=== PATIENT | female | born 1935 | race Caucasian/White ===

== ENCOUNTER 2016-08-24 16:34 | Emergency (ER) | payer OTHER, MEDICARE ==
[~2016-08-24] VITALS: Ht 162.6 cm; Wt 74.0 kg
[~2016-08-24 16:34] MED LIST: ARC10 PO; LOSA1TAB38 PO; NTRARSCL; OMEP40CA PO; TYL325X PO
[2016-08-24 16:53] VITALS: TEMP 36.6; Ht 162.6 cm; Wt 74.0 kg
[2016-08-24] MEDS ORDERED: SODIUM CHLORIDE 0.9% 1000ML 1,000 ML IV STA (16:58)
[2016-08-24] MEDS ORDERED: ONDANSETRON INJ 2 MG/ML 2 ML VIAL IV STA (16:58)
--- NOTE | 2016-08-24 17:18 | EMERGENCY ROOM VISIT NOTE ---
History Report prepared by Inocencio: Inna Mueller Under the Supervision of: Dr. Guy Meza D.O. First contact with patient: 16:50 Chief Complaint: SYNCOPE (NEAR SYNCOPE) Stated Complaint: SYNCOPE Nursing Triage Summary: Pt brougth in via ambulance ALS. Pt was eating dinner. After dinner she looked upward and almost passed out. Family states that the pt became very pale, was unable to speak and had a blank stare. After about a minute the pt then vomited and started to speak. Pt stated that she felt very weak and disoriented after this episode. Pt does have a cardiac history. Pt stable en route. History of Present Illness The patient is a 81 year old female who presents to the Emergency Room with complaints of a resolved near syncope episodes occurring [employer]. The patient's family states that they were out to eat at a restaurant and after eating more than she usually does he noticed that she was pale with a blank stare and was not able to speak . He states that after about a minute the patient vomited and then she appeared to started to appear to return to her normal state and after about 5 minutes she was back to complete normal, and that she never appeared confused. The patient states that she is feeling nauseous but denies any chest pain, abdominal pain, headache, SOB, or leg pain and swelling. Her family states that the patient had a similar episode of near syncope in February and she was treated for dehydration. The patient states she was prescribed levofloxacin for cold symptoms that started 3 weeks ago. Source of History: patient, family Onset: [employer] Position: other (global) Timing: resolved Associated Symptoms: + nausea, + vomiting, No SOB, No abdominal pain, No chest pain, No headache Note: Patient denies leg pain or swelling. Review of Systems See HPI for pertinent positives & negatives. A total of 10 systems reviewed and were otherwise negative. 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, primary osteoarthritis of the pelvic region and thigh (14) New onset a-fib Surgical Problems: (1) S/P hip replacement (2) S/P lumbar spinal fusion Family History Bleeding disorder Cancer Depression Diabetes mellitus Hypertension Seizures Stroke Social History Smoking Status: Never Smoker Alcohol Use: none Drug Use: none Marital Status: Housing Status: lives with family Occupation Status: retired Current/Historical Medications Scheduled Atorvastatin (Lipitor), 40 MG PO HS Bumetanide (Bumex), 2 MG PO DAILY Donepezil HCl (Donepezil HCl), 10 MG PO HS Hydralazine Hcl (Apresoline), 50 MG PO TID Isosorbide Mononitrate Ext Rel (Imdur Ext Rel), 60 MG PO QAM Levofloxacin (Levaquin), 500 MG PO DAILY Losartan Potassium (Cozaar), 100 MG PO DAILY Memantine (Namenda), 5 MG PO BID Mirabegron (Myrbetriq), 25 MG PO QAM Omeprazole (Prilosec), 40 MG PO BID Ranolazine (Ranexa), 1,000 TAB PO BID Scheduled PRN Acetaminophen (Tylenol), 650 MG PO Q4H PRN for Pain or Fever Polyethylene Glycol 3350 (Miralax), 17 GM PO DAILY PRN for Constipation Miscellaneous Medications Nitroglycerin (Nitrolingual Pumpspray), 1 SPRAY NA Allergies Coded Allergies: Ampicillin (Verified Allergy, Intermediate, RASH, HIVES, 06/10/16) Furosemide (Verified Allergy, Intermediate, SHORTNESS OF BREATH,throat itching, 06/14/16) Apixaban (Unverified Allergy, Unknown, UNKNOWN, 06/10/16) Cyclobenzaprine (Verified Allergy, Unknown, Unknown rxn, 06/10/16) Ibuprofen (Verified Allergy, Unknown, UNKNOWN, 06/10/16) Lisinopril (Verified Allergy, Unknown, UNKNOWN, 06/10/16) Methylprednisolone (Verified Allergy, Unknown, UNKNOWN, 06/10/16) Propoxyphene (Verified Allergy, Unknown, UNKNOWN, 06/10/16) Tramadol (Verified Allergy, Unknown, UNKNOWN, 06/10/16) SOAPCLEAN (Verified Adverse Reaction, Mild, Changing wipe - itchy rash, ) Uncoded Allergies: EPIDURAL STEROID INJECTIONS (Allergy, Unknown, ., 05/23/16) Physical Exam Vital Signs Date Time Temp Pulse Resp B/P Pulse Ox O2 Delivery O2 Flow Rate FiO2 1/8/17 19:34 72 20 130/64 99 Room Air 08/24/16 18:29 96 Room Air 08/24/16 17:37 80 08/24/16 17:33 69 18 144/54 96 Room Air 67 140/59 80 132/74 08/24/16 17:33 80 18 132/74 96 Room Air 08/24/16 16:53 36.6 71 20 120/49 95 Room Air Physical Exam GENERAL: Patient is awake, alert, and in no acute distress. Patient is resting comfortably and showing no signs of anxiety EYES: The conjunctivae are clear. The pupils were constricted but reactive to light bilaterally. EARS, NOSE, MOUTH AND THROAT: The nose is without any evidence of any deformity. Mucous membranes are dry tongue is midline NECK: The neck is nontender and supple. RESPIRATORY: Normal respiratory effort is noted there is no evidence of wheezing rhonchi or rales CARDIOVASCULAR: Bradycardia rate and regular rhythm noted there a systolic murmur suggested to auscultation. GASTROINTESTINAL: The abdomen is mildly distended but soft, mild epigastric tenderness to palpations with no guarding or rigidity. Bowel sounds are present in all quadrants. Abdomen is nontender MUSCULOSKELETAL/EXTREMITIES: There is no evidence of gross deformity full range of motion is noted in the hips and shoulders SKIN: There is no obvious evidence of any rash. There are no petechiae, pallor or cyanosis noted. Trace pedal edema bilaterally. NEUROLOGIC: Patient is awake alert and oriented x3 strength is symmetric. Medical Decision & Procedures ER Provider Diagnostic Interpretation: X-ray results as stated below per interpretation by me and the radiologist. CHEST ONE VIEW PORTABLE CLINICAL HISTORY: Altered mental status. Shortness of breath. COMPARISON STUDY: Chest radiograph June 13, 2016. FINDINGS: There are median sternotomy wires and clips from bypass grafting. No pneumothorax or pleural effusion is present. Cardiomegaly is unchanged. There is no evidence of pulmonary edema. The appearance of the chest is unchanged. IMPRESSION: No acute cardiopulmonary findings. No change in appearance of the chest. Electronically signed by: Terell Burk M.D. 08/24/2016 5:41 PM Dictated Date/Time: 08/24/2016 5:[address] results as stated below per my review and radiologist interpretation. CT OF THE ABDOMEN AND PELVIS WITHOUT CONTRAST CLINICAL HISTORY: Epigastric pain and syncope. COMPARISON STUDY: CT of the abdomen and pelvis June 30, 2016. TECHNIQUE: Axial images of the abdomen and pelvis were obtained without IV contrast. Images were reviewed in the axial, sagittal, and coronal planes. FINDINGS: The heart is moderately enlarged. Evaluation of the abdomen and pelvis is suboptimal on this unenhanced exam. There is a small hiatal hernia. There are multiple gallstones within the gallbladder. Unenhanced images of liver, spleen, adrenal glands, kidneys and pancreas are normal. There is no biliary or pancreatic ductal dilatation. There is no pericholecystic or peripancreatic infiltration. No hydronephrosis is present. There is colonic diverticulosis without evidence for acute diverticulitis. A moderate to large amount of stool is noted within the rectum. Postsurgical findings within the spine are noted. There is a left hip arthroplasty. No ascites is present. There is no lymphadenopathy. Extensive vascular calcification is present. IMPRESSION: 1. No acute process within the abdomen or pelvis on unenhanced exam. 2. Cholelithiasis. 3. No urinary calculi or hydronephrosis. 4. Colonic diverticulosis without evidence of acute diverticulitis. 5. Moderate to large amount stool within the rectum. Electronically signed by: Terell Burk M.D. 08/24/2016 6:19 PM Dictated Date/Time: 08/24/2016 6:11 PM Laboratory Results 08/24/16 17:33 Red Blood Count 3.12, Mean Corpuscular Volume 94.9, Mean Corpuscular Hemoglobin 34.0, Mean Corpuscular Hemoglobin Concent 35.8, Mean Platelet Volume 8.9, Neutrophils (%) (Auto) 74.7, Lymphocytes (%) (Auto) 13.9, Monocytes (%) (Auto) 9.9, Eosinophils (%) (Auto) 0.6, Basophils (%) (Auto) 0.3, Neutrophils # (Auto) 5.88, Lymphocytes # (Auto) 1.09, Monocytes # (Auto) 0.78, Eosinophils # (Auto) 0.05, Basophils # (Auto) 0.02 08/24/16 17:33 Test 08/24/16 17:33 08/24/16 18:40 White Blood Count 7.87 K/uL (4.8-10.8) Red Blood Count 3.12 M/uL (4.2-5.4) Hemoglobin 10.6 g/dL (12.0-16.0) Hematocrit 29.6 % (37-47) Mean Corpuscular Volume 94.9 fL (80-100) Mean Corpuscular Hemoglobin 34.0 pg (25-34) Mean Corpuscular Hemoglobin Concent 35.8 g/dl (32-36) Platelet Count 257 K/uL (130-400) Mean Platelet Volume 8.9 fL (7.4-10.4) Neutrophils (%) (Auto) 74.7 % Lymphocytes (%) (Auto) 13.9 % Monocytes (%) (Auto) 9.9 % Eosinophils (%) (Auto) 0.6 % Basophils (%) (Auto) 0.3 % Neutrophils # (Auto) 5.88 K/uL (1.4-6.5) Lymphocytes # (Auto) 1.09 K/uL (1.2-3.4) Monocytes # (Auto) 0.78 K/uL (0.11-0.59) Eosinophils # (Auto) 0.05 K/uL (0-0.5) Basophils # (Auto) 0.02 K/uL (0-0.2) RDW Standard Deviation 44.1 fL (36.4-46.3) RDW Coefficient of Variation 13.0 % (11.5-14.5) Immature Granulocyte % (Auto) 0.6 % Immature Granulocyte # (Auto) 0.05 K/uL (0.00-0.02) Prothrombin Time 11.1 SECONDS (9.0-12.0) Prothromb Time International Ratio 1.0 (0.9-1.1) Activated Partial Thromboplast Time 24.9 SECONDS (21.0-31.0) Partial Thromboplastin Ratio 1.0 Anion Gap 12.0 mmol/L (3-11) Est Creatinine Clear Calc Drug Dose 26.3 ml/min Estimated GFR () 34.2 Estimated GFR (Non- 29.5 BUN/Creatinine Ratio 17.6 (10-20) Calcium Level 8.7 mg/dl (8.5-10.1) Phosphorus Level 2.0 mg/dl (2.5-4.9) Magnesium Level 2.6 mg/dl (1.8-2.4) Total Bilirubin 0.5 mg/dl (0.2-1) Direct Bilirubin < 0.1 mg/dl (0-0.2) Aspartate Amino Transf (AST/SGOT) 29 U/L (15-37) Alanine Aminotransferase (ALT/SGPT) 24 U/L (12-78) Alkaline Phosphatase 80 U/L (45-117) Total Creatine Kinase 176 U/L (26-192) Creatine Kinase MB 1.5 ng/ml (0.5-3.6) Creatine Kinase MB Ratio 0.9 (0-3.0) Troponin I 0.021 ng/ml (0-0.045) Total Protein 6.7 gm/dl (6.4-8.2) Albumin 2.7 gm/dl (3.4-5.0) Thyroid Stimulating Hormone (TSH) 2.000 uIu/ml (0.300-4.500) Free Thyroxine 1.07 ng/dl (0.80-1.60) Urine Color YELLOW Urine Appearance CLEAR (CLEAR) Urine pH 7.5 (4.5-7.5) Urine Specific [place] 1.016 (1.000-1.030) Urine Protein 1+ (NEG) Urine Glucose (UA) NEG (NEG) Urine Ketones NEG (NEG) Urine Occult Blood NEG (NEG) Urine Nitrite NEG (NEG) Urine Bilirubin NEG (NEG) Urine Urobilinogen NEG (NEG) Urine Leukocyte Esterase TRACE (NEG) Urine WBC (Auto) 1-5 /hpf (0-5) Urine RBC (Auto) 0-4 /hpf (0-4) Urine Hyaline Casts (Auto) 1-5 /lpf (0-5) Urine Epithelial Cells (Auto) >30 /lpf (0-5) Urine Bacteria (Auto) NEG (NEG) Laboratory results per my review. Medications Administered Medications (Trade) Dose Ordered Sig/Meenakshi Route Start Time Stop Time Status Last Admin Dose Admin Sodium Chloride (Nss 1000ml) 1,000 ml @ 999 mls/hr Q1H1M STAT IV 08/24/16 16:58 08/24/16 17:58 DC 08/24/16 17:25 999 MLS/HR Ondansetron HCl (Zofran Inj) 4 mg NOW STAT IV 08/24/16 16:58 08/24/16 17:01 DC 08/24/16 17:25 4 MG ECG Indication: syncope Rate (beats per minute): 63 Rhythm: atrial fibrillation Findings: T-wave inversion (Anterior), no ectopy Comparison ECG Date: June 11, 2016 Change: Changes are new compared to previous. ED Course 1650: The patient was evaluated in room C4. A complete history and physical examination were performed. 165: Ordered Ondansetron HCl 4 mg IV, NSS 1,000 ml @ 999 mls/hr IV 1840: Upon reevaluation, the patient is feeling much better. I discussed the results and treatment plan with her. She verbalized agreement of the treatment plan. The patient was discharged home. Medical Decision Differential diagnosis: Etiologies such as vasovagal event, infection, hypoglycemia, electrolyte abnormalities, cardiac sources, intracerebral event, toxicologic, neurologic, as well as others were entertained. Nursing notes reviewed. Additional history is obtained from the patient's family members. The patient is an 81-year-old female who had a episode of syncope. The patient had some vague nausea and abdominal pain. She had epigastric tenderness on physical exam did not have an acute surgical abdomen. CAT scan the abdomen did not reveal any signs of AAA. The patient appeared to be dehydrated by laboratory studies. Her initial EKG showed a bradycardic rhythm which was somewhat similar to earlier EKGs but there was difficulty in identifying a P- wave. The patient was treated with IV fluids and IV antiemetics. On subsequent reevaluation she was feeling much better. Her blood pressure was improved. Her heart rate improved as well. I discussed the patient's laboratory and radiographic studies with her and her family members. She has a follow-up when is scheduled with her primary care physician and is already scheduled to have repeat laboratory studies. She was encouraged to drink plenty clear liquids and continue all medications as prescribed. She was also encouraged to follow-up with her primary care physician as scheduled. She was also encouraged return to the emergency department immediately if symptoms change worsen or the need arises. The patient was feeling much better on final reevaluation was comfortable going home. Impression Primary Impression: Syncope Additional Impressions: Bradycardia, Dehydration Scribe Attestation The scribe's documentation has been prepared under my direction and personally reviewed by me in its entirety. I confirm that the note above accurately reflects all work, treatment, procedures, and medical decision making performed by me. Departure Information Dispostion Home / Self-Care Referrals Shameka Myers (PCP) Forms HOME CARE DOCUMENTATION FORM, IMPORTANT VISIT INFORMATION Patient Instructions A Signature Page, My [facility] Additional Instructions Call your family in the morning to schedule a follow-up appointment. Follow- up for your laboratory studies this week as scheduled. Continue drinking plenty clear liquids. Rest and avoid any strenuous activity. Return to the emergency department immediately if symptoms change worsen or the need arises.
[2016-08-24] MEDS ORDERED: LEVO1TAB33 PO (17:32)
--- NOTE | 2016-08-24 17:43 | DIAGNOSTIC IMAGING REPORT ---
CHEST ONE VIEW PORTABLE CLINICAL HISTORY: Altered mental status. Shortness of breath. COMPARISON STUDY: Chest radiograph June 13, 2016. FINDINGS: There are median sternotomy wires and clips from bypass grafting. No pneumothorax or pleural effusion is present. Cardiomegaly is unchanged. There is no evidence of pulmonary edema. The appearance of the chest is unchanged. IMPRESSION: No acute cardiopulmonary findings. No change in appearance of the chest. Electronically signed by: Terell Burk M.D. 08/24/2016 5:41 PM Dictated Date/Time: 08/24/2016 5:41 PM
[2016-08-24 17:48] LABS: BASO % 0.3 %; BASO ABS # 0.02 K/uL (0-0.2); COMPLETE YES; EOS % 0.6 %; HEMATOCRIT 29.6 % (37-47); IG% 0.6 %; LYMPH % 13.9 %; LYMPH ABS # 1.09 K/uL (1.2-3.4); MEAN CELL VOLUME 94.9 fL (80-100); MEAN CORPUSCULAR HGB CONC 35.8 g/dl (32-36); MEAN PLATELET VOLUME 8.9 fL (7.4-10.4); MONO % 9.9 %; NEUT % 74.7 %; PLATELET COUNT 257 K/uL (130-400); RED BLOOD COUNT 3.12 M/uL (4.2-5.4); WHITE BLOOD COUNT 7.87 K/uL (4.8-10.8)
[2016-08-24 17:59] LABS: PROTHROMBIN TIME (PATIENT) 11.1 SECONDS (9.0-12.0)
[2016-08-24 18:05] LABS: ALT/SGPT 24 U/L (12-78); BLOOD UREA NITROGEN 28 mg/dl (7-18); BUN/CREATININE RATIO 17.6 (10-20); CALCIUM 8.7 mg/dl (8.5-10.1); CARBON DIOXIDE 26 mmol/L (21-32); CHLORIDE 106 mmol/L (98-107); GLUCOSE 116 mg/dl (70-99); MAGNESIUM 2.6 mg/dl (1.8-2.4); SODIUM 144 mmol/L (136-145)
[2016-08-24 18:15] LABS: ALKALINE PHOSPHATASE 80 U/L (45-117); AST/SGOT 29 U/L (15-37); CKMB/CK RATIO 0.9 (0-3.0)
--- NOTE | 2016-08-24 18:21 | DIAGNOSTIC IMAGING REPORT ---
CT OF THE ABDOMEN AND PELVIS WITHOUT CONTRAST CLINICAL HISTORY: Epigastric pain and syncope. COMPARISON STUDY: CT of the abdomen and pelvis June 30, 2016. TECHNIQUE: Axial images of the abdomen and pelvis were obtained without IV contrast. Images were reviewed in the axial, sagittal, and coronal planes. FINDINGS: The heart is moderately enlarged. Evaluation of the abdomen and pelvis is suboptimal on this unenhanced exam. There is a small hiatal hernia. There are multiple gallstones within the gallbladder. Unenhanced images of liver, spleen, adrenal glands, kidneys and pancreas are normal. There is no biliary or pancreatic ductal dilatation. There is no pericholecystic or peripancreatic infiltration. No hydronephrosis is present. There is colonic diverticulosis without evidence for acute diverticulitis. A moderate to large amount of stool is noted within the rectum. Postsurgical findings within the spine are noted. There is a left hip arthroplasty. No ascites is present. There is no lymphadenopathy. Extensive vascular calcification is present. IMPRESSION: 1. No acute process within the abdomen or pelvis on unenhanced exam. 2. Cholelithiasis. 3. No urinary calculi or hydronephrosis. 4. Colonic diverticulosis without evidence of acute diverticulitis. 5. Moderate to large amount stool within the rectum. Electronically signed by: Terell Burk M.D. 08/24/2016 6:19 PM Dictated Date/Time: 08/24/2016 6:11 PM
[2016-08-24 18:29] VITALS: O2SAT 96
[2016-08-24 19:01] LABS: URINE APPEARANCE CLEAR (CLEAR); URINE BILIRUBIN NEG (NEG); URINE COLOR YELLOW; URINE EPITHELIAL CELL AUTO >30 /lpf (0-5); URINE NITRITE NEG (NEG); URINE PH 7.5 (4.5-7.5); URINE SPECIFIC GRAVITY 1.016 (1.000-1.030); UROBILINOGEN NEG (NEG)
[2016-08-24 19:02] LABS: MANUAL MICROSCOPIC REQUIRED? NO; REVIEW REQ? NO
[2016-08-24 19:03] LABS: SULFASALICYLIC ACID POS (NEG)
[2016-08-24 19:34] VITALS: BP 130/64; PULSE 72; O2SAT 99
[2016-11-17] MEDS ORDERED: ISOS60TA25 PO (11:30)
[2016-11-17] MEDS ORDERED: NMN5 PO (13:23)
[2016-11-17] MEDS ORDERED: DONE10TA12 PO (13:30)
[2016-11-17] MEDS ORDERED: LOSA50TA6 PO (13:30)
[2016-11-17] MEDS ORDERED: MULT-506 PO (13:30)
[2016-11-17] MEDS ORDERED: OMEG10007 PO (13:30)
[2016-11-17] MEDS ORDERED: NITR0.4S74 (13:34)
[2016-11-17] MEDS ORDERED: MONT1TAB3 PO (13:38)
[2016-11-17] MEDS ORDERED: ESOM20CA PO (13:39)
[2016-11-17] MEDS ORDERED: ATOR-24 PO (13:55)
[2016-11-17] MEDS ORDERED: HYDR-4717 PO (14:55)
[2016-11-17] MEDS ORDERED: MIRA100T PO (16:44)
[2016-11-17] MEDS ORDERED: POLY335019 PO (16:44)
[2016-11-17] MEDS ORDERED: RANO1000 PO (21:41)
== END 2016-08-24 19:49 | disposition home or self-care (01) ==
LOC: EDBD 16:34 → C.EDC 16:37
DX: R55 Syncope and collapse (principal); R00.1 Bradycardia, unspecified; E86.0 Dehydration; N17.9 Acute kidney failure, unspecified; D64.9 Anemia, unspecified; I25.10 Atherosclerotic heart disease of native coronary artery without angina pectoris; I48.91 Unspecified atrial fibrillation; E78.00 Pure hypercholesterolemia, unspecified; I10 Essential (primary) hypertension; Z86.718 Personal history of other venous thrombosis and embolism; M19.90 Unspecified osteoarthritis, unspecified site; Z80.9 Family history of malignant neoplasm, unspecified; Z83.3 Family history of diabetes mellitus; Z82.49 Family history of ischemic heart disease and other diseases of the circulatory system; Z88.0 Allergy status to penicillin; Z79.899 Other long term (current) drug therapy; Z79.2 Long term (current) use of antibiotics

== ENCOUNTER → 2016-10-14 | Outpatient (CLI) | payer OTHER, MEDICARE ==
[~2016-10-14] MED LIST changes: +ATOR-24 PO; +BUME2TAB3 PO; +DONE10TA12 PO; +ESOM20CA PO; +HYDR-4717 PO; +ISOS60TA25 PO; +LEVO1TAB33 PO; +LOSA50TA6 PO; +MIRA100T PO; +MONT1TAB3 PO; +MULT-506 PO; +NITR0.4S74; +NMN5 PO; +OMEG10007 PO; +POLY335019 PO; +RANO1000 PO
[2016-10-14 13:27] LABS: BASO % 0.4 %; BASO ABS # 0.02 K/uL (0-0.2); COMPLETE YES; EOS % 1.5 %; HEMATOCRIT 31.6 % (37-47); IG% 0.4 %; LYMPH % 29.4 %; LYMPH ABS # 1.39 K/uL (1.2-3.4); MEAN CELL VOLUME 99.7 fL (80-100); MEAN CORPUSCULAR HEMOGLOBIN 33.8 pg (25-34); MEAN CORPUSCULAR HGB CONC 33.9 g/dl (32-36); MEAN PLATELET VOLUME 9.9 fL (7.4-10.4); MONO % 11.4 %; NEUT % 56.9 %; PLATELET COUNT 272 K/uL (130-400); RED BLOOD COUNT 3.17 M/uL (4.2-5.4); WHITE BLOOD COUNT 4.73 K/uL (4.8-10.8)
[2016-10-14 13:39] LABS: ALT/SGPT 24 U/L (12-78); BLOOD UREA NITROGEN 24 mg/dl (7-18); BUN/CREATININE RATIO 19.8 (10-20); CALCIUM 9.3 mg/dl (8.5-10.1); CARBON DIOXIDE 21 mmol/L (21-32); CHLORIDE 106 mmol/L (98-107); GLUCOSE 94 mg/dl (70-99); POTASSIUM 4.1 mmol/L (3.5-5.1); SODIUM 138 mmol/L (136-145)
[2016-10-14 13:41] LABS: ALB/GLOB RATIO 0.9 (0.9-2); ALKALINE PHOSPHATASE 67 U/L (45-117); AST/SGOT 23 U/L (15-37)
[2016-10-14 13:53] LABS: CHOLESTEROL/HDL RATIO 2.4; FERRITIN 346.9 ng/ml (8.0-388.0); MAGNESIUM 2.3 mg/dl (1.8-2.4); THYROID STIMULATING HORMONE 1.98 uIu/ml (0.300-4.500)
[2016-10-16 01:52] LABS: EAG mmol/L 5.4 CALC
[2016-10-17 10:56] LABS: ALTERNARIA CLASS 0; ALTERNARIA IGE <0.10 KU/L; ASH (WHITE) CLASS 0; ASH (WHITE) IGE <0.10 KU/L; ASPERG FUMIG CLASS 0; ASPERG FUMIG IGE <0.10 KU/L; BIRCH CLASS 0; CASHEW CLASS 0; CASHEW IGE <0.10 KU/L; CAT DANDER CLASS 0; CLADOSPORIUM HER CLASS 0; CLADOSPORIUM HER IGE <0.10 KU/L; CODFISH CLASS 0; D. FARINAE CLASS 0; D. FARINAE IGE <0.10 KU/L; D. PTERONYSSINUS CLASS 0; D. PTERONYSSINUS IGE <0.10 KU/L; DOG DANDER CLASS 0; EGG WHITE CLASS 0; EGG WHITE IGE <0.10 KU/L; ELM CLASS 0; ENGLISH PLAN CLASS 0; ENGLISH PLAN IGE <0.10 KU/L; GIANT RAGWEED CLASS 0; GIANT RAGWEED IGE <0.10 KU/L; HAZELNUT CLASS 0; HOUSE DUST HOLLISTER-STIER C 0; HOUSEDUST HOLLIST-STIER IGE <0.10 KU/L; JUNE (KENTUCKY BLUE) CLASS 0; JUNE IGE <0.10 KU/L; LAMB'S QUARTER CLASS 0; LAMB'S QUARTER IGE <0.10 KU/L; MAPLE (BOX ELDER) IGE <0.10 KU/L; MAPLE CLASS 0; OAK- WHITE CLASS 0; OAK- WHITE IGE <0.10 KU/L; ORCHARD GRASS CLASS 0; ORCHARD GRASS IGE <0.10 KU/L; PEANUT IGE <0.10 KU/L; PENIC NOTATUM CLASS 0; PENIC NOTATUM IGE <0.10 KU/L; RAST ALMOND CLASS 0; RAST ALMOND IGE <0.10 KU/L; RAST HAZELNUT IGE <0.10 KU/L; RUSSIAN THISTLE CLASS 0; RUSSIAN THISTLE IGE <0.10 KU/L; SALMON CLASS 0; SALMON IGE <0.10 KU/L; SCALLOP CLASS 0; SCALLOP IGE <0.10 KU/L; SESAME CLASS 0; SESAME IGE <0.10 KU/L; SHORT RAGWEED CLASS 0; SHORT RAGWEED IGE <0.10 KU/L; SHRIMP CLASS 0; SOY CLASS 0; SOY IGE <0.10 KU/L; TIMOTHY CLASS 0; TIMOTHY IGE <0.10 KU/L; TUNA CLASS 0; TUNA IGE <0.10 KU/L; WALNUT CLASS 0; WHEAT CLASS 0; WHEAT IGE <0.10 KU/L
== END | disposition home or self-care (01) ==
LOC: C.LABPBG 09:11
PROVIDERS: ATTEND Internal Medicine Nephrology
DX: E11.21 Type 2 diabetes mellitus with diabetic nephropathy (principal); D51.1 Vitamin B12 deficiency anemia due to selective vitamin B12 malabsorption with proteinuria; E55.9 Vitamin D deficiency, unspecified; E03.9 Hypothyroidism, unspecified; I10 Essential (primary) hypertension; E78.5 Hyperlipidemia, unspecified; M48.06 Spinal stenosis, lumbar region; G31.84 Mild cognitive impairment of uncertain or unknown etiology; K21.0 Gastro-esophageal reflux disease with esophagitis

== ENCOUNTER 2016-11-17 12:50 | Emergency (ER) | payer OTHER, MEDICARE ==
[~2016-11-17] VITALS: Ht 162.6 cm; Wt 73.0 kg
[2016-11-17 12:50] VITALS: TEMP 36.6; Ht 162.6 cm; Wt 73.0 kg
[~2016-11-17 12:50] MED LIST changes: -ATOR-24 PO; -BUME2TAB3 PO; -DONE10TA12 PO; -ESOM20CA PO; -HYDR-4717 PO; -ISOS60TA25 PO; -LOSA50TA6 PO; -MIRA100T PO; -MONT1TAB3 PO; -MULT-506 PO; -NITR0.4S74; -NMN5 PO; -OMEG10007 PO; -POLY335019 PO; -RANO1000 PO
[2016-11-17 12:55] VITALS: O2SAT 95
[2016-11-17] MEDS ORDERED: MECLIZINE HCL 25 MG TAB PO STA (13:12)
[2016-11-17] MEDS ORDERED: SODIUM CHLORIDE 0.9% 1000ML 1,000 ML IV STA (13:12)
[2016-11-17 13:21] LABS: BASO % 0.3 %; BASO ABS # 0.02 K/uL (0-0.2); COMPLETE YES; EOS % 1.5 %; HEMATOCRIT 30.8 % (37-47); IG% 0.3 %; LYMPH % 28.1 %; MEAN CELL VOLUME 96.3 fL (80-100); MEAN CORPUSCULAR HEMOGLOBIN 33.8 pg (25-34); MEAN CORPUSCULAR HGB CONC 35.1 g/dl (32-36); MEAN PLATELET VOLUME 9.7 fL (7.4-10.4); NEUT % 57.8 %; PLATELET COUNT 225 K/uL (130-400); WHITE BLOOD COUNT 6.06 K/uL (4.8-10.8)
[2016-11-17 13:33] LABS: PROTHROMBIN TIME (PATIENT) 10.4 SECONDS (9.0-12.0)
--- NOTE | 2016-11-17 13:33 | DIAGNOSTIC IMAGING REPORT ---
CHEST ONE VIEW PORTABLE CLINICAL HISTORY: near syncope mental status change COMPARISON STUDY: 08/24/2016 FINDINGS: Prior median sternotomy. Mild primary megaly. Lungs are clear. Diaphragms are smooth. IMPRESSION: Mild cardiomegaly. Otherwise negative study Electronically signed by: Cristobal Montano M.D. 11/17/2016 1:31 PM Dictated Date/Time: 11/17/2016 1:31 PM
[2016-11-17 13:39] LABS: CALCIUM 9.1 mg/dl (8.5-10.1); CREATININE 1.4 mg/dl (0.60-1.20); MAGNESIUM 2.3 mg/dl (1.8-2.4); POTASSIUM 4.3 mmol/L (3.5-5.1)
[2016-11-17 13:44] LABS: BUN/CREATININE RATIO 20.5 (10-20)
[2016-11-17] MEDS ORDERED: BUME2TAB3 PO (14:55)
[2016-11-17] MEDS ORDERED: ONDANSETRON INJ 2 MG/ML 2 ML VIAL IV STA (14:56)
--- NOTE | 2016-11-17 15:05 | EMERGENCY ROOM VISIT NOTE ---
ED Visit Note First contact with patient: 12:59 I have seen and examined this patient with Gala Montano and generally agree with the treatment plan as discussed. Problem List Medical Problems: (1) Acute kidney injury Status: Resolved (2) Coronary artery disease Status: Chronic (3) Diabetes Status: Chronic (4) DVT (deep venous thrombosis) Status: Resolved (5) Gastrointestinal hemorrhage Status: Resolved (6) Hypercholesteremia Status: Chronic (7) Hypertension Status: Chronic (8) Localized, primary osteoarthritis of the pelvic region and thigh Status: Chronic Surgical Problems: (1) S/P hip replacement Status: Resolved (2) S/P lumbar spinal fusion Status: Resolved Current/Historical Medications Scheduled Atorvastatin (Lipitor), 40 MG PO HS Bumetanide (Bumex), 2 MG PO DAILY Donepezil Hydrochloride (Aricept), 10 MG PO HS Esomeprazole Magnesium (Nexium), 20 MG PO DAILY Fish Oil (Taberg-3), 1 CAP PO DAILY Hydralazine Hcl (Apresoline), 50 MG PO TID Isosorbide Mononitrate Ext Rel (Imdur Ext Rel), 60 MG PO QAM Losartan Potassium (Cozaar), 50 MG PO DAILY Memantine (Namenda), 5 MG PO BID Mirabegron (Myrbetriq Er), 25 MG PO QAM Montelukast Sodium (Singulair), 10 MG PO DAILY Multivitamin (Multivitamin), 1 TAB PO DAILY Nitroglycerin (Nitrolingual Pumpspray), 1 SPRAY NA UD Ranolazine (Ranexa), 1,000 TAB PO BID Scheduled PRN Polyethylene Glycol 3350 (Miralax), 17 GM PO DAILY PRN for Constipation Allergies Coded Allergies: Ampicillin (Verified Allergy, Intermediate, RASH, HIVES, 11/17/16) Furosemide (Verified Allergy, Intermediate, SHORTNESS OF BREATH,throat itching, 11/17/16) Apixaban (Unverified Allergy, Unknown, UNKNOWN, 11/17/16) Cyclobenzaprine (Verified Allergy, Unknown, Unknown rxn, 11/17/16) Ibuprofen (Verified Allergy, Unknown, UNKNOWN, 11/17/16) Lisinopril (Verified Allergy, Unknown, UNKNOWN, 11/17/16) Methylprednisolone (Verified Allergy, Unknown, UNKNOWN, 11/17/16) Propoxyphene (Verified Allergy, Unknown, UNKNOWN, 11/17/16) Tramadol (Verified Allergy, Unknown, UNKNOWN, 11/17/16) SOAPCLEAN (Verified Adverse Reaction, Mild, Changing wipe - itchy rash, 11/17/16) Uncoded Allergies: EPIDURAL STEROID INJECTIONS (Allergy, Unknown, ., 05/23/16) Vital Signs Date Time Temp Pulse Resp B/P Pulse Ox O2 Delivery O2 Flow Rate FiO2 11/17/16 14:42 57 15 135/68 98 Room Air 11/17/16 12:55 63 11/17/16 12:55 95 Room Air 11/17/16 12:50 36.6 66 18 149/61 98 Room Air Laboratory Results 11/17/16 12:07 Red Blood Count 3.20, Mean Corpuscular Volume 96.3, Mean Corpuscular Hemoglobin 33.8, Mean Corpuscular Hemoglobin Concent 35.1, Mean Platelet Volume 9.7, Neutrophils (%) (Auto) 57.8, Lymphocytes (%) (Auto) 28.1, Monocytes (%) (Auto) 12.0, Eosinophils (%) (Auto) 1.5, Basophils (%) (Auto) 0.3, Neutrophils # (Auto ) 3.50, Lymphocytes # (Auto) 1.70, Monocytes # (Auto) 0.73, Eosinophils # (Auto ) 0.09, Basophils # (Auto) 0.02 11/17/16 12:07 Test 11/17/16 12:07 11/17/16 14:30 White Blood Count 6.06 K/uL (4.8-10.8) Red Blood Count 3.20 M/uL (4.2-5.4) Hemoglobin 10.8 g/dL (12.0-16.0) Hematocrit 30.8 % (37-47) Mean Corpuscular Volume 96.3 fL (80-100) Mean Corpuscular Hemoglobin 33.8 pg (25-34) Mean Corpuscular Hemoglobin Concent 35.1 g/dl (32-36) Platelet Count 225 K/uL (130-400) Mean Platelet Volume 9.7 fL (7.4-10.4) Neutrophils (%) (Auto) 57.8 % Lymphocytes (%) (Auto) 28.1 % Monocytes (%) (Auto) 12.0 % Eosinophils (%) (Auto) 1.5 % Basophils (%) (Auto) 0.3 % Neutrophils # (Auto) 3.50 K/uL (1.4-6.5) Lymphocytes # (Auto) 1.70 K/uL (1.2-3.4) Monocytes # (Auto) 0.73 K/uL (0.11-0.59) Eosinophils # (Auto) 0.09 K/uL (0-0.5) Basophils # (Auto) 0.02 K/uL (0-0.2) RDW Standard Deviation 45.2 fL (36.4-46.3) RDW Coefficient of Variation 12.9 % (11.5-14.5) Immature Granulocyte % (Auto) 0.3 % Immature Granulocyte # (Auto) 0.02 K/uL (0.00-0.02) Prothrombin Time 10.4 SECONDS (9.0-12.0) Prothromb Time International Ratio 1.0 (0.9-1.1) Activated Partial Thromboplast Time 25.8 SECONDS (21.0-31.0) Partial Thromboplastin Ratio 1.0 Anion Gap 10.0 mmol/L (3-11) Est Creatinine Clear Calc Drug Dose 29.8 ml/min Estimated GFR () 40.2 Estimated GFR (Non- 34.7 BUN/Creatinine Ratio 20.5 (10-20) Calcium Level 9.1 mg/dl (8.5-10.1) Magnesium Level 2.3 mg/dl (1.8-2.4) Total Bilirubin 0.6 mg/dl (0.2-1) Direct Bilirubin 0.1 mg/dl (0-0.2) Aspartate Amino Transf (AST/SGOT) 19 U/L (15-37) Alanine Aminotransferase (ALT/SGPT) 23 U/L (12-78) Alkaline Phosphatase 73 U/L (45-117) Total Creatine Kinase 54 U/L (26-192) Creatine Kinase MB 1.1 ng/ml (0.5-3.6) Creatine Kinase MB Ratio 2.0 (0-3.0) Total Protein 7.1 gm/dl (6.4-8.2) Albumin 3.3 gm/dl (3.4-5.0) Lipase 412 U/L (73-393) Bedside Troponin I 0.000 ng/ml (0-0.045) NO-Mvg-M-Type Natriuretic Peptide 695 pg/ml (0-1800) Medications Administered Medications (Trade) Dose Ordered Sig/Meenakshi Route Start Time Stop Time Status Last Admin Dose Admin Sodium Chloride (Nss 1000ml) 1,000 ml @ 999 mls/hr Q1H1M STAT IV 11/17/16 13:12 11/17/16 14:12 DC 11/17/16 14:17 999 MLS/HR Meclizine HCl (Antivert Tab) 25 mg NOW STAT PO 11/17/16 13:12 11/17/16 13:15 DC 11/17/16 14:16 25 MG Ondansetron HCl (Zofran Inj) 4 mg NOW STAT IV 11/17/16 14:56 11/17/16 14:59 DC 11/17/16 15:02 4 MG Departure Information Referrals Shameka Myers (PCP) Patient Instructions [facility]
[2016-11-17 17:00] VITALS: BP 139/69; PULSE 54; O2SAT 97
--- NOTE | 2016-11-17 17:07 | EMERGENCY ROOM VISIT NOTE ---
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 Denies any pain. Reports nausea and dizziness. History of Present Illness The patient is a 81 year old female who presents to the Emergency Room via ambulance with complaints of near syncopal episode. The patient states that she was at the [employer] and was just sitting when she started feeling dizzy and very weak. The patient states she felt slightly nauseated but no vomiting. The patient denies any associated headache, visual changes, loss of consciousness, chest pain or shortness of breath. The patient denies any change in bowel habits. The patient denies any recent cold symptoms or URI symptoms of frequency, urgency dysuria or hematuria. The patient does admit that she has had similar symptoms in the past. She thinks one time she might of been dehydrated. The last episode she remembers was in August. The patient has a diagnosis of diabetes but she states she is currently not on any medications. Her blood sugar in the ambulance was 166 in route to the hospital. She states today she had an apple and 2 pieces of fudge. She does admit that currently she feels "shaky". The patient denies any heart palpitations. She has a history of CAD with coronary bypass. She is currently followed by Dr. Novoa with [facility] cardiology. Review of Systems 10 system review was performed and was negative unless stated otherwise history of present illness. 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, primary osteoarthritis of the pelvic region and thigh (14) New onset a-fib Surgical Problems: (1) S/P hip replacement (2) S/P lumbar spinal fusion Family History Bleeding disorder Cancer Depression Diabetes mellitus Hypertension Seizures Stroke Social History Smoking Status: Never Smoker Alcohol Use: none Drug Use: none Marital Status: Housing Status: lives with family Occupation Status: retired Current/Historical Medications Scheduled Atorvastatin (Lipitor), 40 MG PO HS Bumetanide (Bumex), 2 MG PO DAILY Donepezil Hydrochloride (Aricept), 10 MG PO HS Esomeprazole Magnesium (Nexium), 20 MG PO DAILY Fish Oil ([place]-3), 1 CAP PO DAILY Hydralazine Hcl (Apresoline), 50 MG PO TID Isosorbide Mononitrate Ext Rel (Imdur Ext Rel), 60 MG PO QAM Losartan Potassium (Cozaar), 50 MG PO DAILY Memantine (Namenda), 5 MG PO BID Mirabegron (Myrbetriq Er), 25 MG PO QAM Montelukast Sodium (Singulair), 10 MG PO DAILY Multivitamin (Multivitamin), 1 TAB PO DAILY Nitroglycerin (Nitrolingual Pumpspray), 1 SPRAY NA UD Ranolazine (Ranexa), 1,000 TAB PO BID Scheduled PRN Polyethylene Glycol 3350 (Miralax), 17 GM PO DAILY PRN for Constipation Allergies Coded Allergies: Ampicillin (Verified Allergy, Intermediate, RASH, HIVES, 11/17/16) Furosemide (Verified Allergy, Intermediate, SHORTNESS OF BREATH,throat itching, 11/17/16) Apixaban (Unverified Allergy, Unknown, UNKNOWN, 11/17/16) Cyclobenzaprine (Verified Allergy, Unknown, Unknown rxn, 11/17/16) Ibuprofen (Verified Allergy, Unknown, UNKNOWN, 11/17/16) Lisinopril (Verified Allergy, Unknown, UNKNOWN, 11/17/16) Methylprednisolone (Verified Allergy, Unknown, UNKNOWN, 11/17/16) Propoxyphene (Verified Allergy, Unknown, UNKNOWN, 11/17/16) Tramadol (Verified Allergy, Unknown, UNKNOWN, 11/17/16) SOAPCLEAN (Verified Adverse Reaction, Mild, Changing wipe - itchy rash, 11/17/16) Uncoded Allergies: EPIDURAL STEROID INJECTIONS (Allergy, Unknown, ., 05/23/16) Physical Exam Vital Signs Date Time Temp Pulse Resp B/P Pulse Ox O2 Delivery O2 Flow Rate FiO2 11/17/16 14:42 57 15 135/68 98 Room Air 11/17/16 14:30 61 17 147/93 98 Room Air 11/17/16 12:55 63 11/17/16 12:55 95 Room Air 11/17/16 12:50 36.6 66 18 149/61 98 Room Air Physical Exam GENERAL: 81-year-old white female appears in no acute distress. MENTAL Status: Alert and oriented 3. EYES: PERRLA. EOMs intact. EARS: Canals clear. TMs without fluid level noted. NOSE: Nasal mucosa without erythema or engorgement. PHARYNX: No erythema or edema noted. Upper dentures in place. NECK: Supple, no lymphadenopathy noted. No carotid bruits noted. LUNGS: Clear auscultation without wheezes rales or rhonchi. CARDIAC: Bradycardia, regular rhythm with a 2/6 murmur noted. Pulses is full and equal throughout. ABDOMEN: Positive bowel sounds all 4 quadrants. Soft, nontender to palpation without organomegaly or masses. NEURO:Cranial nerves two through 12 intact. Cerebellar function intact with [id number]. Fine motor intact with alternating finger motions. LOWER EXTREMITIES: No cyanosis or edema noted. Calves are nontender. Medical Decision & Procedures ER Provider Diagnostic Interpretation: CHEST ONE VIEW PORTABLE CLINICAL HISTORY: near syncope mental status change COMPARISON STUDY: 08/24/2016 FINDINGS: Prior median sternotomy. Mild primary megaly. Lungs are clear. Diaphragms are smooth. IMPRESSION: Mild cardiomegaly. Otherwise negative study Electronically signed by: Cristobal Monatno M.D. 11/17/2016 1:31 PM Dictated Date/Time: 11/17/2016 1:31 PM Laboratory Results 11/17/16 12:07 Red Blood Count 3.20, Mean Corpuscular Volume 96.3, Mean Corpuscular Hemoglobin 33.8, Mean Corpuscular Hemoglobin Concent 35.1, Mean Platelet Volume 9.7, Neutrophils (%) (Auto) 57.8, Lymphocytes (%) (Auto) 28.1, Monocytes (%) (Auto) 12.0, Eosinophils (%) (Auto) 1.5, Basophils (%) (Auto) 0.3, Neutrophils # (Auto ) 3.50, Lymphocytes # (Auto) 1.70, Monocytes # (Auto) 0.73, Eosinophils # (Auto ) 0.09, Basophils # (Auto) 0.02 11/17/16 12:07 Test 11/17/16 12:07 11/17/16 14:30 White Blood Count 6.06 K/uL (4.8-10.8) Red Blood Count 3.20 M/uL (4.2-5.4) Hemoglobin 10.8 g/dL (12.0-16.0) Hematocrit 30.8 % (37-47) Mean Corpuscular Volume 96.3 fL (80-100) Mean Corpuscular Hemoglobin 33.8 pg (25-34) Mean Corpuscular Hemoglobin Concent 35.1 g/dl (32-36) Platelet Count 225 K/uL (130-400) Mean Platelet Volume 9.7 fL (7.4-10.4) Neutrophils (%) (Auto) 57.8 % Lymphocytes (%) (Auto) 28.1 % Monocytes (%) (Auto) 12.0 % Eosinophils (%) (Auto) 1.5 % Basophils (%) (Auto) 0.3 % Neutrophils # (Auto) 3.50 K/uL (1.4-6.5) Lymphocytes # (Auto) 1.70 K/uL (1.2-3.4) Monocytes # (Auto) 0.73 K/uL (0.11-0.59) Eosinophils # (Auto) 0.09 K/uL (0-0.5) Basophils # (Auto) 0.02 K/uL (0-0.2) RDW Standard Deviation 45.2 fL (36.4-46.3) RDW Coefficient of Variation 12.9 % (11.5-14.5) Immature Granulocyte % (Auto) 0.3 % Immature Granulocyte # (Auto) 0.02 K/uL (0.00-0.02) Prothrombin Time 10.4 SECONDS (9.0-12.0) Prothromb Time International Ratio 1.0 (0.9-1.1) Activated Partial Thromboplast Time 25.8 SECONDS (21.0-31.0) Partial Thromboplastin Ratio 1.0 Anion Gap 10.0 mmol/L (3-11) Est Creatinine Clear Calc Drug Dose 29.8 ml/min Estimated GFR () 40.2 Estimated GFR (Non- 34.7 BUN/Creatinine Ratio 20.5 (10-20) Calcium Level 9.1 mg/dl (8.5-10.1) Magnesium Level 2.3 mg/dl (1.8-2.4) Total Bilirubin 0.6 mg/dl (0.2-1) Direct Bilirubin 0.1 mg/dl (0-0.2) Aspartate Amino Transf (AST/SGOT) 19 U/L (15-37) Alanine Aminotransferase (ALT/SGPT) 23 U/L (12-78) Alkaline Phosphatase 73 U/L (45-117) Total Creatine Kinase 54 U/L (26-192) Creatine Kinase MB 1.1 ng/ml (0.5-3.6) Creatine Kinase MB Ratio 2.0 (0-3.0) Total Protein 7.1 gm/dl (6.4-8.2) Albumin 3.3 gm/dl (3.4-5.0) Lipase 412 U/L (73-393) Bedside Troponin I 0.000 ng/ml (0-0.045) RH-Wgh-[id number]-Type Natriuretic Peptide 695 pg/ml (0-1800) Medications Administered Medications (Trade) Dose Ordered Sig/Meenakshi Route Start Time Stop Time Status Last Admin Dose Admin Sodium Chloride (Nss 1000ml) 1,000 ml @ 999 mls/hr Q1H1M STAT IV 11/17/16 13:12 11/17/16 14:12 DC 11/17/16 14:17 999 MLS/HR Meclizine HCl (Antivert Tab) 25 mg NOW STAT PO 11/17/16 13:12 11/17/16 13:15 DC 11/17/16 14:16 25 MG Ondansetron HCl (Zofran Inj) 4 mg NOW STAT IV 11/17/16 14:56 11/17/16 14:59 DC 11/17/16 15:02 4 MG ECG Indication: weakness Rhythm: sinus bradycardia Findings: 1st degree AV block, no acute ischemic change, prolonged QT Change: no significant change (as compared to) ED Course The patient was evaluated. IV access had already been obtained in the ambulance. EKG was ordered and interpreted as above with no significant change from prior EKG of August 2016. The patient was placed on a monitor and continuous pulse ox. CBC and differential, renal profile, LFTs and lipase levels were ordered. Coags, CK-MB, [id number]-[id number] troponin and BNP was ordered. Urinalysis was ordered. Portable chest x-ray was ordered and interpreted by the radiologist and myself as above without any acute findings. The patient was given Antivert 25 mg by mouth. The patient's case was discussed with Dr. Hurley who independently evaluated the patient. The patient's labs are reviewed . The patient is anemic but are within her range of hemoglobin and hematocrit over the past 6 months. The patient's BUN and creatinine are elevated again these are similar to the her past. The patient was reevaluated. The patient states that her dizziness was better but she still felt nauseated. The patient was therefore given Zofran 4 mg IV push for nausea. The patient was reevaluated and stated she was feeling better except for she still felt a little shaky. The patient was given a sandwich, crackers and diet martin carlos. On reevaluation she states she felt much better. She was able to get up and ambulate with minimal assistance. The patient states she has a walker at home to aid in ambulation. She also has a family member who lives with her. The patient was discharged home in stable condition. Medical Decision Differential diagnosis Etiologies such as vasovagal event, infection, hypoglycemia, electrolyte abnormalities, cardiac sources, intracerebral event, toxicologic, neurologic, as well as others were entertained. Impression Primary Impression: Near syncope Departure Information Dispostion Home / Self-Care Condition GOOD Referrals Shameka Myers (PCP) Forms HOME CARE DOCUMENTATION FORM, IMPORTANT VISIT INFORMATION Patient Instructions My [facility] Additional Instructions Keep well-hydrated. Make sure you are eating at all meals. Use your walker to aid in ambulation. Follow-up with your family doctor in 2 days for recheck. If symptoms should worsen in the interim, return to ER.
[2016-11-17 17:37] LABS: URINE APPEARANCE CLEAR (CLEAR); URINE BILIRUBIN NEG (NEG); URINE COLOR YELLOW; URINE EPITHELIAL CELL AUTO >30 /lpf (0-5); URINE NITRITE NEG (NEG); URINE PH 6.5 (4.5-7.5); URINE SPECIFIC GRAVITY 1.015 (1.000-1.030); UROBILINOGEN NEG (NEG); ZZUR CULT IF INDIC CLEAN CATCH YES
[2016-11-17 17:44] LABS: MANUAL MICROSCOPIC REQUIRED? NO; REVIEW REQ? NO
[2017-05-26] MEDS ORDERED: ISOS60TA25 PO (11:30)
[2017-05-26] MEDS ORDERED: NMN5 PO (13:23)
[2017-05-26] MEDS ORDERED: MULT-506 PO (13:30)
[2017-05-26] MEDS ORDERED: OMEG10007 PO (13:30)
[2017-05-26] MEDS ORDERED: DONE10TA12 PO (13:30)
[2017-05-26] MEDS ORDERED: LOSA50TA6 PO (13:30)
[2017-05-26] MEDS ORDERED: NITR0.4S74 (13:34)
[2017-05-26] MEDS ORDERED: MONT1TAB3 PO (13:38)
[2017-05-26] MEDS ORDERED: ESOM20CA PO (13:39)
[2017-05-26] MEDS ORDERED: ATOR-24 PO (13:55)
[2017-06-05] MEDS ORDERED: DONE5TAB9 PO (08:07)
[2017-06-05] MEDS ORDERED: NXM/40 PO (08:08)
[2017-06-05] MEDS ORDERED: IMDSR/30 PO (08:12)
[2017-06-05] MEDS ORDERED: SULF800T23 PO (08:17)
[2017-06-05] MEDS ORDERED: DONE1TAB11 PO (08:17)
[2017-06-05] MEDS ORDERED: RIVA1TAB4 PO (08:17)
[2017-06-05] MEDS ORDERED: CEFD1CAP14 PO (08:18)
[2017-06-05] MEDS ORDERED: METO25TA3 PO (08:19)
[2017-06-05] MEDS ORDERED: CLOP1TAB15 PO (08:19)
[2017-06-05] MEDS ORDERED: GLC/500 PO (08:20)
[2017-06-05] MEDS ORDERED: RANI150T2 PO (08:21)
[2017-06-05] MEDS ORDERED: ERGO50002 PO (08:24)
[2017-06-05] MEDS ORDERED: MAGN400C3 PO (08:26)
[2017-06-05] MEDS ORDERED: POTA1CAP2 PO (08:27)
[2017-06-09] MEDS ORDERED: SULF800T23 PO (09:18)
[2017-06-10] MEDS ORDERED: DOXY100C76 PO (11:18)
[2017-06-12] MEDS ORDERED: ASPI81TA28 PO (11:26)
== END 2016-11-17 17:20 | disposition home or self-care (01) ==
LOC: EDBD 12:50 → C.EDB 12:51
DX: R55 Syncope and collapse (principal); R42 Dizziness and giddiness; R53.83 Other fatigue; R11.0 Nausea; I25.10 Atherosclerotic heart disease of native coronary artery without angina pectoris; I44.0 Atrioventricular block, first degree; E11.9 Type 2 diabetes mellitus without complications; E78.5 Hyperlipidemia, unspecified; I10 Essential (primary) hypertension; I48.91 Unspecified atrial fibrillation; D64.9 Anemia, unspecified; Z95.1 Presence of aortocoronary bypass graft; Z86.718 Personal history of other venous thrombosis and embolism; Z96.649 Presence of unspecified artificial hip joint; Z81.8 Family history of other mental and behavioral disorders; Z83.3 Family history of diabetes mellitus; Z82.49 Family history of ischemic heart disease and other diseases of the circulatory system; Z82.0 Family history of epilepsy and other diseases of the nervous system; Z82.3 Family history of stroke

== ENCOUNTER → 2016-12-24 | Outpatient (CLI) | payer OTHER, MEDICARE ==
[~2016-12-24] MED LIST changes: -ARC10 PO; +ASPI81TA28 PO; +ATOR-24 PO; +BUME1TAB PO; +BUME2TAB3 PO; +CEFD1CAP14 PO; +CLOP1TAB15 PO; +DONE10TA12 PO; +DONE1TAB11 PO; +DONE5TAB9 PO; +DOXY100C76 PO; +ERGO50002 PO; +ESOM20CA PO; +GLC/500 PO; +HYDR-4717 PO; +IMDSR/30 PO; +ISOS60TA25 PO; -LEVO1TAB33 PO; -LOSA1TAB38 PO; +LOSA50TA6 PO; +MAGN400C3 PO; +METO25TA3 PO; +MIRA100T PO; +MONT1TAB3 PO; +MULT-506 PO; +NITR0.4S74; +NMN5 PO; -NTRARSCL; +NXM/40 PO; +OMEG10007 PO; -OMEP40CA PO; +POLY335019 PO; +POTA1CAP2 PO; +RANI150T2 PO; +RANO1000 PO; +RIVA1.5T PO; +RIVA1TAB4 PO; +SULF800T23 PO; -TYL325X PO
[2016-12-24 17:46] LABS: BASO % 0.3 %; BASO ABS # 0.02 K/uL (0-0.2); COMPLETE YES; EOS % 1.1 %; IG% 0.2 %; LYMPH % 24.4 %; LYMPH ABS # 1.53 K/uL (1.2-3.4); MEAN CELL VOLUME 97.9 fL (80-100); MEAN CORPUSCULAR HEMOGLOBIN 33.3 pg (25-34); MEAN CORPUSCULAR HGB CONC 34.1 g/dl (32-36); MEAN PLATELET VOLUME 10.1 fL (7.4-10.4); MONO % 12.7 %; NEUT % 61.3 %; PLATELET COUNT 218 K/uL (130-400); RED BLOOD COUNT 3.27 M/uL (4.2-5.4); WHITE BLOOD COUNT 6.28 K/uL (4.8-10.8)
[2016-12-24 18:02] LABS: URINE APPEARANCE CLEAR (CLEAR); URINE BILIRUBIN NEG (NEG); URINE COLOR YELLOW; URINE EPITHELIAL CELL AUTO >30 /lpf (0-5); URINE NITRITE NEG (NEG); URINE SPECIFIC GRAVITY 1.011 (1.000-1.030); UROBILINOGEN NEG (NEG)
[2016-12-24 18:05] LABS: URINE PROTIEN/CREAT RATIO 0.8 (0-0.2); URINE TOTAL PROTEIN 22.5 mg/dl (0-11.9)
[2016-12-24 18:07] LABS: MANUAL MICROSCOPIC REQUIRED? NO; REVIEW REQ? NO
[2016-12-24 18:13] LABS: BLOOD UREA NITROGEN 30 mg/dl (7-18); BUN/CREATININE RATIO 21.6 (10-20); CALCIUM 9.4 mg/dl (8.5-10.1); CARBON DIOXIDE 24 mmol/L (21-32); CHLORIDE 109 mmol/L (98-107); GLUCOSE 93 mg/dl (70-99); PHOSPHORUS 3.8 mg/dl (2.5-4.9); POTASSIUM 3.9 mmol/L (3.5-5.1); SODIUM 142 mmol/L (136-145)
== END | disposition home or self-care (01) ==
LOC: C.LABPBG 12:26
PROVIDERS: ATTEND Nurse Practitioner
DX: E11.29 Type 2 diabetes mellitus with other diabetic kidney complication (principal); K21.0 Gastro-esophageal reflux disease with esophagitis; M48.06 Spinal stenosis, lumbar region; E78.5 Hyperlipidemia, unspecified; N18.3 Chronic kidney disease, stage 3 (moderate); D64.9 Anemia, unspecified; R80.9 Proteinuria, unspecified

== ENCOUNTER → 2017-02-10 | Outpatient (CLI) | payer OTHER, MEDICARE ==
[~2017-02-10] MED LIST changes: -ASPI81TA28 PO; -BUME1TAB PO; -CEFD1CAP14 PO; -CLOP1TAB15 PO; -DONE1TAB11 PO; -DONE5TAB9 PO; -DOXY100C76 PO; -ERGO50002 PO; -GLC/500 PO; -IMDSR/30 PO; -MAGN400C3 PO; -METO25TA3 PO; -NXM/40 PO; -POTA1CAP2 PO; -RANI150T2 PO; -RIVA1.5T PO; -RIVA1TAB4 PO; -SULF800T23 PO
[2017-02-10 12:32] LABS: BASO % 0.8 %; BASO ABS # 0.04 K/uL (0-0.2); COMPLETE YES; EOS % 1.5 %; HEMATOCRIT 32.2 % (37-47); IG% 0.4 %; LYMPH % 27.6 %; LYMPH ABS # 1.32 K/uL (1.2-3.4); MEAN CELL VOLUME 99.1 fL (80-100); MEAN CORPUSCULAR HEMOGLOBIN 33.5 pg (25-34); MEAN CORPUSCULAR HGB CONC 33.9 g/dl (32-36); MEAN PLATELET VOLUME 9.9 fL (7.4-10.4); MONO % 12.9 %; NEUT % 56.8 %; PLATELET COUNT 259 K/uL (130-400); RED BLOOD COUNT 3.25 M/uL (4.2-5.4); WHITE BLOOD COUNT 4.79 K/uL (4.8-10.8)
[2017-02-10 13:22] LABS: ESTIMATED AVERAGE GLUCOSE 103 mg/dl; HA1C FLAG Normal (Normal)
[2017-02-10 14:21] LABS: CALCIUM 9.4 mg/dl (8.5-10.1)
[2017-02-10 14:25] LABS: ALB/GLOB RATIO 0.9 (0.9-2); ALKALINE PHOSPHATASE 68 U/L (45-117); ALT/SGPT 26 U/L (12-78); AST/SGOT 22 U/L (15-37); BLOOD UREA NITROGEN 27 mg/dl (7-18); BUN/CREATININE RATIO 22.2 (10-20); CARBON DIOXIDE 26 mmol/L (21-32); CHLORIDE 109 mmol/L (98-107); CHOLESTEROL 185 mg/dl (0-200); CHOLESTEROL/HDL RATIO 2.5; GLUCOSE 100 mg/dl (70-99); HDL CHOLESTEROL 73 mg/dl; LDL CHOLESTEROL CALCULATED 73 mg/dl; MAGNESIUM 2.3 mg/dl (1.8-2.4); POTASSIUM 3.9 mmol/L (3.5-5.1); SODIUM 141 mmol/L (136-145); TRIGLYCERIDES 194 mg/dl (0-150); VERY LOW DENSITY LIPOPROT CALC 39 mg/dl
[2017-02-10 14:34] LABS: FERRITIN 252.3 ng/ml (8.0-388.0); TOTAL IRON BINDING CAPACITY 255 mcg/dl (250-450)
== END | disposition home or self-care (01) ==
LOC: C.LABPBG 10:22
PROVIDERS: ATTEND Nurse Practitioner
DX: E03.9 Hypothyroidism, unspecified (principal); E78.5 Hyperlipidemia, unspecified; I10 Essential (primary) hypertension

== ENCOUNTER → 2017-05-13 | Outpatient (CLI) | payer OTHER, MEDICARE ==
[~2017-05-13] MED LIST changes: +ASPI81TA28 PO; +BUME1TAB PO; +RIVA1.5T PO
[2017-05-13 13:06] LABS: MEAN CELL VOLUME 97.9 fL (80-100); MEAN CORPUSCULAR HEMOGLOBIN 33.3 pg (25-34); MEAN CORPUSCULAR HGB CONC 34.1 g/dl (32-36); PLATELET COUNT 212 K/uL (130-400); RED BLOOD COUNT 3.27 M/uL (4.2-5.4); WHITE BLOOD COUNT 6.72 K/uL (4.8-10.8)
[2017-05-13 13:33] LABS: BLOOD UREA NITROGEN 23 mg/dl (7-18); BUN/CREATININE RATIO 19.3 (10-20); CALCIUM 9.1 mg/dl (8.5-10.1); CARBON DIOXIDE 23 mmol/L (21-32); CHLORIDE 111 mmol/L (98-107); GLUCOSE 101 mg/dl (70-99); MAGNESIUM 2.1 mg/dl (1.8-2.4); POTASSIUM 4.1 mmol/L (3.5-5.1); SODIUM 142 mmol/L (136-145)
== END | disposition home or self-care (01) ==
LOC: C.LABPBG 09:57
PROVIDERS: ATTEND Nurse Practitioner
DX: H91.93 Unspecified hearing loss, bilateral (principal); I10 Essential (primary) hypertension; E03.9 Hypothyroidism, unspecified; E78.5 Hyperlipidemia, unspecified; Z95.5 Presence of coronary angioplasty implant and graft

== ENCOUNTER 2017-05-26 14:31 | Inpatient (IN) | payer OTHER, MEDICARE ==
[~2017-05-26] VITALS: Ht 160 cm; Wt 73.0 kg
[~2017-05-26 14:31] MED LIST changes: -ASPI81TA28 PO; -BUME1TAB PO; -HYDR-4717 PO; -MIRA100T PO; -POLY335019 PO; -RANO1000 PO; -RIVA1.5T PO
[2017-05-26] MEDS ORDERED: HYDR-4717 PO (14:55)
[2017-05-26] MEDS ORDERED: SODIUM CHLORIDE 0.9% 1000ML 1,000 ML IV STA (15:57)
--- NOTE | 2017-05-26 16:02 | EMERGENCY ROOM VISIT NOTE ---
History Report prepared by Inocencio: Devonte Edwards Under the Supervision of: Dr. Trudi Matta M.D. First contact with patient: 15:50 Chief Complaint: WEAKNESS Stated Complaint: WEAKNESS, SOB, DIZZY Nursing Triage Summary: triage note: Pt reports generalized weakness and difficulty ambulating. pt report nausea. pt denies pain. son report that pt has open skin on left hip. History of Present Illness The patient is a 82 year old female who presents to the Emergency Room with complaints of weakness that began three days ago. Her symptoms began suddenly at this time. She is also experiencing shortness of breath, shaking, nausea, and dizziness. She has a history of atrial fibrillation and started a blood thinner last week. She notes that she may have an upper GI bleed but has been actively checking her stool and urine for blood. She denies any headache, melena , or hematochezia. She has been eating foods, but has not been keeping up with her fluids. She has had a UTI in the past. She is on Bumex and notes frequent urination. She did mention that she experienced a fall two weeks ago before she was on her blood thinner. She tripped over a rug and hit her right shoulder and head. Source of History: patient Onset: this morning Position: other Symptom Intensity: moderate Quality: other (Weakness) Timing: worsening Associated Symptoms: + SOB, + nausea, No headache, No melena, No hematochezia Note: She is experiencing dizziness and shakiness as well. Review of Systems See HPI for pertinent positives & negatives. A total of 10 systems reviewed and were otherwise negative. Past Medical & Surgical Medical Problems: (1) Acute kidney injury (2) Acute renal failure (3) Anemia (4) ARF (acute renal failure) (5) Chest pain (6) Confusion and disorientation (7) Coronary artery disease (8) Diabetes (9) DVT (deep venous thrombosis) (10) Gastrointestinal hemorrhage (11) Hypercholesteremia (12) Hypertension (13) Leg edema (14) Localized, primary osteoarthritis of the pelvic region and thigh (15) New onset a-fib Surgical Problems: (1) S/P hip replacement (2) S/P lumbar spinal fusion Family History Bleeding disorder Cancer Depression Diabetes mellitus Hypertension Seizures Stroke Social History Smoking Status: Never Smoker Alcohol Use: none Drug Use: none Marital Status: Housing Status: lives with family Occupation Status: retired Current/Historical Medications Scheduled Aspirin (Aspirin Ec), 81 MG PO DAILY Atorvastatin (Lipitor), 40 MG PO HS Bumetanide (Bumex), 2 MG PO DAILY Donepezil Hydrochloride (Aricept), 10 MG PO HS Esomeprazole Magnesium (Nexium), 20 MG PO DAILY Fish Oil ([place]-3), 1 CAP PO BID Hydralazine Hcl (Apresoline), 50 MG PO BID Isosorbide Mononitrate Ext Rel (Imdur Ext Rel), 60 MG PO QAM Losartan Potassium (Cozaar), 50 MG PO DAILY Memantine (Namenda), 5 MG PO BID Mirabegron (Myrbetriq Er), 25 MG PO QAM Montelukast Sodium (Singulair), 10 MG PO DAILY Multivitamin (Multivitamin), 1 TAB PO DAILY Nitroglycerin (Nitrolingual Pumpspray), 1 SPRAY NA UD Ranolazine (Ranexa), 1,000 TAB PO BID Rivaroxaban (Xarelto), 15 MG PO DAILY Scheduled PRN Polyethylene Glycol 3350 (Miralax), 17 GM PO DAILY PRN for Constipation Allergies Coded Allergies: Ampicillin (Verified Allergy, Intermediate, RASH, HIVES, 11/17/16) Furosemide (Verified Allergy, Intermediate, SHORTNESS OF BREATH,throat itching, 11/17/16) Apixaban (Unverified Allergy, Unknown, UNKNOWN, 11/17/16) Cyclobenzaprine (Verified Allergy, Unknown, Unknown rxn, 11/17/16) Ibuprofen (Verified Allergy, Unknown, UNKNOWN, 11/17/16) Lisinopril (Verified Allergy, Unknown, UNKNOWN, 11/17/16) Methylprednisolone (Verified Allergy, Unknown, UNKNOWN, 11/17/16) Propoxyphene (Verified Allergy, Unknown, UNKNOWN, 11/17/16) Tramadol (Verified Allergy, Unknown, UNKNOWN, 11/17/16) SOAPCLEAN (Verified Adverse Reaction, Mild, Changing wipe - itchy rash, 11/17/16) Uncoded Allergies: EPIDURAL STEROID INJECTIONS (Allergy, Unknown, ., 05/23/16) Physical Exam Vital Signs Date Time Temp Pulse Resp B/P (MAP) Pulse Ox O2 Delivery O2 Flow Rate FiO2 05/26/17 17:53 63 134/60 85 119/80 72 120/82 05/26/17 16:52 60 05/26/17 16:44 59 18 113/71 99 Room Air 05/26/17 14:36 36.6 61 20 102/63 97 Room Air Physical Exam Vital signs reviewed. General: Chronically ill appearing female, in no significant distress. Generalized shaking noted. HEENT: [place] conjunctiva, PERRLA, neck supple. Dry mucous membranes. Atraumatic. Cardiovascular: Regular rate and rhythm, no extra sounds. Pulmonary: Clear to auscultation bilaterally, normal work of breathing. Abdomen: Soft, nontender, nondistended, positive bowel sounds. Rectal: Guaiac negative. Brown stool. Musculoskeletal: Healing bruise to the right hip, no peripheral edema. Neurologic: Patient awake alert and oriented x 3, full strength in all 4 extremities. Cranial nerves 2 through 12 grossly intact. Skin: Warm, dry, no rash Medical Decision & Procedures ER Provider Diagnostic Interpretation: Radiology results as stated below per my review and radiologist interpretation: CHEST ONE VIEW PORTABLE CLINICAL HISTORY: weakness, dizzy COMPARISON STUDY: 11/17/2016 FINDINGS: The heart is enlarged. There are postsurgical changes of a midline sternotomy. There is no failure. There is no focal pulmonary consolidation.[ IMPRESSION: Stable mild cardiomegaly. No acute findings. Electronically signed by: Rachid Dow M.D. 05/26/2017 4:21 PM Dictated Date/Time: 05/26/2017 4:[address] HEAD WITHOUT CONTRAST (CT) CLINICAL HISTORY: Head trauma. Head pain. Patient on anticoagulants. COMPARISON STUDY: 05/03/2016 TECHNIQUE: Axial CT of the brain is performed from the vertex to the skull base. IV contrast was not administered for this examination. A dose lowering technique was utilized adhering to the principles of ALARA. CT DOSE: 537.48 mGy.cm FINDINGS: No intra or extra-axial mass lesions are visualized. There is no CT evidence of acute cortical infarction. There is no evidence of midline shift. There is no acute hemorrhage. No calvarial fractures are visualized. There are patchy white matter hypodensities likely on a small vessel basis. There is no evidence of pathologic ventricular dilatation. There is a left maxillary sinus retention cyst. IMPRESSION: No acute intracranial findings Electronically signed by: Rachid Dow M.D. 05/26/2017 5:30 PM Dictated Date/Time: 05/26/2017 5:29 PM Laboratory Results Test 05/26/17 16:24 05/26/17 16:31 Immature Granulocyte % (Auto) 0.1 % White Blood Count 7.39 K/uL (4.8-10.8) Red Blood Count 2.97 M/uL (4.2-5.4) Hemoglobin 9.8 g/dL (12.0-16.0) Hematocrit 28.7 % (37-47) Mean Corpuscular Volume 96.6 fL (80-100) Mean Corpuscular Hemoglobin 33.0 pg (25-34) Mean Corpuscular Hemoglobin Concent 34.1 g/dl (32-36) Platelet Count 271 K/uL (130-400) Mean Platelet Volume 8.9 fL (7.4-10.4) Neutrophils (%) (Auto) 67.1 % Lymphocytes (%) (Auto) 19.1 % Monocytes (%) (Auto) 12.7 % Eosinophils (%) (Auto) 0.7 % Basophils (%) (Auto) 0.3 % Neutrophils # (Auto) 4.96 K/uL (1.4-6.5) Lymphocytes # (Auto) 1.41 K/uL (1.2-3.4) Monocytes # (Auto) 0.94 K/uL (0.11-0.59) Eosinophils # (Auto) 0.05 K/uL (0-0.5) Basophils # (Auto) 0.02 K/uL (0-0.2) Immature Granulocyte # (Auto) 0.01 K/uL (0.00-0.02) Prothrombin Time 14.0 SECONDS (9.0-12.0) Prothromb Time International Ratio 1.3 (0.9-1.1) Activated Partial Thromboplast Time 35.8 SECONDS (21.0-31.0) Partial Thromboplastin Ratio 1.4 Total Bilirubin 0.5 mg/dl (0.2-1) Direct Bilirubin 0.2 mg/dl (0-0.2) Aspartate Amino Transf (AST/SGOT) 24 U/L (15-37) Alanine Aminotransferase (ALT/SGPT) 32 U/L (12-78) Alkaline Phosphatase 79 U/L (45-117) Total Creatine Kinase 75 U/L (26-192) Creatine Kinase MB 1.6 ng/ml (0.5-3.6) Creatine Kinase MB Ratio 2.1 (0-3.0) Total Protein 8.1 gm/dl (6.4-8.2) Albumin 3.7 gm/dl (3.4-5.0) Thyroid Stimulating Hormone (TSH) 1.870 uIu/ml (0.300-4.500) Bedside Troponin I < 0.030 ng/ml (0-0.045) Laboratory results per my review. Medications Administered Medications (Trade) Dose Ordered Sig/Meenakshi Route Start Time Stop Time Status Last Admin Dose Admin Sodium Chloride 1,000 ml @ 125 mls/hr Q8H STAT IV 05/26/17 15:57 05/26/17 21:13 DC 05/26/17 18:10 125 MLS/HR ECG Indication: weakness Rate (beats per minute): 61 Rhythm: atrial fibrillation Findings: T-wave inversion (Anterior), other (T-wave flattening inferiorly) Comparison ECG Date: 17 November 2016 Change: Atrial fibrillation is new, t-wave abnormalities persist. ED Course 155: Past medical records reviewed. The patient was evaluated in room B5. A complete history and physical examination was performed. 155: Ordered Sodium Chloride 1000 ml @ 125 mls/hr IV 1915: Upon reevaluation, the patient is resting comfortably. I discussed laboratory and radiographic results with her. She verbalized agreement of the treatment plan. I spoke with Dr. Talbert of the [facility] Hospitalist Service. The patient will be evaluated for further management and care. Medical Decision Differential diagnosis: Etiologies such as metabolic, infection, hypo/hyperglycemia, electrolyte abnormalities, cardiac sources, intracerebral event, toxicologic, neurologic, as well as others were entertained. This pt was evaluated and appeared to be in no distress. IV access was obtained and lab work was drawn. Pt was placed on the monitor car operator. IVF were initiated gently. Lab work is significant for MITA with dehydration. UA is pending. CXR and head CT are negative. Pt was advised of the findings. She will return to the ED for worsening of symptoms or any medical concerns. Medication Reconcilliation Current Medication List: was personally reviewed by me Blood Pressure Screening Patient's blood pressure: Normal blood pressure Blood pressure disposition: Did not require urgent referral Consults Time Called: 1909 Consulting Physician: Dr. Talbert - [facility] Returned Call: 1915 I reviewed the patient's case with her. She will evaluate the patient for further management. Impression Primary Impression: Generalized weakness Additional Impressions: Dehydration MITA (acute kidney injury) Anemia Scribe Attestation The scribe's documentation has been prepared under my direction and personally reviewed by me in its entirety. I confirm that the note above accurately reflects all work, treatment, procedures, and medical decision making performed by me. Departure Information Dispostion Being Evaluated By Hospitalist Referrals Shameka Myers (PCP) Patient Instructions My [facility] Problem Qualifiers
--- NOTE | 2017-05-26 16:22 | DIAGNOSTIC IMAGING REPORT ---
CHEST ONE VIEW PORTABLE CLINICAL HISTORY: weakness, dizzy COMPARISON STUDY: 11/17/2016 FINDINGS: The heart is enlarged. There are postsurgical changes of a midline sternotomy. There is no failure. There is no focal pulmonary consolidation.[ IMPRESSION: Stable mild cardiomegaly. No acute findings. Electronically signed by: Rachid Dow M.D. 05/26/2017 4:21 PM Dictated Date/Time: 05/26/2017 4:20 PM
[2017-05-26 16:36] LABS: BASO % 0.3 %; BASO ABS # 0.02 K/uL (0-0.2); COMPLETE YES; EOS % 0.7 %; HEMATOCRIT 28.7 % (37-47); IG% 0.1 %; LYMPH % 19.1 %; LYMPH ABS # 1.41 K/uL (1.2-3.4); MEAN CELL VOLUME 96.6 fL (80-100); MEAN CORPUSCULAR HGB CONC 34.1 g/dl (32-36); MEAN PLATELET VOLUME 8.9 fL (7.4-10.4); MONO % 12.7 %; NEUT % 67.1 %; PLATELET COUNT 271 K/uL (130-400); RED BLOOD COUNT 2.97 M/uL (4.2-5.4); WHITE BLOOD COUNT 7.39 K/uL (4.8-10.8)
[2017-05-26] MEDS ORDERED: ASPI81TA28 PO (16:40)
[2017-05-26] MEDS ORDERED: RIVA1.5T PO (16:40)
[2017-05-26] MEDS ORDERED: POLY335019 PO (16:44)
[2017-05-26] MEDS ORDERED: MIRA100T PO (16:44)
[2017-05-26 16:52] LABS: INR 1.3 (0.9-1.1); PARTIAL THROMBOPLASTIN RATIO 1.4
[2017-05-26 17:01] LABS: BUN/CREATININE RATIO 21.3 (10-20); CREATININE 1.8 mg/dl (0.60-1.20); MAGNESIUM 2.6 mg/dl (1.8-2.4); POTASSIUM 4.1 mmol/L (3.5-5.1)
[2017-05-26 17:19] LABS: CKMB/CK RATIO 2.1 (0-3.0); THYROID STIMULATING HORMONE 1.87 uIu/ml (0.300-4.500)
--- NOTE | 2017-05-26 17:32 | DIAGNOSTIC IMAGING REPORT ---
CT HEAD WITHOUT CONTRAST (CT) CLINICAL HISTORY: Head trauma. Head pain. Patient on anticoagulants. COMPARISON STUDY: 05/03/2016 TECHNIQUE: Axial CT of the brain is performed from the vertex to the skull base. IV contrast was not administered for this examination. A dose lowering technique was utilized adhering to the principles of ALARA. CT DOSE: 537.48 mGy.cm FINDINGS: No intra or extra-axial mass lesions are visualized. There is no CT evidence of acute cortical infarction. There is no evidence of midline shift. There is no acute hemorrhage. No calvarial fractures are visualized. There are patchy white matter hypodensities likely on a small vessel basis. There is no evidence of pathologic ventricular dilatation. There is a left maxillary sinus retention cyst. IMPRESSION: No acute intracranial findings Electronically signed by: Rachid Dow M.D. 05/26/2017 5:30 PM Dictated Date/Time: 05/26/2017 5:29 PM
[2017-05-26] MEDS ORDERED: POLYETHYLENE (MIRALAX) 17 GM PACK PO PRN (19:45)
[2017-05-26] MEDS ORDERED: ONDANSETRON INJ 2 MG/ML 2 ML VIAL IV PRN (19:45)
[2017-05-26] MEDS ORDERED: MAGNESIUM HYDROXIDE SUSP 30 ML UDC PO PRN (19:45)
[2017-05-26] MEDS ORDERED: ALUMINUM/MAGNESIUM/SIMETH (MAALOX MAX) 30 ML UDC PO PRN (19:45)
[2017-05-26] MEDS ORDERED: ACETAMINOPHEN 325 MG TAB PO PRN (19:45)
--- NOTE | 2017-05-26 20:18 | History and Physical ---
History & Physical Date & Time of Service: May 26, 2017 at 20:07 Chief Complaint: Weakness, Sob, Dizzy Primary Care Physician: Shameka Myers History of Present Illness Source: patient 82 y/o F Hx diastolic CHF, HTN, CAD with chronic CP, AF, HPL, mild dementia. Presents wth progressive weakness and dizziness when standing over the past 2 days. She states she has been urinating frequently and has not maintained her fluid intake despite complying with Bumex. Initial labs and clinical evaluation are consistent with dehydration and MITA. She denies fvers/rigors, CP, SOB, N/V, diarrhea, dysuria. Past Medical/Surgical History 1) CAD - chronic CP - last had a cath with stenting in 200 at [place] 2) Paroxysmal AF - may now be persistent 3) Mild dementia 4) HTN 5) HPL 6) Chronic diastolic CHF Surgical Problems: (1) S/P hip replacement Status: Resolved (2) S/P lumbar spinal fusion Status: Resolved Family History Bleeding disorder Cancer Depression Diabetes mellitus Hypertension Seizures Stroke Social History Smoking Status: Never Smoker Drug Use: none Marital Status: Housing status: lives with family Occupational Status: retired Immunizations History of Influenza Vaccine: N/A History of Tetanus Vaccine?: No History of Pneumococcal: Yes Pneumococcal Date: Feb 10, 2009 History of Hepatitis B Vaccine: No Allergies Coded Allergies: Ampicillin (Verified Allergy, Intermediate, RASH, HIVES, 11/17/16) Furosemide (Verified Allergy, Intermediate, SHORTNESS OF BREATH,throat itching, 11/17/16) Apixaban (Unverified Allergy, Unknown, UNKNOWN, 11/17/16) Cyclobenzaprine (Verified Allergy, Unknown, Unknown rxn, 11/17/16) Ibuprofen (Verified Allergy, Unknown, UNKNOWN, 11/17/16) Lisinopril (Verified Allergy, Unknown, UNKNOWN, 11/17/16) Methylprednisolone (Verified Allergy, Unknown, UNKNOWN, 11/17/16) Propoxyphene (Verified Allergy, Unknown, UNKNOWN, 11/17/16) Tramadol (Verified Allergy, Unknown, UNKNOWN, 11/17/16) SOAPCLEAN (Verified Adverse Reaction, Mild, Changing wipe - itchy rash, 11/17/16) Uncoded Allergies: EPIDURAL STEROID INJECTIONS (Allergy, Unknown, ., 05/23/16) Home Medications Scheduled Aspirin (Aspirin Ec), 81 MG PO DAILY Atorvastatin (Lipitor), 40 MG PO HS Bumetanide (Bumex), 2 MG PO DAILY Donepezil Hydrochloride (Aricept), 10 MG PO HS Esomeprazole Magnesium (Nexium), 20 MG PO DAILY Fish Oil ([place]-3), 1 CAP PO BID Hydralazine Hcl (Apresoline), 50 MG PO BID Isosorbide Mononitrate Ext Rel (Imdur Ext Rel), 60 MG PO QAM Losartan Potassium (Cozaar), 50 MG PO DAILY Memantine (Namenda), 5 MG PO BID Mirabegron (Myrbetriq Er), 25 MG PO QAM Montelukast Sodium (Singulair), 10 MG PO DAILY Multivitamin (Multivitamin), 1 TAB PO DAILY Nitroglycerin (Nitrolingual Pumpspray), 1 SPRAY NA UD Ranolazine (Ranexa), 1,000 TAB PO BID Rivaroxaban (Xarelto), 15 MG PO DAILY Scheduled PRN Polyethylene Glycol 3350 (Miralax), 17 GM PO DAILY PRN for Constipation Review of Systems Constitutional: + weakness, + fatigue, No fever, No chills, No sweats Eyes: No worsening of vision, No eye pain ENT: No hearing loss, No unusual epistaxis, No nasal symptoms Respiratory: No cough, No sputum, No wheezing, No shortness of breath Cardiovascular: No chest pain, No orthopnea, No PND, No edema Abdomen: No pain, No nausea, No vomiting, No diarrhea, No constipation Musculoskeletal: No joint pain, No muscle pain Genitourinary - Female: + urinary frequency, No dysuria, No urinary urgency Neurologic: + memory loss (chronic), + weakness, + balance problems Psychiatric: No depression symptoms Endocrine: + fatigue Hematologic / Lymphatic: No abnormal bleeding/bruising Integumentary: No rash Allergic / Immunologic: No environmental allergies Physical Exam Vital Signs Date Time Temp Pulse Resp B/P (MAP) Pulse Ox O2 Delivery O2 Flow Rate FiO2 05/26/17 17:53 63 134/60 85 119/80 72 120/82 05/26/17 16:52 60 05/26/17 16:44 59 18 113/71 99 Room Air 05/26/17 14:36 36.6 61 20 102/63 97 Room Air General Appearance: WD/WN, no apparent distress Head: normocephalic Eyes: normal inspection ENT: normal ENT inspection, pharynx normal Neck: supple, no JVD Respiratory/Chest: chest non-tender, lungs clear, normal breath sounds, no accessory muscle use Cardiovascular: no edema, no gallop, + pertinent finding (irregular bradycardic rhythm) Abdomen/GI: normal bowel sounds, non tender, soft Back: normal inspection, no CVA tenderness Extremities/Musculoskelatal: normal inspection, no calf tenderness, normal capillary refill, no pedal edema, normal range of motion Neurologic/Psych: 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 II-XII nml as tested, no motor/sensory deficits, alert, oriented x 3 Skin: normal color, warm/dry, no rash Diagnostics Laboratory Results Results Past 24 Hours Test 05/26/17 16:24 05/26/17 16:31 Range/Units White Blood Count 7.39 4.8-10.8 K/uL Red Blood Count 2.97 4.2-5.4 M/uL Hemoglobin 9.8 12.0-16.0 g/dL Hematocrit 28.7 37-47 % Mean Corpuscular Volume 96.6 80-100 fL Mean Corpuscular Hemoglobin 33.0 25-34 pg Mean Corpuscular Hemoglobin Concent 34.1 32-36 g/dl Platelet Count 271 130-400 K/uL Mean Platelet Volume 8.9 7.4-10.4 fL Neutrophils (%) (Auto) 67.1 % Lymphocytes (%) (Auto) 19.1 % Monocytes (%) (Auto) 12.7 % Eosinophils (%) (Auto) 0.7 % Basophils (%) (Auto) 0.3 % Neutrophils # (Auto) 4.96 1.4-6.5 K/uL Lymphocytes # (Auto) 1.41 1.2-3.4 K/uL Monocytes # (Auto) 0.94 0.11-0.59 K/uL Eosinophils # (Auto) 0.05 0-0.5 K/uL Basophils # (Auto) 0.02 0-0.2 K/uL RDW Standard Deviation 45.2 36.4-46.3 fL RDW Coefficient of Variation 13.0 11.5-14.5 % Immature Granulocyte % (Auto) 0.1 % Immature Granulocyte # (Auto) 0.01 0.00-0.02 K/uL Prothrombin Time 14.0 9.0-12.0 SECONDS Prothromb Time International Ratio 1.3 0.9-1.1 Activated Partial Thromboplast Time 35.8 21.0-31.0 SECONDS Partial Thromboplastin Ratio 1.4 Sodium Level 135 136-145 mmol/L Potassium Level 4.1 3.5-5.1 mmol/L Chloride Level 104 98-107 mmol/L Carbon Dioxide Level 22 21-32 mmol/L Anion Gap 9.0 3-11 mmol/L Blood Urea Nitrogen 38 7-18 mg/dl Creatinine 1.80 0.60-1.20 mg/dl Est Creatinine Clear Calc Drug Dose 22.3 ml/min Estimated GFR () 29.4 Estimated GFR (Non- 25.4 BUN/Creatinine Ratio 21.3 10-20 Random Glucose 125 70-99 mg/dl Calcium Level 9.0 8.5-10.1 mg/dl Magnesium Level 2.6 1.8-2.4 mg/dl Total Bilirubin 0.5 0.2-1 mg/dl Direct Bilirubin 0.2 0-0.2 mg/dl Aspartate Amino Transf (AST/SGOT) 24 15-37 U/L Alanine Aminotransferase (ALT/SGPT) 32 12-78 U/L Alkaline Phosphatase 79 45-117 U/L Total Creatine Kinase 75 26-192 U/L Creatine Kinase MB 1.6 0.5-3.6 ng/ml Creatine Kinase MB Ratio 2.1 0-3.0 Total Protein 8.1 6.4-8.2 gm/dl Albumin 3.7 3.4-5.0 gm/dl Thyroid Stimulating Hormone (TSH) 1.870 0.300-4.500 uIu/ml Bedside Troponin I < 0.030 0-0.045 ng/ml EKG AF - 60BPM - no evidence of acute ischemia Impression Assessment and Plan 82 y/o F Hx diastolic CHF, HTN, CAD with chronic CP, AF, HPL, mild dementia. Presents wth progressive weakness and dizziness when standing over the past 2 days. She states she has been urinating frequently and has not maintained her fluid intake despite complying with Bumex. Initial labs and clinical evaluation are consistent with dehydration and MITA. She denies fvers/rigors, CP, SOB, N/V, diarrhea, dysuria. 1) Dehydration, MITA - IVF provided overnight, trend BMP - hold Bumex - per son this is the 4th time she has become dehydrated - she may need an adjustment in her Bumex dose upon DC 2) HTN - ARB, Bumex held - cont Hydralazine, Imdur 3) Chronic diastolic CHF - reassess volume status AM as diuretics held 4) CAD - Cont ASA, Statin, Ranexa, NTG PRN 5) AF - rate is controlled - cont Xarelto Full code - Xarelto prophylaxis Total time for this admit including review of labs, meds, EKG, records - discussion with pt and ER attending - 35 min Level of Care Med/Surg Resuscitation Status FULL RESUSCITATION VTE Prophylaxis VTE Risk Assessment Done? Y/N: Yes Risk Level: Moderate Given or contraindicated: Other Anticoagulation
[2017-05-26 20:23] LABS: URINE APPEARANCE CLOUDY (CLEAR); URINE BILIRUBIN NEG (NEG); URINE COLOR DK YELLOW; URINE EPITHELIAL CELL AUTO >30 /lpf (0-5); URINE NITRITE NEG (NEG); URINE PH 5.5 (4.5-7.5); UROBILINOGEN NEG (NEG); ZZUR CULT IF INDIC CLEAN CATCH YES
[2017-05-26 20:38] LABS: MANUAL MICROSCOPIC REQUIRED? NO; REVIEW REQ? YES
[2017-05-26] MEDS: SODIUM CHLORIDE 0.9% 1000ML 1,000 ML IV SCH (21:38)
[2017-05-26] MEDS ORDERED: RANO1000 PO (21:41)
[2017-05-26] MEDS: MEMANTINE 5 MG TAB PO SCH (22:12)
[2017-05-26] MEDS: OMEGA-3 (PURIFIED FISH OIL) 1 GM CAP PO SCH (22:13)
[2017-05-26] MEDS: DONEPEZIL HCL 10 MG TAB PO SCH (22:13)
[2017-05-26] MEDS: ATORVASTATIN 40 MG TAB PO SCH (22:14)
[2017-05-26] MEDS: RANOLAZINE 500 MG ER TAB PO SCH (22:14)
[2017-05-26 23:14] VITALS: BP 114/64; PULSE 70; TEMP 36.8; O2SAT 98; Ht 160 cm; Wt 73.0 kg
[2017-05-26 23:59] VITALS: O2SAT 98
[2017-05-27 00:07] VITALS: BP 123/56; PULSE 62; TEMP 36.8; O2SAT 98
[2017-05-27] MEDS: CEFTRIAXONE SOD INJ 1 GM in DEXTROSE 5% ADD-VANTAGE 50ML 50 ML IV SCH (02:14)
[2017-05-27] MEDS ORDERED: IV FLUIDS COMPLETED PRN ×2 (02:30→16:30)
[2017-05-27 07:00] LABS: HEMATOCRIT 24.5 % (37-47); MEAN CELL VOLUME 96.5 fL (80-100); MEAN CORPUSCULAR HEMOGLOBIN 33.5 pg (25-34); MEAN CORPUSCULAR HGB CONC 34.7 g/dl (32-36); PLATELET COUNT 223 K/uL (130-400); RED BLOOD COUNT 2.54 M/uL (4.2-5.4); WHITE BLOOD COUNT 5.87 K/uL (4.8-10.8)
[2017-05-27 07:31] LABS: BUN/CREATININE RATIO 21.9 (10-20); CALCIUM 8.4 mg/dl (8.5-10.1); CREATININE 1.5 mg/dl (0.60-1.20); MAGNESIUM 2.3 mg/dl (1.8-2.4); POTASSIUM 4.3 mmol/L (3.5-5.1)
[2017-05-27 07:49] VITALS: BP 116/71; PULSE 65; TEMP 37; O2SAT 98
[2017-05-27] MEDS: SODIUM CHLORIDE 0.9% 1000ML 1,000 ML IV SCH (08:09)
[2017-05-27] MEDS: MEMANTINE 5 MG TAB PO SCH ×2 (08:10→21:13)
[2017-05-27] MEDS: OMEGA-3 (PURIFIED FISH OIL) 1 GM CAP PO SCH ×2 (08:10→21:13)
[2017-05-27] MEDS: MONTELUKAST SOD 10 MG TAB PO SCH (08:11)
[2017-05-27] MEDS: ASPIRIN 81 MG ECTAB PO SCH (08:11)
[2017-05-27] MEDS: MIRABEGRON ER 25 MG TAB PO SCH (08:11)
[2017-05-27] MEDS: RANOLAZINE 500 MG ER TAB PO SCH ×2 (08:11→21:13)
[2017-05-27] MEDS: RIVAROXABAN TAB 15 MG TAB PO SCH (08:11)
[2017-05-27] MEDS: PANTOprazole SOD 40 MG TAB PO SCH ×2 (08:13→21:13)
[2017-05-27] MEDS: ISOSORBIDE MONONITRATE 60 MG TABCR PO SCH (08:14)
[2017-05-27 08:30] VITALS: O2SAT 98
--- NOTE | 2017-05-27 13:57 | Hospitalist Progress Note ---
Hospitalist Progress Note Date of Service May 27, 2017. (Eva Martinez ., ALAN) Subjective Pt evaluation today including: conversation w/ patient, conversation w/ family , physical exam, chart review, lab review, review of inpatient medication list Voiding: no voiding problems Ms. Potter continues to feel weak though she was able to participate in physical therapy. She also complains of pins and needles in her feet especially when walking around. Respiratory: No cough, No shortness of breath Cardiovascular: No chest pain Abdomen: + constipation, No nausea, No vomiting, No diarrhea Female : No dysuria Neurologic: + problem reported (more forgetful than usual per son) All Other Systems: Reviewed and Negative (Eva Martinez CRNP) Medications Medications (Trade) Dose Ordered Sig/Meenakshi Route Start Time Stop Time Status Last Admin Dose Admin Sodium Chloride 1,000 ml @ 125 mls/hr Q8H STAT IV 05/26/17 15:57 05/26/17 21:13 DC 05/26/17 18:10 125 MLS/HR Sodium Chloride 1,000 ml @ 100 mls/hr Q10H IV 05/26/17 21:30 05/27/17 17:29 05/27/17 08:09 100 MLS/HR Aspirin (Ecotrin Tab) 81 mg DAILY PO 05/27/17 08:00 06/26/17 08:59 05/27/17 08:11 81 MG Atorvastatin Calcium (Lipitor Tab) 40 mg HS PO 05/26/17 21:00 06/25/17 20:59 05/26/17 22:14 40 MG Donepezil HCl (Aricept Tab) 10 mg HS PO 05/26/17 21:00 06/25/17 20:59 05/26/17 22:13 10 MG Fish Oil ([place]-3 (Purified Fish Oil) Cap) 1 gm BID PO 05/26/17 20:38 06/25/17 20:59 05/27/17 08:10 1 GM Hydralazine HCl (Apresoline Tab) 50 mg BID PO 05/26/17 20:38 06/25/17 20:59 05/27/17 08:10 50 MG Isosorbide Mononitrate (Imdur Ext Rel Tab) 60 mg QAM PO 05/27/17 08:00 06/26/17 08:59 05/27/17 08:14 60 MG Memantine (Namenda Tab) 5 mg BID PO 05/26/17 20:38 06/25/17 20:59 05/27/17 08:10 5 MG Mirabegron (Myrbetriq Er) 25 mg QAM PO 05/27/17 08:00 06/26/17 08:59 05/27/17 08:11 25 MG Montelukast Sodium (Singulair Tab) 10 mg DAILY PO 05/27/17 08:00 06/26/17 08:59 05/27/17 08:11 10 MG Rivaroxaban (Xarelto Tab) 15 mg DAILY PO 05/27/17 08:00 06/26/17 08:59 05/27/17 08:11 15 MG Pantoprazole Sodium (Protonix Tab) 40 mg DAILY PO 05/27/17 08:00 06/26/17 08:59 05/27/17 08:13 40 MG Ranolazine (Ranexa ER Tab) 1,000 mg BID PO 05/26/17 22:00 06/25/17 21:59 05/27/17 08:11 1,000 MG Ceftriaxone Sodium 1 gm/ Dextrose 50 ml @ 100 mls/hr Q24H IV 05/27/17 02:00 06/06/17 01:59 05/27/17 02:14 100 MLS/HR (Eva Martinez, ALAN) Objective Vital Signs Date Time Temp Pulse Resp B/P (MAP) Pulse Ox O2 Delivery O2 Flow Rate FiO2 05/27/17 08:30 98 Room Air 05/27/17 07:49 37.0 65 20 116/71 (86) 98 Room Air 05/27/17 00:07 36.8 62 16 123/56 (78) 98 Room Air 05/26/17 23:59 98 Room Air 05/26/17 23:14 36.8 70 20 114/64 98 Room Air 05/26/17 20:09 64 18 139/74 94 Room Air 05/26/17 17:53 63 134/60 85 119/80 72 120/82 05/26/17 16:52 60 05/26/17 16:44 59 18 113/71 99 Room Air 05/26/17 14:36 36.6 61 20 102/63 97 Room Air (Eva Martinez CRNP) Physical Exam Notes: General: no distress Eyes: normal inspection, PERLL Respiratory: chest non tender, clear to auscultation, normal breath sounds, no respiratory distress, no accessory muscle use Cardiac: irregular rhythm, no rub or gallop, no murmur, no edema, no jvd GI/: active bowel sounds, no abd pain or tenderness, soft, non distended Extremities: normal range of motion, normal strength, non tender Neuro/Psych: alert and oriented x 3, normal mood and affect Skin: normal color, dry (Eva Martinez CRNP) Laboratory Results Last 24 Hours Test 05/26/17 16:24 05/26/17 16:31 05/26/17 20:04 05/27/17 06:28 White Blood Count 7.39 K/uL 5.87 K/uL Red Blood Count 2.97 M/uL 2.54 M/uL Hemoglobin 9.8 g/dL 8.5 g/dL Hematocrit 28.7 % 24.5 % Mean Corpuscular Volume 96.6 fL 96.5 fL Mean Corpuscular Hemoglobin 33.0 pg 33.5 pg Mean Corpuscular Hemoglobin Concent 34.1 g/dl 34.7 g/dl Platelet Count 271 K/uL 223 K/uL Mean Platelet Volume 8.9 fL 9.0 fL Neutrophils (%) (Auto) 67.1 % Lymphocytes (%) (Auto) 19.1 % Monocytes (%) (Auto) 12.7 % Eosinophils (%) (Auto) 0.7 % Basophils (%) (Auto) 0.3 % Neutrophils # (Auto) 4.96 K/uL Lymphocytes # (Auto) 1.41 K/uL Monocytes # (Auto) 0.94 K/uL Eosinophils # (Auto) 0.05 K/uL Basophils # (Auto) 0.02 K/uL RDW Standard Deviation 45.2 fL 44.7 fL RDW Coefficient of Variation 13.0 % 12.8 % Immature Granulocyte % (Auto) 0.1 % Immature Granulocyte # (Auto) 0.01 K/uL Prothrombin Time 14.0 SECONDS Prothromb Time International Ratio 1.3 Activated Partial Thromboplast Time 35.8 SECONDS Partial Thromboplastin Ratio 1.4 Sodium Level 135 mmol/L 137 mmol/L Potassium Level 4.1 mmol/L 4.3 mmol/L Chloride Level 104 mmol/L 108 mmol/L Carbon Dioxide Level 22 mmol/L 22 mmol/L Anion Gap 9.0 mmol/L 7.0 mmol/L Blood Urea Nitrogen 38 mg/dl 33 mg/dl Creatinine 1.80 mg/dl 1.50 mg/dl Est Creatinine Clear Calc Drug Dose 22.3 ml/min 26.7 ml/min Estimated GFR () 29.4 36.7 Estimated GFR (Non- 25.4 31.7 BUN/Creatinine Ratio 21.3 21.9 Random Glucose 125 mg/dl 99 mg/dl Calcium Level 9.0 mg/dl 8.4 mg/dl Magnesium Level 2.6 mg/dl 2.3 mg/dl Total Bilirubin 0.5 mg/dl Direct Bilirubin 0.2 mg/dl Aspartate Amino Transf (AST/SGOT) 24 U/L Alanine Aminotransferase (ALT/SGPT) 32 U/L Alkaline Phosphatase 79 U/L Total Creatine Kinase 75 U/L Creatine Kinase MB 1.6 ng/ml Creatine Kinase MB Ratio 2.1 Total Protein 8.1 gm/dl Albumin 3.7 gm/dl Thyroid Stimulating Hormone (TSH) 1.870 uIu/ml Bedside Troponin I < 0.030 ng/ml Urine Color DK YELLOW Urine Appearance CLOUDY Urine pH 5.5 Urine Specific [place] 1.020 Urine Protein 1+ Urine Glucose (UA) NEG Urine Ketones NEG Urine Occult Blood NEG Urine Nitrite NEG Urine Bilirubin NEG Urine Urobilinogen NEG Urine Leukocyte Esterase MODERATE Urine WBC (Auto) 10-30 /hpf Urine RBC (Auto) 0-4 /hpf Urine Hyaline Casts (Auto) 5-10 /lpf Urine Epithelial Cells (Auto) >30 /lpf Urine Bacteria (Auto) 3+ Urine Pathogenic Casts /lpf (Eva Martinez, ALAN) Assessment and Plan Ms. Potter is an 82 y/o female with Hx diastolic CHF, HTN, CAD with chronic CP , AF, HPL, mild dementia. Presents with progressive weakness and dizziness when standing over the past 2 days. She states she has been urinating frequently and has not maintained her fluid intake despite complying with Bumex. Initial labs and clinical evaluation are consistent with dehydration and MITA. She denies fevers/rigors, CP, SOB, N/V, diarrhea, dysuria. Dehydration, MITA - IVF - kidney function improving - hold Bumex - per son this is the 4th time she has become dehydrated - she may need an adjustment in her Bumex dose upon DC 2) HTN - ARB, Bumex held - cont Hydralazine, Imdur 3) Chronic diastolic CHF - no sign of volume overload this afternoon, continue with fluids to finish 2 bags ordered. 4) CAD - Cont ASA, Statin, Ranexa, NTG PRN 5) AF - rate is controlled - cont Xarelto Full code - Xarelto prophylaxis (Eva Martinez ., ALAN) Attending Attestation: Pt seen/examined, chart reviewed, care plan d/w NEIGHBORHOOD WORKER Eva Martinez. I agree w/ the farr components of her documentation. Pt complains of CAMP. Son noted same at home. No overt melena/BRBPR. Eating slightly better today. VSS no fever gen - despite tanned appearance her mucous membranes & palms of hands are pale neck - no JVD mouth - MMM heart - RRR lungs - CTA b/l abd - soft ext - no edema A/P: 1. acute kidney injury - improved w/ IVF. BMP am. 2. acute/chronic anemia - unsure if acute drop is dilutional from fluids or due to GI bleeding. Has h/o latter in the past. Recently started on xarelto by cardiology. Repeat H/H tonight and in am. Stool for hemoccult. 3. CAD - no signs of ACS at this time. 4. chronic diastolic CHF - compensated; hold bumex due to #1. 5. ?UTI - continue rocephin pending urine cx result. PT, OT son updated Dev Bearden MD (Dev Bearden MD)
[2017-05-27 14:31] VITALS: BP 157/61; PULSE 72; O2SAT 100
[2017-05-27] MEDS ORDERED: BISACODYL 10 MG SUPP PR ONE (15:00)
[2017-05-27 15:59] VITALS: BP 110/67; PULSE 66; TEMP 37.1; O2SAT 97
[2017-05-27 16:30] VITALS: O2SAT 97
[2017-05-27 16:56] LABS: HEMATOCRIT 25.7 % (37-47)
[2017-05-27] MEDS: DONEPEZIL HCL 10 MG TAB PO SCH (21:13)
[2017-05-27] MEDS: ATORVASTATIN 40 MG TAB PO SCH (21:13)
[2017-05-28 00:13] VITALS: BP 125/69; PULSE 64; TEMP 37; O2SAT 98
[2017-05-28] MEDS: CEFTRIAXONE SOD INJ 1 GM in DEXTROSE 5% ADD-VANTAGE 50ML 50 ML IV SCH (02:58)
[2017-05-28 07:11] VITALS: BP 133/76; PULSE 62; TEMP 36.9; O2SAT 99
[2017-05-28 07:36] LABS: HEMATOCRIT 25.3 % (37-47); MEAN CELL VOLUME 96.9 fL (80-100); MEAN CORPUSCULAR HEMOGLOBIN 33.3 pg (25-34); MEAN CORPUSCULAR HGB CONC 34.4 g/dl (32-36); MEAN PLATELET VOLUME 8.7 fL (7.4-10.4); PLATELET COUNT 236 K/uL (130-400); RED BLOOD COUNT 2.61 M/uL (4.2-5.4); WHITE BLOOD COUNT 6.52 K/uL (4.8-10.8)
[2017-05-28] MEDS: MEMANTINE 5 MG TAB PO SCH ×2 (07:52→20:24)
[2017-05-28] MEDS: RIVAROXABAN TAB 15 MG TAB PO SCH (07:52)
[2017-05-28] MEDS: MIRABEGRON ER 25 MG TAB PO SCH (07:52)
[2017-05-28] MEDS: ASPIRIN 81 MG ECTAB PO SCH (07:52)
[2017-05-28] MEDS: MONTELUKAST SOD 10 MG TAB PO SCH (07:53)
[2017-05-28] MEDS: RANOLAZINE 500 MG ER TAB PO SCH ×2 (07:53→20:23)
[2017-05-28] MEDS: OMEGA-3 (PURIFIED FISH OIL) 1 GM CAP PO SCH ×2 (07:53→20:23)
[2017-05-28] MEDS: ISOSORBIDE MONONITRATE 60 MG TABCR PO SCH (07:53)
[2017-05-28 08:00] VITALS: O2SAT 99
[2017-05-28 08:08] LABS: BUN/CREATININE RATIO 19.1 (10-20); CALCIUM 8.9 mg/dl (8.5-10.1); CREATININE 1.2 mg/dl (0.60-1.20); POTASSIUM 4.4 mmol/L (3.5-5.1)
[2017-05-28 08:13] LABS: FERRITIN 256.9 ng/ml (8.0-388.0)
--- NOTE | 2017-05-28 11:24 | Hospitalist Progress Note ---
Hospitalist Progress Note Date of Service May 28, 2017. (Eva Martinez CRNP) Subjective Pt evaluation today including: conversation w/ patient, conversation w/ family , physical exam, chart review, lab review, review of inpatient medication list Voiding: no voiding problems Ms. Potter feels much better this morning. The pins and needle feeling in her legs is better. Constitutional: No fever Respiratory: No cough Abdomen: No pain, No nausea, No vomiting, No diarrhea, No constipation Female : No dysuria All Other Systems: Reviewed and Negative (Eva Martinez CRNP) Medications Medications (Trade) Dose Ordered Sig/Meenakshi Route Start Time Stop Time Status Last Admin Dose Admin Bisacodyl (Dulcolax Supp) 10 mg 1500 ONCE IA 05/27/17 15:00 05/27/17 15:01 DC 05/27/17 15:44 10 MG (Eva Martinez CRNP) Objective Vital Signs Date Time Temp Pulse Resp B/P (MAP) Pulse Ox O2 Delivery O2 Flow Rate FiO2 05/28/17 08:00 99 Room Air 05/28/17 07:11 36.9 62 18 133/76 (95) 99 Room Air 05/28/17 00:34 Room Air 05/28/17 00:13 37.0 64 18 125/69 (87) 98 Room Air 05/27/17 21:25 Room Air 05/27/17 16:30 97 Room Air 05/27/17 15:59 37.1 66 18 110/67 (81) 97 Room Air 05/27/17 14:31 72 100 (Eva Martinez CRNP) Physical Exam Notes: General: no distress Eyes: normal inspection, PERLL Respiratory: chest non tender, clear to auscultation, normal breath sounds, no respiratory distress, no accessory muscle use Cardiac: regular rate and rhythm, no rub or gallop, no murmur, no edema, no jvd GI/: active bowel sounds, no abd pain or tenderness, soft, non distended Extremities: normal range of motion, mild generalized weakness, non tender Neuro/Psych: alert and oriented x 3, normal mood and affect Skin: normal color, dry (Eva Martinez CRNP) Laboratory Results Last 24 Hours Test 05/27/17 16:45 05/27/17 18:10 05/28/17 00:00 05/28/17 07:14 Hemoglobin 8.9 g/dL 8.7 g/dL Hematocrit 25.7 % 25.3 % Stool Occult Blood POSITIVE POSITIVE White Blood Count 6.52 K/uL Red Blood Count 2.61 M/uL Mean Corpuscular Volume 96.9 fL Mean Corpuscular Hemoglobin 33.3 pg Mean Corpuscular Hemoglobin Concent 34.4 g/dl RDW Standard Deviation 45.5 fL RDW Coefficient of Variation 13.0 % Platelet Count 236 K/uL Mean Platelet Volume 8.7 fL Sodium Level 137 mmol/L Potassium Level 4.4 mmol/L Chloride Level 109 mmol/L Carbon Dioxide Level 21 mmol/L Anion Gap 7.0 mmol/L Blood Urea Nitrogen 23 mg/dl Creatinine 1.20 mg/dl Est Creatinine Clear Calc Drug Dose 33.4 ml/min Estimated GFR () 48.1 Estimated GFR (Non- 41.5 BUN/Creatinine Ratio 19.1 Random Glucose 97 mg/dl Calcium Level 8.9 mg/dl Ferritin 256.9 ng/ml (Eva Martinez CRNP) Assessment and Plan Ms. Potter is an 82 y/o female with Hx diastolic CHF, HTN, CAD with chronic CP , AF, HPL, mild dementia. Presents with progressive weakness and dizziness when standing over the past 2 days. She states she has been urinating frequently and has not maintained her fluid intake despite complying with Bumex. Initial labs and clinical evaluation are consistent with dehydration and MITA. She denies fevers/rigors, CP, SOB, N/V, diarrhea, dysuria. Dehydration, MITA - IVF - kidney function improving - hold Bumex - per son this is the 4th time she has become dehydrated - she may need an adjustment in her Bumex dose upon DC GI Bleed - positive FOBT x2. GI consult. H&H this afternoon. Hold anticoagulant/ ASA. Continue protonix po. HTN - ARB, Bumex held - cont Hydralazine, Imdur Chronic diastolic CHF - no sign of volume overload this afternoon, no further IV fluids. CAD - Statin, Ranexa, NTG PRN AF - rate is controlled Full code DVT prophylaxis - Xeralto on hold for GI bleed (Eva Martinez CRNP) Attending Attestation: Pt seen/examined, chart reviewed, care plan d/w ALAN Wolfeah Michelle. I agree w/ the farr components of her documentation. Feels good. No c/o dyspnea, abd pain, overt melena/BRBPR. Eating well without any GI symptoms. VSS no fever gen - NAD neck - no JVD mouth - MMM heart - RRR lungs - CTA b/l abd - soft ext - no edema skin - mild pallor A/P: 1. acute kidney injury - resolved. 2. acute/chronic anemia - acute anemia likely 2nd to acute blood loss anemia in setting of occult GI bleeding. Previous w/u - EGD/colonoscopy in 2016 - without a bleeding source. Recently started on xarelto by cardiology. I suspect the xarelto precipitated the bleeding. H/H have continued to remain stable since the acute drop. Await GI consult. Outpatient capsule endo to r/o AVMs, etc? Repeat H/H in am. Fe replacement. 3. CAD - no signs of ACS at this time. 4. chronic diastolic CHF - compensated; hold bumex due to #1. Will resume at lower dose or can use weight-based dosing. 5. ?UTI - cx negative, d/c abx. PT, OT have cleared for home sons updated Dev Bearden MD (Dev Bearden MD)
[2017-05-28 14:24] LABS: HEMATOCRIT 25.7 % (37-47)
[2017-05-28 15:16] VITALS: BP 115/68; PULSE 58; TEMP 36.8; O2SAT 98
--- NOTE | 2017-05-28 19:11 | GASTROINTESTINAL CONSULTATION ---
DATE OF CONSULTATION: 05/28/2017 RACE: . ATTENDING PHYSICIAN: Dr. Bearden. CONSULTING PHYSICIAN: Dr. House. REASON FOR CONSULTATION: GI bleed. HISTORY OF PRESENT ILLNESS: Nubia Potter is an 82-year-old female who last underwent an EGD and colonoscopy in May of [address] Dalton Morin and was at that time found to have a 6 mm polyp in cecum which was consistent with a tubular adenoma as well as diverticulosis and internal hemorrhoids. She also underwent an upper endoscopy with random biopsies of the duodenum which were normal. The indication for her procedure at that time was iron deficiency anemia and heme positive stool. Since that time, she did follow up with us in our office as an outpatient and due to the fact that there was nothing found to be bleeding on EGD or colonoscopy, it was recommended that she undergo a capsule endoscopy study; however, she decided not to undergo this procedure. She did develop atrial fibrillation and was on aspirin as well as fish oil therapy and 1 week prior to her admission, was started on Xarelto therapy. She presented to the Department of Emergency Medicine on May 27 with complaints of weakness, shortness of breath and dizziness. She subsequently had laboratory studies performed which showed an H&H of 9.8 and 28.7 and was noted to be heme positive in the ER. She was continued on Protonix 40 mg daily, and had a repeat H&H this morning that was noted to be 8.7 and 25.3. We were asked to see the patient in consultation secondary to GI bleeding. At the time that I saw the patient, she states that she did feel rather constipated on arrival and was given a suppository. She had a large bowel movement though denies any blood in her stools or black tarry stools. She further denies any abdominal pain, or hematemesis. She states that she has not noted any gross blood. She denies any lightheadedness or dizziness at this time. She states that she feels much better since her arrival. When asked about her failure to comply with outpatient testing including a video capsule endoscopy study, her son who was at her bedside states that they did not feel that she could tolerate this with the prep that was required. She denies any further complaints at this time. PAST MEDICAL HISTORY: Significant for coronary artery disease, paroxysmal atrial fibrillation, mild dementia, hypertension, hyperlipidemia, diastolic heart failure, dementia and chronic kidney disease. PAST SURGICAL HISTORY: Includes a CABG, status post total hip replacement, lumbar spinal fusion. ALLERGIES: AMPICILLIN, FUROSEMIDE, APIXABAN, FLEXERIL, IBUPROFEN, LISINOPRIL, METHYLPREDNISOLONE, PROPOXYPHENE, TRAMADOL. MEDICATIONS: At the present time include Imdur 60 mg p.o. q.a.m., Mirabegron 25 mg p.o. q.a.m., Singulair 10 mg p.o. daily, Protonix 40 mg p.o. daily, Ranexa ER 1000 mg p.o. b.i.d., Lipitor 40 mg p.o. at bedtime, Aricept 10 mg p.o. at bedtime, fish oil 1 gram p.o. b.i.d., Apresoline 50 mg p.o. b.i.d., Namenda 5 mg p.o. b.i.d., Maalox 15 mL p.o. q. 4 p.r.n. dyspepsia, MiraLax 17 grams p.o. daily p.r.n. constipation, Zofran 4 mg IV q. 6 p.r.n. nausea at present. SOCIAL HISTORY: She is accompanied to the hospital by her son. She denies any tobacco, alcohol or illicit drug use. FAMILY HISTORY: Negative for GI malignancy or inflammatory bowel disease. REVIEW OF SYSTEMS: Negative x12 system review other than pertinent positives listed in the HPI. PHYSICAL EXAMINATION: VITAL SIGNS: Today include a temp of 36.8, pulse 58, respirations 18, blood pressure 115/68, and pulse ox 98% on room air. GENERAL: She is awake, cooperative, demented with inability to answer some questions though when prompted by her son answers more appropriately. HEAD: Normocephalic, atraumatic. EYES: Pupils equally round. Extraocular muscles are intact. ENT: External evaluation of ears and nose are normal. Oropharynx is clear. NECK: Soft and supple. There is no JVD or lymphadenopathy. CHEST: Clear to auscultation bilaterally. CARDIOVASCULAR SYSTEM: Irregularly irregular. ABDOMEN: Soft, nontender, nondistended. Positive bowel sounds. No hepatosplenomegaly or stigmata of chronic liver disease. EXTREMITIES: No clubbing, cyanosis, or edema. LABORATORY STUDIES: Reviewed in the HPI. IMAGING STUDIES: Include a head CT which showed no acute intracranial findings. IMPRESSION: An 82-year-old female with iron deficiency anemia and heme positive stool with prior negative workup with esophagogastroduodenoscopy and colonoscopy. PLAN: I believe that the most likely cause of the patient's symptoms was related to her atrial fibrillation as well as initiation of Xarelto therapy, which may have prompted more brisk bleeding from an unknown GI bleeding disorders. She has had an upper endoscopy and a colonoscopy within the past year and the family does not wish to undergo further invasive testing, if it is not absolutely necessary. I would recommend we increase her Protonix up to 40 mg p.o. b.i.d. in the event that she could be having an upper GI bleed secondary to something such as gastritis or peptic ulcer disease, though I doubt this as she is asymptomatic currently. I would recommend that she undergo a video capsule endoscopy study as an outpatient upon discharge. I would recommend continuing supportive care and transfusing her as needed to maintain her H&H an adequate level with her history of cardiac disease. I will also reevaluate her during her hospitalization and if any overt GI bleeding would be considered to perform more aggressive endoscopic workup. Once again, thanks for allowing me to participate in the care of this patient. If you have any further questions, please do not hesitate in contacting me.
[2017-05-28] MEDS: PANTOprazole SOD 40 MG TAB PO SCH (20:22)
[2017-05-28] MEDS: DONEPEZIL HCL 10 MG TAB PO SCH (20:25)
[2017-05-28] MEDS: ATORVASTATIN 40 MG TAB PO SCH (20:25)
[2017-05-28 23:51] VITALS: BP 126/74; PULSE 86; TEMP 36.8; O2SAT 97
[2017-05-29] VITALS (9 sets, daily range): BP systolic 117–136; BP diastolic 67–76; PULSE 64–76; TEMP 36.7–37.2; O2SAT 96–100
[2017-05-29 07:24] LABS: CREATININE 1.3 mg/dl (0.60-1.20)
[2017-05-29 07:32] LABS: HEMATOCRIT 24.9 % (37-47); MEAN CELL VOLUME 97.6 fL (80-100); MEAN CORPUSCULAR HEMOGLOBIN 34.1 pg (25-34); MEAN CORPUSCULAR HGB CONC 34.9 g/dl (32-36); MEAN PLATELET VOLUME 9.2 fL (7.4-10.4); PLATELET COUNT 263 K/uL (130-400); RED BLOOD COUNT 2.55 M/uL (4.2-5.4)
[2017-05-29] MEDS: OMEGA-3 (PURIFIED FISH OIL) 1 GM CAP PO SCH (08:04)
[2017-05-29] MEDS: MIRABEGRON ER 25 MG TAB PO SCH (08:04)
[2017-05-29] MEDS: RANOLAZINE 500 MG ER TAB PO SCH (08:04)
[2017-05-29] MEDS: MONTELUKAST SOD 10 MG TAB PO SCH (08:04)
[2017-05-29] MEDS: MEMANTINE 5 MG TAB PO SCH (08:05)
[2017-05-29] MEDS: PANTOprazole SOD 40 MG TAB PO SCH (08:05)
[2017-05-29] MEDS: ISOSORBIDE MONONITRATE 60 MG TABCR PO SCH (08:05)
--- NOTE | 2017-05-29 09:54 | Gastroenterology Progress Note ---
Progress Note Date of Service: May 29, 2017 Subjective Pt evaluation today including: conversation w/ patient, physical exam, lab review, review of studies Patient is an 82 yo female hospitalized for MITA and acute on chronic anemia. She has had an EGD and colonoscopy in the past 1 year as well as a CT scan with po & IV contrast. Her H/H is 8.7/24.9 today. Family is present at bedside. She is feeling well today. She has no overt signs of GI bleeding. She denies abdominal pain, nausea, vomiting, constipation or diarrhea. Patient & son wish to proceed with an outpatient video capsule study. Review of Systems Constitutional: No fever, No chills Eyes: No problem reported Respiratory: No cough Cardiac: No chest pain Abdomen: No pain, No nausea, No vomiting, No diarrhea, No constipation, No GI bleeding Skin: No problem reported Medications Current Inpatient Medications Medications (Trade) Dose Ordered Sig/Meenakshi Route Start Time Stop Time Status Last Admin Dose Admin Acetaminophen (Tylenol Tab) 650 mg Q4H PRN PO 05/26/17 19:45 06/25/17 19:44 Al Hydrox/Mg Hydrox/Simethicone (Maalox Max Susp) 15 ml Q4H PRN PO 05/26/17 19:45 06/25/17 19:44 Magnesium Hydroxide (Milk Of Magnesia Susp) 30 ml Q6H PRN PO 05/26/17 19:45 06/25/17 19:44 Polyethylene (Miralax Powder Packet) 17 gm DAILY PRN PO 05/26/17 19:45 06/25/17 19:44 Ondansetron HCl (Zofran Inj) 4 mg Q6H PRN IV 05/26/17 19:45 06/25/17 19:44 Aspirin (Ecotrin Tab) 81 mg DAILY PO 05/27/17 08:00 06/26/17 08:59 Future Hold 05/28/17 07:52 81 MG Atorvastatin Calcium (Lipitor Tab) 40 mg HS PO 05/26/17 21:00 06/25/17 20:59 05/28/17 20:25 40 MG Donepezil HCl (Aricept Tab) 10 mg HS PO 05/26/17 21:00 06/25/17 20:59 05/28/17 20:25 10 MG Fish Oil (Koloa-3 (Purified Fish Oil) Cap) 1 gm BID PO 05/26/17 20:38 06/25/17 20:59 05/29/17 08:04 1 GM Hydralazine HCl (Apresoline Tab) 50 mg BID PO 05/26/17 20:38 06/25/17 20:59 05/29/17 08:04 50 MG Isosorbide Mononitrate (Imdur Ext Rel Tab) 60 mg QAM PO 05/27/17 08:00 06/26/17 08:59 05/29/17 08:05 60 MG Memantine (Namenda Tab) 5 mg BID PO 05/26/17 20:38 06/25/17 20:59 05/29/17 08:05 5 MG Mirabegron (Myrbetriq Er) 25 mg QAM PO 05/27/17 08:00 06/26/17 08:59 05/29/17 08:04 25 MG Montelukast Sodium (Singulair Tab) 10 mg DAILY PO 05/27/17 08:00 06/26/17 08:59 05/29/17 08:04 10 MG Rivaroxaban (Xarelto Tab) 15 mg DAILY PO 05/27/17 08:00 06/26/17 08:59 Future Hold 05/28/17 07:52 15 MG Ranolazine (Ranexa ER Tab) 1,000 mg BID PO 05/26/17 22:00 06/25/17 21:59 05/29/17 08:04 1,000 MG Miscellaneous (Iv Fluids Completed) 1 ea PRN PRN N/A 05/27/17 02:30 05/27/18 02:29 Pantoprazole Sodium (Protonix Tab) 40 mg BID PO 05/28/17 20:00 06/27/17 19:59 05/29/17 08:05 40 MG Objective Vital Signs Date Time Temp Pulse Resp B/P (MAP) Pulse Ox O2 Delivery O2 Flow Rate FiO2 05/29/17 08:00 98 Room Air 05/29/17 08:00 36.8 70 18 117/67 (84) 98 Room Air 05/29/17 00:17 Room Air 05/28/17 23:51 36.8 86 18 126/74 (91) 97 Room Air 05/28/17 16:00 Room Air 05/28/17 15:16 36.8 58 18 115/68 (84) 98 Room Air Physical Exam General Appearance: WD/WN, no apparent distress Eyes: normal inspection, PERRL Respiratory/Chest: lungs clear, normal breath sounds Cardiovascular: regular rate, rhythm Abdomen: normal bowel sounds, non tender, soft Extremities: non-tender Neurologic/Psych: alert, oriented x 3 Skin: normal color Laboratory Results Last 24 Hours Test 05/28/17 14:13 05/29/17 06:15 Hemoglobin 8.8 g/dL 8.7 g/dL Hematocrit 25.7 % 24.9 % White Blood Count 6.80 K/uL Red Blood Count 2.55 M/uL Mean Corpuscular Volume 97.6 fL Mean Corpuscular Hemoglobin 34.1 pg Mean Corpuscular Hemoglobin Concent 34.9 g/dl RDW Standard Deviation 45.7 fL RDW Coefficient of Variation 13.1 % Platelet Count 263 K/uL Mean Platelet Volume 9.2 fL Creatinine 1.30 mg/dl Est Creatinine Clear Calc Drug Dose 30.8 ml/min Estimated GFR () 43.6 Estimated GFR (Non- 37.6 Assessment and Plan Patient is an 82 yo female with anemia. Her H/H is 8.7/24.9. She reports the plan is to discharge her today. From a GI standpoint, will arrange patient to have an outpatient video capsule endoscopy for further evaluation. She should continue Protonix 40 mg BID on discharge. Thank you for allowing us to participate in the care of this patient. If you should have any further questions or concerns, do not hesitate to contact us. Agree with DEN Negron as above Abd: Soft, NT, ND, +BS No overt GI bleeding Capsule study as outpatient Continue Protonix 40mg PO BID
[2017-05-29] MEDS ORDERED: BUMETANIDE IV 1 MG in SYRINGE 0 ML IV SCH (10:45)
[2017-05-29] MEDS ORDERED: BUME1TAB PO (11:12)
--- NOTE | 2017-05-29 11:17 | Discharge Instructions ---
Discharge Instructions Date of Service May 29, 2017. Admission Reason for Admission: Arf, Generalized Weakness Discharge Discharge Diagnosis / Problem: ARF, generalized weakness Discharge Goals Goal(s): Improve function Activity Recommendations Activity Limitations: resume your previous activity Exercise/Sports Limitations: as tolerated . Instructions / Follow-Up Instructions / Follow-Up I have reduced your bumetanide dose by half to try and prevent further dehydration episodes. Please weigh yourself daily and call your doctor if you gain more than 2 pounds in a 24 hour period or if you are beginning to feel short of breath. You should also call your doctor if you begin to feel weak again. Please get lab work done on Thursday, results will go to your primary care physician Call 911 and go to the Emergency Room if: * You have tightness or pain in your chest that does not go away with rest or Nitroglycerin * You are very short of breath even with rest Call your doctor if any of the following symptoms or problems start or get worse: * Shortness of breath or difficulty breathing * Wake up at night short of breath * Chest pain * Cough * Swelling of your hands, fee, or legs * More fatigued or tired with your normal activity * Palpitations - sudden fast heart beats WEIGHT * Weigh yourself every morning after using the bathroom. * Use the same scale. * Wear the same amount of clothing. * Write your weight down on your chart. * Call your doctor if you gain more than 2-3 pounds in 1-2 days. MEDICATIONS * Use this discharge instruction sheet for instructions. * Take your medications at the time your doctor ordered. * Do not skip a dose of your medicines. * If you miss a dose of medicine, take as soon as possible, but DO NOT DOUBLE A DOSE. * Read your medicine information when you get home. * Know all of the side effects of your medicine. * Call your doctor's office if you have any side effects. * Be sure all of your doctors know what medicine and herbs you take (including cold, flu, and herbal medicine). * Pain Medicine: If you do not get relief from your pain, please call your doctor for help. Take the following with you to your follow-up doctor appointments: * Weight Chart * Medication List * List of questions Do not drink excessive alcohol, beer or wine. Current Hospital Diet Patient's current hospital diet: AHA Diet (Heart Healthy) Discharge Diet Recommended Diet: AHA Diet (Heart Healthy) Procedures Procedures Performed: Head CT Chest X ray Pending Studies Studies pending at discharge: no Medical Emergencies . Who to Call and When: Medical Emergencies: If at any time you feel your situation is an emergency, please call 911 immediately. . Non-Emergent Contact Non-Emergency issues call your: Primary Care Provider Call Non-Emergent contact if: you have any medication questions . . "Provider Documentation" section prepared by Eva Martinez. . VTE Core Measure Inpt VTE Proph given/why not?: Other Anticoagulation
--- NOTE | 2017-05-29 14:34 | Discharge Summary ---
Discharge Summary Date of Service May 29, 2017. (Eva Martinez CRNP) Discharge Summary Admission Date: May 27, 2017 at 15:50 Discharge Date: May 29, 2017 Discharge Disposition: Home Principal Diagnosis: dehydration, MITA Immunizations: Have You Had Influenza Vaccine: N/A History of Tetanus Vaccine?: No History of Pneumococcal: Yes Pneumococcal Date: Feb 10, 2009 History of Hepatitis B Vaccine: No Procedures: Head CT IMPRESSION: No acute intracranial findings CXR IMPRESSION: Stable mild cardiomegaly. No acute findings. (Eva Martinez CRNP) Problems/Secondary Diagnoses: 1. acute/chronic anemia; acute component due to acute blood loss anemia from GI bleeding 2. chronic diastolic CHF 3. HTN 4. CAD with chronic angina 5. atrial fibrillation 6. hyperlipidemia 7. mild dementia 8. CKD stage 3 Procedures: PRBCs x 1 unit Consultations: GI - Dr. Manuel House (Dev Bearden MD) Discharge Exam Review of Systems: Constitutional: No chills, No sweats Respiratory: + shortness of breath Cardiovascular: + palpitations Abdomen: No pain, No nausea, No vomiting Genitourinary - Female: No dysuria Physical Exam: General Appearance: WD/WN, no apparent distress Respiratory/Chest: chest non-tender, lungs clear, normal breath sounds, no respiratory distress Cardiovascular: no edema, no gallop, no murmur, normal peripheral pulses, + irregularly irregular Abdomen / GI: normal bowel sounds, non tender, soft Neurologic/Psychiatric: alert, normal reflexes, oriented x 3 Skin: normal color, warm/dry, no rash (Eva Martinez CRNP) Hospital Course Ms. Potter is an 82 y/o female with Hx diastolic CHF, HTN, CAD with chronic CP , AF, HPL, mild dementia. Presents with progressive weakness and dizziness when standing over the past 2 days. She states she has been urinating frequently and has not maintained her fluid intake despite complying with Bumex. Initial labs and clinical evaluation are consistent with dehydration and MITA. She denies fevers/rigors, CP, SOB, N/V, diarrhea, dysuria. Dehydration, MITA - IVF - kidney function improving - hold Bumex - per son this is the 4th time she has become dehydrated - will cut Bumex in half for discharge home GI Bleed - positive FOBT x2. GI consult. H&H this afternoon. Hold anticoagulant/ ASA. Continue protonix po. - Patient complains of fluttering heart rate and feeling short of breath. EKG obtained showing A. fib in the 60s. Troponin negative. - 1 unit PRBC administered - patient may be experiencing angina due to demand ischemia from blood loss - Cardiology consulted and saw patient last night - she declined to be scoped so they will follow up outpatient for capsule endoscopy. - She may be able to restart ASA when bleed has stopped but unlikely she would be able to restart anticoagulation as she has had bleeds in the past on anticoagulation HTN - ARB, Bumex held - cont Hydralazine, Imdur Chronic diastolic CHF - no sign of volume overload this afternoon, no further IV fluids. CAD - Statin, Ranexa, NTG PRN AF - rate is controlled Full code DVT prophylaxis - Xeralto on hold for GI bleed Total Time Spent: Greater than 30 minutes This includes examination of the patient, discharge planning, medication reconciliation, and communication with other providers. (Eva Martinez ., ALAN) Attending Discharge Note & Attestation: Pt seen/examined, chart reviewed, discharge care plan d/w SHUTTLE FINAL INSPECTOR Eva Martinez. I agree w/ the farr components of her discharge summary. 82yo female with CAD/chronic angina, CKD 3, prior GI bleeding, and chronic diastolic CHF who presented with acute kidney injury and dehydration. Was hydrated with improvement of creatinine to baseline. During her stay she had an acute drop in her hemoglobin from a baseline level of ~10.5 to about 8.5-9. Stools were heme positive. Seen by GI - EGD/colonoscopy offered but declined by patient/sons as she had normal upper/lower endoscopies in 2016. Outpatient capsule endoscopy was recommended and will be arranged. In the midst of her acute anemia she reported mild dyspnea and palpitations. Thus, 1 unit of PRBCs was infused prior to discharge to try and maintain a hemoglobin of about 10. The patient had JUST BEEN STARTED ON XARELTO for a. fib about 1-2 weeks prior to admission. She has had multiple other episodes of GI bleeding on anticoagulation. THUS, xarelto was discontinued and she was asked to HOLD aspirin until her follow-up appointments. Her bumex dose was cut in 1/2 during this admission due to propensity for dehydration. Lastly, although her EKG showed significant ST changes, troponins during this admission were completely normal. I suspect her acute anemia made her EKG worse than baseline in the setting of known CAD. Her primary feeder switchboard operator was made aware of this admission and she will follow- up with [facility] shortly after discharge. Discharge exam: gen - nad skin - mild pallor but improved after PRBCs neck - no JVD heart - RRR, s1, s2 lungs - CTA b/l abd - soft, NT ext - no edema Dev Bearden MD (Dev Bearden MD) Discharge Instructions Please refer to the electronic Patient Visit Report (Discharge Instructions) for additional information. (Eva Martinez CRNP) Follow-Up 1. ThursdayJune 02 at 10:00 am - Shameka PHILLIPS 2. [facility] [place] Cardiology Office with Tish Pat PA-C - ThursdayJune 08 at 1:00 pm 3. [facility] [place] GI office - Valeri Webb PA-C on June 04 at 11:00 am (Dev Bearden MD) Additional Copies To Shameka Myers; Tish Pat PA-C; Valeri Webb PA
== END 2017-05-29 16:42 | disposition home or self-care (01) | DRG 683 ==
LOC: C.EDB 14:33 → C.4E 19:45 → ENRESERV 20:00 → OBSVTOIN 05-27 15:50
PROVIDERS: ADMIT Internal Medicine; ATTEND Internal Medicine
DX: N17.9 Acute kidney failure, unspecified (principal); D68.32 Hemorrhagic disorder due to extrinsic circulating anticoagulants; K92.2 Gastrointestinal hemorrhage, unspecified; D62 Acute posthemorrhagic anemia; N39.0 Urinary tract infection, site not specified; I50.32 Chronic diastolic (congestive) heart failure; I13.0 Hypertensive heart and chronic kidney disease with heart failure and stage 1 through stage 4 chronic kidney disease, or unspecified chronic kidney disease; N18.3 Chronic kidney disease, stage 3 (moderate); D50.9 Iron deficiency anemia, unspecified; I25.10 Atherosclerotic heart disease of native coronary artery without angina pectoris; I48.91 Unspecified atrial fibrillation; E78.5 Hyperlipidemia, unspecified; F03.90 Unspecified dementia, unspecified severity, without behavioral disturbance, psychotic disturbance, mood disturbance, and anxiety; Z79.01 Long term (current) use of anticoagulants; Z79.82 Long term (current) use of aspirin; Z79.899 Other long term (current) drug therapy; Z88.0 Allergy status to penicillin; Z88.6 Allergy status to analgesic agent; Z88.8 Allergy status to other drugs, medicaments and biological substances; Z83.2 Family history of diseases of the blood and blood-forming organs and certain disorders involving the immune mechanism; Z81.8 Family history of other mental and behavioral disorders; Z83.3 Family history of diabetes mellitus; Z82.49 Family history of ischemic heart disease and other diseases of the circulatory system; Z82.0 Family history of epilepsy and other diseases of the nervous system; Z82.3 Family history of stroke

== ENCOUNTER → 2017-06-02 | Outpatient (CLI) | payer OTHER, MEDICARE ==
[~2017-06-02] MED LIST changes: +BUME1TAB PO; -BUME2TAB3 PO; +CEFD1CAP14 PO; +CLOP1TAB15 PO; +DONE1TAB11 PO; +DONE5TAB9 PO; +ERGO50002 PO; +GLC/500 PO; +HYDR-4717 PO; +IMDSR/30 PO; +MAGN400C3 PO; +METO25TA3 PO; +MIRA100T PO; +NXM/40 PO; -OMEG10007 PO; +POLY335019 PO; +POTA1CAP2 PO; +RANI150T2 PO; +RANO1000 PO; +RIVA1TAB4 PO; +SULF800T23 PO
[2017-06-02 17:27] LABS: BASO % 0.4 %; BASO ABS # 0.02 K/uL (0-0.2); COMPLETE YES; EOS % 1.1 %; HEMATOCRIT 31.5 % (37-47); IG% 0.2 %; LYMPH ABS # 1.67 K/uL (1.2-3.4); MEAN CELL VOLUME 97.2 fL (80-100); MEAN PLATELET VOLUME 9.2 fL (7.4-10.4); MONO % 13.8 %; NEUT % 54.5 %; PLATELET COUNT 323 K/uL (130-400); RED BLOOD COUNT 3.24 M/uL (4.2-5.4); WHITE BLOOD COUNT 5.56 K/uL (4.8-10.8)
[2017-06-02 17:43] LABS: PROTHROMBIN TIME (PATIENT) 10.6 SECONDS (9.0-12.0)
[2017-06-02 18:00] LABS: ALT/SGPT 30 U/L (12-78); AST/SGOT 24 U/L (15-37); BLOOD UREA NITROGEN 24 mg/dl (7-18); CARBON DIOXIDE 23 mmol/L (21-32); CHLORIDE 108 mmol/L (98-107); CREATININE 1.28 mg/dl (0.60-1.20); GLUCOSE 99 mg/dl (70-99); MAGNESIUM 2.4 mg/dl (1.8-2.4); POTASSIUM 4.2 mmol/L (3.5-5.1); SODIUM 139 mmol/L (136-145)
[2017-06-02 18:03] LABS: ALB/GLOB RATIO 0.9 (0.9-2); ALKALINE PHOSPHATASE 79 U/L (45-117); FERRITIN 251.9 ng/ml (8.0-388.0)
== END | disposition home or self-care (01) ==
LOC: C.LABPBG 14:44
PROVIDERS: ATTEND Family Medicine
DX: E03.9 Hypothyroidism, unspecified (principal); I10 Essential (primary) hypertension; E78.00 Pure hypercholesterolemia, unspecified; D51.8 Other vitamin B12 deficiency anemias; I48.0 Paroxysmal atrial fibrillation

== ENCOUNTER → 2017-08-20 | Outpatient (CLI) | payer OTHER, MEDICARE ==
[~2017-08-20] MED LIST changes: +ASPI81TA28 PO; -BUME1TAB PO; -CEFD1CAP14 PO; -CLOP1TAB15 PO; -DONE10TA12 PO; -DONE1TAB11 PO; +DONE5TAB26 PO; -ERGO50002 PO; -ESOM20CA PO; -HYDR-4717 PO; -ISOS60TA25 PO; -LOSA50TA6 PO; -METO25TA3 PO; +METO25TA4 PO; -MIRA100T PO; -MULT-506 PO; -NITR0.4S74; -POLY335019 PO; -SULF800T23 PO; +[UNRECOGNIZED DRUG - CODE] PO
[2017-08-20 17:07] LABS: HEMATOCRIT 30.6 % (37-47); HEMOGLOBIN 10.2 g/dL (12.0-16.0); MEAN CELL VOLUME 100.7 fL (80-100); MEAN CORPUSCULAR HEMOGLOBIN 33.6 pg (25-34); MEAN CORPUSCULAR HGB CONC 33.3 g/dl (32-36); MEAN PLATELET VOLUME 9.7 fL (7.4-10.4); PLATELET COUNT 210 K/uL (130-400); RED CELL DISTRIBUTION WIDTH CV 13.5 % (11.5-14.5); RED CELL DISTRIBUTION WIDTH SD 49.2 fL (36.4-46.3); WHITE BLOOD COUNT 5.01 K/uL (4.8-10.8)
[2017-08-20 18:46] LABS: ALBUMIN 3.5 gm/dl (3.4-5.0); BLOOD UREA NITROGEN 25 mg/dl (7-18); CALCIUM 9.1 mg/dl (8.5-10.1); CARBON DIOXIDE 25 mmol/L (21-32); CREATININE 1.31 mg/dl (0.60-1.20); GLUCOSE 96 mg/dl (70-99); PHOSPHORUS 2.9 mg/dl (2.5-4.9); POTASSIUM 4.3 mmol/L (3.5-5.1); SODIUM 139 mmol/L (136-145)
== END | disposition home or self-care (01) ==
LOC: C.LABPBG 12:13
PROVIDERS: ATTEND Internal Medicine Nephrology
DX: I12.9 Hypertensive chronic kidney disease with stage 1 through stage 4 chronic kidney disease, or unspecified chronic kidney disease (principal); N18.3 Chronic kidney disease, stage 3 (moderate); D64.9 Anemia, unspecified; R80.9 Proteinuria, unspecified

== ENCOUNTER 2019-03-28 14:24 | Inpatient (IN) ==
[2019-03-28] MEDS ORDERED: ONDANSETRON INJ 2 MG/ML 2 ML VIAL IV STA (14:44)
[2019-03-28] MEDS ORDERED: SODIUM CHLORIDE 0.9% 1000ML 1,000 ML IV SCH (14:45)
[2019-03-28] MEDS ORDERED: VANCOMYCIN HCL 1,500 MG in SODIUM CHLORIDE 0.9% 500 ML IV ONE (14:46)
[2019-03-28] MEDS ORDERED: CEFEPIME 2,000 MG/20 ML VIAL IV STA (14:46)
[2019-03-28] MEDS ORDERED: metroNIDAZOLE 500 MG/100 ML BAG IV STA (14:46)
[2019-03-28] MEDS ORDERED: VANCOMYCIN CONSULT ACTIVE PRN (14:46)
--- NOTE | 2019-03-28 15:08 | XRay Report ---
XR chest 1V portable CLINICAL HISTORY: 83 years-old Female presenting with weakness. TECHNIQUE: Portable upright AP view of the chest was obtained. COMPARISON: 05/26/2017. FINDINGS: Median sternotomy wires and mediastinal surgical clips. Atherosclerosis of the aortic arch. Cardiac s ilhouette enlarged. Coronary artery stents in place. No focal opacity. No large effusion or pneumotho rax. Degenerative changes of the thoracic spine. Osteopenia may be present. Degenerative changes of t he right AC joint. Upper abdomen normal. IMPRESSION: 1. Cardiomegaly. No other convincing evidence of acute cardiopulmonary disease. Electronically signed by: Mark Parra M.D. 03/28/2019 3:06 PM
[2019-03-28] MEDS ORDERED: SODIUM CHLORIDE 0.9% 1000ML 1,000 ML IV ONE (16:31)
[2019-03-28] MEDS ORDERED: CEFEPIME 2,000 MG/20 ML VIAL ONE (16:49)
[2019-03-28 17:04] LABS: Hematocrit (blood only) 25.2 % (37-47); Hemoglobin 8.4 g/dL (12.0-16.0); Mean Corpuscular Hgb Conc 33.3 g/dL (32-36); Mean Corpuscular Volume 96.9 fL (80-100); Platelet Count 245 K/uL (130-400); RDW Coefficient of Variation 14.7 % (11.5-14.5); RDW Standard Deviation 51.8 fL (36.4-46.3); White Blood Count 24.01 K/uL (4.8-10.8)
[2019-03-28 17:21] LABS: INR 1.2 (0.9-1.1); Prothrombin Time 12.6 Seconds (9.0-12.0)
[2019-03-28 17:22] LABS: Albumin Level 2.4 gm/dl (3.4-5.0); BUN Creatinine Ratio 45.7 (10-20); Calcium 8.4 mg/dl (8.5-10.1); Creatinine Clr Calc Pharmacy 34.4 ml/min; Est GFR (African American) 60.2; Magnesium 1.8 mg/dl (1.8-2.4); Potassium 3.3 mmol/L (3.5-5.1)
[2019-03-28 17:27] LABS: Basophils # (auto) 0.02 K/uL (0-0.2); Basophils % (auto) 0.1 %; Eosinophils # (auto) 0.01 K/uL (0-0.5); Immature Granulocytes # (auto) 0.15 K/uL (0.00-0.02); Immature Granulocytes % (auto) 0.6 %; Lymphocytes # (auto) 1.45 K/uL (1.2-3.4); Monocytes # (auto) 1.57 K/uL (0.11-0.59); Monocytes % (auto) 6.5 %; Neutrophils # (auto) 20.81 K/uL (1.4-6.5); Neutrophils % (auto) 86.8 %; Toxic Granulation 1+
[2019-03-28 17:41] LABS: Albumin Globulin Ratio 0.6 (0.9-2); Bilirubin,Total 1.2 mg/dl (0.2-1); Globulin 3.9 gm/dl (2.5-4.0); Total Protein 6.3 gm/dl (6.4-8.2); Troponin I 0.055 ng/ml (0-0.045)
--- NOTE | 2019-03-28 19:58 | Emergency Department Note ---
Entered by Tyra Carballo acting as a scribe for History of Present Illness General Chief complaint: Cardiac Assessment Stated complaint: lethargy Time Seen by Provider: 03/28/19 14:25 Source: patient History of Present Illness Onset (ago): hour(s) (this morning) Pain Consistency: + constant Maximum Pain Intensity: 0 Current Pain Intensity: 0 Quality: + other (weakness) Associated symptoms: + denies other symptoms (negative urinary problems. negative diarrhea), + nausea/vomiting (negative vomiting) and + weakness; no cough, no fever/chills, no loss of appetite and no shortness of breath The patient is a 83 year old female with a PMHx of CHF, CKD, hypertension, and diabetes who presents to the Emergency Room with complaints of persistent body weakness. She also complains of nausea, and has 2 cuts on her right buttock. She went to her PCP today, and her blood pressure was 60/40. After she was given f luids, she stated that she felt no improvement in her symptoms. The patient denies any nausea, vomiting, fevers, chills, shortness of breath, chest pain, and abdominal pain. She reports normal urination and normal appetite. Home Medications Home Medications Medication Instructions Recorded Confirmed Type Lactobacillus Tab 1 tab PO TID 03/28/19 03/28/19 History Med Pass Supplement 180 ml PO UD 03/28/19 03/28/19 History acetaminophen [Tylenol] 650 mg PO BID 03/28/19 03/28/19 History acetaminophen [Tylenol] 650 mg PO Q4 PRN 03/28/19 03/28/19 History aspirin [Aspir-Low] 81 mg PO DAILY 03/28/19 03/28/19 History atorvastatin [Lipitor] 40 mg PO QPM 03/28/19 03/28/19 History bumetanide 1 mg PO 3XWK 03/28/19 03/28/19 History calcium polycarbophil [FiberCon] 650 mg PO BID 03/28/19 03/28/19 History collagenase clostridium histo. 1 applic TOPICAL .DAILY & PRN 03/28/19 03/28/19 History [Santyl] donepezil [Aricept] 10 mg PO DAILY 03/28/19 03/28/19 History doxycycline hyclate 100 mg PO AMHS 03/28/19 03/28/19 History isosorbide mononitrate 30 mg PO DAILY 03/28/19 03/28/19 History magnesium hydroxide [Milk of 30 ml PO UD PRN 03/28/19 03/28/19 History Magnesia] memantine [Namenda] 5 mg PO BID 03/28/19 03/28/19 History mirabegron [Myrbetriq] 50 mg PO DAILY 03/28/19 03/28/19 History montelukast [Singulair] 10 mg PO PM 03/28/19 03/28/19 History nitroglycerin [Nitrostat] 0.4 mg SUBLINGUAL UD PRN 03/28/19 03/28/19 History omeprazole 20 mg PO BID 03/28/19 03/28/19 History ondansetron HCl 4 mg PO Q6 PRN 03/28/19 03/28/19 History polyethylene glycol 3350 [Miralax] 17 g PO DAILY 03/28/19 03/28/19 History promethazine [Phenergan] 25 mg MO Q6H PRN 03/28/19 03/28/19 History ranitidine HCl [Zantac] 150 mg PO BID 03/28/19 03/28/19 History ranolazine [Ranexa] 1,000 mg PO AMHS 03/28/19 03/28/19 History sucralfate [Carafate] 1 g PO QID 03/28/19 03/28/19 History tramadol 50 mg PO Q6H PRN 03/28/19 03/28/19 History thxy-nqk-[id number]-C-Zn-Cu-tos 0 g PO BID 03/28/19 03/28/19 History [ArgiMent AT] Allergies Allergy/AdvReac Type Severity Reaction Status Date / Time ampicillin Allergy Intermediate RASH, HIVES Verified 03/28/19 16:06 furosemide Allergy Intermediate SHORTNESS Verified 03/28/19 16:06 OF BREATH,throat itching apixaban Allergy Unknown UNKNOWN Unverified 03/28/19 16:06 cyclobenzaprine Allergy Unknown Unknown rxn Verified 03/28/19 16:06 ibuprofen Allergy Unknown UNKNOWN Verified 03/28/19 16:06 lisinopril Allergy Unknown UNKNOWN Verified 03/28/19 16:06 methylprednisolone Allergy Unknown UNKNOWN Verified 03/28/19 16:06 propoxyphene Allergy Unknown UNKNOWN Verified 03/28/19 16:06 tramadol Allergy Unknown UNKNOWN Verified 03/28/19 16:06 EPIDURAL STEROID INJECTIONS Allergy Unknown . Uncoded 03/28/19 16:06 SOAPCLEAN AdvReac Mild Changing Uncoded 11/08/18 13:03 wipe - itchy rash Past Med/Surg History Medical History Urge incontinence of urine (Acute) Paroxysmal atrial fibrillation (Acute) PAD (peripheral artery disease) (Acute) Dementia (Acute) Chronic kidney disease (CKD), stage III (moderate) (Acute) Chronic diastolic congestive heart failure (Acute) Carotid artery occlusion (Acute) Arthritis (Acute) Arteriosclerosis of coronary artery (Acute) Shingles (Acute) Anemia (Chronic) CHF (congestive heart failure) (Chronic) Carotid artery disease (Chronic) Chronic kidney disease (Chronic) Diabetes (Chronic) Hypertension (Chronic) Osteoporosis (Chronic) H/O: GI bleed (Resolved) Surgical History H/O heart artery stent (Resolved) Previous back surgery (Resolved) S/P hip replacement (Resolved) Social History Communication Ability: Effective Visual Impairment: No Limitations Hearing Ability: Normal Beliefs That Will Affect Care: None marital status: Current Living Situation: Family current occupational status: retired Feels Safe at Home: Yes Smoking Status: Never smoker Hx Alcohol Use: No Hx Substance Use: No Review of Systems See HPI for pertinent positives & negatives. and A total of 10 systems reviewed and were otherwise negative Physical Exam Vital Signs Vital Signs - 24 hr 03/28/19 14:39 03/28/19 14:44 03/28/19 14:46 Temperature 36.5 C Temperature Source Oral Sepsis Recent Fever Within 48 Hours No Sepsis New/Unexplained Change in Mental Status No Sepsis Action Taken by Nursing No Action Required Pulse Rate 71 70 71 Pulse Rate [Finger] 70 Pulse Rate from SpO2 Sensor 70 73 Pulse Rhythm [Finger] Pulse Strength [Finger] Respiratory Rate 21 18 18 Respiratory Effort / Characteristics Respiratory Depth Respiratory Pattern Blood Pressure 84/39 L 84/39 L Blood Pressure [Right Arm] 84/39 L Blood Pressure Mean 54 54 Blood Pressure Mean [Right Arm] 54 Blood Pressure Position [Right Arm] Pulse Oximetry 95 96 96 Oxygen Delivery Method Room Air Room Air Room Air 03/28/19 14:50 03/28/19 15:00 03/28/19 15:10 Temperature Temperature Source Sepsis Recent Fever Within 48 Hours Sepsis New/Unexplained Change in Mental Status Sepsis Action Taken by Nursing Pulse Rate 71 73 74 Pulse Rate [Finger] Pulse Rate from SpO2 Sensor 71 73 74 Pulse Rhythm [Finger] Pulse Strength [Finger] Respiratory Rate 13 21 22 Respiratory Effort / Characteristics Respiratory Depth Respiratory Pattern Blood Pressure 86/53 L Blood Pressure [Right Arm] Blood Pressure Mean 64 Blood Pressure Mean [Right Arm] Blood Pressure Position [Right Arm] Pulse Oximetry 95 97 96 Oxygen Delivery Method Room Air Room Air Room Air 03/28/19 15:20 03/28/19 15:30 03/28/19 15:40 Temperature Temperature Source Sepsis Recent Fever Within 48 Hours Sepsis New/Unexplained Change in Mental Status Sepsis Action Taken by Nursing Pulse Rate 74 72 71 Pulse Rate [Finger] Pulse Rate from SpO2 Sensor 74 73 72 Pulse Rhythm [Finger] Pulse Strength [Finger] Respiratory Rate 20 21 20 Respiratory Effort / Characteristics Respiratory Depth Respiratory Pattern Blood Pressure 95/58 L Blood Pressure [Right Arm] Blood Pressure Mean 70 Blood Pressure Mean [Right Arm] Blood Pressure Position [Right Arm] Pulse Oximetry 95 95 96 Oxygen Delivery Method Room Air Room Air Room Air 03/28/19 15:49 03/28/19 15:50 03/28/19 16:00 Temperature Temperature Source Sepsis Recent Fever Within 48 Hours Sepsis New/Unexplained Change in Mental Status Sepsis Action Taken by Nursing Pulse Rate 70 69 Pulse Rate [Finger] 70 Pulse Rate from SpO2 Sensor 72 71 Pulse Rhythm [Finger] Pulse Strength [Finger] Respiratory Rate 18 18 17 Respiratory Effort / Characteristics Respiratory Depth Respiratory Pattern Blood Pressure 92/42 L Blood Pressure [Right Arm] 95/58 L Blood Pressure Mean 58 Blood Pressure Mean [Right Arm] 70 Blood Pressure Position [Right Arm] Pulse Oximetry 96 98 96 Oxygen Delivery Method Room Air Room Air Room Air 03/28/19 16:10 03/28/19 16:20 03/28/19 16:30 Temperature Temperature Source Sepsis Recent Fever Within 48 Hours Sepsis New/Unexplained Change in Mental Status Sepsis Action Taken by Nursing Pulse Rate 70 70 70 Pulse Rate [Finger] Pulse Rate from SpO2 Sensor 70 70 70 Pulse Rhythm [Finger] Pulse Strength [Finger] Respiratory Rate 16 15 20 Respiratory Effort / Characteristics Respiratory Depth Respiratory Pattern Blood Pressure 113/55 L Blood Pressure [Right Arm] Blood Pressure Mean 74 Blood Pressure Mean [Right Arm] Blood Pressure Position [Right Arm] Pulse Oximetry 96 96 96 Oxygen Delivery Method Room Air Room Air Room Air 03/28/19 16:40 03/28/19 16:50 03/28/19 16:51 Temperature Temperature Source Sepsis Recent Fever Within 48 Hours Sepsis New/Unexplained Change in Mental Status Sepsis Action Taken by Nursing Pulse Rate 73 71 Pulse Rate [Finger] 71 Pulse Rate from SpO2 Sensor 74 71 Pulse Rhythm [Finger] Pulse Strength [Finger] Respiratory Rate 20 18 18 Respiratory Effort / Characteristics Respiratory Depth Respiratory Pattern Blood Pressure Blood Pressure [Right Arm] 113/55 L Blood Pressure Mean Blood Pressure Mean [Right Arm] 74 Blood Pressure Position [Right Arm] Pulse Oximetry 96 96 97 Oxygen Delivery Method Room Air Room Air Room Air 03/28/19 17:00 03/28/19 17:01 03/28/19 17:10 Temperature Temperature Source Sepsis Recent Fever Within 48 Hours Sepsis New/Unexplained Change in Mental Status Sepsis Action Taken by Nursing Pulse Rate 72 71 72 Pulse Rate [Finger] Pulse Rate from SpO2 Sensor 72 71 73 Pulse Rhythm [Finger] Pulse Strength [Finger] Respiratory Rate 20 19 17 Respiratory Effort / Characteristics Respiratory Depth Respiratory Pattern Blood Pressure 113/58 L Blood Pressure [Right Arm] Blood Pressure Mean 76 Blood Pressure Mean [Right Arm] Blood Pressure Position [Right Arm] Pulse Oximetry 96 95 95 Oxygen Delivery Method Room Air Room Air Room Air 03/28/19 17:20 03/28/19 17:30 03/28/19 17:40 Temperature Temperature Source Sepsis Recent Fever Within 48 Hours Sepsis New/Unexplained Change in Mental Status Sepsis Action Taken by Nursing Pulse Rate 71 72 72 Pulse Rate [Finger] Pulse Rate from SpO2 Sensor 71 72 72 Pulse Rhythm [Finger] Pulse Strength [Finger] Respiratory Rate 16 17 16 Respiratory Effort / Characteristics Respiratory Depth Respiratory Pattern Blood Pressure 93/48 L Blood Pressure [Right Arm] Blood Pressure Mean 63 Blood Pressure Mean [Right Arm] Blood Pressure Position [Right Arm] Pulse Oximetry 95 95 94 Oxygen Delivery Method Room Air Room Air Room Air 03/28/19 17:50 03/28/19 18:34 03/28/19 20:00 Temperature Temperature Source Sepsis Recent Fever Within 48 Hours Sepsis New/Unexplained Change in Mental Status Sepsis Action Taken by Nursing Pulse Rate 72 Pulse Rate [Finger] 78 77 Pulse Rate from SpO2 Sensor 73 Pulse Rhythm [Finger] Regular Pulse Strength [Finger] Normal Respiratory Rate 16 21 20 Respiratory Effort / Characteristics Non-Labored Respiratory Depth Normal Respiratory Pattern Regular Blood Pressure Blood Pressure [Right Arm] 137/78 94/60 L Blood Pressure Mean Blood Pressure Mean [Right Arm] 97 71 Blood Pressure Position [Right Arm] Lying Pulse Oximetry 95 91 97 Oxygen Delivery Method Room Air Room Air Room Air 03/28/19 21:36 Temperature Temperature Source Sepsis Recent Fever Within 48 Hours Sepsis New/Unexplained Change in Mental Status Sepsis Action Taken by Nursing Pulse Rate 71 Pulse Rate [Finger] Pulse Rate from SpO2 Sensor Pulse Rhythm [Finger] Pulse Strength [Finger] Respiratory Rate 16 Respiratory Effort / Characteristics Respiratory Depth Respiratory Pattern Blood Pressure 90/60 L Blood Pressure [Right Arm] Blood Pressure Mean Blood Pressure Mean [Right Arm] Blood Pressure Position [Right Arm] Pulse Oximetry 96 Oxygen Delivery Method Room Air GENERAL: Mildly ill appearing, in mild distress. EYE EXAM: Normal conjunctiva. PERRL, no anisocoria and EOM's grossly intact w/o pain. OROPHARYNX: Moist mucous membranes. Grossly normal dentition. NECK: Supple, no nuchal rigidity, no adenopathy, non-tender. No signs of meningismus. LUNGS: Clear to auscultation. Normal chest wall mechanics. HEART: NSR, no MRG. ABDOMEN: Abdomen soft, non-tender, normo-active bowel sounds, no masses, no rebound or guarding. BACK: No CVA TTP. SKIN: 2 right sided buttock wounds; one is stage 1 (1x1cm) and the other is stage 3 (3x3cm) with possible purulent drainage. No rashes and no bruising. UPPER EXTREMITIES: Upper extremities are grossly normal. LOWER EXTREMITIES: No pitting edema. No calf pain. NEURO EXAM: A&O x3, cranial nerves II-XII grossly intact, normal speech, [5/5 strength throughout, no sensory deficits, good finger to nose, no pronator drift], moves all 4 extremities on command w/o issue. Course 1438: Past medical records reviewed. The patient was evaluated in room C10. A complete history and physical exam was performed. 163: I rechecked on the patient, who was resting comfortably and stated she was feeling a little better. 1729: I rechecked the patient's blood pressure, which had improved and was at 113/55. Upon reevaluation, I discussed findings and results with the patient. Sh e verbalized agreement of the treatment plan. I spoke with Dr. Becerril of the [facility] Hospitalist Service. The patient will be evaluated for further management and care. Dr. Becerril is also requesting a CT abd/pelvis for the patient. 1810: The patient does have a slightly elevated troponin, but will not be given aspirin due to no acute ischemic changes and no chest pain. 5: The patient was drinking the by mouth contrast, and her blood pressure is at 113/78. Administered Medications Discontinued Medications Cefepime HCl (Maxipime) Confirm Administered Dose 2,000 mg .ROUTE .STK-MED ONE Stop: 03/28/19 16:50 Last Admin: 03/28/19 16:59 Dose: Not Given Documented by: [id number] Sodium Chloride (Nss 1000ml) 1,000 mls @ 999 mls/hr IV .Q1H1M INDY Stop: 03/28/19 15:45 Last Infusion: 03/28/19 16:37 Dose: 0 mls/hr Documented by: [id number] Admin: 03/28/19 15:33 Dose: 999 mls/hr Documented by: [id number] Metronidazole (Flagyl) 500 mg in 100 mls @ 100 mls/hr IV NOW STA Stop: 03/28/19 15:45 Last Infusion: 03/28/19 16:47 Dose: 0 mls/hr Documented by: [id number] Admin: 03/28/19 15:39 Dose: 100 mls/hr Documented by: [id number] Cefepime HCl (Maxipime) 2,000 mg in 20 mls @ 5 mls/min IV NOW STA; Protocol Stop: 03/28/19 14:49 Last Admin: 03/28/19 16:54 Dose: 5 mls/min Documented by: [id number] Vancomycin HCl 1,500 mg/ (Sodium Chloride) 530 mls @ 200 mls/hr IV NOW ONE; Protocol Stop: 03/28/19 17:24 Last Infusion: 03/28/19 18:29 Dose: 0 mls/hr Documented by: [id number] Admin: 03/28/19 15:49 Dose: 200 mls/hr Documented by: [id number] Sodium Chloride (Nss 1000ml) 1,000 mls @ 999 mls/hr IV .Q1H1M ONE Stop: 03/28/19 17:31 Last Infusion: 03/28/19 18:01 Dose: 0 mls/hr Documented by: [id number] Admin: 03/28/19 16:59 Dose: 999 mls/hr Documented by: [id number] Ondansetron HCl (Zofran) 4 mg IV NOW STA Stop: 03/28/19 14:45 Last Admin: 03/28/19 15:38 Dose: 4 mg Documented by: [id number] Medical Decision Making Differential Diagnosis Differential includes acute coronary syndrome, myocardial infarction, CVA, TIA, anemia, infection, pneumonia, UTI, pyelonephritis, poor nutrition, dehydration, electrolyte disturbance,hypoglycemia. Medical Records Attestation: I reviewed the patient's medical records. Home Medications Current Medication List: was personally reviewed by me Laboratory Data Attestation: I reviewed the patient's lab results. Result diagrams: 03/28/19 16:56 03/28/19 16:56 Lab Results 03/28/19 03/28/19 03/28/19 Range/Units 16:56 16:56 16:56 WBC 24.01 H (4.8-10.8) K/uL RBC 2.60 L (4.2-5.4) M/uL Hgb 8.4 L (12.0-16.0) g/dL Hct 25.2 L (37-47) % MCV 96.9 (80-100) fL MCH 32.3 (25-34) pg MCHC 33.3 (32-36) g/dL RDW Std Deviation 51.8 H (36.4-46.3) fL RDW Coeff of Claudine 14.7 H (11.5-14.5) % Plt Count 245 (130-400) K/uL MPV 9.0 (7.4-10.4) fL Immature Gran % (Auto) 0.6 % Neut % (Auto) 86.8 % Lymph % (Auto) 6.0 % Clarke % (Auto) 6.5 % Eos % (Auto) 0.0 % Baso % (Auto) 0.1 % Immature Gran # (Auto) 0.15 H (0.00-0.02) K/uL Neut # (Auto) 20.81 H (1.4-6.5) K/uL Lymph # (Auto) 1.45 (1.2-3.4) K/uL Clarke # (Auto) 1.57 H (0.11-0.59) K/uL Eos # (Auto) 0.01 (0-0.5) K/uL Baso # (Auto) 0.02 (0-0.2) K/uL Toxic Granulation 1+ PT 12.6 H (9.0-12.0) Seconds INR 1.2 H (0.9-1.1) Sodium 144 (136-145) mmol/L Potassium 3.3 L (3.5-5.1) mmol/L Chloride 115 H (98-107) mmol/L Carbon Dioxide 23 (21-32) mmol/L Anion Gap 6.0 (3-11) BUN 45 H (7-18) mg/dl Creatinine 0.99 (0.6-1.2) mg/dl Est Cr Clr Drug Dosing 34.4 ml/min Est GFR ( Amer) 60.2 Est GFR (Non-Af Amer) 52.0 BUN/Creatinine Ratio 45.7 H (10-20) Glucose 121 H (70-99) mg/dl POC Lactic Acid Gilles (0.90-1.70) mmol/L Lactate (0.4-2.0) mmol/L Calcium 8.4 L (8.5-10.1) mg/dl Magnesium 1.8 (1.8-2.4) mg/dl Total Bilirubin 1.2 H (0.2-1) mg/dl AST 11 L (15-37) U/L ALT 10 L (12-78) U/L Alkaline Phosphatase 68 (45-117) U/L Troponin I 0.055 H* (0-0.045) ng/ml Total Protein 6.3 L (6.4-8.2) gm/dl Albumin 2.4 L (3.4-5.0) gm/dl Globulin 3.9 (2.5-4.0) gm/dl Albumin/Globulin Ratio 0.6 L (0.9-2) Procalcitonin (0-0.5) ng/ml TSH 1.290 (0.300-4.500) uIu/ml Urine Color Urine Appearance (Clear) Urine pH (4.5-7.5) Ur Specific Walsh (1.000-1.030) Urine Protein (Negative) Urine Glucose (UA) (Negative) Urine Ketones (Negative) Urine Blood (Negative) Urine Nitrite (Negative) Urine Bilirubin (Negative) Urine Urobilinogen (Negative) Ur Leukocyte Esterase (Negative) Urine WBC (Auto) (0-5) /hpf Urine RBC (Auto) (0-4) /hpf U Hyaline Cast (Auto) U Epithel Cells (Auto) (0-5) /lpf Urine Bacteria (Auto) (Negative) Amorphous Sediment (None Prsent) 03/28/19 03/28/19 03/28/19 Range/Units 16:56 16:56 19:50 WBC (4.8-10.8) K/uL RBC (4.2-5.4) M/uL Hgb (12.0-16.0) g/dL Hct (37-47) % MCV (80-100) fL MCH (25-34) pg MCHC (32-36) g/dL RDW Std Deviation (36.4-46.3) fL RDW Coeff of Claudine (11.5-14.5) % Plt Count (130-400) K/uL MPV (7.4-10.4) fL Immature Gran % (Auto) % Neut % (Auto) % Lymph % (Auto) % Clarke % (Auto) % Eos % (Auto) % Baso % (Auto) % Immature Gran # (Auto) (0.00-0.02) K/uL Neut # (Auto) (1.4-6.5) K/uL Lymph # (Auto) (1.2-3.4) K/uL Clarke # (Auto) (0.11-0.59) K/uL Eos # (Auto) (0-0.5) K/uL Baso # (Auto) (0-0.2) K/uL Toxic Granulation PT (9.0-12.0) Seconds INR (0.9-1.1) Sodium (136-145) mmol/L Potassium (3.5-5.1) mmol/L Chloride (98-107) mmol/L Carbon Dioxide (21-32) mmol/L Anion Gap (3-11) BUN (7-18) mg/dl Creatinine (0.6-1.2) mg/dl Est Cr Clr Drug Dosing ml/min Est GFR ( Amer) Est GFR (Non-Af Amer) BUN/Creatinine Ratio (10-20) Glucose (70-99) mg/dl POC Lactic Acid Gilles 1.90 H (0.90-1.70) mmol/L Lactate 1.6 (0.4-2.0) mmol/L Calcium (8.5-10.1) mg/dl Magnesium (1.8-2.4) mg/dl Total Bilirubin (0.2-1) mg/dl AST (15-37) U/L ALT (12-78) U/L Alkaline Phosphatase (45-117) U/L Troponin I (0-0.045) ng/ml Total Protein (6.4-8.2) gm/dl Albumin (3.4-5.0) gm/dl Globulin (2.5-4.0) gm/dl Albumin/Globulin Ratio (0.9-2) Procalcitonin 0.68 H (0-0.5) ng/ml TSH (0.300-4.500) uIu/ml Urine Color Urine Appearance (Clear) Urine pH (4.5-7.5) Ur Specific Walsh (1.000-1.030) Urine Protein (Negative) Urine Glucose (UA) (Negative) Urine Ketones (Negative) Urine Blood (Negative) Urine Nitrite (Negative) Urine Bilirubin (Negative) Urine Urobilinogen (Negative) Ur Leukocyte Esterase (Negative) Urine WBC (Auto) (0-5) /hpf Urine RBC (Auto) (0-4) /hpf U Hyaline Cast (Auto) U Epithel Cells (Auto) (0-5) /lpf Urine Bacteria (Auto) (Negative) Amorphous Sediment (None Prsent) 03/28/19 Range/Units 20:24 WBC (4.8-10.8) K/uL RBC (4.2-5.4) M/uL Hgb (12.0-16.0) g/dL Hct (37-47) % MCV (80-100) fL MCH (25-34) pg MCHC (32-36) g/dL RDW Std Deviation (36.4-46.3) fL RDW Coeff of Claudine (11.5-14.5) % Plt Count (130-400) K/uL MPV (7.4-10.4) fL Immature Gran % (Auto) % Neut % (Auto) % Lymph % (Auto) % Clarke % (Auto) % Eos % (Auto) % Baso % (Auto) % Immature Gran # (Auto) (0.00-0.02) K/uL Neut # (Auto) (1.4-6.5) K/uL Lymph # (Auto) (1.2-3.4) K/uL Clarke # (Auto) (0.11-0.59) K/uL Eos # (Auto) (0-0.5) K/uL Baso # (Auto) (0-0.2) K/uL Toxic Granulation PT (9.0-12.0) Seconds INR (0.9-1.1) Sodium (136-145) mmol/L Potassium (3.5-5.1) mmol/L Chloride (98-107) mmol/L Carbon Dioxide (21-32) mmol/L Anion Gap (3-11) BUN (7-18) mg/dl Creatinine (0.6-1.2) mg/dl Est Cr Clr Drug Dosing ml/min Est GFR ( Amer) Est GFR (Non-Af Amer) BUN/Creatinine Ratio (10-20) Glucose (70-99) mg/dl POC Lactic Acid Gilles (0.90-1.70) mmol/L Lactate (0.4-2.0) mmol/L Calcium (8.5-10.1) mg/dl Magnesium (1.8-2.4) mg/dl Total Bilirubin (0.2-1) mg/dl AST (15-37) U/L ALT (12-78) U/L Alkaline Phosphatase (45-117) U/L Troponin I (0-0.045) ng/ml Total Protein (6.4-8.2) gm/dl Albumin (3.4-5.0) gm/dl Globulin (2.5-4.0) gm/dl Albumin/Globulin Ratio (0.9-2) Procalcitonin (0-0.5) ng/ml TSH (0.300-4.500) uIu/ml Urine Color Dark Yellow Urine Appearance Cloudy A (Clear) Urine pH 5.0 (4.5-7.5) Ur Specific Walsh 1.023 (1.000-1.030) Urine Protein Trace H (Negative) Urine Glucose (UA) Negative (Negative) Urine Ketones Negative (Negative) Urine Blood Negative (Negative) Urine Nitrite Negative (Negative) Urine Bilirubin Negative (Negative) Urine Urobilinogen Negative (Negative) Ur Leukocyte Esterase Negative (Negative) Urine WBC (Auto) 1-5 (0-5) /hpf Urine RBC (Auto) 5-10 H (0-4) /hpf U Hyaline Cast (Auto) Not Reportable U Epithel Cells (Auto) 10-20 H (0-5) /lpf Urine Bacteria (Auto) Negative (Negative) Amorphous Sediment Present A (None Prsent) Imaging Data Radiologist's Impression: Radiology results as stated below per my review and the radiologist's interpretation: XR chest 1V portable CLINICAL HISTORY: 83 years-old Female presenting with weakness. TECHNIQUE: Portable upright AP view of the chest was obtained. COMPARISON: 05/26/2017. FINDINGS: Median sternotomy wires and mediastinal surgical clips. Atherosclerosis of the aortic arch. Cardiac silhouette enlarged. Coronary artery stents in place. No focal opacity. No large effusion or pneumothorax. Degenerative changes of the thoracic spine. Osteopenia may be present. Degenerative changes of the right AC joint. Upper abdomen normal. IMPRESSION: 1. Cardiomegaly. No other convincing evidence of acute cardiopulmonary disease. Electronically signed by: Mark Parra M.D. 03/28/2019 3:06 PM ECG Data Attestation: I personally reviewed and interpreted this ECG as follows: Indication: weakness Rate (beats per minute): 73 Rhythm: other (likely sinus, questionable eptopic rhythm. ) Findings: + other (normal axis. No obvious ischemic changes.) Blood Pressure Blood Pressure Findings: Low blood pressure Blood Pressure Disposition: further management by hospitalist [facility] Narrative The patient is a 83 year old female with a PMHx of CHF, CKD, hypertension, and diabetes who presents to the Emergency Room with complaints of persistent body weakness. Patient was seen and evaluated the bedside. The patient was referred from when he feels the patient was not feeling well did have a low blood pressure. Patient's arrival BP was 80/50. Additional IV fluids empiric antibiotics as well as blood work, blood and urine cultures were obtained. When asked if there really is a specific symptom the patient denies anything in particular but states that she is just feeling unwell. The patient has complained of some nausea but without any abdominal pain or vomiting. The patient states that she has good appetite. The patient is a full code. Patient also does have a right buttock wound for which a wound culture was obtained. Patient's chest x-ray is unremarkable. The patient's blood work was delayed as there was concern that it may have been stuck in the tube system. I did contact nursing in order to try and rectify this. Patient blood work did return. The patient does have an elevated procalcitonin and white count with a left shift. The patient's kidney function does show an elevated BUN to creatinine ratio. The patient does have a slight decline in her hemoglobin. After further discussion with the patient she has not had any dark tarry stools and no bright red blood per rectum. Per the son of the bedside she has had some worsening hemoglobin and anemia over the last several months and she refused a capsule study. I did speak the on-call hospitalist who agreed to further evaluate treat the patient. The patient was reassessed several times and was looking and feeling improved and the patient's blood pressure did respond to IV fluids. Patient was admitted to the medicine service. The hospitalist had requested a CT of the abdomen pelvis with IV and p.o. contrast. This is pending at the time of admission. Impression & Plan Buttock wound, Sepsis, Dehydration Discharge Plan Visit Data Chief Complaint: Cardiac Assessment Stated Complaint: lethargy ED Provider: Cr Cano Discharge Problem: Buttock wound, Sepsis, Dehydration Discharge Instructions Interventions: ED Discharge Assessment Last Done: 03/28/19 21:36 Forms Stand Alone Forms: My [facility] [place] [employer] Prescriptions Prescriptions: No Action atorvastatin [Lipitor] 40 mg tablet 40 mg PO QPM RF: 0 acetaminophen [Tylenol] 325 mg Tablet 650 mg PO BID RF: 0 acetaminophen [Tylenol] 325 mg Tablet 650 mg PO Q4 PRN (Reason: MILD PAIN 1-4/FEVER>100) RF: 0 polyethylene glycol 3350 [Miralax] 17 gram Powder In Packet 17 g PO DAILY RF: 0 promethazine [Phenergan] 25 mg Suppository 25 mg [place] Q6H PRN (Reason: Nausea) RF: 0 donepezil [Aricept] 10 mg tablet 10 mg PO DAILY RF: 0 sucralfate [Carafate] 1 gram tablet 1 g PO QID RF: 0 ondansetron HCl 4 mg Tablet 4 mg PO Q6 PRN (Reason: NAUSEA/VOMITING) RF: 0 isosorbide mononitrate 30 mg tablet extended release 24 hr 30 mg PO DAILY RF: 0 aspirin [Aspir-Low] 81 mg Tablet,Delayed Release (Dr/Ec) 81 mg PO DAILY RF: 0 tramadol 50 mg Tablet 50 mg PO Q6H PRN (Reason: pain 4-10) RF: 0 magnesium hydroxide [Milk of Magnesia] 400 mg/5 mL Suspension 30 ml PO UD PRN (Reason: NO BM 3 DAYS) RF: 0 ranitidine HCl [Zantac] 150 mg tablet 150 mg PO BID RF: 0 calcium polycarbophil [FiberCon] 625 mg Tablet 650 mg PO BID RF: 0 nitroglycerin [Nitrostat] 0.4 mg Tablet, Sublingual 0.4 mg sublingual UD PRN (Reason: Chest Pain) RF: 0 omeprazole 20 mg capsule,delayed release(DR/EC) 20 mg PO BID RF: 0 bumetanide 1 mg tablet 1 mg PO 3XWK RF: 0 montelukast [Singulair] 10 mg Tablet 10 mg PO PM RF: 0 Santyl 250 unit/gram ointment 1 applic topical .DAILY & PRN RF: 0 doxycycline hyclate 100 mg tablet 100 mg PO AMHS RF: 0 memantine [Namenda] 5 mg tablet 5 mg PO BID RF: 0 ranolazine [Ranexa] 1,000 mg tablet extended release 12 hr 1,000 mg PO AMHS RF: 0 Myrbetriq 50 mg tablet extended release 24 hr 50 mg PO DAILY RF: 0 ArgiMent AT 10 gram-7 gram/42.75 gram Powder In Packet PO BID RF: 0 Lactobacillus Tab 1 tab PO TID RF: 0 Med Pass Supplement 180 ml PO UD RF: 0 Referrals Referrals: Melva Kamara DO [Primary Care Provider] - Discharge Problem: Buttock wound Qualifiers: Encounter type: initial encounter Laterality: right Qualified Code(s): S31.819A - Unspecified open wound of right buttock, initial encounter Sepsis Qualifiers: Sepsis type: sepsis due to unspecified organism Severe sepsis shock status: without septic shock The scribe's documentation has been prepared under my direction and personally r eviewed by me in its entirety. I confirm that the note above accurately reflects all work, treatment, procedures, and medical decision making performed by me.
[2019-03-28 20:34] LABS: Appearance Urine Cloudy (Clear); Bacteria Urine Automated Negative (Negative); Bilirubin Urine Negative (Negative); Blood Urine Negative (Negative); Color Urine Dark Yellow; Glucose Urine UA Negative (Negative); Ketones Urine Negative (Negative); Leukocyte Esterase Urine Negative (Negative); Nitrite Urine Negative (Negative); Protein Urine Trace (Negative); Specific Gravity Urine 1.023 (1.000-1.030); Urobilinogen Urine Negative (Negative)
--- NOTE | 2019-03-28 20:48 | History & Physical Report ---
Date of Service March 28, 2019 Assessment & Plan (1) Sepsis: Admit to PCU on telemetry Vital signs every 4 hours Continue cefepime, metronidazole and vancomycin to cover for left hip infection and sepsis Wound culture pending blood culture pending Consult ID Consult orthopedics Will hold DVT prophylaxis because it is not clear if patient has GI bleed or not. SCDs Full code Present on Admission?: Yes (2) Cellulitis of left hip: (3) Dehydration: Started gentle IV fluid hydration saline with potassium since patient is hypokalemic 3.3. Monitor electrolytes Replenished as needed Present on Admission?: Yes (4) Buttock wound: As the above continue antibiotics and wound care Present on Admission?: Yes (5) Paroxysmal atrial fibrillation: Will hold aspirin and donepezil while patient is at risk of GI bleed Restart is clear that patient does not have any GI bleed Present on Admission?: Yes (6) Chronic kidney disease (CKD), stage III (moderate): Avoid nephrotoxic agent, gentle IV fluid hydration Present on Admission?: Yes (7) Dementia: Continue home medicine with memantine Present on Admission?: Yes (8) Chronic diastolic congestive heart failure: Since patient was hypotensive in the ER hold isosorbide mononitrate bumetanide and restart them when patient's blood pressure is improved. Echocardiogram pending BNP pending Present on Admission?: Yes History of Present Illness Chief Complaint: Generalized weakness Primary Care Provider: Melva Kamara DO Patient is a 83 years old female with past medical history of congestive heart failure, CKD stage III hypertension, history of stent placement. Back surgery. Diabetes mellitus type 2 who presents to emergency room with complaint of persistent body weakness. Patient in the past had bilateral hip replacement . Patient's left hardware had to be removed due to infection and it is in the process of healing before the hardware is placed back per report of patient's son. This was done approximately 2 months ago. Patient also complains of nausea and vomiting patient has 2 wounds at the right buttock. Patient was followed in the wound clinic which were taking care of the left hip wound status post wound debridement. Patient was on Keflex and at that treatment did not resulted in healing of the wound. The drainage continued to be purulent and green-colored, foul-smelling and wound with the tissue was tender and itchy. Wound cultures were obtained at that time and the left hip the Gram stain and wound culture showed no growth she was seen by PCP today and her blood pressure was 60/40. She was she received total 3 L of 1 of fluid in the emergency room and her blood pressure improved to 137/78. Patient was started on cefepime, Flagyl and vancomycin. And received the first dose labs were reviewed which sh ows the following: White blood cell count of 24.01, hemoglobin 8.4 hematocrit 25.2 platelets 245, PT 12.6 INR 1.2, sodium 144 potassium 3.3, chloride 115 BUN 45 creatinine 0.99 GFR of 34.4 calcium 8.4 magnesium 1.8, AST 11 ALT 10 alkaline phosphatase 68 troponin 0 0.55., TSH 1.29, lactic acid 1.9. Patient's H&H dropped from 11.0/32.3 in August to 8.4/25.2. It is not clear over reach. Of time H&H dropped and could be recently. It it would be also rate related to the chronic GI bleed. CT scan abdomen pelvis is pending. Allergies Allergy/AdvReac Type Severity Reaction Status Date / Time ampicillin Allergy Intermediate RASH, HIVES Verified 03/28/19 16:06 furosemide Allergy Intermediate SHORTNESS Verified 03/28/19 16:06 OF BREATH,throat itching apixaban Allergy Unknown UNKNOWN Unverified 03/28/19 16:06 cyclobenzaprine Allergy Unknown Unknown rxn Verified 03/28/19 16:06 ibuprofen Allergy Unknown UNKNOWN Verified 03/28/19 16:06 lisinopril Allergy Unknown UNKNOWN Verified 03/28/19 16:06 methylprednisolone Allergy Unknown UNKNOWN Verified 03/28/19 16:06 propoxyphene Allergy Unknown UNKNOWN Verified 03/28/19 16:06 tramadol Allergy Unknown UNKNOWN Verified 03/28/19 16:06 EPIDURAL STEROID INJECTIONS Allergy Unknown . Uncoded 03/28/19 16:06 SOAPCLEAN AdvReac Mild Changing Uncoded 11/08/18 13:03 wipe - itchy rash Home Medications Home Medications Medication Instructions Recorded Confirmed Type Lactobacillus Tab 1 tab PO TID 03/28/19 03/28/19 History Med Pass Supplement 180 ml PO UD 03/28/19 03/28/19 History acetaminophen [Tylenol] 650 mg PO BID 03/28/19 03/28/19 History acetaminophen [Tylenol] 650 mg PO Q4 PRN 03/28/19 03/28/19 History aspirin [Aspir-Low] 81 mg PO DAILY 03/28/19 03/28/19 History atorvastatin [Lipitor] 40 mg PO QPM 03/28/19 03/28/19 History bumetanide 1 mg PO 3XWK 03/28/19 03/28/19 History calcium polycarbophil [FiberCon] 650 mg PO BID 03/28/19 03/28/19 History collagenase clostridium histo. 1 applic TOPICAL .DAILY & PRN 03/28/19 03/28/19 History [Santyl] donepezil [Aricept] 10 mg PO DAILY 03/28/19 03/28/19 History doxycycline hyclate 100 mg PO AMHS 03/28/19 03/28/19 History isosorbide mononitrate 30 mg PO DAILY 03/28/19 03/28/19 History magnesium hydroxide [Milk of 30 ml PO UD PRN 03/28/19 03/28/19 History Magnesia] memantine [Namenda] 5 mg PO BID 03/28/19 03/28/19 History mirabegron [Myrbetriq] 50 mg PO DAILY 03/28/19 03/28/19 History montelukast [Singulair] 10 mg PO PM 03/28/19 03/28/19 History nitroglycerin [Nitrostat] 0.4 mg SUBLINGUAL UD PRN 03/28/19 03/28/19 History omeprazole 20 mg PO BID 03/28/19 03/28/19 History ondansetron HCl 4 mg PO Q6 PRN 03/28/19 03/28/19 History polyethylene glycol 3350 [Miralax] 17 g PO DAILY 03/28/19 03/28/19 History promethazine [Phenergan] 25 mg [place] Q6H PRN 03/28/19 03/28/19 History ranitidine HCl [Zantac] 150 mg PO BID 03/28/19 03/28/19 History ranolazine [Ranexa] 1,000 mg PO AMHS 03/28/19 03/28/19 History sucralfate [Carafate] 1 g PO QID 03/28/19 03/28/19 History tramadol 50 mg PO Q6H PRN 03/28/19 03/28/19 History veju-xxl-boch-[id number]-Zn-Cu-tos 0 g PO BID 03/28/19 03/28/19 History [ArgiMent AT] Past Med/Surg History Medical History Urge incontinence of urine (Acute) Paroxysmal atrial fibrillation (Acute) PAD (peripheral artery disease) (Acute) Dementia (Acute) Chronic kidney disease (CKD), stage III (moderate) (Acute) Chronic diastolic congestive heart failure (Acute) Carotid artery occlusion (Acute) Arthritis (Acute) Arteriosclerosis of coronary artery (Acute) Shingles (Acute) Anemia (Chronic) CHF (congestive heart failure) (Chronic) Carotid artery disease (Chronic) Chronic kidney disease (Chronic) Diabetes (Chronic) Hypertension (Chronic) Osteoporosis (Chronic) H/O: GI bleed (Resolved) Surgical History H/O heart artery stent (Resolved) Previous back surgery (Resolved) S/P hip replacement (Resolved) Social History Communication Ability: Effective Visual Impairment: No Limitations Hearing Ability: Normal Beliefs That Will Affect Care: None marital status: Current Living Situation: Family current occupational status: retired Feels Safe at Home: Yes Smoking Status: Never smoker Hx Alcohol Use: No Hx Substance Use: No Review of Systems Review of Systems: All systems reviewed & are unremarkable except as noted in HPI & below Physical Exam Constitutional: WD/WN, vitals as above + ill appearing and + frail appearing Eyes: PERRL, conjunctivae normal, anicteric sclerae ENMT: external ear and nose normal, oropharynx normal Neck: trachea midline, no thyromegaly Respiratory: normal respiratory effort, lungs clear to auscultation Cardiovascular: RRR, no murmur, no edema Heart Sounds: normal S1, normal S2 and + murmur Palpation: + palpable S3 Chest (Breasts): normal inspection/palpation of breasts Gastrointestinal (Abdomen): normal bowel sounds, soft, nontender, no hepatosplenomegaly Musculoskeletal: no cyanosis or clubbing, extremities motor strength 5/5 Skin: no rashes, warm and dry Neurologic: patellar DTR's 2+ bilat, sensation intact Alert and oriented x3 answers to questions but appears very tired. Psychiatric: A+Ox3, euthymic affect Genitourinary: no vaginal lesions, no adnexal mass Lymphatic: no cervical or axillary lymphadenopathy Results & Data Vital Signs (Past 12 Hours) Vital Signs Temp Pulse Pulse Resp BP BP Pulse Ox 03/28/19 18:34 78 21 137/78 91 03/28/19 17:50 72 16 95 03/28/19 17:40 72 16 94 03/28/19 17:30 72 17 93/48 L 95 03/28/19 17:20 71 16 95 03/28/19 17:10 72 17 95 03/28/19 17:01 71 19 113/58 L 95 03/28/19 17:00 72 20 96 03/28/19 16:51 71 18 113/55 L 97 03/28/19 16:50 71 18 96 03/28/19 16:40 73 20 96 03/28/19 16:30 70 20 113/55 L 96 03/28/19 16:20 70 15 96 03/28/19 16:10 70 16 96 03/28/19 16:00 69 17 92/42 L 96 03/28/19 15:50 70 18 98 03/28/19 15:49 70 18 95/58 L 96 03/28/19 15:40 71 20 96 03/28/19 15:30 72 21 95/58 L 95 03/28/19 15:20 74 20 95 03/28/19 15:10 74 22 96 03/28/19 15:00 73 21 86/53 L 97 03/28/19 14:50 71 13 95 03/28/19 14:46 71 18 96 03/28/19 14:44 36.5 C 70 70 18 84/39 L 84/39 L 96 03/28/19 14:39 71 21 84/39 L 95 Code Status & VTE Plan Code Status Full code VTE Prophylaxis Plan VTE Prophylaxis will be ordered: No PG Care Time/CCT Total # of Minutes Spent Total Time Spent with Patient: Total time spent is greater than 50% in coordination of care (as documented) at patient's floor/unit and/or counseling patient: (1) Buttock wound Encounter type: initial encounter Laterality: right Qualified Code(s): S31.818Z - Unspecified open wound of right buttock, initial encounter
[2019-03-28 21:23] LABS: Amorphous Sediment Urine Present (None Prsent)
[2019-03-28] MEDS ORDERED: IOVERSOL 100ml IV PRN (21:47)
[2019-03-28] MEDS ORDERED: CARBOHYDRATES FOR HYPOGLYCEMIA PO PRN (21:50)
[2019-03-28] MEDS ORDERED: PROMETHAZINE HCL 25 MG SUPP PR PRN (21:50)
[2019-03-28] MEDS ORDERED: DEXTROSE 50% 50 ML SYRINGE IV PRN (21:50)
[2019-03-28] MEDS ORDERED: NITROGLYCERIN SL 0.4 MG/TAB TAB SL PRN (21:50)
[2019-03-28] MEDS ORDERED: ZOLPIDEM TARTRATE 5 MG TAB PO PRN (21:50)
[2019-03-28] MEDS ORDERED: GLUCOSE 10 TABS/TUBE PO PRN (21:50)
[2019-03-28] MEDS ORDERED: [UNRECOGNIZED DRUG - OTHER] TOP SCH (21:50)
[2019-03-28] MEDS ORDERED: MAGNESIUM HYDROXIDE SUSP 30 ML UDC PO PRN (21:50)
[2019-03-28] MEDS ORDERED: POLYETHYLENE (MIRALAX) 17 GM PACK PO PRN (21:50)
[2019-03-28] MEDS ORDERED: ACETAMINOPHEN 325 MG TAB PO PRN ×2 (21:50)
[2019-03-28] MEDS ORDERED: GLUCOSE 40% GEL 15 GM TUBE PO PRN (21:50)
[2019-03-28] MEDS ORDERED: GLUCAGON FOR INJ 1 MG VIAL SQ PRN (21:50)
[2019-03-28] MEDS ORDERED: DC ALL PREVIOUSLY ORDERED DIABETES MEDS ONE (21:50)
[2019-03-28] MEDS ORDERED: PHARMACY GLYCEMIC MGMT CONSULT PRN (22:17)
--- NOTE | 2019-03-28 22:26 | CT Scan Report ---
ABDOMEN AND PELVIS CT WITH IV AND ORAL CONTRAST CT DOSE: 817.01 mGy.cm HISTORY: nausea TECHNIQUE: Multiaxial CT images of the abdomen and pelvis were performed following the use of intrave nous and oral contrast. A dose lowering technique was utilized adhering to the principles of ALARA. COMPARISON STUDY: Abdomen and pelvis CT 08/24/2016. FINDINGS: Mild dependent changes seen at the lung bases and trace bilateral pleural effusions. There are poststernotomy changes. No pneumoperitoneum. No pneumatosis. Left hip spacer is noted. There are soft tissue thickening surrounding the left hip as well as mildly distracted fracture at the greater trochanter which demonstrates partial healing. Advanced degenerative changes within the right hip. Po sterior decompression fusion within the lumbar spine. Distended gallbladder containing multiple small gallstones. There is associated inflammatory change surrounding the gallbladder and a few small foca l areas of extraluminal fluid with focal defects in the gallbladder wall. This is consistent with sit es of gallbladder perforation and likely represents a gangrenous acute cholecystitis. Submucosal josiah a within the adjacent duodenum is likely reactive. Normal caliber common bile duct. The pancreas, spl een, and adrenal glands are unremarkable. No hydronephrosis. No hepatic masses. No retroperitoneal ly mphadenopathy. Calcified plaque throughout the normal caliber abdominal aorta. There is pelvic floor collapse. The uterus and bilateral adnexa are unremarkable. Anterior bladder wall thickening which ma y be due to underdistention. There is a punctate focus of gas within the bladder lumen which may be d ue to prior catheterization. Trace pelvic fluid. Colonic diverticulosis. No evidence for diverticulit is. Mild thickening at the hepatic flexure of the colon is also likely reactive to the adjacent acute cholecystitis. No evidence for bowel obstruction. IMPRESSION: 1. Distended gallbladder containing multiple gallstones. There is inflammatory change surrounding the gallbladder with small focal areas of extraluminal fluid/perforation. Therefore, these findings are consistent with gangrenous acute cholecystitis. Urgent surgical consultation recommended. 2. Thickening within the adjacent duodenum and hepatic flexure of the colon is likely reactive to the acute cholecystitis. 3. Postoperative and posttraumatic changes within the left hip as described above. 4. These findings were called/faxed to the referring physician following dictation. Electronically signed by: Dirk Herbert M.D. 03/28/2019 10:24 PM
[2019-03-28] MEDS: ATORVASTATIN 40 MG TAB PO SCH (23:28)
[2019-03-28] MEDS: SUCRALFATE 1 GM TAB PO SCH (23:28)
[2019-03-28] MEDS: CALCIUM POLYCARBOPHIL 625MG TAB PO SCH (23:29)
[2019-03-28] MEDS: MONTELUKAST SODIUM 10 MG TABLET PO SCH (23:29)
[2019-03-28] MEDS: MEMANTINE HCL 5 MG TAB PO SCH (23:29)
[2019-03-28] MEDS: RANOLAZINE 500 MG ER TAB PO SCH (23:29)
[2019-03-28] MEDS: SODIUM CHLORIDE 0.9% 1000ML 1,000 ML IV SCH (23:30)
[2019-03-28] MEDS: ACETAMINOPHEN 325 MG TAB PO SCH (23:30)
[2019-03-28] MEDS: metroNIDAZOLE 500 MG/100 ML BAG IV SCH (23:51)
[2019-03-29 04:42] LABS: Basophils # (auto) 0.01 K/uL (0-0.2); Basophils % (auto) 0.1 %; Eosinophils # (auto) 0.03 K/uL (0-0.5); Eosinophils % (auto) 0.2 %; Hematocrit (blood only) 27.5 % (37-47); Hemoglobin 9.2 g/dL (12.0-16.0); Immature Granulocytes # (auto) 0.05 K/uL (0.00-0.02); Immature Granulocytes % (auto) 0.3 %; Lymphocytes # (auto) 0.95 K/uL (1.2-3.4); Lymphocytes % (auto) 5.6 %; Mean Corpuscular Hgb Conc 33.5 g/dL (32-36); Mean Corpuscular Volume 96.5 fL (80-100); Mean Platelet Volume 9.4 fL (7.4-10.4); Monocytes # (auto) 0.82 K/uL (0.11-0.59); Monocytes % (auto) 4.8 %; Neutrophils # (auto) 15.12 K/uL (1.4-6.5); Platelet Count 239 K/uL (130-400); RDW Coefficient of Variation 14.6 % (11.5-14.5); RDW Standard Deviation 52.4 fL (36.4-46.3); Red Blood Count 2.85 M/uL (4.2-5.4); White Blood Count 16.98 K/uL (4.8-10.8)
[2019-03-29 05:08] LABS: Albumin Level 2.3 gm/dl (3.4-5.0); BUN Creatinine Ratio 39.9 (10-20); Calcium 8.7 mg/dl (8.5-10.1); Creatinine Clr Calc Pharmacy 35.4 ml/min; Est GFR (African American) 62.5; Est GFR (Non-African American) 53.9; Potassium 3.2 mmol/L (3.5-5.1)
[2019-03-29 05:11] LABS: Albumin Globulin Ratio 0.6 (0.9-2); Bilirubin,Total 1.2 mg/dl (0.2-1); Total Protein 6.3 gm/dl (6.4-8.2)
[2019-03-29 05:39] LABS: Estimated Average Glucose 100 mg/dl; Hemoglobin A1C 5.1 % (4.5-5.6)
[2019-03-29] MEDS ORDERED: CLINDAMYCIN 600 MG/54 ML BAG IV SCH (06:00)
[2019-03-29] MEDS: INSULIN ASPART 100 UNITS/ML 3 ML PEN SC SCH ×4 (06:08→20:32)
[2019-03-29] MEDS: POTASSIUM CHLORIDE / WTR 10 MEQ/100 ML PLCT IV SCH ×4 (06:15→13:14)
[2019-03-29] MEDS: metroNIDAZOLE 500 MG/100 ML BAG IV SCH ×3 (06:25→22:17)
--- NOTE | 2019-03-29 07:10 | Surgery Consultation ---
Date of Consultation March 29, 2019 Assessment & Plan (1) Acute cholecystitis: pt is a 83 year old female who was admitted to hospital for weakness, WBC 16,000, CT scan dx acute cholecystitis, possible gangrene gallbladder with gallstone, troponin 0.077, high IMP: acute cholecystitis, cholelithiasis consult concrete mixing plant laborer for pre-op cardiac clearance, correct low k, I called pt's son ( maddi) , I recommend to do percutaneous drainage gallbladder by interventional radiologist, or do laparoscopic cholecystectomy, D/W benefits, risk and alternatives of the surgery, he understood, once concrete mixing plant laborer see pt, maddi will make a decision, History of Present Illness Attending Physician: Chief Complaint: Generalized weakness Primary Care Provider: Melva Kamara DO Patient is a 83 years old female with past medical history of congestive heart failure, CKD stage III hypertension, history of stent placement. Back surgery. Diabetes mellitus type 2 who presents to emergency room with complaint of persistent body weakness. Patient in the past had bilateral hip replacement . Patient's left hardware had to be removed due to infection and it is in the process of healing before the hardware is placed back per report of patient's son. This was done approximately 2 months ago. Patient also complains of nausea and vomiting patient has 2 wounds at the right buttock. Patient was followed in the wound clinic which were taking care of the left hip wound status post wound debridement. Patient was on Keflex and at that treatment did not resulted in healing of the wound. The drainage continued to be purulent and green-colored, foul-smelling and wound with the tissue was tender and itchy. Wound cultures were obtained at that time and the left hip the Gram stain and wound culture showed no growth she was seen by PCP today and her blood pressure was 60/40. She was she received total 3 L of 1 of fluid in the emergency room and her blood pressure improved to 137/78. Patient was started on cefepime, Flagyl and vancomycin. And received the first dose labs were reviewed which shows the following: White blood cell count of 24.01, hemoglobin 8.4 hematocrit 25.2 platelets 245, PT 12.6 INR 1.2, sodium 144 potassium 3.3, chloride 115 BUN 45 creatinine 0.99 GFR of 34.4 calcium 8.4 magnesium 1.8, AST 11 ALT 10 alkaline phosphatase 68 troponin 0 0.55., TSH 1.29, lactic acid 1.9. Patient's H&H d ropped from 11.0/32.3 in August to 8.4/25.2. It is not clear over reach. Of time H&H dropped and could be recently. It it would be also rate related to the chronic GI bleed. CT scan abdomen pelvis -IMPRESSION: 1. Distended gallbladder containing multiple gallstones. There is inflammatory change surrounding the gallbladder with small focal areas of extraluminal fluid/perforation. Therefore, these findings are consistent with gangrenous acute cholecystitis. Urgent surgical consultation recommended. 2. Thickening within the adjacent duodenum and hepatic flexure of the colon is likely reactive to the acute cholecystitis. 3. Postoperative and posttraumatic changes within the left hip as described above. 4. These findings were called/faxed to the referring physician following dictation. I ( Huang Moore MD ) got a call for consult acute cholecystitis, I reviewed pt's H/P with pt and her son(Maddi) on the phone. pt denies any abdominal pain now, no nausea, no vomiting, no fever. Allergies Allergy/AdvReac Type Severity Reaction Status Date / Time ampicillin Allergy Intermediate RASH, HIVES Verified 03/28/19 16:06 furosemide Allergy Intermediate SHORTNESS Verified 03/28/19 16:06 OF BREATH,throat itching apixaban Allergy Unknown UNKNOWN Unverified 03/28/19 16:06 cyclobenzaprine Allergy Unknown Unknown rxn Verified 03/28/19 16:06 ibuprofen Allergy Unknown UNKNOWN Verified 03/28/19 16:06 lisinopril Allergy Unknown UNKNOWN Verified 03/28/19 16:06 methylprednisolone Allergy Unknown UNKNOWN Verified 03/28/19 16:06 propoxyphene Allergy Unknown UNKNOWN Verified 03/28/19 16:06 tramadol Allergy Unknown UNKNOWN Verified 03/28/19 16:06 EPIDURAL STEROID INJECTIONS Allergy Unknown . Uncoded 03/28/19 16:06 SOAPCLEAN AdvReac Mild Changing Uncoded 11/08/18 13:03 wipe - itchy rash Home Medications Home Medications Medication Instructions Recorded Confirmed Type Lactobacillus Tab 1 tab PO TID 03/28/19 03/28/19 History Med Pass Supplement 180 ml PO UD 03/28/19 03/28/19 History acetaminophen [Tylenol] 650 mg PO BID 03/28/19 03/28/19 History acetaminophen [Tylenol] 650 mg PO Q4 PRN 03/28/19 03/28/19 History aspirin [Aspir-Low] 81 mg PO DAILY 03/28/19 03/28/19 History atorvastatin [Lipitor] 40 mg PO QPM 03/28/19 03/28/19 History bumetanide 1 mg PO 3XWK 03/28/19 03/28/19 History calcium polycarbophil [FiberCon] 650 mg PO BID 03/28/19 03/28/19 History collagenase clostridium histo. 1 applic TOPICAL .DAILY & PRN 03/28/19 03/28/19 History [Santyl] donepezil [Aricept] 10 mg PO DAILY 03/28/19 03/28/19 History doxycycline hyclate 100 mg PO AMHS 03/28/19 03/28/19 History isosorbide mononitrate 30 mg PO DAILY 03/28/19 03/28/19 History magnesium hydroxide [Milk of 30 ml PO UD PRN 03/28/19 03/28/19 History Magnesia] memantine [Namenda] 5 mg PO BID 03/28/19 03/28/19 History mirabegron [Myrbetriq] 50 mg PO DAILY 03/28/19 03/28/19 History montelukast [Singulair] 10 mg PO PM 03/28/19 03/28/19 History nitroglycerin [Nitrostat] 0.4 mg SUBLINGUAL UD PRN 03/28/19 03/28/19 History omeprazole 20 mg PO BID 03/28/19 03/28/19 History ondansetron HCl 4 mg PO Q6 PRN 03/28/19 03/28/19 History polyethylene glycol 3350 [Miralax] 17 g PO DAILY 03/28/19 03/28/19 History promethazine [Phenergan] 25 mg PA Q6H PRN 03/28/19 03/28/19 History ranitidine HCl [Zantac] 150 mg PO BID 03/28/19 03/28/19 History ranolazine [Ranexa] 1,000 mg PO AMHS 03/28/19 03/28/19 History sucralfate [Carafate] 1 g PO QID 03/28/19 03/28/19 History tramadol 50 mg PO Q6H PRN 03/28/19 03/28/19 History [id number]-[id number]-Cu-tos 0 g PO BID 03/28/19 03/28/19 History [ArgiMent AT] Patient History Medical History Urge incontinence of urine (Acute) Paroxysmal atrial fibrillation (Acute) PAD (peripheral artery disease) (Acute) Dementia (Acute) Chronic kidney disease (CKD), stage III (moderate) (Acute) Chronic diastolic congestive heart failure (Acute) Carotid artery occlusion (Acute) Arthritis (Acute) Arteriosclerosis of coronary artery (Acute) Shingles (Acute) Anemia (Chronic) CHF (congestive heart failure) (Chronic) Carotid artery disease (Chronic) Chronic kidney disease (Chronic) Diabetes (Chronic) Hypertension (Chronic) Osteoporosis (Chronic) H/O: GI bleed (Resolved) Surgical History H/O heart artery stent (Resolved) Previous back surgery (Resolved) S/P hip replacement (Resolved) Social History Preferred Language: Luxembourgish Communication Ability: dementia Visual Impairment: No Limitations Hearing Ability: Normal Beliefs That Will Affect Care: None marital status: Current Living Situation: [facility] current occupational status: retired Feels Safe at Home: Yes Smoking Status: Never smoker Hx Alcohol Use: No Hx Substance Use: No Review of Systems Review of Systems: All systems reviewed & are unremarkable except as noted in HPI & below Physical Exam Constitutional: WD/WN, vitals as above well developed and well nourished ENMT: external ear and nose normal, oropharynx normal Neck: trachea midline, no thyromegaly Respiratory: normal respiratory effort, lungs clear to auscultation normal respiratory effort Cardiovascular: RRR, no murmur, no edema Rate/Rhythm: regular rate and regular rhythm Gastrointestinal (Abdomen): normal bowel sounds, soft, nontender, no hepatosplenomegaly NT, ND , BS + Musculoskeletal: no cyanosis or clubbing, extremities motor strength 5/5 Neurologic: patellar DTR's 2+ bilat, sensation intact Psychiatric: Orientation: alert Results & Data Vital Signs (Past 12 Hours) Vital Signs Temp Pulse Pulse Resp BP BP Pulse Ox 03/29/19 04:00 36.4 C L 66 16 94/46 L 96 03/28/19 22:09 37.9 C H 77 16 107/61 96 03/28/19 21:36 71 16 90/60 L 96 03/28/19 20:00 77 20 94/60 L 97 Laboratory Results Abnormal lab results 03/28/19 03/28/19 03/28/19 Range/Units 16:56 16:56 16:56 WBC 24.01 H (4.8-10.8) K/uL RBC 2.60 L (4.2-5.4) M/uL Hgb 8.4 L (12.0-16.0) g/dL Hct 25.2 L (37-47) % RDW Std Deviation 51.8 H (36.4-46.3) fL RDW Coeff of Claudine 14.7 H (11.5-14.5) % Immature Gran # (Auto) 0.15 H (0.00-0.02) K/uL Neut # (Auto) 20.81 H (1.4-6.5) K/uL Lymph # (Auto) (1.2-3.4) K/uL Brewster # (Auto) 1.57 H (0.11-0.59) K/uL PT 12.6 H (9.0-12.0) Seconds INR 1.2 H (0.9-1.1) Potassium 3.3 L (3.5-5.1) mmol/L Chloride 115 H (98-107) mmol/L Carbon Dioxide (21-32) mmol/L BUN 45 H (7-18) mg/dl BUN/Creatinine Ratio 45.7 H (10-20) Glucose 121 H (70-99) mg/dl POC Glucose (70-99) POC Lactic Acid Gilles (0.90-1.70) mmol/L Calcium 8.4 L (8.5-10.1) mg/dl Total Bilirubin 1.2 H (0.2-1) mg/dl AST 11 L (15-37) U/L ALT 10 L (12-78) U/L Troponin I 0.055 H* (0-0.045) ng/ml Total Protein 6.3 L (6.4-8.2) gm/dl Albumin 2.4 L (3.4-5.0) gm/dl Albumin/Globulin Ratio 0.6 L (0.9-2) Procalcitonin (0-0.5) ng/ml Urine Appearance (Clear) Urine Protein (Negative) Urine RBC (Auto) (0-4) /hpf U Epithel Cells (Auto) (0-5) /lpf Amorphous Sediment (None Prsent) 03/28/19 03/28/19 03/28/19 Range/Units 16:56 19:50 20:24 WBC (4.8-10.8) K/uL RBC (4.2-5.4) M/uL Hgb (12.0-16.0) g/dL Hct (37-47) % RDW Std Deviation (36.4-46.3) fL RDW Coeff of Claudine (11.5-14.5) % Immature Gran # (Auto) (0.00-0.02) K/uL Neut # (Auto) (1.4-6.5) K/uL Lymph # (Auto) (1.2-3.4) K/uL Brewster # (Auto) (0.11-0.59) K/uL PT (9.0-12.0) Seconds INR (0.9-1.1) Potassium (3.5-5.1) mmol/L Chloride (98-107) mmol/L Carbon Dioxide (21-32) mmol/L BUN (7-18) mg/dl BUN/Creatinine Ratio (10-20) Glucose (70-99) mg/dl POC Glucose (70-99) POC Lactic Acid Gilles 1.90 H (0.90-1.70) mmol/L Calcium (8.5-10.1) mg/dl Total Bilirubin (0.2-1) mg/dl AST (15-37) U/L ALT (12-78) U/L Troponin I (0-0.045) ng/ml Total Protein (6.4-8.2) gm/dl Albumin (3.4-5.0) gm/dl Albumin/Globulin Ratio (0.9-2) Procalcitonin 0.68 H (0-0.5) ng/ml Urine Appearance Cloudy A (Clear) Urine Protein Trace H (Negative) Urine RBC (Auto) 5-10 H (0-4) /hpf U Epithel Cells (Auto) 10-20 H (0-5) /lpf Amorphous Sediment Present A (None Prsent) 03/28/19 03/29/19 03/29/19 Range/Units 22:39 00:38 04:26 WBC 16.98 H (4.8-10.8) K/uL RBC 2.85 L (4.2-5.4) M/uL Hgb 9.2 L (12.0-16.0) g/dL Hct 27.5 L (37-47) % RDW Std Deviation 52.4 H (36.4-46.3) fL RDW Coeff of Claudine 14.6 H (11.5-14.5) % Immature Gran # (Auto) 0.05 H (0.00-0.02) K/uL Neut # (Auto) 15.12 H (1.4-6.5) K/uL Lymph # (Auto) 0.95 L (1.2-3.4) K/uL Brewster # (Auto) 0.82 H (0.11-0.59) K/uL PT (9.0-12.0) Seconds INR (0.9-1.1) Potassium (3.5-5.1) mmol/L Chloride (98-107) mmol/L Carbon Dioxide (21-32) mmol/L BUN (7-18) mg/dl BUN/Creatinine Ratio (10-20) Glucose (70-99) mg/dl POC Glucose 143 H (70-99) POC Lactic Acid Gilles (0.90-1.70) mmol/L Calcium (8.5-10.1) mg/dl Total Bilirubin (0.2-1) mg/dl AST (15-37) U/L ALT (12-78) U/L Troponin I 0.067 H* (0-0.045) ng/ml Total Protein (6.4-8.2) gm/dl Albumin (3.4-5.0) gm/dl Albumin/Globulin Ratio (0.9-2) Procalcitonin (0-0.5) ng/ml Urine Appearance (Clear) Urine Protein (Negative) Urine RBC (Auto) (0-4) /hpf U Epithel Cells (Auto) (0-5) /lpf Amorphous Sediment (None Prsent) 03/29/19 03/29/19 Range/Units 04:26 04:26 WBC (4.8-10.8) K/uL RBC (4.2-5.4) M/uL Hgb (12.0-16.0) g/dL Hct (37-47) % RDW Std Deviation (36.4-46.3) fL RDW Coeff of Claudine (11.5-14.5) % Immature Gran # (Auto) (0.00-0.02) K/uL Neut # (Auto) (1.4-6.5) K/uL Lymph # (Auto) (1.2-3.4) K/uL Brewster # (Auto) (0.11-0.59) K/uL PT (9.0-12.0) Seconds INR (0.9-1.1) Potassium 3.2 L (3.5-5.1) mmol/L Chloride 116 H (98-107) mmol/L Carbon Dioxide 20 L (21-32) mmol/L BUN 38 H (7-18) mg/dl BUN/Creatinine Ratio 39.9 H (10-20) Glucose (70-99) mg/dl POC Glucose (70-99) POC Lactic Acid Gilles (0.90-1.70) mmol/L Calcium (8.5-10.1) mg/dl Total Bilirubin 1.2 H (0.2-1) mg/dl AST 13 L (15-37) U/L ALT 10 L (12-78) U/L Troponin I 0.077 H* (0-0.045) ng/ml Total Protein 6.3 L (6.4-8.2) gm/dl Albumin 2.3 L (3.4-5.0) gm/dl Albumin/Globulin Ratio 0.6 L (0.9-2) Procalcitonin (0-0.5) ng/ml Urine Appearance (Clear) Urine Protein (Negative) Urine RBC (Auto) (0-4) /hpf U Epithel Cells (Auto) (0-5) /lpf Amorphous Sediment (None Prsent) Diagnostic Findings ABDOMEN AND PELVIS CT WITH IV AND ORAL CONTRAST CT DOSE: 817.01 mGy.cm HISTORY: nausea TECHNIQUE: Multiaxial CT images of the abdomen and pelvis were performed following the use of intravenous and oral contrast. A dose lowering technique was utilized adhering to the principles of ALARA. COMPARISON STUDY: Abdomen and pelvis CT 08/24/2016. FINDINGS: Mild dependent changes seen at the lung bases and trace bilateral pleural effusions. There are poststernotomy changes. No pneumoperitoneum. No pneumatosis. Left hip spacer is noted. There are soft tissue thickening surrounding the left hip as well as mildly distracted fracture at the greater trochanter which demonstrates partial healing. Advanced degenerative changes within the right hip. Posterior decompression fusion within the lumbar spine. Distended gallbladder containing multiple small gallstones. There is associated inflammatory change surrounding the gallbladder and a few small focal areas of extraluminal fluid with focal defects in the gallbladder wall. This is consistent with sites of gallbladder perforation and likely represents a gangrenous acute cholecystitis. Submucosal edema within the adjacent duodenum is likely reactive. Normal caliber common bile duct. The pancreas, spleen, and adrenal glands are unremarkable. No hydronephrosis. No hepatic masses. No retroperitoneal lymphadenopathy. Calcified plaque throughout the normal caliber abdominal aorta. There is pelvic floor collapse. The uterus and bilateral adnexa are unremarkable. Anterior bladder wall thickening which may be due to underdistention. There is a punctate focus of gas within the bladder lumen which may be due to prior catheterization. Trace pelvic fluid. Colonic diverticulosis. No evidence for diverticulitis. Mild thickening at the hepatic flexure of the colon is also likely reactive to the adjacent acute cholecystitis. No evidence for bowel obstruction.
--- NOTE | 2019-03-29 07:13 | XRay Report ---
XR hip LT min 2V CLINICAL HISTORY: 83 years-old Female presenting with infection. TECHNIQUE: Frontal and frog-leg lateral views of the left hip were obtained. COMPARISON: Correlation made to CT of the abdomen and pelvis performed earlier the same day and MR om August. FINDINGS: Left femoral metaphyseal component of the left hip arthroplasty remains in place. A femoral head spac er is in place. Osteopenia. Fracture of the intertrochanteric portion of the left femur is new since August and demonstrated on the CT from earlier today. No hardware breakage. The fracture fragments p rimarily involves the lesser trochanter with up to 17 mm of displacement medially relative to the fem oral diaphysis. This does not grossly intact the adjacent transiting atherosclerotic vessel. Surgical clips noted in the medial thigh. Limited evaluation of the pelvis due to the severity of osteopenia and excretion of contrast in the urinary bladder. Partially visualized lumbar fusion hardware. IMPRESSION: 1. Periprosthetic intertrochanteric fracture of the left femur. 2. Femoral head spacer in place. 3. Severe osteopenia. Electronically signed by: Mark Parra M.D. 03/29/2019 7:11 AM
[2019-03-29] MEDS: MIRABEGRON ER 25 MG TAB PO SCH (07:25)
[2019-03-29] MEDS: RANOLAZINE 500 MG ER TAB PO SCH ×2 (07:25→20:25)
[2019-03-29] MEDS: SUCRALFATE 1 GM TAB PO SCH ×4 (07:25→20:22)
[2019-03-29] MEDS: CALCIUM POLYCARBOPHIL 625MG TAB PO SCH ×2 (07:25→20:22)
[2019-03-29] MEDS: MEMANTINE HCL 5 MG TAB PO SCH ×2 (07:25→20:24)
[2019-03-29] MEDS: ACETAMINOPHEN 325 MG TAB PO SCH ×2 (07:25→20:31)
--- NOTE | 2019-03-29 07:35 | XRay Report ---
XR hip RT min 2V CLINICAL HISTORY: 83 years-old Female presenting with infection. TECHNIQUE: Frontal and frog-leg lateral views of the right hip were obtained. COMPARISON: Correlation made to CT performed earlier the same day. FINDINGS: Severe osteopenia. Joint space loss and advanced osteophytosis of the right hip joint, which is congr uent. No displaced fracture or malalignment. Partially visualized lumbar fusion hardware. Excreted co ntrast in the urinary bladder. Limited evaluation of the bony pelvis due to the severity of osteopeni a. Atherosclerosis. IMPRESSION: 1. Severe degenerative changes of the right hip joint. 2. Severe osteopenia. This limits evaluation for fracture. Allowing for this, no gross evidence of a displaced fracture. Electronically signed by: Mark Parra M.D. 03/29/2019 7:33 AM
[2019-03-29] MEDS: CEFEPIME 2,000 MG in SYRINGE 0 ML IV SCH (07:54)
--- NOTE | 2019-03-29 08:51 | Cardiology Consultation ---
Date of Consultation March 29, 2019 Assessment & Plan (1) Acute cholecystitis: (2) Sepsis: (3) Buttock wound: (4) Paroxysmal atrial fibrillation: (5) Dementia: (6) Chronic kidney disease (CKD), stage III (moderate): (7) Chronic diastolic congestive heart failure: (8) Arteriosclerosis of coronary artery: By the geriatric Champion criteria, this patient's surgical risk is around 5% which is moderately increased for this surgery. She is currently optimally medically managed. She is receiving potassium supplement IV for a low potassium. She should proceed to surgery with an elevated but acceptable risk. We will follow along with you during her hospital stay. History of Present Illness Attending Physician: Gerry Inman History of Present Illness History: This is an 83-year-old female who had bilateral hip replacements and then in November of this year was admitted with a left prosthetic hip infection. She had the prosthesis removed at [facility] and was transferred to [facility] where she has been a resident. She has been admitted with bilateral pressure decubiti on her buttocks along with sepsis. She was found to have acute cholecystitis and is scheduled to have urgent surgery. The patient is a poor historian and the information is taken from the medical record. She has never been seen in our cardiology clinic. She has a history of chronic diastolic heart failure, diabetes, stage III kidney disease, paroxysmal atrial fibrillation and coronary artery disease. She is currently hemodynamically stable. She is expressing no complaints. Her previous surgeries in November were conducted successfully without sequela. Allergies Allergy/AdvReac Type Severity Reaction Status Date / Time ampicillin Allergy Intermediate RASH, HIVES Verified 03/28/19 16:06 furosemide Allergy Intermediate SHORTNESS Verified 03/28/19 16:06 OF BREATH,throat itching apixaban Allergy Unknown UNKNOWN Unverified 03/28/19 16:06 cyclobenzaprine Allergy Unknown Unknown rxn Verified 03/28/19 16:06 ibuprofen Allergy Unknown UNKNOWN Verified 03/28/19 16:06 lisinopril Allergy Unknown UNKNOWN Verified 03/28/19 16:06 methylprednisolone Allergy Unknown UNKNOWN Verified 03/28/19 16:06 propoxyphene Allergy Unknown UNKNOWN Verified 03/28/19 16:06 tramadol Allergy Unknown UNKNOWN Verified 03/28/19 16:06 EPIDURAL STEROID INJECTIONS Allergy Unknown . Uncoded 03/28/19 16:06 SOAPCLEAN AdvReac Mild Changing Uncoded 03/25/19 13:03 wipe - itchy rash Home Medications Home Medications Medication Instructions Recorded Confirmed Type Lactobacillus Tab 1 tab PO TID 03/28/19 03/28/19 History Med Pass Supplement 180 ml PO UD 03/28/19 03/28/19 History acetaminophen [Tylenol] 650 mg PO BID 03/28/19 03/28/19 History acetaminophen [Tylenol] 650 mg PO Q4 PRN 03/28/19 03/28/19 History aspirin [Aspir-Low] 81 mg PO DAILY 03/28/19 03/28/19 History atorvastatin [Lipitor] 40 mg PO QPM 03/28/19 03/28/19 History bumetanide 1 mg PO 3XWK 03/28/19 03/28/19 History calcium polycarbophil [FiberCon] 650 mg PO BID 03/28/19 03/28/19 History collagenase clostridium histo. 1 applic TOPICAL .DAILY & PRN 03/28/19 03/28/19 History [Santyl] donepezil [Aricept] 10 mg PO DAILY 03/28/19 03/28/19 History doxycycline hyclate 100 mg PO AMHS 03/28/19 03/28/19 History isosorbide mononitrate 30 mg PO DAILY 03/28/19 03/28/19 History magnesium hydroxide [Milk of 30 ml PO UD PRN 03/28/19 03/28/19 History Magnesia] memantine [Namenda] 5 mg PO BID 03/28/19 03/28/19 History mirabegron [Myrbetriq] 50 mg PO DAILY 03/28/19 03/28/19 History montelukast [Singulair] 10 mg PO PM 03/28/19 03/28/19 History nitroglycerin [Nitrostat] 0.4 mg SUBLINGUAL UD PRN 03/28/19 03/28/19 History omeprazole 20 mg PO BID 03/28/19 03/28/19 History ondansetron HCl 4 mg PO Q6 PRN 03/28/19 03/28/19 History polyethylene glycol 3350 [Miralax] 17 g PO DAILY 03/28/19 03/28/19 History promethazine [Phenergan] 25 mg MA Q6H PRN 03/28/19 03/28/19 History ranitidine HCl [Zantac] 150 mg PO BID 03/28/19 03/28/19 History ranolazine [Ranexa] 1,000 mg PO AMHS 03/28/19 03/28/19 History sucralfate [Carafate] 1 g PO QID 03/28/19 03/28/19 History tramadol 50 mg PO Q6H PRN 03/28/19 03/28/19 History [id number] 0 g PO BID 03/28/19 03/28/19 History [ArgiMent AT] Patient History Medical History Acute cholecystitis Urge incontinence of urine (Acute) Paroxysmal atrial fibrillation (Acute) PAD (peripheral artery disease) (Acute) Dementia (Acute) Chronic kidney disease (CKD), stage III (moderate) (Acute) Chronic diastolic congestive heart failure (Acute) Carotid artery occlusion (Acute) Arthritis (Acute) Arteriosclerosis of coronary artery (Acute) Shingles (Acute) Anemia (Chronic) CHF (congestive heart failure) (Chronic) Carotid artery disease (Chronic) Chronic kidney disease (Chronic) Diabetes (Chronic) Hypertension (Chronic) Osteoporosis (Chronic) H/O: GI bleed (Resolved) Surgical History H/O heart artery stent (Resolved) Previous back surgery (Resolved) S/P hip replacement (Resolved) Social History Preferred Language: Argentine Communication Ability: dementia Visual Impairment: No Limitations Hearing Ability: Normal Beliefs That Will Affect Care: None marital status: Current Living Situation: Shelter current occupational status: retired Feels Safe at Home: Yes Smoking Status: Never smoker Hx Alcohol Use: No Hx Substance Use: No Review of Systems Review of Systems: Unobtainable due to mental health condition Physical Exam Physical Exam: General: no acute distress and stated age Head: normocephalic, no masses, lesions, tenderness or abnormalities Eyes: conjunctiva are pink and non-injected, sclera clear Neck: supple, no adenopathy, no bruits, normal jugular venous pulse, no hepatojugular reflux Chest: normal shape and normal respiratory effort Lungs: clear to auscultation and percussion Cardiac Exam: - regular rate & rhythm, no murmurs gallops or rubs - normal S1, normal S2 Pulses: 2(+) throughout Abdomen: abdomen soft, non-tender, no abnormal masses and no hepatosplenomegaly Musculoskeletal: no gait disturbance, no joint inflammation, no deforming arthritis Extremities: no edema and no cyanosis Neuro: grossly normal exam Results & Data Vital Signs (Past 12 Hours) Vital Signs Temp Pulse Pulse Resp BP BP Pulse Ox 03/29/19 07:38 36.8 C 77 14 104/62 94 03/29/19 04:00 36.4 C L 66 16 94/46 L 96 03/28/19 22:09 37.9 C H 77 16 107/61 96 03/28/19 21:36 71 16 90/60 L 96 Laboratory Results Laboratory Results - last 24 hr 03/28/19 03/28/19 03/28/19 16:56 16:56 16:56 WBC 24.01 H RBC 2.60 L Hgb 8.4 L Hct 25.2 L MCV 96.9 MCH 32.3 MCHC 33.3 RDW Std Deviation 51.8 H RDW Coeff of Claudine 14.7 H Plt Count 245 MPV 9.0 Immature Gran % (Auto) 0.6 Neut % (Auto) 86.8 Lymph % (Auto) 6.0 [place] % (Auto) 6.5 Eos % (Auto) 0.0 Baso % (Auto) 0.1 Immature Gran # (Auto) 0.15 H Neut # (Auto) 20.81 H Lymph # (Auto) 1.45 [place] # (Auto) 1.57 H Eos # (Auto) 0.01 Baso # (Auto) 0.02 Toxic Granulation 1+ PT 12.6 H INR 1.2 H Sodium 144 Potassium 3.3 L Chloride 115 H Carbon Dioxide 23 Anion Gap 6.0 BUN 45 H Creatinine 0.99 Est Cr Clr Drug Dosing 34.4 Est GFR ( Amer) 60.2 Est GFR (Non-Af Amer) 52.0 BUN/Creatinine Ratio 45.7 H Glucose 121 H POC Glucose Estimat Average Glucose Hemoglobin A1c POC Lactic Acid Gilles Lactate Calcium 8.4 L Magnesium 1.8 Total Bilirubin 1.2 H AST 11 L ALT 10 L Alkaline Phosphatase 68 Troponin I 0.055 H* Total Protein 6.3 L Albumin 2.4 L Globulin 3.9 Albumin/Globulin Ratio 0.6 L Procalcitonin TSH 1.290 Urine Color Urine Appearance Urine pH Ur Specific [place] Urine Protein Urine Glucose (UA) Urine Ketones Urine Blood Urine Nitrite Urine Bilirubin Urine Urobilinogen Ur Leukocyte Esterase Urine WBC (Auto) Urine RBC (Auto) U Hyaline Cast (Auto) U Epithel Cells (Auto) Urine Bacteria (Auto) Amorphous Sediment Nasal Screen MRSA (PCR) Stool Occult Bld Scrn Blood Type Antibody Screen 03/28/19 03/28/19 03/28/19 16:56 16:56 19:50 WBC RBC Hgb Hct MCV MCH MCHC RDW Std Deviation RDW Coeff of Claudine Plt Count MPV Immature Gran % (Auto) Neut % (Auto) Lymph % (Auto) [place] % (Auto) Eos % (Auto) Baso % (Auto) Immature Gran # (Auto) Neut # (Auto) Lymph # (Auto) [place] # (Auto) Eos # (Auto) Baso # (Auto) Toxic Granulation PT INR Sodium Potassium Chloride Carbon Dioxide Anion Gap BUN Creatinine Est Cr Clr Drug Dosing Est GFR ( Amer) Est GFR (Non-Af Amer) BUN/Creatinine Ratio Glucose POC Glucose Estimat Average Glucose Hemoglobin A1c POC Lactic Acid Gilles 1.90 H Lactate 1.6 Calcium Magnesium Total Bilirubin AST ALT Alkaline Phosphatase Troponin I Total Protein Albumin Globulin Albumin/Globulin Ratio Procalcitonin 0.68 H TSH Urine Color Urine Appearance Urine pH Ur Specific [place] Urine Protein Urine Glucose (UA) Urine Ketones Urine Blood Urine Nitrite Urine Bilirubin Urine Urobilinogen Ur Leukocyte Esterase Urine WBC (Auto) Urine RBC (Auto) U Hyaline Cast (Auto) U Epithel Cells (Auto) Urine Bacteria (Auto) Amorphous Sediment Nasal Screen MRSA (PCR) Stool Occult Bld Scrn Blood Type Antibody Screen 03/28/19 03/28/19 03/28/19 20:24 22:39 22:39 WBC RBC Hgb Hct MCV MCH MCHC RDW Std Deviation RDW Coeff of Claudine Plt Count MPV Immature Gran % (Auto) Neut % (Auto) Lymph % (Auto) [place] % (Auto) Eos % (Auto) Baso % (Auto) Immature Gran # (Auto) Neut # (Auto) Lymph # (Auto) [place] # (Auto) Eos # (Auto) Baso # (Auto) Toxic Granulation PT INR Sodium Potassium Chloride Carbon Dioxide Anion Gap BUN Creatinine Est Cr Clr Drug Dosing Est GFR ( Amer) Est GFR (Non-Af Amer) BUN/Creatinine Ratio Glucose POC Glucose Estimat Average Glucose Hemoglobin A1c POC Lactic Acid Gilles Lactate Calcium Magnesium Total Bilirubin AST ALT Alkaline Phosphatase Troponin I 0.067 H* Total Protein Albumin Globulin Albumin/Globulin Ratio Procalcitonin TSH Urine Color Dark Yellow Urine Appearance Cloudy A Urine pH 5.0 Ur Specific [place] 1.023 Urine Protein Trace H Urine Glucose (UA) Negative Urine Ketones Negative Urine Blood Negative Urine Nitrite Negative Urine Bilirubin Negative Urine Urobilinogen Negative Ur Leukocyte Esterase Negative Urine WBC (Auto) 1-5 Urine RBC (Auto) 5-10 H U Hyaline Cast (Auto) Not Reportable U Epithel Cells (Auto) 10-20 H Urine Bacteria (Auto) Negative Amorphous Sediment Present A Nasal Screen MRSA (PCR) Stool Occult Bld Scrn Blood Type AB Negative Antibody Screen NEGATIVE 03/28/19 03/28/19 03/29/19 22:50 22:55 00:38 WBC RBC Hgb Hct MCV MCH MCHC RDW Std Deviation RDW Coeff of Claudine Plt Count MPV Immature Gran % (Auto) Neut % (Auto) Lymph % (Auto) [place] % (Auto) Eos % (Auto) Baso % (Auto) Immature Gran # (Auto) Neut # (Auto) Lymph # (Auto) [place] # (Auto) Eos # (Auto) Baso # (Auto) Toxic Granulation PT INR Sodium Potassium Chloride Carbon Dioxide Anion Gap BUN Creatinine Est Cr Clr Drug Dosing Est GFR ( Amer) Est GFR (Non-Af Amer) BUN/Creatinine Ratio Glucose POC Glucose 143 H Estimat Average Glucose Hemoglobin A1c POC Lactic Acid Gilles Lactate Calcium Magnesium Total Bilirubin AST ALT Alkaline Phosphatase Troponin I Total Protein Albumin Globulin Albumin/Globulin Ratio Procalcitonin TSH Urine Color Urine Appearance Urine pH Ur Specific [place] Urine Protein Urine Glucose (UA) Urine Ketones Urine Blood Urine Nitrite Urine Bilirubin Urine Urobilinogen Ur Leukocyte Esterase Urine WBC (Auto) Urine RBC (Auto) U Hyaline Cast (Auto) U Epithel Cells (Auto) Urine Bacteria (Auto) Amorphous Sediment Nasal Screen MRSA (PCR) Negative Stool Occult Bld Scrn Negative Blood Type Antibody Screen 03/29/19 03/29/19 03/29/19 04:26 04:26 04:26 WBC 16.98 H RBC 2.85 L Hgb 9.2 L Hct 27.5 L MCV 96.5 MCH 32.3 MCHC 33.5 RDW Std Deviation 52.4 H RDW Coeff of Claudine 14.6 H Plt Count 239 MPV 9.4 Immature Gran % (Auto) 0.3 Neut % (Auto) 89.0 Lymph % (Auto) 5.6 [place] % (Auto) 4.8 Eos % (Auto) 0.2 Baso % (Auto) 0.1 Immature Gran # (Auto) 0.05 H Neut # (Auto) 15.12 H Lymph # (Auto) 0.95 L [place] # (Auto) 0.82 H Eos # (Auto) 0.03 Baso # (Auto) 0.01 Toxic Granulation PT INR Sodium 143 Potassium 3.2 L Chloride 116 H Carbon Dioxide 20 L Anion Gap 7.0 BUN 38 H Creatinine 0.96 Est Cr Clr Drug Dosing 35.4 Est GFR ( Amer) 62.5 Est GFR (Non-Af Amer) 53.9 BUN/Creatinine Ratio 39.9 H Glucose 94 POC Glucose Estimat Average Glucose 100 Hemoglobin A1c 5.1 POC Lactic Acid Gilles Lactate Calcium 8.7 Magnesium Total Bilirubin 1.2 H AST 13 L ALT 10 L Alkaline Phosphatase 69 Troponin I Total Protein 6.3 L Albumin 2.3 L Globulin 4.0 Albumin/Globulin Ratio 0.6 L Procalcitonin TSH Urine Color Urine Appearance Urine pH Ur Specific [place] Urine Protein Urine Glucose (UA) Urine Ketones Urine Blood Urine Nitrite Urine Bilirubin Urine Urobilinogen Ur Leukocyte Esterase Urine WBC (Auto) Urine RBC (Auto) U Hyaline Cast (Auto) U Epithel Cells (Auto) Urine Bacteria (Auto) Amorphous Sediment Nasal Screen MRSA (PCR) Stool Occult Bld Scrn Blood Type Antibody Screen 03/29/19 03/29/19 04:26 05:55 WBC RBC Hgb Hct MCV MCH MCHC RDW Std Deviation RDW Coeff of Claudine Plt Count MPV Immature Gran % (Auto) Neut % (Auto) Lymph % (Auto) [place] % (Auto) Eos % (Auto) Baso % (Auto) Immature Gran # (Auto) Neut # (Auto) Lymph # (Auto) [place] # (Auto) Eos # (Auto) Baso # (Auto) Toxic Granulation PT INR Sodium Potassium Chloride Carbon Dioxide Anion Gap BUN Creatinine Est Cr Clr Drug Dosing Est GFR ( Amer) Est GFR (Non-Af Amer) BUN/Creatinine Ratio Glucose POC Glucose 97 Estimat Average Glucose Hemoglobin A1c POC Lactic Acid Gilles Lactate Calcium Magnesium Total Bilirubin AST ALT Alkaline Phosphatase Troponin I 0.077 H* Total Protein Albumin Globulin Albumin/Globulin Ratio Procalcitonin TSH Urine Color Urine Appearance Urine pH Ur Specific [place] Urine Protein Urine Glucose (UA) Urine Ketones Urine Blood Urine Nitrite Urine Bilirubin Urine Urobilinogen Ur Leukocyte Esterase Urine WBC (Auto) Urine RBC (Auto) U Hyaline Cast (Auto) U Epithel Cells (Auto) Urine Bacteria (Auto) Amorphous Sediment Nasal Screen MRSA (PCR) Stool Occult Bld Scrn Blood Type Antibody Screen Diagnostic Findings The patient's EKG reveals low atrial amplitude but I believe that she is in a sinus mechanism. There is also evidence of an old inferior wall my function. Medications Administered Current Inpatient Medications Acetaminophen (Tylenol) 650 mg PO BID [facility] Stop: 04/27/19 21:49 Last Admin: 03/29/19 07:25 Dose: Not Given Documented by: Acetaminophen (Tylenol) 650 mg PO Q4H PRN PRN Reason: Pain or Fever Stop: 04/27/19 21:49 Atorvastatin Calcium (Lipitor) 40 mg PO QPM INDY Stop: 04/27/19 21:49 Last Admin: 03/28/19 23:28 Dose: 40 mg Documented by: Bumetanide (Bumex) 1 mg PO [id number] [facility] Stop: 04/29/19 08:59 Calcium Polycarbophil (Fibercon) 1 tab PO BID INDY Stop: 04/27/19 21:49 Last Admin: 03/29/19 07:25 Dose: Not Given Documented by: Collagenase (Santyl) 1 appln EXT DAILY INDY Stop: 04/28/19 08:59 Last Admin: 03/29/19 07:32 Dose: 1 appln Documented by: Dextrose (Dextrose 50%) 25 - 50 ml IV UD PRN; Protocol PRN Reason: Hypoglycemia Protocol Stop: 04/27/19 21:49 Glucagon (Glucagen) 1 mg SQ UD PRN; Protocol PRN Reason: Hypoglycemia Protocol Stop: 04/27/19 21:49 Glucose (Glucose 40%) 15 - 30 gm PO UD PRN; Protocol PRN Reason: Hypoglycemia Protocol Stop: 04/27/19 21:49 Glucose (Dex4 Glucose) 4 - 8 tabs PO UD PRN; Protocol PRN Reason: Hypoglycemia Protocol Stop: 04/27/19 21:49 Sodium Chloride (Nss 1000ml) 1,000 mls @ 80 mls/hr IV .[id number] INDY Stop: 04/27/19 21:49 Last Admin: 03/28/19 23:30 Dose: 80 mls/hr Documented by: Cefepime HCl 2,000 mg/ Syringe 12.5 mls @ 5.5 mls/min IV DAILY INDY; Protocol Stop: 04/08/19 08:59 Last Admin: 03/29/19 07:54 Dose: 5.5 mls/min Documented by: Metronidazole (Flagyl) 500 mg in 100 mls @ 100 mls/hr IV Q8H [facility] Stop: 04/07/19 22:59 Last Infusion: 03/29/19 07:34 Dose: Infused Documented by: Potassium Chloride (K Hank / Wtr) 10 meq in 100 mls @ 100 mls/hr IV Q1H INDY Stop: 03/29/19 10:00 Last Admin: 03/29/19 07:31 Dose: 100 mls/hr Documented by: Insulin Aspart (Novolog Flexpen) 0 units SC Q6 INDY Stop: 04/28/19 05:59 Last Admin: 03/29/19 06:08 Dose: Not Given Documented by: Ioversol (Optiray 320 100ml) 94 ml IV ONCE PRN PRN Reason: Interaction Checking Stop: 04/01/19 21:46 Last Admin: 03/28/19 21:47 Dose: 94 ml Documented by: Magnesium Hydroxide (Milk Of Magnesia) 30 ml PO UD PRN PRN Reason: NO BM 3 DAYS Stop: 04/27/19 21:49 Memantine (Namenda) 5 mg PO BID [facility] Stop: 04/27/19 21:49 Last Admin: 03/29/19 07:25 Dose: Not Given Documented by: Mirabegron (Myrbetriq Er) 50 mg PO DAILY [facility] Stop: 04/28/19 08:59 Last Admin: 03/29/19 07:25 Dose: Not Given Documented by: Miscellaneous (Carbohydrates For Hypoglycemia) 15 - 30 gm PO UD PRN PRN Reason: Hypoglycemia Treatment Stop: 04/27/19 21:49 Miscellaneous Information (Consult) 1 ea N/A UD PRN PRN Reason: Consult Stop: 04/27/19 14:45 Miscellaneous Information (Consult Glycemic Management Pharmacy) 1 ea N/A UD PRN; Protocol PRN Reason: Consult Stop: 04/27/19 22:16 Montelukast Sodium (Singulair) 10 mg PO PM INDY Stop: 04/27/19 21:49 Last Admin: 03/28/19 23:29 Dose: 10 mg Documented by: Nitroglycerin (Nitrostat) 0.4 mg SL UD PRN PRN Reason: Chest Pain Stop: 04/27/19 21:49 Polyethylene Glycol (Miralax Powder Packet) 17 gm PO DAILY PRN PRN Reason: Constipation Stop: 04/27/19 21:49 Promethazine HCl (Phenergan) 25 mg MA Q6H PRN PRN Reason: Nausea Stop: 04/27/19 21:49 Ranitidine HCl (Zantac) 150 mg PO BID INDY Stop: 04/27/19 21:49 Last Admin: 03/29/19 07:25 Dose: Not Given Documented by: Ranolazine (Ranexa) 1,000 mg PO AMHS [facility] Stop: 04/27/19 21:49 Last Admin: 03/29/19 07:25 Dose: Not Given Documented by: Sucralfate (Carafate Tab) 1 gm PO QID INDY Stop: 04/27/19 21:49 Last Admin: 03/29/19 07:25 Dose: Not Given Documented by: Tramadol HCl (Ultram) 50 mg PO Q6H PRN PRN Reason: pain 4-10 Stop: 04/27/19 21:49 Zolpidem Tartrate (Ambien) 5 mg PO HS PRN PRN Reason: Sleep Stop: 04/27/19 21:49 (1) Buttock wound Encounter type: initial encounter Laterality: right Qualified Code(s): S31.819A - Unspecified open wound of right buttock, initial encounter
--- NOTE | 2019-03-29 08:59 | Anesthesiology Consultation ---
Date of Service March 29, 2019 hx difficulty emerging from anesthesia CABG 2000 cardiac stents Assessment & Plan (1) Encounter for pre-operative examination: History Surgery Operation Date: 03/29/19 07:00 Proposed Procedures p Laparoscopic Cholecystectomy - Huang Moore MD Height/Weight Height: 5 ft 3 in Weight: 63.7 kg Allergies Allergy/AdvReac Type Severity Reaction Status Date / Time ampicillin Allergy Intermediate RASH, HIVES Verified 03/28/19 16:06 furosemide Allergy Intermediate SHORTNESS Verified 03/28/19 16:06 OF BREATH,throat itching apixaban Allergy Unknown UNKNOWN Unverified 03/28/19 16:06 cyclobenzaprine Allergy Unknown Unknown rxn Verified 03/28/19 16:06 ibuprofen Allergy Unknown UNKNOWN Verified 03/28/19 16:06 lisinopril Allergy Unknown UNKNOWN Verified 03/28/19 16:06 methylprednisolone Allergy Unknown UNKNOWN Verified 03/28/19 16:06 propoxyphene Allergy Unknown UNKNOWN Verified 03/28/19 16:06 tramadol Allergy Unknown UNKNOWN Verified 03/28/19 16:06 EPIDURAL STEROID INJECTIONS Allergy Unknown . Uncoded 03/28/19 16:06 SOAPCLEAN AdvReac Mild Changing Uncoded 11/08/18 13:03 wipe - itchy rash Medications Home Medications Medication Instructions Recorded Confirmed Last Taken Lactobacillus Tab 1 tab PO TID 03/28/19 03/28/19 03/28/19 13:00 Med Pass Supplement 180 ml PO UD 03/28/19 03/28/19 03/28/19 13:00 acetaminophen [Tylenol] 650 mg PO BID 03/28/19 03/28/19 03/28/19 08:00 acetaminophen [Tylenol] 650 mg PO Q4 PRN 03/28/19 03/28/19 Unknown aspirin [Aspir-Low] 81 mg PO DAILY 03/28/19 03/28/19 03/28/19 09:00 atorvastatin [Lipitor] 40 mg PO QPM 03/28/19 03/28/19 03/27/19 21:00 bumetanide 1 mg PO 3XWK 03/28/19 03/28/19 03/28/19 calcium polycarbophil [FiberCon] 650 mg PO BID 03/28/19 03/28/19 03/28/19 09:00 collagenase clostridium histo. 1 applic TOPICAL .DAILY & PRN 03/28/19 03/28/19 03/28/19 [Santyl] donepezil [Aricept] 10 mg PO DAILY 03/28/19 03/28/19 03/27/19 17:00 doxycycline hyclate 100 mg PO AMHS 03/28/19 03/28/19 03/28/19 09:00 isosorbide mononitrate 30 mg PO DAILY 03/28/19 03/28/19 03/28/19 09:00 magnesium hydroxide [Milk of 30 ml PO UD PRN 03/28/19 03/28/19 Unknown Magnesia] memantine [Namenda] 5 mg PO BID 03/28/19 03/28/19 03/28/19 09:00 mirabegron [Myrbetriq] 50 mg PO DAILY 03/28/19 03/28/19 03/28/19 09:00 montelukast [Singulair] 10 mg PO PM 03/28/19 03/28/19 03/27/19 21:00 nitroglycerin [Nitrostat] 0.4 mg SUBLINGUAL UD PRN 03/28/19 03/28/19 Unknown omeprazole 20 mg PO BID 03/28/19 03/28/19 03/28/19 06:00 ondansetron HCl 4 mg PO Q6 PRN 03/28/19 03/28/19 Unknown polyethylene glycol 3350 [Miralax] 17 g PO DAILY 03/28/19 03/28/19 03/28/19 promethazine [Phenergan] 25 mg AR Q6H PRN 03/28/19 03/28/19 03/27/19 ranitidine HCl [Zantac] 150 mg PO BID 03/28/19 03/28/19 03/21/19 09:00 ranolazine [Ranexa] 1,000 mg PO AMHS 03/28/19 03/28/19 03/28/19 09:00 sucralfate [Carafate] 1 g PO QID 03/28/19 03/28/19 03/28/19 13:00 tramadol 50 mg PO Q6H PRN 03/28/19 03/28/19 Unknown [id number]-Cu-tos 0 g PO BID 03/28/19 03/28/19 03/28/19 09:00 [ArgiMent AT] Active Medications Generic Name Dose Route Start Last Admin Trade Name Jude PRN Reason Stop Dose Admin Acetaminophen 650 mg 03/28/19 21:50 03/29/19 07:25 Tylenol PO 04/27/19 21:49 Not Given BID INDY Atorvastatin Calcium 40 mg 03/28/19 21:50 03/28/19 23:28 Lipitor PO 04/27/19 21:49 40 mg QPM INDY Administration Calcium Polycarbophil 1 tab 03/28/19 21:50 03/29/19 07:25 Fibercon PO 04/27/19 21:49 Not Given BID INDY Collagenase 1 appln 03/29/19 09:00 03/29/19 07:32 Santyl EXT 04/28/19 08:59 1 appln DAILY INDY Administration Sodium Chloride 1,000 mls @ 80 mls/hr 03/28/19 21:50 03/28/19 23:30 Nss 1000ml IV 04/27/19 21:49 80 mls/hr .[id number] INDY Administration Cefepime HCl 2,000 mg/ Syringe 12.5 mls @ 5.5 mls/min 03/29/19 09:00 03/29/19 07:54 IV 04/08/19 08:59 5.5 mls/min DAILY INDY Administration Protocol Metronidazole 500 mg in 100 mls @ 100 mls/hr 03/28/19 23:00 03/29/19 07:34 Flagyl IV 04/07/19 22:59 Infused Q8H INDY Infusion Potassium Chloride 10 meq in 100 mls @ 100 mls/hr 03/29/19 06:01 03/29/19 08:55 K Hank / Wtr IV 03/29/19 10:00 100 mls/hr Q1H INDY Administration Insulin Aspart 0 units 03/29/19 06:00 03/29/19 06:08 Novolog Flexpen SC 04/28/19 05:59 Not Given Q6 INDY Ioversol 94 ml 03/28/19 21:47 03/28/19 21:47 Optiray 320 100ml IV 04/01/19 21:46 94 ml ONCE PRN Administration Interaction Checking Memantine 5 mg 03/28/19 21:50 03/29/19 07:25 Namenda PO 04/27/19 21:49 Not Given BID INDY Mirabegron 50 mg 03/29/19 09:00 03/29/19 07:25 Myrbetriq Er PO 04/28/19 08:59 Not Given DAILY INDY Montelukast Sodium 10 mg 03/28/19 21:50 03/28/19 23:29 Singulair PO 04/27/19 21:49 10 mg PM INDY Administration Ranitidine HCl 150 mg 03/28/19 21:50 03/29/19 07:25 Zantac PO 04/27/19 21:49 Not Given BID INDY Ranolazine 1,000 mg 03/28/19 21:50 03/29/19 07:25 Ranexa PO 04/27/19 21:49 Not Given AMHS INDY Sucralfate 1 gm 03/28/19 21:50 03/29/19 07:25 Carafate Tab PO 04/27/19 21:49 Not Given QID INDY Past Medical History Medical History Acute cholecystitis Urge incontinence of urine (Acute) Paroxysmal atrial fibrillation (Acute) PAD (peripheral artery disease) (Acute) Dementia (Acute) Chronic kidney disease (CKD), stage III (moderate) (Acute) Chronic diastolic congestive heart failure (Acute) Carotid artery occlusion (Acute) Arthritis (Acute) Arteriosclerosis of coronary artery (Acute) Shingles (Acute) Anemia (Chronic) CHF (congestive heart failure) (Chronic) Carotid artery disease (Chronic) Chronic kidney disease (Chronic) Diabetes (Chronic) Hypertension (Chronic) Osteoporosis (Chronic) H/O: GI bleed (Resolved) Past Surgical History Surgical History H/O heart artery stent (Resolved) Previous back surgery (Resolved) S/P hip replacement (Resolved) Social History Smoking Status: Never smoker Hx Alcohol Use: No Hx Substance Use: No Physical Exam Vital Signs Last Vital Signs Temp 36.8 C 03/29/19 07:38 Pulse 77 03/29/19 07:38 Resp 14 03/29/19 07:38 BP 104/62 03/29/19 07:38 Pulse Ox 94 03/29/19 07:38 Testing Laboratory Results 03/29/19 04:26 08/13/19 04:26 PT 12.6 Seconds (9.0-12.0) H 03/28/19 16:56 INR 1.2 (0.9-1.1) H 03/28/19 16:56 Hemoglobin A1c 5.1 % (4.5-5.6) 03/29/19 04:26 Urine Color Dark Yellow 03/28/19 20:24 Urine Appearance Cloudy (Clear) A 03/28/19 20:24 Urine pH 5.0 (4.5-7.5) 03/28/19 20:24 Ur Specific Ollie 1.023 (1.000-1.030) 03/28/19 20:24 Urine Protein Trace (Negative) H 03/28/19 20:24 Urine Glucose (UA) Negative (Negative) 03/28/19 20:24 Urine Ketones Negative (Negative) 03/28/19 20:24 Urine Nitrite Negative (Negative) 03/28/19 20:24 Ur Leukocyte Esterase Negative (Negative) 03/28/19 20:24 Urine WBC (Auto) 1-5 /hpf (0-5) 03/28/19 20:24 Urine RBC (Auto) 5-10 /hpf (0-4) H 03/28/19 20:24 U Hyaline Cast (Auto) Not Reportable 03/28/19 20:24 U Epithel Cells (Auto) 10-20 /lpf (0-5) H 03/28/19 20:24 Urine Bacteria (Auto) Negative (Negative) 03/28/19 20:24 Blood Type AB Negative 03/28/19 22:39 Antibody Screen NEGATIVE 03/28/19 22:39 03/28/19 15:50 Gram Stain - Final Buttock Deep Wound Culture - Preliminary Gram negative bacilli 03/29/19 03/29/19 05:55 00:38 POC Glucose 97 143 H Electrocardiogram Date: 03/29/19 Normal sinus rhythm Inferior infarct , age undetermined Prolonged QT Abnormal ECG When compared with ECG of 28-MAR-2019 15:30, (unconfirmed) Sinus rhythm has replaced Ectopic atrial rhythm Inverted T waves have replaced nonspecific T wave abnormality in Lateral leads QT has shortened Chest X-Ray Date: 03/28/19 MPRESSION: 1. Cardiomegaly. No other convincing evidence of acute cardiopulmonary disease. Echocardiogram Date: 06/11/16 EF: 60-65% . Normal left ventricular size and systolic function. Estimated EF 60-65%. Possible akinesis of inferior base. Otherwise, wall motion appears normal. No significant left ventricular hypertrophy. Septal flattening suggests possible right ventricular volume overload. 2. Mildly dilated right ventricle with normal systolic function. 3. Mild biatrial dilation. 4. At least moderate tricuspid regurgitation. 5. Mild mitral regurgitation. 6. Mild pulmonary hypertension suggested with estimated RVSP of 39 mmHg. 7. Compared to prior study on 04/12/2016, RV volume overload is now suggested.
[2019-03-29] MEDS ORDERED: COLLAGENASE OINT 30 GM TUBE EXT SCH (09:00)
[2019-03-29] MEDS ORDERED: LIDOCAINE HCL 1% 20 ML VIAL ONE (09:06)
[2019-03-29] MEDS ORDERED: BACITRACIN OINT 15 GM TUBE ONE (09:06)
[2019-03-29] MEDS ORDERED: fentaNYL citrate 100 MCG/2 ML VIAL ONE ×2 (09:06→11:41)
[2019-03-29] MEDS ORDERED: BUPIVACAINE 0.5 % 5 MG/1 ML MPF 30ML VIAL ONE (09:06)
--- NOTE | 2019-03-29 09:26 | History & Physical Bridge Note ---
Date of Service March 29, 2019 History & Physical Bridge Note I have examined the patient, reviewed the History & Physical and in the interval since the performance of the History & Physical I have noted the following changes of clinical significance: no changes noted, I did talk to pt's son ( Hebert) on phone, I recommend to do laparoscopic cholecystectomy, possible open or cholangiogram, D/W benefits, risks and alternatives of the surgery, the risks- infection, bleeding, sepsis, injury CBD, bowel, ME, DVT, stroke, , pt's son understood, he agrees with the surgery, he gave consent on the phone, I also talked to pt about surgery, pt agrees with the surgery,
[2019-03-29] MEDS ORDERED: CLINDAMYCIN 600 MG/54 ML D5W IV ONE (09:35)
--- NOTE | 2019-03-29 10:25 | Pharmacy Report ---
Pharmacy Abx Initial Consult - Date of Service March 29, 2019 - Pharmacy Dosing Scope Date of Consult: 03/28 Consultation requested by: Dr. Becerril Pharmacy is consulted to initiate vancomycin dosing therapy, order appropriate labs and adjust drug dose/frequency. - Subjective The patient is a 83 year old F admitted on 03/28/19 20:34. 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 Blood cultures x 2 are pending, buttocks cx positive for Gm neg bacilli. Pt with hx of bilateral hip replacement and infection in which grew PA. ID consulted to follow the patient. Plan Vancomycin IV * Received loading dose of vancomycin 1500 mg x 1 last evening (~24 mg/kg) * Will start maintenance dose of vancomycin 1000 mg (~15 mg/kg) iv q 24 hrs to achieve estimated trough ~15-20 mcg/ml * Estimated kinetics: t1/2~20 hrs, ke~0.03 hr-1, CrCl ~35 ml/min * Will follow cultures, will plan to order trough in next 48 hrs if vancomycin is to be continued or sooner if renal function changes Pharmacy will continue to follow and will adjust dose/frequency as necessary. Thank you.
[2019-03-29] MEDS ORDERED: LIDOCAINE HCL 2% 2 ML VIAL/AMP(20MG/ML) INFIL ONE (11:05)
[2019-03-29] MEDS ORDERED: ROCURONIUM BROMIDE 10 MG/ML 5 ML VIAL ONE (11:05)
[2019-03-29] MEDS ORDERED: PHENYLEPHRINE 100MCG/ML 5ML SYR ONE (11:05)
[2019-03-29] MEDS ORDERED: PHENYLEPHRINE HCL 10 MG/ML VIAL ONE (11:05)
[2019-03-29] MEDS ORDERED: PROPOFOL IV EMULSION 10 MG/ML 20 ML VIAL IV ONE (11:05)
[2019-03-29] MEDS ORDERED: ONDANSETRON INJ 2 MG/ML 2 ML VIAL ONE (11:05)
[2019-03-29] MEDS ORDERED: SURGICEL ABSORB HEMOSTAT 2IN X 14IN TOP ONE (11:16)
[2019-03-29] MEDS ORDERED: NEOSTIGMINE METHYLSULFATE 5 MG/5 ML SYR ONE (11:31)
[2019-03-29] MEDS ORDERED: GLYCOPYRROLATE 0.2 MG/ML VIAL ONE (11:31)
--- NOTE | 2019-03-29 11:38 | Post Operative Brief Note ---
Immediate Post Op Note v1 Date of Surgery March 29, 2019 Pre & Post Diagnosis Operation Date: 03/29/19 09:00 Pre-Op Diagnosis: Acute Cholecystitis Post-Op Diagnosis: Gangrenous gallbladder Procedure Operation Date: 03/29/19 09:00 Actual Procedures p Laparoscopic Cholecystectomy(Not Applicable) - Huang Moore MD Surgeon Huang Moore MD Public Finance Specialist ANASTACIO Zapien Estimated Blood Loss 30 Findings Consistent with Post-Op Diagnosis gangrenous gallbladder, Fluids 600ml Specimens gallbladder Drains Hardwick Catheter (pt came to OR with hardwick ) and Eulogio-Martinez Drain (10 flat) Anesthesia Type General Complications none Disposition Accompanied Patient To Recovery: Yes Disposition: Recovery Room Overlapping Procedure I was immediately available: during the entire case.
[2019-03-29] MEDS: SODIUM CHLORIDE 0.9% 1000ML 1,000 ML IV SCH (11:43)
[2019-03-29] MEDS ORDERED: ESMOLOL HCL INJ 10 MG/ML 10ML VIAL IV ONE (11:43)
[2019-03-29] MEDS: NSS + 20MEQ KCL 20 MEQ/1,000 ML BAG IV SCH (13:13)
[2019-03-29] MEDS ORDERED: OXYCODONE/ACETAMINOPHEN 5mg/325mg TAB PO PRN (13:25)
[2019-03-29] MEDS ORDERED: ONDANSETRON 4 MG TAB PO PRN (13:25)
[2019-03-29] MEDS ORDERED: HYDROmorphone INJ 0.5 MG/0.5 ML SYR IV PRN (13:25)
[2019-03-29] MEDS ORDERED: MED PASS SUPPLEMENT PO SCH (13:25)
--- NOTE | 2019-03-29 13:27 | Infectious Disease Consult ---
Date of Consultation March 29, 2019 Assessment & Plan (1) Acute cholecystitis: (2) Sepsis: She will continue on emperic abx, wound culure growing gnr, h/o pseudomonas in October, unclear if treated. will continue additonal abx pending OR and blood cultures. will follow. (3) Buttock wound: History of Present Illness Attending Physician: Gerry Inman pt admitted with weakness, was seen by PCP and found to have hotn, sent to ER. In ER was found to have fever 37.9 and wbc 24. was started on emperic abx, she is currently on cefepime, jackson, clinda and vanco. UA negative, creat 0.9. LFTs normal. wbc improved to [address] abd done in ER and showed gangrenous cholecystitis and fracture of left hip, x ray with fracture as well. Was evaluated by surgery and cardio and had percutaneous cholecystomy today. She is seen post op and is lethargic but able to answer a few questions. Denies cp, sob, cough, c/o post op abd pain, no n/v/d. she was last seen by ID at wound center in October, she was previously on Keflex for a left hip wound infection but had stalling in wound healing, she had repeat culture done on 11/08 with plans to follow in wound center and adjust therapy if indicated. Her culture grew pansensitive pseudomonas, she did not follow up at wound center Per chart she was seen at [facility] [place] and underwent hip hardware exchange. Unclear if she received abx post op. she now has a buttock wound which is reportedly non healing. she has not had subsequent wound center followup. She is tolerating abx. she is currently afebrile. Blood cultures from ER pending. Allergies Allergy/AdvReac Type Severity Reaction Status Date / Time ampicillin Allergy Intermediate RASH, HIVES Verified 03/29/19 10:11 furosemide Allergy Intermediate SHORTNESS Verified 03/28/19 16:06 OF BREATH,throat itching apixaban Allergy Unknown UNKNOWN Unverified 03/28/19 16:06 cyclobenzaprine Allergy Unknown Unknown rxn Verified 03/28/19 16:06 ibuprofen Allergy Unknown UNKNOWN Verified 03/28/19 16:06 lisinopril Allergy Unknown UNKNOWN Verified 03/28/19 16:06 methylprednisolone Allergy Unknown UNKNOWN Verified 03/28/19 16:06 propoxyphene Allergy Unknown UNKNOWN Verified 03/28/19 16:06 tramadol Allergy Unknown UNKNOWN Verified 03/28/19 16:06 EPIDURAL STEROID INJECTIONS Allergy Unknown . Uncoded 03/28/19 16:06 SOAPCLEAN AdvReac Mild Changing Uncoded 11/08/18 13:03 wipe - itchy rash Home Medications Home Medications Medication Instructions Recorded Confirmed Type Lactobacillus Tab 1 tab PO TID 03/28/19 03/28/19 History Med Pass Supplement 180 ml PO UD 03/28/19 03/28/19 History acetaminophen [Tylenol] 650 mg PO BID 03/28/19 03/28/19 History acetaminophen [Tylenol] 650 mg PO Q4 PRN 03/28/19 03/28/19 History aspirin [Aspir-Low] 81 mg PO DAILY 03/28/19 03/28/19 History atorvastatin [Lipitor] 40 mg PO QPM 03/28/19 03/28/19 History bumetanide 1 mg PO 3XWK 03/28/19 03/28/19 History calcium polycarbophil [FiberCon] 650 mg PO BID 03/28/19 03/28/19 History collagenase clostridium histo. 1 applic TOPICAL .DAILY & PRN 03/28/19 03/28/19 History [Santyl] donepezil [Aricept] 10 mg PO DAILY 03/28/19 03/28/19 History doxycycline hyclate 100 mg PO AMHS 03/28/19 03/28/19 History isosorbide mononitrate 30 mg PO DAILY 03/28/19 03/28/19 History magnesium hydroxide [Milk of 30 ml PO UD PRN 03/28/19 03/28/19 History Magnesia] memantine [Namenda] 5 mg PO BID 03/28/19 03/28/19 History mirabegron [Myrbetriq] 50 mg PO DAILY 03/28/19 03/28/19 History montelukast [Singulair] 10 mg PO PM 03/28/19 03/28/19 History nitroglycerin [Nitrostat] 0.4 mg SUBLINGUAL UD PRN 03/28/19 03/28/19 History omeprazole 20 mg PO BID 03/28/19 03/28/19 History ondansetron HCl 4 mg PO Q6 PRN 03/28/19 03/28/19 History polyethylene glycol 3350 [Miralax] 17 g PO DAILY 03/28/19 03/28/19 History promethazine [Phenergan] 25 mg LA Q6H PRN 03/28/19 03/28/19 History ranitidine HCl [Zantac] 150 mg PO BID 03/28/19 03/28/19 History ranolazine [Ranexa] 1,000 mg PO AMHS 03/28/19 03/28/19 History sucralfate [Carafate] 1 g PO QID 03/28/19 03/28/19 History tramadol 50 mg PO Q6H PRN 03/28/19 03/28/19 History kuic-gnk-josq-C-Zn-Cu-tos 0 g PO BID 03/28/19 03/28/19 History [ArgiMent AT] Patient History Medical History Acute cholecystitis Urge incontinence of urine (Acute) Paroxysmal atrial fibrillation (Acute) PAD (peripheral artery disease) (Acute) Dementia (Acute) Chronic kidney disease (CKD), stage III (moderate) (Acute) Chronic diastolic congestive heart failure (Acute) Carotid artery occlusion (Acute) Arthritis (Acute) Arteriosclerosis of coronary artery (Acute) Shingles (Acute) Anemia (Chronic) CHF (congestive heart failure) (Chronic) Carotid artery disease (Chronic) Chronic kidney disease (Chronic) Diabetes (Chronic) Hypertension (Chronic) Osteoporosis (Chronic) H/O: GI bleed (Resolved) Surgical History H/O heart artery stent (Resolved) Previous back surgery (Resolved) S/P hip replacement (Resolved) Social History Preferred Language: Hungarian Communication Ability: dementia Visual Impairment: No Limitations Hearing Ability: Normal Beliefs That Will Affect Care: None marital status: Current Living Situation: Snf current occupational status: retired Feels Safe at Home: Yes Smoking Status: Never smoker Hx Alcohol Use: No Hx Substance Use: No Review of Systems Review of Systems: All systems reviewed & are unremarkable except as noted in HPI & below Physical Exam Constitutional: WD/WN, vitals as above Eyes: PERRL, conjunctivae normal, anicteric sclerae ENMT: external ear and nose normal, oropharynx normal Neck: normal visual inspection Respiratory: normal respiratory effort, lungs clear to auscultation Auscultation: + diminished lung sounds Cardiovascular: RRR, no murmur, no edema Gastrointestinal (Abdomen): Inspection/Auscultation: + abdomen distended Percussion/Palpation: + abdomen tender Musculoskeletal: Head/Neck/Chest: + head abnormal to inspection, normocephalic and head atraumatic Skin: no rashes, warm and dry Psychiatric: A+Ox3, euthymic affect Results & Data Vital Signs (Past 12 Hours) Vital Signs Temp Pulse Pulse Resp BP Pulse Ox 03/29/19 13:16 36.9 C 72 16 110/70 100 03/29/19 13:04 36.7 C 72 18 109/70 98 03/29/19 12:45 72 17 102/52 L 100 03/29/19 12:35 71 17 106/56 L 100 03/29/19 12:25 37.1 C 71 16 110/50 L 100 03/29/19 12:15 77 21 114/54 L 100 03/29/19 12:05 88 19 107/72 98 03/29/19 11:56 36.9 C 90 17 96/61 L 100 03/29/19 09:36 37.2 C 75 20 100/40 L 96 03/29/19 07:38 36.8 C 77 14 104/62 94 03/29/19 04:00 36.4 C L 66 16 94/46 L 96 Laboratory Results Microbiology 03/28/19 15:50 Buttock Gram Stain - Final 03/28/19 15:50 Buttock Deep Wound Culture - Preliminary Gram negative bacilli PG Care Time/CCT Total # of Minutes Spent Total Time Spent with Patient: Total time spent is greater than 50% in coordination of care (as documented) at patient's floor/unit and/or counseling patient: (1) Buttock wound Encounter type: initial encounter Laterality: right Qualified Code(s): S31.819A - Unspecified open wound of right buttock, initial encounter
--- NOTE | 2019-03-29 14:29 | Anesthesiology Progress Note ---
Date of Service March 29, 2019 Anesthesia Post Procedure Vital Signs Vital Signs: Temp Pulse Pulse Pulse Resp BP BP 03/29/19 14:25 72 18 107/53 L 03/29/19 13:58 36.7 C 73 16 105/65 03/29/19 13:49 73 20 108/68 03/29/19 13:35 36.5 C 73 20 110/57 L 03/29/19 13:16 36.9 C 72 16 110/70 03/29/19 13:04 36.7 C 72 18 109/70 03/29/19 12:45 72 17 102/52 L 03/29/19 12:35 71 17 106/56 L 03/29/19 12:25 37.1 C 71 16 110/50 L 03/29/19 12:15 77 21 114/54 L 03/29/19 12:05 88 19 107/72 03/29/19 11:56 36.9 C 90 17 96/61 L 03/29/19 09:36 37.2 C 75 20 100/40 L 03/29/19 07:38 36.8 C 77 14 104/62 03/29/19 04:00 36.4 C L 66 16 94/46 L 03/28/19 22:09 37.9 C H 77 16 107/61 03/28/19 21:36 71 16 90/60 L 03/28/19 20:00 77 20 94/60 L 03/28/19 18:34 78 21 137/78 03/28/19 17:50 72 16 03/28/19 17:40 72 16 03/28/19 17:30 72 17 93/48 L 03/28/19 17:20 71 16 03/28/19 17:10 72 17 03/28/19 17:01 71 19 113/58 L 03/28/19 17:00 72 20 03/28/19 16:51 71 18 113/55 L 03/28/19 16:50 71 18 03/28/19 16:40 73 20 03/28/19 16:30 70 20 113/55 L 03/28/19 16:20 70 15 03/28/19 16:10 70 16 03/28/19 16:00 69 17 92/42 L 03/28/19 15:50 70 18 03/28/19 15:49 70 18 95/58 L 03/28/19 15:40 71 20 03/28/19 15:30 72 21 95/58 L 03/28/19 15:20 74 20 03/28/19 15:10 74 22 03/28/19 15:00 73 21 86/53 L 03/28/19 14:50 71 13 03/28/19 14:46 71 18 03/28/19 14:44 36.5 C 70 70 18 84/39 L 84/39 L 03/28/19 14:39 71 21 84/39 L Pulse Ox 03/29/19 14:25 100 03/29/19 13:58 100 03/29/19 13:49 100 03/29/19 13:35 98 03/29/19 13:16 100 03/29/19 13:04 98 03/29/19 12:45 100 03/29/19 12:35 100 03/29/19 12:25 100 03/29/19 12:15 100 03/29/19 12:05 98 03/29/19 11:56 100 03/29/19 09:36 96 03/29/19 07:38 94 03/29/19 04:00 96 03/28/19 22:09 96 03/28/19 21:36 96 03/28/19 20:00 97 03/28/19 18:34 91 03/28/19 17:50 95 03/28/19 17:40 94 03/28/19 17:30 95 03/28/19 17:20 95 03/28/19 17:10 95 03/28/19 17:01 95 03/28/19 17:00 96 03/28/19 16:51 97 03/28/19 16:50 96 03/28/19 16:40 96 03/28/19 16:30 96 03/28/19 16:20 96 03/28/19 16:10 96 03/28/19 16:00 96 03/28/19 15:50 98 03/28/19 15:49 96 03/28/19 15:40 96 03/28/19 15:30 95 03/28/19 15:20 95 03/28/19 15:10 96 03/28/19 15:00 97 03/28/19 14:50 95 03/28/19 14:46 96 03/28/19 14:44 96 03/28/19 14:39 95 Transfer of Care Handoff Completed per policy Notes Mental Status: alert / awake / arousable and participated in evaluation Patient Amnestic to Procedure: Yes Nausea / Vomiting: adequately controlled Pain: adequately controlled Airway Patency, RR, SpO2: stable & adequate BP & HR: stable & adequate Hydration State: stable & adequate Anesthetic Complications: no major complications apparent and Pt Satisfied with anesthetic care Notes: The patient is an 83 y/o female with a complex medical history including a history of paroxysmal atrial fibrillation s/p lap cholecystectomy. The patient did well intraoperatively under general anesthesia. At the end of the procedure after reversal was given her heart rate increased to 90s to low 100s and it appeared that she may gave gone into atrial fibrillation. In recovery, her rhythm seemed to normalize. A 12 lead EKG showed possible ectopic atrial rhythm HR 71. The patient felt well in recovery and her blood pressure was at her baseline. I gave report to Dr. You who is taking care of the patient on telemetry.
[2019-03-29] MEDS: LACTOBACILLUS ACIDOPHILUS (FLORANEX) TAB PO SCH ×2 (14:44→20:23)
--- NOTE | 2019-03-29 15:20 | Pharmacy Report ---
Glycemic Control Consultation - Date of Service March 29, 2019 - Scope Scope: Glycemic Pharmacist consulted by Dr Becerril on 03/28 for glycemic control and to write orders per [facility] inpatient glycemic control protocol - Objective Weight: 63.7 kg Accuchecks BSG (last 24hrs): 03/28/19 03/29/19 03/29/19 16:56 00:38 04:26 Glucose 121 H 94 POC Glucose 143 H 03/29/19 03/29/19 03/29/19 05:55 10:32 11:58 Glucose POC Glucose 97 111 H 135 H Laboratory Data (last 24hrs): 03/28/19 03/29/19 16:56 04:26 Potassium 3.3 L 3.2 L Carbon Dioxide 23 20 L Anion Gap 6.0 7.0 Creatinine 0.99 0.96 Est Cr Clr Drug Dosing 34.4 35.4 HbA1c: Hemoglobin A1c 5.1 % (4.5-5.6) 03/29/19 04:26 - Recent Pertinent Medications Outpatient Anti-diabetic Regimen: * n/a * A1c = 5.1 % Risk Factors for Insulin Resistance: * Infection: vanc, flagyl, cefepime * Diet: clears * - Assessment & Plan Assessment & Plan: ASSESSMENT: * 83 year old admitted with possible hip infection and cholycystitis. Patient NPO this morning for choleycystectomy, now started on clears postop * A1C is normal, patient not diabetic medications at home. PMHx significant for afib, dementia, CKD * BSGs have been w/in limits 111-135 mg/dL - will continue with just SSI PLAN FOR INPATIENT GLYCEMIC CONTROL: * Basal insulin * Lantus - not indicated at this time * Bolus insulin * NovoLog per scale ACHS or Q6hrs while NPO * Goal Range: Low 110 mg/dL - High 150 mg/dL * Correction Factor: 35 mg/dL/unit * Nutritional / Prandial insulin per carb ratio of 1 unit per 12 grams CHO consumed * Please note that the plan above was derived based on current level of insulin resistance and hospital stress. These recommendations are appropriate for inpatient admission only. Plan of care upon discharge will need to be reassessed to avoid potential outpatient hypo/hyperglycemia. Thank you.
[2019-03-29] MEDS ORDERED: VANCOMYCIN HCL 1,000 MG in SODIUM CHLORIDE 0.9% 250 ML IV SCH (16:00)
[2019-03-29] MEDS ORDERED: Nursing to Pharmacy Communication ONE (16:10)
--- NOTE | 2019-03-29 16:34 | Orthopedic Consultation ---
Date of Consultation March 29, 2019 Assessment & Plan (1) S/P hip replacement: Patient is status post hardware removal of left hip in November of this year. Implantation of antibiotic spacer was performed. This all appears to be in alignment. There is an intertrochanteric fracture noted on CT and plain films. This is possibly old and occurred after the implantation of the hip spacer. She does not examine as if she has a new hip fracture. She does not examine as if she has hip infection. CT scan noted soft tissue thickening around the hip capsule itself but no effusions and no abscesses noted. I will have Dr. Bray review her films and weigh in on any further need for treatment for the left hip. Continue current protocols for post op Cholecystectomy. History of Present Illness Reason for Consultation: History of infected left BEATA. Attending Physician: Gerry Inman History of Present Illness Patient is an 83-year-old white female who was admitted last night for sepsis. Prior to the admission, patient was in a weakened state and was having nausea and vomiting. Admission white count was 24,000. A CT scan of the abdomen and pelvis were ordered doing admission which showed the likelihood of a gangrenous gallbladder. Surgical consult was obtained by Dr. Moore. Patient was then taken to surgery today after cardiology consult clearance for cholecystectomy. Laparoscopic photo of the gallbladder appears that it is gangrenous. The patient's sons are with her at this point in time and she is post cholecystectomy. The patient is fairly alert for just having surgery. In speaking with her sons, she started having problems with her left hip approximately 8 months ago. She complained of mid thigh pain and eventually developed a wound that drained at the distal portion of her incision. They waited here and after reviewing x-rays and lab work, the patient was referred to [facility]. Her son states that the initial plan was for irrigation and debridement however apparently the infection went deeper into and around the hip itself and at that time, the hardware was explanted and an antibiotic spacer was implanted. I am unsure of the antibiotics that were likely given postoperatively. She recovered from this but during this time had developed some skin breakdown mostly on the buttocks. She had some breakdown on the left side which the son states has cleared and is now covered with a soft dressing just as protection. She does have apparently a right buttock wound that has been treated through [facility] wound care as well as [facility]. Most recently was [facility] wound care which they were apparently planning on starting a wound VAC. Plans for the left hip were to bring her back at some point and reimplant hardware at [facility]. They are not sure of when this was going to take place. Currently we have been asked to see her for her left hip. Son states that she has not had any overt problems with the hip other than some discomfort with ambulation which is normal with an antibiotic spacer. She has been putting most of her weight on her right leg and using it to transfer. Allergies Allergy/AdvReac Type Severity Reaction Status Date / Time ampicillin Allergy Intermediate RASH, HIVES Verified 03/29/19 10:11 furosemide Allergy Intermediate SHORTNESS Verified 03/28/19 16:06 OF BREATH,throat itching apixaban Allergy Unknown UNKNOWN Unverified 03/28/19 16:06 cyclobenzaprine Allergy Unknown Unknown rxn Verified 03/28/19 16:06 ibuprofen Allergy Unknown UNKNOWN Verified 03/28/19 16:06 lisinopril Allergy Unknown UNKNOWN Verified 03/28/19 16:06 methylprednisolone Allergy Unknown UNKNOWN Verified 03/28/19 16:06 propoxyphene Allergy Unknown UNKNOWN Verified 03/28/19 16:06 tramadol Allergy Unknown UNKNOWN Verified 03/28/19 16:06 EPIDURAL STEROID INJECTIONS Allergy Unknown . Uncoded 03/28/19 16:06 SOAPCLEAN AdvReac Mild Changing Uncoded 11/08/18 13:03 wipe - itchy rash Home Medications Home Medications Medication Instructions Recorded Confirmed Type Lactobacillus Tab 1 tab PO TID 03/28/19 03/28/19 History Med Pass Supplement 180 ml PO UD 03/28/19 03/28/19 History acetaminophen [Tylenol] 650 mg PO BID 03/28/19 03/28/19 History acetaminophen [Tylenol] 650 mg PO Q4 PRN 03/28/19 03/28/19 History aspirin [Aspir-Low] 81 mg PO DAILY 03/28/19 03/28/19 History atorvastatin [Lipitor] 40 mg PO QPM 03/28/19 03/28/19 History bumetanide 1 mg PO 3XWK 03/28/19 03/28/19 History calcium polycarbophil [FiberCon] 650 mg PO BID 03/28/19 03/28/19 History collagenase clostridium histo. 1 applic TOPICAL .DAILY & PRN 03/28/19 03/28/19 History [Santyl] donepezil [Aricept] 10 mg PO DAILY 03/28/19 03/28/19 History doxycycline hyclate 100 mg PO AMHS 03/28/19 03/28/19 History isosorbide mononitrate 30 mg PO DAILY 03/28/19 03/28/19 History magnesium hydroxide [Milk of 30 ml PO UD PRN 03/28/19 03/28/19 History Magnesia] memantine [Namenda] 5 mg PO BID 03/28/19 03/28/19 History mirabegron [Myrbetriq] 50 mg PO DAILY 03/28/19 03/28/19 History montelukast [Singulair] 10 mg PO PM 03/28/19 03/28/19 History nitroglycerin [Nitrostat] 0.4 mg SUBLINGUAL UD PRN 03/28/19 03/28/19 History omeprazole 20 mg PO BID 03/28/19 03/28/19 History ondansetron HCl 4 mg PO Q6 PRN 03/28/19 03/28/19 History polyethylene glycol 3350 [Miralax] 17 g PO DAILY 03/28/19 03/28/19 History promethazine [Phenergan] 25 mg GA Q6H PRN 03/28/19 03/28/19 History ranitidine HCl [Zantac] 150 mg PO BID 03/28/19 03/28/19 History ranolazine [Ranexa] 1,000 mg PO AMHS 03/28/19 03/28/19 History sucralfate [Carafate] 1 g PO QID 03/28/19 03/28/19 History tramadol 50 mg PO Q6H PRN 03/28/19 03/28/19 History vnvd-erl-cpon-C-Zn-Cu-tos 0 g PO BID 03/28/19 03/28/19 History [ArgiMent AT] Patient History Medical History Acute cholecystitis Urge incontinence of urine (Acute) Paroxysmal atrial fibrillation (Acute) PAD (peripheral artery disease) (Acute) Dementia (Acute) Chronic kidney disease (CKD), stage III (moderate) (Acute) Chronic diastolic congestive heart failure (Acute) Carotid artery occlusion (Acute) Arthritis (Acute) Arteriosclerosis of coronary artery (Acute) Shingles (Acute) Anemia (Chronic) CHF (congestive heart failure) (Chronic) Carotid artery disease (Chronic) Chronic kidney disease (Chronic) Diabetes (Chronic) Hypertension (Chronic) Osteoporosis (Chronic) H/O: GI bleed (Resolved) Surgical History H/O heart artery stent (Resolved) Previous back surgery (Resolved) S/P hip replacement (Resolved) Social History Preferred Language: Portuguese Communication Ability: dementia Visual Impairment: No Limitations Hearing Ability: Normal Beliefs That Will Affect Care: None marital status: Current Living Situation: Retirement current occupational status: retired Feels Safe at Home: Yes Smoking Status: Never smoker Hx Alcohol Use: No Hx Substance Use: No Physical Exam Physical Exam: On examination, the patient is getting more alert as we discussed her case with her sons. She is agreeable to have me look at her left lower extremity. Examining the hip, there is a well-healed scar from previous surgery. There are no open wounds that I can appreciate along the incision itself. I can appreciate no overt erythema at this time. There is padded gauze that has been placed posterior to the incision to guzman off breakdown. Peeling back this dressing reveals normal-looking skin. She is nontender on palpation of the thigh and knee and lower extremity. I am able to take her through internal and external rotation without difficulty. She states she has mild discomfort during this. She will let me take her through passive flexion and extension and has minimal to no pain during this range of motion. I tried to examine the right buttock wound however with the patient being a fresh postop from cholecystectomy, I can look at the wound with the wound care team tomorrow when they plan to round on her. She has minimal discomfort with range of motion of the right hip at this time. No complaints of discomfort with the right knee or right lower extremity. There appears to be no gross motor or sensory loss seen at this time. Results & Data Vital Signs (Past 12 Hours) Vital Signs Temp Pulse Pulse Resp BP Pulse Ox 03/29/19 16:19 36.9 C 82 20 104/64 100 08/13/19 15:30 36.9 C 77 20 99/50 L 100 03/29/19 14:53 36.8 C 75 20 111/54 L 100 03/29/19 14:25 72 18 107/53 L 100 03/29/19 13:58 36.7 C 73 16 105/65 100 03/29/19 13:49 73 20 108/68 100 03/29/19 13:35 36.5 C 73 20 110/57 L 98 03/29/19 13:16 36.9 C 72 16 110/70 100 03/29/19 13:04 36.7 C 72 18 109/70 98 03/29/19 12:45 72 17 102/52 L 100 03/29/19 12:35 71 17 106/56 L 100 03/29/19 12:25 37.1 C 71 16 110/50 L 100 03/29/19 12:15 77 21 114/54 L 100 03/29/19 12:05 88 19 107/72 98 03/29/19 11:56 36.9 C 90 17 96/61 L 100 03/29/19 09:36 37.2 C 75 20 100/40 L 96 03/29/19 07:38 36.8 C 77 14 104/62 94 Diagnostic Findings ABDOMEN AND PELVIS CT WITH IV AND ORAL CONTRAST CT DOSE: 817.01 mGy.cm HISTORY: nausea TECHNIQUE: Multiaxial CT images of the abdomen and pelvis were performed following the use of intravenous and oral contrast. A dose lowering technique was utilized adhering to the principles of ALARA. COMPARISON STUDY: Abdomen and pelvis CT 08/24/2016. FINDINGS: Mild dependent changes seen at the lung bases and trace bilateral pleural effusions. There are poststernotomy changes. No pneumoperitoneum. No pneumatosis. Left hip spacer is noted. There are soft tissue thickening surrounding the left hip as well as mildly distracted fracture at the greater trochanter which demonstrates partial healing. Advanced degenerative changes within the right hip. Posterior decompression fusion within the lumbar spine. Distended gallbladder containing multiple small gallstones. There is associated inflammatory change surrounding the gallbladder and a few small focal areas of extraluminal fluid with focal defects in the gallbladder wall. This is consistent with sites of gallbladder perforation and likely represents a gangrenous acute cholecystitis. Submucosal edema within the adjacent duodenum is likely reactive. Normal caliber common bile duct. The pancreas, spleen, and adrenal glands are unremarkable. No hydronephrosis. No hepatic masses. No retroperitoneal lymphadenopathy. Calcified plaque throughout the normal caliber abdominal aorta. There is pelvic floor collapse. The uterus and bilateral adnexa are unremarkable. Anterior bladder wall thickening which may be due to underdistention. There is a punctate focus of gas within the bladder lumen which may be due to prior catheterization. Trace pelvic fluid. Colonic diverticulosis. No evidence for diverticulitis. Mild thickening at the hepatic flexure of the colon is also likely reactive to the adjacent acute cholecystitis. No evidence for bowel obstruction. IMPRESSION: 1. Distended gallbladder containing multiple gallstones. There is inflammatory change surrounding the gallbladder with small focal areas of extraluminal fluid/perforation. Therefore, these findings are consistent with gangrenous acute cholecystitis. Urgent surgical consultation recommended. 2. Thickening within the adjacent duodenum and hepatic flexure of the colon is likely reactive to the acute cholecystitis. 3. Postoperative and posttraumatic changes within the left hip as described above. 4. These findings were called/faxed to the referring physician following dictat ion. R hip LT min 2V CLINICAL HISTORY: 83 years-old Female presenting with infection. TECHNIQUE: Frontal and frog-leg lateral views of the left hip were obtained. COMPARISON: Correlation made to CT of the abdomen and pelvis performed earlier the same day and MR from August. FINDINGS: Left femoral metaphyseal component of the left hip arthroplasty remains in place. A femoral head spacer is in place. Osteopenia. Fracture of the intertrochanteric portion of the left femur is new since August and demonstrated on the CT from earlier today. No hardware breakage. The fracture fragments primarily involves the lesser trochanter with up to 17 mm of displacement medially relative to the femoral diaphysis. This does not grossly intact the adjacent transiting atherosclerotic vessel. Surgical clips noted in the medial thigh. Limited evaluation of the pelvis due to the severity of osteopenia and excretion of contrast in the urinary bladder. Partially visualized lumbar fusion hardware. IMPRESSION: 1. Periprosthetic intertrochanteric fracture of the left femur. 2. Femoral head spacer in place. 3. Severe osteopenia.
[2019-03-29 16:39] LABS: Eosinophils # (auto) 0.01 K/uL (0-0.5); Eosinophils % (auto) 0.1 %; Hematocrit (blood only) 25.3 % (37-47); Hemoglobin 8.3 g/dL (12.0-16.0); Immature Granulocytes # (auto) 0.04 K/uL (0.00-0.02); Immature Granulocytes % (auto) 0.2 %; Lymphocytes # (auto) 0.67 K/uL (1.2-3.4); Lymphocytes % (auto) 4.1 %; Mean Corpuscular Hgb Conc 32.8 g/dL (32-36); Mean Corpuscular Volume 96.9 fL (80-100); Mean Platelet Volume 8.9 fL (7.4-10.4); Monocytes # (auto) 1.04 K/uL (0.11-0.59); Monocytes % (auto) 6.4 %; Neutrophils # (auto) 14.39 K/uL (1.4-6.5); Neutrophils % (auto) 89.2 %; Platelet Count 192 K/uL (130-400); RDW Coefficient of Variation 14.8 % (11.5-14.5); RDW Standard Deviation 52.3 fL (36.4-46.3); Red Blood Count 2.61 M/uL (4.2-5.4); White Blood Count 16.15 K/uL (4.8-10.8)
[2019-03-29] MEDS: DONEPEZIL HCL 10 MG TAB PO SCH (16:47)
--- NOTE | 2019-03-29 18:28 | Operative Report ---
DATE OF OPERATION: 03/29/2019 PREOPERATIVE DIAGNOSES: Acute cholecystitis, cholelithiasis. POSTOPERATIVE DIAGNOSES: Gangrenous gallbladder with small abscess. PROCEDURE: Laparoscopic cholecystectomy, MARC drainage x1. SURGEON: Huang Moore MD EDGE STITCHER: Sylvie Morales PA-C. ANESTHESIA: General. ESTIMATED BLOOD LOSS: About 30 mL. FINDINGS: Significant inflammation on the gallbladder, gangrenous gallbladder with small abscess between the gallbladder and the liver tissue. There was some bleeding coming from the gangrene gallbladder. COMPLICATIONS: None. INDICATIONS FOR THE PROCEDURE: This is an 83-year-old female who was admitted to hospital for weakness; however, the patient had a CT scan diagnosis of possible gangrene gallbladder and I recommended to do the laparoscopic cholecystectomy, possible open, possible cholangiogram. I did talk to the patient and the patient's son, Hebert, about the benefit and risk, alternate procedure. I indicated the risks may include but not limited such as bleeding, infection, injury to common bile duct, bile leak, sepsis, DVT, myocardial infarction, stroke, even . They understand. The patient's son gave consent on the phone and also I gave the patient another option, to do a percutaneous drainage of the gallbladder, but the patient prefer one time to remove the gallbladder. DETAILS OF THE PROCEDURE: The patient taken to the OR and we put the patient on the supine position. The patient received SCD on bilateral legs to prevent DVT and also the patient received cefoxitin 1 gram IV for prophylactic antibiotic. The patient received general anesthesia without difficulty. The abdomen was appropriately draped in routine sterile fashion. After timeout, I injected local anesthesia by using 1% lidocaine mixed with 0.5% Marcaine around the umbilical area. I then made a small incision just above umbilicus, opened fascia and opened peritoneum under direct vision, put a Lashell trocar in, connected to CO2 to create pneumoperitoneum. Flow rate is 6 liter per minute. Pressure not more than 14 mmHg. Then, we put a camera in, looked around the abdomen showing significant gangrene gallbladder. There was some active bleeding from the gallbladder around the gangrenous gallbladder. Then, we put another two 5 mm trocar on the right upper quadrant, one 11 trocar on the epigastric area. Once all trocars in, we had to decompress the gallbladder, used a large needle because of the gallbladder's significant distention. Once we decompressed, we used a grasper to hold the base of gallbladder, put direction to the diaphragm and another grasper to hold the pouch of gallbladder, pulled out the latter to expunge the triangle of Calot. The cystic duct was identified and mobilized. I put two 5 mm metal clip on the proximal cystic duct, one on the distal cystic duct, then used a scissor for transection of cystic duct. Rechecked, no bile leaking from the cystic duct. Then the cystic artery was identified and mobilized. I put two 10 mm metal clip on the proximal cystic artery, 1 on the distal cystic artery, and used a scissor for transection of cystic artery. Rechecked, no active bleeding. Then we used the Bovie to take down gallbladder from the liver bed. However, based on patient had a significant infection and also there are some abscess between the gallbladder and the liver tissue, we opened the abscess and suctioned all the pus out and based on significant inflammation, we also put 1 MARC drainage 10 mm and then we removed gallbladder through the catch bag and again we reinserted Lashell trocar in, connected to CO2 to create pneumoperitoneum, again looked around the abdomen. In the liver bed, there was some oozing even we used the Bovie. We used 2 pieces a surgical sterile and hold area for 5 minutes. No active bleeding and again we checked, no active bleeding, no bile leak at this moment. Then we removed all trocar under direct vision. No active bleeding from the trocar sites. Pneumoperitoneum was released. Then, we used a 3-0 nylon, closed the MARC drain on the skin and we closed the umbilical incision, fascial layer by using #1 Vicryl [id number] x2, closed subcutaneous layer by using 2-0 Vicryl interrupted, closed skin by using 4-0 Vicryl continuous running, closed another 5 mm trocar site skin only by using 4-0 Vicryl and closed the 11 trocar site fascial layer by using #1 Vicryl [id number] x2, closed subcutaneous layer by using 2-0 Vicryl interrupted and closed skin by using 4-0 Vicryl interruptedly. Then we put the dressing on. The patient tolerated the procedure well. All instrument, needle and sponge count were correct x2 at the end the case. The patient transferred to recovery room in stable condition. The specimen sent to pathology. After procedure, I did call the patient's son about OR finding and procedure we did, he understands. I attest to the content of the Intraoperative Record and any orders documented therein. Any exception s are noted below.
[2019-03-29] MEDS: ATORVASTATIN 40 MG TAB PO SCH (20:23)
[2019-03-29] MEDS: PANTOprazole 40 MG TAB PO SCH (20:24)
[2019-03-29] MEDS: MONTELUKAST SODIUM 10 MG TABLET PO SCH (20:26)
[2019-03-29] MEDS ORDERED: NON-FORMULARY MEDICATION (Doxycycline Hyclate 100 MG) PO SCH (21:00)
--- NOTE | 2019-03-29 23:50 | Hospitalist Progress Note ---
Date of Service March 29, 2019 Assessment & Plan (1) Sepsis: Likely secondary to gangrenous gallbladder. S/P cholecystectomy Admitted to PCU on telemetry Continue broad spectrum antibiotics: to cover intrabdominal infections for left hip infection and sepsis Consulted wound care Consulted ID Consulted orthopedics SCDs Full code (2) Cellulitis of left hip: (3) Dehydration: will continue to monitor electrolytes Replenished as needed (4) Buttock wound: As the above continue antibiotics and wound care (5) Paroxysmal atrial fibrillation: Resumed aspirin. (6) Chronic kidney disease (CKD), stage III (moderate): Avoid nephrotoxic agent, gentle IV fluid hydration (7) Dementia: Continue home medicine with memantine held donepezil for possible GI bleed. (8) Chronic diastolic congestive heart failure: Since patient was hypotensive in the ER hold isosorbide mononitrate bumetanide and restart them when patient's blood pressure is improved. will monitor. Labds nor imaging were ordered. cardiology is on the case. (9) Pressure ulcer: Pressure ulcer of right ankle, unstageable POA Pressure ulcer right hip, stage II POA Pressure ulcer left hip, unstageable POA Patient continues to be managed and being seen by wound care. Spent 40 minutes in management of patient. This included discussion with multiple specialists on the team Subjective Patient is a pleasant 83 yo female. She reports feeling better. She states she is tired today. She states her pain is better after the surgery. Review of Systems Review of Systems: All systems reviewed & are unremarkable except as noted in HPI & below Physical Exam Physical Exam: Constitutional: WD/WN, vitals as above, patient is drowsy. Eyes: PERRL, conjunctivae normal, anicteric sclerae ENMT: external ear and nose normal, oropharynx normal Neck: trachea midline, no thyromegaly Respiratory: normal respiratory effort, lungs clear to auscultation Cardiovascular: RRR, no murmur, no edema Heart Sounds: normal S1, normal S2 and + murmur Palpation: + palpable S3 Gastrointestinal (Abdomen): surgical incisions noted,normal bowel sounds, soft, nontender, no hepatosplenomegaly Musculoskeletal: no cyanosis or clubbing, extremities motor strength 5/5 Skin: no rashes, warm and dry Neurologic: patellar DTR's 2+ bilat, sensation intact Alert and oriented x3 answers to questions but appears very tired. Psychiatric: A+Ox3, euthymic affect Lymphatic: no cervical or axillary lymphadenopathy Results & Data Vital Signs (Past 12 Hours) Vital Signs Temp Pulse Pulse Resp BP Pulse Ox 03/29/19 22:20 85 03/29/19 19:24 36.9 C 83 18 106/65 100 03/29/19 18:03 36.9 C 80 20 108/71 100 03/29/19 17:08 78 20 109/66 98 03/29/19 16:19 36.9 C 82 20 104/64 100 03/29/19 15:30 36.9 C 77 20 99/50 L 100 03/29/19 14:53 36.8 C 75 20 111/54 L 100 03/29/19 14:25 72 18 107/53 L 100 03/29/19 13:58 36.7 C 73 16 105/65 100 03/29/19 13:49 73 20 108/68 100 03/29/19 13:35 36.5 C 73 20 110/57 L 98 03/29/19 13:16 36.9 C 72 16 110/70 100 03/29/19 13:04 36.7 C 72 18 109/70 98 03/29/19 12:45 72 17 102/52 L 100 03/29/19 12:35 71 17 106/56 L 100 03/29/19 12:25 37.1 C 71 16 110/50 L 100 03/29/19 12:15 77 21 114/54 L 100 03/29/19 12:05 88 19 107/72 98 03/29/19 11:56 36.9 C 90 17 96/61 L 100 PG Care Time/CCT Total # of Minutes Spent Total Time Spent with Patient: Total time spent is greater than 50% in coordination of care (as documented) at patient's floor/unit and/or counseling patient: (1) Buttock wound Encounter type: initial encounter Laterality: right Qualified Code(s): S31.819A - Unspecified open wound of right buttock, initial encounter
[2019-03-30] MEDS: NSS + 20MEQ KCL 20 MEQ/1,000 ML BAG IV SCH ×2 (01:49→19:06)
[2019-03-30] MEDS: metroNIDAZOLE 500 MG/100 ML BAG IV SCH (06:33)
[2019-03-30 07:22] LABS: Basophils # (auto) 0.01 K/uL (0-0.2); Basophils % (auto) 0.1 %; Eosinophils # (auto) 0.09 K/uL (0-0.5); Eosinophils % (auto) 0.8 %; Hematocrit (blood only) 23.6 % (37-47); Hemoglobin 7.9 g/dL (12.0-16.0); Immature Granulocytes # (auto) 0.04 K/uL (0.00-0.02); Immature Granulocytes % (auto) 0.4 %; Lymphocytes # (auto) 0.76 K/uL (1.2-3.4); Lymphocytes % (auto) 6.9 %; Mean Corpuscular Hgb Conc 33.5 g/dL (32-36); Mean Corpuscular Volume 95.9 fL (80-100); Mean Platelet Volume 9.1 fL (7.4-10.4); Monocytes % (auto) 7.3 %; Neutrophils # (auto) 9.24 K/uL (1.4-6.5); Neutrophils % (auto) 84.5 %; Platelet Count 223 K/uL (130-400); RDW Coefficient of Variation 14.7 % (11.5-14.5); RDW Standard Deviation 51.9 fL (36.4-46.3); Red Blood Count 2.46 M/uL (4.2-5.4); White Blood Count 10.94 K/uL (4.8-10.8)
--- NOTE | 2019-03-30 07:34 | Anesthesiology Progress Note ---
Date of Service March 30, 2019 Anesthesia Post Procedure Vital Signs Vital Signs: Temp Pulse Pulse Pulse Resp BP Pulse Ox 03/30/19 04:47 36.9 C 78 17 130/73 98 03/29/19 23:53 36.7 C 85 16 107/65 96 03/29/19 22:20 85 03/29/19 19:24 36.9 C 83 18 106/65 100 03/29/19 18:03 36.9 C 80 20 108/71 100 03/29/19 17:08 78 20 109/66 98 03/29/19 16:19 36.9 C 82 20 104/64 100 03/29/19 15:30 36.9 C 77 20 99/50 L 100 03/29/19 14:53 36.8 C 75 20 111/54 L 100 03/29/19 14:25 72 18 107/53 L 100 03/29/19 13:58 36.7 C 73 16 105/65 100 03/29/19 13:49 73 20 108/68 100 03/29/19 13:35 36.5 C 73 20 110/57 L 98 03/29/19 13:16 36.9 C 72 16 110/70 100 03/29/19 13:04 36.7 C 72 18 109/70 98 03/29/19 12:45 72 17 102/52 L 100 03/29/19 12:35 71 17 106/56 L 100 03/29/19 12:25 37.1 C 71 16 110/50 L 100 03/29/19 12:15 77 21 114/54 L 100 03/29/19 12:05 88 19 107/72 98 03/29/19 11:56 36.9 C 90 17 96/61 L 100 03/29/19 09:36 37.2 C 75 20 100/40 L 96 03/29/19 07:38 36.8 C 77 14 104/62 94 Notes Mental Status: alert / awake / arousable and participated in evaluation Patient Amnestic to Procedure: Yes Nausea / Vomiting: adequately controlled Pain: improving with treatment Airway Patency, RR, SpO2: stable & adequate BP & HR: stable & adequate Hydration State: stable & adequate Anesthetic Complications: no major complications apparent and Pt Satisfied with anesthetic care
[2019-03-30 07:52] LABS: Dohle Bodies 1+; Echinocytes 1+; Toxic Granulation 1+
[2019-03-30 08:00] LABS: Albumin Globulin Ratio 0.6 (0.9-2); Albumin Level 2.2 gm/dl (3.4-5.0); BUN Creatinine Ratio 31.1 (10-20); Bilirubin,Total 0.8 mg/dl (0.2-1); Calcium 8.7 mg/dl (8.5-10.1); Creatinine Clr Calc Pharmacy 53.9 ml/min; Est GFR (Non-African American) 79.4; Globulin 3.7 gm/dl (2.5-4.0); Potassium 3.5 mmol/L (3.5-5.1); Total Protein 5.9 gm/dl (6.4-8.2)
[2019-03-30] MEDS: ISOSORBIDE MONO EXTENDED REL 30 MG TABCR PO SCH (08:58)
[2019-03-30] MEDS: LACTOBACILLUS ACIDOPHILUS (FLORANEX) TAB PO SCH ×3 (08:58→20:48)
[2019-03-30] MEDS: MEMANTINE HCL 5 MG TAB PO SCH ×2 (08:58→20:49)
[2019-03-30] MEDS: RANOLAZINE 500 MG ER TAB PO SCH ×2 (08:58→20:50)
[2019-03-30] MEDS: PANTOprazole 40 MG TAB PO SCH ×2 (08:58→20:49)
[2019-03-30] MEDS: MIRABEGRON ER 25 MG TAB PO SCH (08:59)
[2019-03-30] MEDS: BUMETANIDE 1 MG TAB PO SCH (08:59)
[2019-03-30] MEDS: CALCIUM POLYCARBOPHIL 625MG TAB PO SCH ×2 (08:59→20:47)
[2019-03-30] MEDS: SUCRALFATE 1 GM TAB PO SCH ×4 (08:59→20:46)
[2019-03-30] MEDS: COLLAGENASE OINT 30 GM TUBE EXT SCH (09:00)
[2019-03-30] MEDS: ACETAMINOPHEN 325 MG TAB PO SCH ×2 (09:02→20:53)
[2019-03-30] MEDS: CEFEPIME 2,000 MG in SYRINGE 0 ML IV SCH (09:02)
[2019-03-30] MEDS: POLYETHYLENE (MIRALAX) 17 GM PACK PO SCH (09:36)
[2019-03-30] MEDS: INSULIN ASPART 100 UNITS/ML 3 ML PEN SC SCH ×4 (09:36→20:53)
--- NOTE | 2019-03-30 10:12 | Pharmacy Report ---
Pharmacy Abx Dose Short Note - Date of Service March 30, 2019 - Assessment & Plan Assessment 83 year old F receiving IV Vancomycin, Cefepime, and Metronidazole for treatment of infected left hip wound, sacral ulcer, and gangrenous gallbladder/cholecystitis. 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 Blood cultures are sterile to date. Deep wound cultures from buttocks grew few Morganella morganii (Resistant to Unasyn/Rocephin/Imipenem; Intermediate to Cefotaxime; Sensitive to Cefepime) and few Staphylococcus aureus (sensitivities pending). Renal function improved today: SCr/CrCl 0.96/35.4 ---> 0.69/53.7 Patient is afebrile and leukocytosis is resolving. Day #2 of antimicrobial therapy. ID consulted to follow patient. Plan Vancomycin * Estimated kinetics: t1/2~14 hrs, ke~0.05 hr-1 * Change to 1000 mg IV every 16 hours given patient's improvement in renal function * Goal trough level for sepsis: 15 to 20 mcg/mL * Trough level ordered for: 03/31/19 prior to the 3rd dose given patient's age, weight, and renal function Pharmacy will continue to follow and will adjust dose/frequency as necessary. Thank you.
--- NOTE | 2019-03-30 10:40 | Infectious Disease Progress Nt ---
Date of Service March 30, 2019 Assessment & Plan (1) Acute cholecystitis: (2) Sepsis: will change to Ertapenem, this will treat wound infection as well as provide emperic abx for biliary sepsis, blood cultures remain negative. Will continue vanco for now pending additional culture data regarding S. aureus. No additional pseudomonas growing, will follow. (3) Buttock wound: Subjective pt seen in followup, family at bedside. feeling well overall. no abd pain, min discomfort at drain site. ate breakfast. tolerating abx, clinda d/c. Blood cultures from ER negative to date, wbc improved to 10, creat 0.6. buttock culture growing S. aureus and Morganella, sensitive to cefepime, zosyn and ertapenem. tolerating current abx. Denies cp, sob, cough. no pain in hip. Ortho following, do not feel that fracture is acute, spacer intact. No plan for OR currently. abd Drain remains in place. Review of Systems Review of Systems: All systems reviewed & are unremarkable except as noted in HPI & below Physical Exam Constitutional: WD/WN, vitals as above Eyes: PERRL, conjunctivae normal, anicteric sclerae ENMT: external ear and nose normal, oropharynx normal Neck: normal visual inspection Respiratory: normal respiratory effort, lungs clear to auscultation Auscultation: + diminished lung sounds Cardiovascular: RRR, no murmur, no edema Gastrointestinal (Abdomen): Inspection/Auscultation: + abdomen distended, + abdominal surgical incision and + abdominal surgical drain present Percussion/Palpation: + abdomen tender and abdomen soft; no guarding and abdomen not rigid Musculoskeletal: Head/Neck/Chest: + head abnormal to inspection, normocephalic and head atraumatic Skin: no rashes, warm and dry Psychiatric: A+Ox3, euthymic affect Results & Data Vital Signs (Past 12 Hours) Vital Signs Temp Pulse Resp BP Pulse Ox 03/30/19 07:55 37.1 C 90 18 136/72 98 03/30/19 04:47 36.9 C 78 17 130/73 98 03/29/19 23:53 36.7 C 85 16 107/65 96 Laboratory Results Microbiology 03/28/19 15:50 Buttock Gram Stain - Final 03/28/19 15:50 Buttock Deep Wound Culture - Preliminary Morganella morganii Staphylococcus aureus 08/12/19 15:00 Blood Aerobic Blood Culture - Preliminary No growth in Aerobic bottle after 24 hours. 03/28/19 15:00 Blood Anaerobic Blood Culture - Preliminary No growth in Anaerobic bottle after 24 hours. 03/28/19 15:00 Blood Aerobic Blood Culture - Preliminary No growth in Aerobic bottle after 24 hours. 03/28/19 15:00 Blood Anaerobic Blood Culture - Preliminary No growth in Anaerobic bottle after 24 hours. PG Care Time/CCT Total # of Minutes Spent Total Time Spent with Patient: Total time spent is greater than 50% in coordination of care (as documented) at patient's floor/unit and/or counseling patient: (1) Buttock wound Encounter type: initial encounter Laterality: right Qualified Code(s): S31.819A - Unspecified open wound of right buttock, initial encounter
[2019-03-30] MEDS: VANCOMYCIN HCL 1,000 MG in SODIUM CHLORIDE 0.9% 250 ML IV SCH (11:00)
--- NOTE | 2019-03-30 11:07 | Surgery Progress Note ---
Date of Service March 30, 2019 Assessment & Plan (1) Acute cholecystitis: POD # 1 s/p laparoscopic cholecystectomy for gangrenous gallbladder - vitals stable, afebrile - H&H 7.9/23.6 this morning (8.4 on 03/28/2019), asymptomatic - post op pain minimal, controlled - corona with bloody serosanguineous output, 90cc - tolerating diet - leukocytosis down to 10.94K Plan: Continue PO Tylenol and Percocet prn pain Continue IV Abx per infectious disease continue corona drain diabetic diet Consider decreasing IV fluid rate as she is taking in PO incentive spirometry and scds repeat am labs consider PT/OT consults Dr. Moore has seen and examined pt, agrees with above. Subjective feeling okay today, grandson at bedside not having too much abdominal pain had breakfast this morning no n/v Physical Exam Constitutional: WD/WN, vitals as above no acute distress Respiratory: no respiratory distress and no labored breathing Gastrointestinal (Abdomen): Inspection/Auscultation: abdomen normal to inspection and + abdominal surgical drain present (bloody serosanguineous output); abdomen not distended Percussion/Palpation: + abdomen tender (at incision sites, appropriate post op) and abdomen soft; no guarding and abdomen not rigid Skin: no rashes, warm and dry + incision (covered with dry dressings, intact) Psychiatric: Orientation: alert Affect: + flat affect Results & Data Vital Signs (Past 12 Hours) Vital Signs Temp Pulse Resp BP Pulse Ox 03/30/19 07:55 37.1 C 90 18 136/72 98 03/30/19 04:47 36.9 C 78 17 130/73 98 03/29/19 23:53 36.7 C 85 16 107/65 96
--- NOTE | 2019-03-30 12:17 | Cardiology Progress Note ---
Date of Service March 30, 2019 Assessment & Plan (1) Acute cholecystitis: (2) Sepsis: (3) Buttock wound: (4) Paroxysmal atrial fibrillation: (5) Dementia: (6) Chronic kidney disease (CKD), stage III (moderate): (7) Chronic diastolic congestive heart failure: (8) Arteriosclerosis of coronary artery: The patient is resting comfortably after her surgery. At this point she will need supportive care. Subjective The patient had a successful cholecystectomy yesterday. She is resting comfortably. Review of Systems Review of Systems: Unobtainable due to mental health condition Physical Exam Physical Exam: General: no acute distress and stated age Head: normocephalic, no masses, lesions, tenderness or abnormalities Eyes: conjunctiva are pink and non-injected, sclera clear Neck: supple, no adenopathy, no bruits, normal jugular venous pulse, no hepatojugular reflux Chest: normal shape and normal respiratory effort Lungs: clear to auscultation and percussion Cardiac Exam: - regular rate & rhythm, no murmurs gallops or rubs - normal S1, normal S2 Pulses: 2(+) throughout Abdomen: abdomen soft, non-tender, no abnormal masses and no hepatosplenomegaly Musculoskeletal: no gait disturbance, no joint inflammation, no deforming arthritis Extremities: no edema and no cyanosis Neuro: grossly normal exam Results & Data Vital Signs (Past 12 Hours) Vital Signs Temp Pulse Pulse Resp BP BP Pulse Ox 03/30/19 11:31 37.1 C 76 19 115/66 96 03/30/19 08:00 87 03/30/19 07:55 37.1 C 90 18 136/72 98 03/30/19 04:47 36.9 C 78 17 130/73 98 Laboratory Results Laboratory Results - last 24 hr 03/29/19 03/29/19 03/29/19 12:04 16:29 16:41 WBC 16.15 H RBC 2.61 L Hgb 8.3 L Hct 25.3 L MCV 96.9 MCH 31.8 MCHC 32.8 RDW Std Deviation 52.3 H RDW Coeff of Claudine 14.8 H Plt Count 192 MPV 8.9 Immature Gran % (Auto) 0.2 Neut % (Auto) 89.2 Lymph % (Auto) 4.1 [place] % (Auto) 6.4 Eos % (Auto) 0.1 Baso % (Auto) 0.0 Immature Gran # (Auto) 0.04 H Neut # (Auto) 14.39 H Lymph # (Auto) 0.67 L [place] # (Auto) 1.04 H Eos # (Auto) 0.01 Baso # (Auto) 0.00 Toxic Granulation Dohle Bodies Echinocytes Sodium Potassium Chloride Carbon Dioxide Anion Gap BUN Creatinine Est Cr Clr Drug Dosing Est GFR ( Amer) Est GFR (Non-Af Amer) BUN/Creatinine Ratio Glucose POC Glucose 119 H Calcium Total Bilirubin AST ALT Alkaline Phosphatase Troponin I 0.043 Total Protein Albumin Globulin Albumin/Globulin Ratio 03/29/19 03/30/19 03/30/19 20:31 07:02 07:02 WBC 10.94 H RBC 2.46 L Hgb 7.9 L Hct 23.6 L MCV 95.9 MCH 32.1 MCHC 33.5 RDW Std Deviation 51.9 H RDW Coeff of Claudine 14.7 H Plt Count 223 MPV 9.1 Immature Gran % (Auto) 0.4 Neut % (Auto) 84.5 Lymph % (Auto) 6.9 [place] % (Auto) 7.3 Eos % (Auto) 0.8 Baso % (Auto) 0.1 Immature Gran # (Auto) 0.04 H Neut # (Auto) 9.24 H Lymph # (Auto) 0.76 L [place] # (Auto) 0.80 H Eos # (Auto) 0.09 Baso # (Auto) 0.01 Toxic Granulation 1+ Dohle Bodies 1+ Echinocytes 1+ Sodium 145 Potassium 3.5 Chloride 120 H Carbon Dioxide 18 L Anion Gap 8.0 BUN 21 H Creatinine 0.69 Est Cr Clr Drug Dosing 53.9 Est GFR ( Amer) 92.0 Est GFR (Non-Af Amer) 79.4 BUN/Creatinine Ratio 31.1 H Glucose 117 H POC Glucose 133 H Calcium 8.7 Total Bilirubin 0.8 AST 27 ALT 14 Alkaline Phosphatase 69 Troponin I Total Protein 5.9 L Albumin 2.2 L Globulin 3.7 Albumin/Globulin Ratio 0.6 L 03/30/19 03/30/19 07:28 11:14 WBC RBC Hgb Hct MCV MCH MCHC RDW Std Deviation RDW Coeff of Claudine Plt Count MPV Immature Gran % (Auto) Neut % (Auto) Lymph % (Auto) [place] % (Auto) Eos % (Auto) Baso % (Auto) Immature Gran # (Auto) Neut # (Auto) Lymph # (Auto) [place] # (Auto) Eos # (Auto) Baso # (Auto) Toxic Granulation Dohle Bodies Echinocytes Sodium Potassium Chloride Carbon Dioxide Anion Gap BUN Creatinine Est Cr Clr Drug Dosing Est GFR ( Amer) Est GFR (Non-Af Amer) BUN/Creatinine Ratio Glucose POC Glucose 109 H 127 H Calcium Total Bilirubin AST ALT Alkaline Phosphatase Troponin I Total Protein Albumin Globulin Albumin/Globulin Ratio Medications Administered Current Inpatient Medications Acetaminophen (Tylenol) 650 mg PO BID [facility] Stop: 04/27/19 21:49 Last Admin: 03/30/19 09:02 Dose: 650 mg Documented by: Acetaminophen (Tylenol) 650 mg PO Q4H PRN PRN Reason: Pain or Fever Stop: 04/27/19 21:49 Aspirin (Ecotrin Ectab) 81 mg PO DAILY [facility] Stop: 04/30/19 08:59 Atorvastatin Calcium (Lipitor) 40 mg PO QPM [facility] Stop: 04/27/19 21:49 Last Admin: 03/29/19 20:23 Dose: 40 mg Documented by: Bumetanide (Bumex) 1 mg PO MoWeFr@0900 [facility] Stop: 04/29/19 08:59 Last Admin: 03/30/19 08:59 Dose: 1 mg Documented by: Calcium Polycarbophil (Fibercon) 1 tab PO BID [facility] Stop: 04/27/19 21:49 Last Admin: 03/30/19 08:59 Dose: 1 tab Documented by: Collagenase (Santyl) 1 appln EXT DAILY [facility] Stop: 04/29/19 08:59 Last Admin: 03/30/19 09:00 Dose: 1 appln Documented by: Dextrose (Dextrose 50%) 25 - 50 ml IV UD PRN; Protocol PRN Reason: Hypoglycemia Protocol Stop: 04/27/19 21:49 Donepezil HCl (Aricept) 10 mg PO QDD [facility] Stop: 04/28/19 16:29 Last Admin: 03/29/19 16:47 Dose: 10 mg Documented by: Glucagon (Glucagen) 1 mg SQ UD PRN; Protocol PRN Reason: Hypoglycemia Protocol Stop: 04/27/19 21:49 Glucose (Glucose 40%) 15 - 30 gm PO UD PRN; Protocol PRN Reason: Hypoglycemia Protocol Stop: 04/27/19 21:49 Glucose (Dex4 Glucose) 4 - 8 tabs PO UD PRN; Protocol PRN Reason: Hypoglycemia Protocol Stop: 04/27/19 21:49 Hydromorphone HCl (Dilaudid) 0.5 mg IV Q3H PRN PRN Reason: Pain Stop: 04/12/19 13:24 Last Admin: 03/29/19 14:50 Dose: 0.5 mg Documented by: Potassium Chloride/Sodium Chloride (Normal Saline W/20 Meq Kcl) 20 meq in 1,000 mls @ 80 mls/hr IV .[id number] [facility] Stop: 04/28/19 10:29 Last Admin: 03/30/19 01:49 Dose: 80 mls/hr Documented by: Vancomycin HCl 1,000 mg/ (Sodium Chloride) 270 mls @ 125 mls/hr IV Q16H [facility] Stop: 04/08/19 09:59 Last Admin: 03/30/19 11:00 Dose: 125 mls/hr Documented by: Ertapenem 1,000 mg/ Sodium (Chloride) 60 mls @ 100 mls/hr IV Q24H [facility] Stop: 04/09/19 10:59 Insulin Aspart (Novolog Flexpen) 0 units SC ACHS [facility] Stop: 04/28/19 05:59 Last Admin: 03/30/19 09:36 Dose: Not Given Documented by: Ioversol (Optiray 320 100ml) 94 ml IV ONCE PRN PRN Reason: Interaction Checking Stop: 04/01/19 21:46 Last Admin: 03/28/19 21:47 Dose: 94 ml Documented by: Isosorbide Mononitrate (Imdur Extended Rel) 30 mg PO DAILY [facility] Stop: 04/29/19 08:59 Last Admin: 03/30/19 08:58 Dose: 30 mg Documented by: Lactobacillus Acidophilus (Floranex) 1 tab PO TID [facility] Stop: 04/28/19 13:59 Last Admin: 03/30/19 08:58 Dose: 1 tab Documented by: Magnesium Hydroxide (Milk Of Magnesia) 30 ml PO UD PRN PRN Reason: NO BM 3 DAYS Stop: 04/27/19 21:49 Memantine (Namenda) 5 mg PO BID [facility] Stop: 04/27/19 21:49 Last Admin: 03/30/19 08:58 Dose: 5 mg Documented by: Mirabegron (Myrbetriq Er) 50 mg PO DAILY [facility] Stop: 04/28/19 08:59 Last Admin: 03/30/19 08:59 Dose: 50 mg Documented by: Miscellaneous (Carbohydrates For Hypoglycemia) 15 - 30 gm PO UD PRN PRN Reason: Hypoglycemia Treatment Stop: 04/27/19 21:49 Miscellaneous Information (Consult) 1 ea N/A UD PRN PRN Reason: Consult Stop: 04/27/19 14:45 Miscellaneous Information (Consult Glycemic Management Pharmacy) 1 ea N/A UD PRN; Protocol PRN Reason: Consult Stop: 04/27/19 22:16 Montelukast Sodium (Singulair) 10 mg PO PM [facility] Stop: 04/27/19 21:49 Last Admin: 03/29/19 20:26 Dose: 10 mg Documented by: Nitroglycerin (Nitrostat) 0.4 mg SL UD PRN PRN Reason: Chest Pain Stop: 04/27/19 21:49 Ondansetron HCl (Zofran Tab) 4 mg PO Q6H PRN PRN Reason: NAUSEA/VOMITING Stop: 04/28/19 13:24 Last Admin: 03/29/19 14:51 Dose: 4 mg Documented by: Oxycodone/Acetaminophen (Percocet 5mg/325mg) 1 tab PO Q4H PRN PRN Reason: Pain Stop: 04/12/19 13:24 Pantoprazole Sodium (Protonix) 40 mg PO BID [facility] Stop: 04/28/19 20:59 Last Admin: 03/30/19 08:58 Dose: 40 mg Documented by: Polyethylene Glycol (Miralax Powder Packet) 17 gm PO DAILY PRN PRN Reason: Constipation Stop: 04/27/19 21:49 Polyethylene Glycol (Miralax Powder Packet) 17 gm PO DAILY [facility] Stop: 04/29/19 08:59 Last Admin: 03/30/19 09:36 Dose: Not Given Documented by: Promethazine HCl (Phenergan) 25 mg AL Q6H PRN PRN Reason: Nausea Stop: 04/27/19 21:49 Ranitidine HCl (Zantac) 150 mg PO BID [facility] Stop: 04/27/19 21:49 Last Admin: 03/30/19 08:59 Dose: 150 mg Documented by: Ranolazine (Ranexa) 1,000 mg PO AMHS [facility] Stop: 04/27/19 21:49 Last Admin: 03/30/19 08:58 Dose: 1,000 mg Documented by: Sucralfate (Carafate Tab) 1 gm PO QID [facility] Stop: 04/27/19 21:49 Last Admin: 03/30/19 08:59 Dose: 1 gm Documented by: Tramadol HCl (Ultram) 50 mg PO Q6H PRN PRN Reason: pain 4-10 Stop: 04/27/19 21:49 Zolpidem Tartrate (Ambien) 5 mg PO HS PRN PRN Reason: Sleep Stop: 04/27/19 21:49 (1) Buttock wound Encounter type: initial encounter Laterality: right Qualified Code(s): S31.819A - Unspecified open wound of right buttock, initial encounter
[2019-03-30] MEDS: ERTAPENEM SODIUM 1,000 MG in SODIUM CHLORIDE 0.9% 50 ML IV SCH (14:03)
--- NOTE | 2019-03-30 15:34 | Pharmacy Report ---
Pharmacy Glycemic Sign Off Nt - Date of Service March 30, 2019 - Assessment & Plan ASSESSMENT: * Pharmacy was consulted by Dr Becerril on 03/28 for glycemic control and to write orders per [facility] inpatient glycemic control protocol. * Major changes made by pharmacy to antidiabetic regimen include: * Initiate Novolog with CF/CR * Patient has been receiving/requiring 0 units of insulin per day for adequate glycemic control * BSGs ranging 94-127 mg/dl * Regimen has only required minor adjustments over the past 48hrs to achieve this level of control * Do not anticipate further changes in patient status that would quickly deteriorate glycemic control (i.e. patient to be NPO for upcoming procedure, steroids tapering, starting tube feedings, etc). * Please see recommendations for outpatient antidiabetic regimen below. PLAN FOR INPATIENT GLYCEMIC CONTROL: * Continue NovoLog per scale ACHS/Q6hrs while NPO (consider discontinuing this altogether if BSGs remain stable) * Goal range = 110-150 mg/dl * CF = 35 mg/dl/unit * Remove carb ratio * A1c added to discharge instructions to be communicated to PCP. * Pharmacy is signing off of glycemic consult (spoke with Dr. Inman) and will no longer be making adjustments to inpatient regimen. Please feel free to re- consult if needed. Thank you. DISCHARGE RECOMMENDATIONS: * A1c 5.1 % on 03/29/19
--- NOTE | 2019-03-30 15:43 | Wound Consultation ---
Date of Consultation March 30, 2019 Assessment & Plan (1) Pressure ulcer of right buttock, stage 4: Wound needed debridement. After obtaining permission topical Xylocaine was applied. Using a curette, scissors and forceps the wound was debrided of necrotic tissue, fibrin and slough. There is no bleeding. Patient tolerated the procedure well with no complications. This represents an excisional debridement of 11.1 cm. Wound redressed with an irrigating wound VAC. Continue antibiotic per infectious disease. Infralaminar participate in the care of this patient. Please not hesitate to call with any questions. History of Present Illness Reason for Consultation: pressure ulcer buttocks Attending Physician: Gerry Inman Is a 83-year-old female known to the wound clinic who was admitted with sepsis. She is found to have an infected pressure ulcer of her right hip and cholecystitis. She is status post cholecystectomy on March 29, 2019. I am seeing the patient for her pressure ulcer of her right buttocks. Allergies Allergy/AdvReac Type Severity Reaction Status Date / Time ampicillin Allergy Intermediate RASH, HIVES Verified 03/29/19 10:11 furosemide Allergy Intermediate SHORTNESS Verified 03/28/19 16:06 OF BREATH,throat itching apixaban Allergy Unknown UNKNOWN Unverified 03/28/19 16:06 cyclobenzaprine Allergy Unknown Unknown rxn Verified 03/28/19 16:06 ibuprofen Allergy Unknown UNKNOWN Verified 03/28/19 16:06 lisinopril Allergy Unknown UNKNOWN Verified 03/28/19 16:06 methylprednisolone Allergy Unknown UNKNOWN Verified 03/28/19 16:06 propoxyphene Allergy Unknown UNKNOWN Verified 03/28/19 16:06 tramadol Allergy Unknown UNKNOWN Verified 03/28/19 16:06 EPIDURAL STEROID INJECTIONS Allergy Unknown . Uncoded 03/28/19 16:06 SOAPCLEAN AdvReac Mild Changing Uncoded 11/08/18 13:03 wipe - itchy rash Home Medications Home Medications Medication Instructions Recorded Confirmed Type Lactobacillus Tab 1 tab PO TID 03/28/19 03/28/19 History Med Pass Supplement 180 ml PO UD 03/28/19 03/28/19 History acetaminophen [Tylenol] 650 mg PO BID 03/28/19 03/28/19 History acetaminophen [Tylenol] 650 mg PO Q4 PRN 03/28/19 03/28/19 History aspirin [Aspir-Low] 81 mg PO DAILY 03/28/19 03/28/19 History atorvastatin [Lipitor] 40 mg PO QPM 03/28/19 03/28/19 History bumetanide 1 mg PO 3XWK 03/28/19 03/28/19 History calcium polycarbophil [FiberCon] 650 mg PO BID 03/28/19 03/28/19 History collagenase clostridium histo. 1 applic TOPICAL .DAILY & PRN 03/28/19 03/28/19 History [Santyl] donepezil [Aricept] 10 mg PO DAILY 03/28/19 03/28/19 History doxycycline hyclate 100 mg PO AMHS 03/28/19 03/28/19 History isosorbide mononitrate 30 mg PO DAILY 03/28/19 03/28/19 History magnesium hydroxide [Milk of 30 ml PO UD PRN 03/28/19 03/28/19 History Magnesia] memantine [Namenda] 5 mg PO BID 03/28/19 03/28/19 History mirabegron [Myrbetriq] 50 mg PO DAILY 03/28/19 03/28/19 History montelukast [Singulair] 10 mg PO PM 03/28/19 03/28/19 History nitroglycerin [Nitrostat] 0.4 mg SUBLINGUAL UD PRN 03/28/19 03/28/19 History omeprazole 20 mg PO BID 03/28/19 03/28/19 History ondansetron HCl 4 mg PO Q6 PRN 03/28/19 03/28/19 History polyethylene glycol 3350 [Miralax] 17 g PO DAILY 03/28/19 03/28/19 History promethazine [Phenergan] 25 mg [place] Q6H PRN 03/28/19 03/28/19 History ranitidine HCl [Zantac] 150 mg PO BID 03/28/19 03/28/19 History ranolazine [Ranexa] 1,000 mg PO AMHS 03/28/19 03/28/19 History sucralfate [Carafate] 1 g PO QID 03/28/19 03/28/19 History tramadol 50 mg PO Q6H PRN 03/28/19 03/28/19 History [id number] 0 g PO BID 03/28/19 03/28/19 History [ArgiMent AT] Patient History Medical History Acute cholecystitis Urge incontinence of urine (Acute) Paroxysmal atrial fibrillation (Acute) PAD (peripheral artery disease) (Acute) Dementia (Acute) Chronic kidney disease (CKD), stage III (moderate) (Acute) Chronic diastolic congestive heart failure (Acute) Carotid artery occlusion (Acute) Arthritis (Acute) Arteriosclerosis of coronary artery (Acute) Shingles (Acute) Anemia (Chronic) CHF (congestive heart failure) (Chronic) Carotid artery disease (Chronic) Chronic kidney disease (Chronic) Diabetes (Chronic) Hypertension (Chronic) Osteoporosis (Chronic) H/O: GI bleed (Resolved) Surgical History H/O heart artery stent (Resolved) Previous back surgery (Resolved) S/P hip replacement (Resolved) Social History Preferred Language: [place] Communication Ability: dementia Visual Impairment: No Limitations Hearing Ability: Normal Beliefs That Will Affect Care: None marital status: / Current Living Situation: Custodial current occupational status: retired Feels Safe at Home: Yes Smoking Status: Never smoker Hx Alcohol Use: No Hx Substance Use: No Review of Systems Review of Systems: All systems reviewed & are unremarkable except as noted in HPI & below Physical Exam Skin: Measuring as recorded in nursing documentation. Wound probes almost down to bone. Wound is filled with necrotic tissue, fibrin and slough. Periwound is intact without inflammation. There is large drainage and foul odors. Neurologic: awake; not confused Psychiatric: A+Ox3, euthymic affect Results & Data Vital Signs (Past 12 Hours) Vital Signs Temp Pulse Pulse Resp BP BP Pulse Ox 03/30/19 11:31 37.1 C 76 19 115/66 96 03/30/19 08:00 87 03/30/19 07:55 37.1 C 90 18 136/72 98 03/30/19 04:47 36.9 C 78 17 130/73 98
[2019-03-30] MEDS: DONEPEZIL HCL 10 MG TAB PO SCH (17:22)
--- NOTE | 2019-03-30 18:08 | Orthopedic Progress Note ---
Date of Service March 30, 2019 Assessment & Plan (1) S/P hip replacement: History of left infected BEATA which was removed in November of this year at [facility]. Implantation of antibiotic spacer with possible plans of reimplantation down the road. Patient has a noted intertrochanteric fracture of the hip surrounding the spacer and is questionably old. [facility] physicians have reviewed the films. The question of how the fracture is, and clinically she does not act like this is an acute fracture, we will still place her on toe- touch weightbearing status for the left lower extremity. Continue to treat this nonoperatively and she will need to follow-up with her orthopedist in [facility] in the near future. Dr. Bray is rounding physician today. Subjective Patient seen earlier this morning. She is awake and alert. She states that she was having some mild abdominal pain around the area where she had her surgery. No other complaints at that time. No overt pain in the left hip. Physical Exam Physical Exam: Exam of the left hip essentially unchanged. Only very mild discomfort with gentle range of motion mostly with internal and external rotation. No erythema over the left lateral hip. No open wounds or drainage. Results & Data Vital Signs (Past 12 Hours) Vital Signs Temp Pulse Pulse Resp BP BP Pulse Ox 03/30/19 16:32 71 03/30/19 15:35 36.9 C 80 16 111/48 L 93 03/30/19 11:31 37.1 C 76 19 115/66 96 03/30/19 08:00 87 03/30/19 07:55 37.1 C 90 18 136/72 98
[2019-03-30] MEDS: ATORVASTATIN 40 MG TAB PO SCH (20:49)
[2019-03-30] MEDS: MONTELUKAST SODIUM 10 MG TABLET PO SCH (20:50)
[2019-03-30] MEDS: TRAMADOL HCL 50 MG TABLET PO PRN (20:52)
--- NOTE | 2019-03-30 23:28 | Hospitalist Progress Note ---
Date of Service March 30, 2019 Assessment & Plan (1) Sepsis: Likely secondary to gangrenous gallbladder and stage 4 wounds. S/P cholecystectomy Patient started on imipenem. Continue broad spectrum antibiotics: to cover intrabdominal infections for left hip infection and sepsis Consulted wound care Consulted ID Consulted orthopedics: no surgery recommended for the fracture. SCDs Full code (2) Cellulitis of left hip: (3) Dehydration: will continue to monitor electrolytes Replenished as needed (4) Buttock wound: As the above continue antibiotics and wound care. imipenem, wound vac placed. (5) Paroxysmal atrial fibrillation: Resumed aspirin. (6) Chronic kidney disease (CKD), stage III (moderate): Avoid nephrotoxic agent, gentle IV fluid hydration (7) Dementia: Continue home medicine with memantine held donepezil for possible GI bleed. (8) Chronic diastolic congestive heart failure: Since patient was hypotensive in the ER hold isosorbide mononitrate bumetanide and restart them when patient's blood pressure is improved. will monitor. Labs nor imaging were ordered. cardiology is on the case. (9) Pressure ulcer: Pressure ulcer of right ankle, unstageable POA Pressure ulcer right hip, stage II POA Pressure ulcer left hip, unstageable POA Patient continues to be managed and being seen by wound care. Spent 35 minutes in management of patient. This included discussion with multiple specialists on the team Subjective Patient seen in the afternoon. Patient reports feeling well. She has no new complaints. Son is at bedside and is updated on all the new procedures. enies cp, sob, cough. no pain in hip. Review of Systems Review of Systems: All systems reviewed & are unremarkable except as noted in HPI & below Physical Exam Physical Exam: Constitutional: WD/WN, vitals as above, Eyes: PERRL, conjunctivae normal, anicteric sclerae ENMT: external ear and nose normal, oropharynx normal Neck: trachea midline, no thyromegaly Respiratory: normal respiratory effort, lungs clear to auscultation Cardiovascular: RRR, no murmur, no edema Heart Sounds: normal S1, normal S2 and + murmur Palpation: + palpable S3 Gastrointestinal (Abdomen): surgical incisions noted,normal bowel sounds, soft, nontender, no hepatosplenomegaly Musculoskeletal: no cyanosis or clubbing, extremities motor strength 5/5 Skin: no rashes, warm and dry Neurologic: patellar DTR's 2+ bilat, sensation intact Alert and oriented x3 answers to question Psychiatric: A+Ox3, euthymic affect Lymphatic: no cervical or axillary lymphadenopathy Results & Data Vital Signs (Past 12 Hours) Vital Signs Temp Pulse Pulse Resp BP Pulse Ox 03/30/19 23:09 36.5 C 79 16 96/55 L 97 03/30/19 19:10 37.0 C 76 16 112/61 98 03/30/19 16:32 71 03/30/19 15:35 36.9 C 80 16 111/48 L 93 03/30/19 11:31 37.1 C 76 19 115/66 96 PG Care Time/CCT Total # of Minutes Spent Total Time Spent with Patient: Total time spent is greater than 50% in coordination of care (as documented) at patient's floor/unit and/or counseling patient: (1) Buttock wound Encounter type: initial encounter Laterality: right Qualified Code(s): S31.819A - Unspecified open wound of right buttock, initial encounter
[2019-03-31] MEDS: VANCOMYCIN HCL 1,000 MG in SODIUM CHLORIDE 0.9% 250 ML IV SCH (03:05)
[2019-03-31] MEDS: NSS + 20MEQ KCL 20 MEQ/1,000 ML BAG IV SCH (05:13)
[2019-03-31 07:04] LABS: Hematocrit (blood only) 20.2 % (37-47); Hemoglobin 6.9 g/dL (12.0-16.0); Mean Corpuscular Hgb Conc 34.2 g/dL (32-36); Mean Platelet Volume 8.7 fL (7.4-10.4); Platelet Count 230 K/uL (130-400); RDW Coefficient of Variation 14.5 % (11.5-14.5); RDW Standard Deviation 49.9 fL (36.4-46.3); Red Blood Count 2.15 M/uL (4.2-5.4); White Blood Count 7.38 K/uL (4.8-10.8)
[2019-03-31 07:32] LABS: Albumin Level 1.9 gm/dl (3.4-5.0); BUN Creatinine Ratio 29.5 (10-20); Creatinine Clr Calc Pharmacy 64.3 ml/min; Est GFR (African American) 97.4; Potassium 3.8 mmol/L (3.5-5.1)
[2019-03-31 07:33] LABS: Basophils # (auto) 0.01 K/uL (0-0.2); Basophils % (auto) 0.1 %; Echinocytes 1+; Eosinophils # (auto) 0.13 K/uL (0-0.5); Eosinophils % (auto) 1.8 %; Immature Granulocytes # (auto) 0.03 K/uL (0.00-0.02); Immature Granulocytes % (auto) 0.4 %; Lymphocytes # (auto) 0.82 K/uL (1.2-3.4); Lymphocytes % (auto) 11.1 %; Monocytes # (auto) 0.78 K/uL (0.11-0.59); Monocytes % (auto) 10.6 %; Neutrophils # (auto) 5.61 K/uL (1.4-6.5)
[2019-03-31 07:34] LABS: Albumin Globulin Ratio 0.5 (0.9-2); Bilirubin,Total 0.8 mg/dl (0.2-1); Globulin 3.5 gm/dl (2.5-4.0); Total Protein 5.4 gm/dl (6.4-8.2)
[2019-03-31] MEDS: ISOSORBIDE MONO EXTENDED REL 30 MG TABCR PO SCH (09:11)
[2019-03-31] MEDS: LACTOBACILLUS ACIDOPHILUS (FLORANEX) TAB PO SCH ×3 (09:11→21:35)
[2019-03-31] MEDS: MEMANTINE HCL 5 MG TAB PO SCH ×2 (09:11→21:32)
[2019-03-31] MEDS: RANOLAZINE 500 MG ER TAB PO SCH ×2 (09:12→21:34)
[2019-03-31] MEDS: MIRABEGRON ER 25 MG TAB PO SCH (09:12)
[2019-03-31] MEDS: CALCIUM POLYCARBOPHIL 625MG TAB PO SCH ×2 (09:12→21:37)
[2019-03-31] MEDS: PANTOprazole 40 MG TAB PO SCH ×2 (09:12→21:35)
[2019-03-31] MEDS: SUCRALFATE 1 GM TAB PO SCH ×4 (09:13→21:34)
[2019-03-31] MEDS: COLLAGENASE OINT 30 GM TUBE EXT SCH (09:13)
[2019-03-31] MEDS: POLYETHYLENE (MIRALAX) 17 GM PACK PO SCH (09:13)
[2019-03-31] MEDS: INSULIN ASPART 100 UNITS/ML 3 ML PEN SC SCH ×4 (09:14→21:18)
[2019-03-31] MEDS: ACETAMINOPHEN 325 MG TAB PO SCH ×2 (09:16→22:14)
--- NOTE | 2019-03-31 09:53 | Surgery Progress Note ---
Date of Service March 31, 2019 Assessment & Plan (1) Acute cholecystitis: POD # 2 s/p laparoscopic cholecystectomy for gangrenous gallbladder - vitals stable, afebrile, no tachycardia or hypotension - H&H 6.9/20.2 this morning (7.9/23.6 yesterday) completely asymptomatic, likely dilutional, corona drain with bloody serosanguineous output, no jeffy blood, improved from yesterday - post op pain minimal, controlled - tolerating diet - leukocytosis resolved - Albumin low at 1.9 Post operative anemia: - baseline hemoglobin on admission 8.2 (in the 11's in August). Today H&H 6.9/20.2 - blood loss at liver bed intraoperatively - 4+ liters of fluid this admission, likely dilutional as patient is completely asymptomatic and vitals stable without any tachycardia or hypotension - CORONA drain with bloody serosanguineous output, no jeffy blood, improved from yesterday Plan: Continue PO Tylenol and Percocet prn pain Continue IV Abx per infectious disease continue corona drain diabetic diet Boost BID in between meals given low albumin Discontinue IV fluids, encouraged PO water intake Okay from surgical standpoint to ne Jluis however patient would like to continue Bazzi today incentive spirometry SCDS for DVT prophyalxis, avoid chemical prophylaxis given low H&H, hold home baby aspirin repeat am labs, monitor H&H, if H&H low tomorrow may need transfusion PT/OT consults Dr. Moore has seen and examined pt, agrees with above. Subjective feeling okay this morning no abdominal pain, no hip pain no nausea or vomiting, tolerating Diabetic diet , not eating much thirsty no dizziness, lightheadedness, chest pain, shortness of breath Physical Exam Constitutional: WD/WN, vitals as above no acute distress Respiratory: normal respiratory effort; no respiratory distress, no labored breathing and no retractions Gastrointestinal (Abdomen): Inspection/Auscultation: abdomen normal to inspection and + abdominal surgical drain present (bloody serosanguineous (less bloody today)); abdomen not distended Percussion/Palpation: abdomen soft; abd omen nontender, no guarding and abdomen not rigid Skin: no rashes, warm and dry + incision (clean/dry/intact with dressings) Psychiatric: Orientation: alert Affect: + flat affect (affect improved today, held a conversation) Results & Data Vital Signs (Past 12 Hours) Vital Signs Temp Pulse Resp BP Pulse Ox 03/31/19 08:08 36.8 C 64 19 145/70 H 97 03/31/19 02:47 36.9 C 66 18 108/65 97 03/30/19 23:09 36.5 C 79 16 96/55 L 97 Laboratory Results 03/31/19 03/31/19 03/31/19 Range/Units 07:39 06:20 06:20 WBC 7.38 (4.8-10.8) K/uL RBC 2.15 L (4.2-5.4) M/uL Hgb 6.9 L* (12.0-16.0) g/dL Hct 20.2 L* (37-47) % MCV 94.0 (80-100) fL MCH 32.1 (25-34) pg MCHC 34.2 (32-36) g/dL RDW Std Deviation 49.9 H (36.4-46.3) fL RDW Coeff of Claudine 14.5 (11.5-14.5) % Plt Count 230 (130-400) K/uL MPV 8.7 (7.4-10.4) fL Immature Gran % (Auto) 0.4 % Neut % (Auto) 76.0 % Lymph % (Auto) 11.1 % [place] % (Auto) 10.6 % Eos % (Auto) 1.8 % Baso % (Auto) 0.1 % Immature Gran # (Auto) 0.03 H (0.00-0.02) K/uL Neut # (Auto) 5.61 (1.4-6.5) K/uL Lymph # (Auto) 0.82 L (1.2-3.4) K/uL [place] # (Auto) 0.78 H (0.11-0.59) K/uL Eos # (Auto) 0.13 (0-0.5) K/uL Baso # (Auto) 0.01 (0-0.2) K/uL Echinocytes 1+ Sodium 143 (136-145) mmol/L Potassium 3.8 (3.5-5.1) mmol/L Chloride 118 H (98-107) mmol/L Carbon Dioxide 19 L (21-32) mmol/L Anion Gap 6.0 (3-11) BUN 17 (7-18) mg/dl Creatinine 0.58 L (0.6-1.2) mg/dl Est Cr Clr Drug Dosing 64.3 ml/min Est GFR ( Amer) 97.4 Est GFR (Non-Af Amer) 84.0 BUN/Creatinine Ratio 29.5 H (10-20) Glucose 88 (70-99) mg/dl POC Glucose 91 (70-99) Calcium 8.0 L (8.5-10.1) mg/dl Total Bilirubin 0.8 (0.2-1) mg/dl AST 41 H (15-37) U/L ALT 24 (12-78) U/L Alkaline Phosphatase 60 (45-117) U/L Total Protein 5.4 L (6.4-8.2) gm/dl Albumin 1.9 L (3.4-5.0) gm/dl Globulin 3.5 (2.5-4.0) gm/dl Albumin/Globulin Ratio 0.5 L (0.9-2) 03/30/19 03/30/19 03/30/19 Range/Units 20:52 16:38 11:14 WBC (4.8-10.8) K/uL RBC (4.2-5.4) M/uL Hgb (12.0-16.0) g/dL Hct (37-47) % MCV (80-100) fL MCH (25-34) pg MCHC (32-36) g/dL RDW Std Deviation (36.4-46.3) fL RDW Coeff of Claudine (11.5-14.5) % Plt Count (130-400) K/uL MPV (7.4-10.4) fL Immature Gran % (Auto) % Neut % (Auto) % Lymph % (Auto) % [place] % (Auto) % Eos % (Auto) % Baso % (Auto) % Immature Gran # (Auto) (0.00-0.02) K/uL Neut # (Auto) (1.4-6.5) K/uL Lymph # (Auto) (1.2-3.4) K/uL [place] # (Auto) (0.11-0.59) K/uL Eos # (Auto) (0-0.5) K/uL Baso # (Auto) (0-0.2) K/uL Echinocytes Sodium (136-145) mmol/L Potassium (3.5-5.1) mmol/L Chloride (98-107) mmol/L Carbon Dioxide (21-32) mmol/L Anion Gap (3-11) BUN (7-18) mg/dl Creatinine (0.6-1.2) mg/dl Est Cr Clr Drug Dosing ml/min Est GFR ( Amer) Est GFR (Non-Af Amer) BUN/Creatinine Ratio (10-20) Glucose (70-99) mg/dl POC Glucose 113 H 133 H 127 H (70-99) Calcium (8.5-10.1) mg/dl Total Bilirubin (0.2-1) mg/dl AST (15-37) U/L ALT (12-78) U/L Alkaline Phosphatase (45-117) U/L Total Protein (6.4-8.2) gm/dl Albumin (3.4-5.0) gm/dl Globulin (2.5-4.0) gm/dl Albumin/Globulin Ratio (0.9-2)
[2019-03-31] MEDS: ERTAPENEM SODIUM 1,000 MG in SODIUM CHLORIDE 0.9% 50 ML IV SCH (11:32)
--- NOTE | 2019-03-31 14:03 | Infectious Disease Progress Nt ---
Date of Service March 31, 2019 Assessment & Plan (1) Acute cholecystitis: (2) Sepsis: will continue Ertapenem, this will treat wound infection as well as provide emperic abx for biliary sepsis, blood cultures remain negative. Will change vanco to doxy for coverage of MRSA in wound. s/p debridement.No additional pseudomonas growing, no plans for additional ortho surgery. spoke with primay. While in hospital continue with ertapenem and upon d/c can change to cipro 500mg po bid. would give 21 days total abx. will plan to follow in wound center post d/c from hospital and will further adjust abx based on wound healing. (3) Buttock wound: Subjective pt blood cultures remain negative, she remains on vanco and ertapenem, tolerating well. afebrile overnight. wbc 7, creat 0.5. 03/28 wound culture growing Morganella and MRSA. Results & Data Vital Signs (Past 12 Hours) Vital Signs Temp Pulse Resp BP Pulse Ox 03/31/19 10:50 36.7 C 58 L 18 112/65 96 03/31/19 08:08 36.8 C 64 19 145/70 H 97 03/31/19 02:47 36.9 C 66 18 108/65 97 Laboratory Results Microbiology 03/28/19 15:50 Buttock Gram Stain - Final 03/28/19 15:50 Buttock Deep Wound Culture - Preliminary Morganella morganii Staph aureus MRSA 03/28/19 15:00 Blood Aerobic Blood Culture - Preliminary No growth in Aerobic bottle after 48 hours. 03/28/19 15:00 Blood Anaerobic Blood Culture - Preliminary No growth in Anaerobic bottle after 48 hours. 03/28/19 15:00 Blood Aerobic Blood Culture - Preliminary No growth in Aerobic bottle after 48 hours. 03/28/19 15:00 Blood Anaerobic Blood Culture - Preliminary No growth in Anaerobic bottle after 48 hours. PG Care Time/CCT Total # of Minutes Spent Total Time Spent with Patient: Total time spent is greater than 50% in coordination of care (as documented) at patient's floor/unit and/or counseling patient: (1) Buttock wound Encounter type: initial encounter Laterality: right Qualified Code(s): S31.819A - Unspecified open wound of right buttock, initial encounter
[2019-03-31 14:38] LABS: Hematocrit (blood only) 22.2 % (37-47); Hemoglobin 7.6 g/dL (12.0-16.0)
[2019-03-31] MEDS ORDERED: VANCOMYCIN TROUGH ONE (17:30)
--- NOTE | 2019-03-31 17:31 | Hospitalist Progress Note ---
Date of Service March 31, 2019 Assessment & Plan (1) Acute cholecystitis: Status post laparoscopic cholecystectomy with Dr. Moore POD #2 MARC drain with serosanguineous drainage Pain generally controlled Further management per surgical team (2) Sepsis: Secondary to gangrenous gallbladder and pressure ulcer of buttock Continue antibiotics with ertapenem and change vancomycin to doxycycline for MRSA in the wound No evidence of Pseudomonas Appreciate ID input with Dr. Sofia Upon discharge change to Cipro 500 mg p.o. twice daily Continue 21 days of total antibiotics We will need to continue to follow with wound care clinic for buttock wound (3) Pressure ulcer of right buttock, stage 4: Wound care consulted and patient seen by Dr. Malik Wound was debrided Day #2 of wound VAC Will need dressing change every 3 days Wound care to continue to manage Continue antibiotics with doxycycline for MRSA coverage Patient also on ertapenem for acute cholecystitis with gangrenous gallbladder Discharge on Cipro 500 mg p.o. twice daily for a total of 21 days of treatment (4) Paroxysmal atrial fibrillation: Hemodynamically stable Normal sinus rhythm on exam Rate controlled in the 60s (5) Chronic diastolic congestive heart failure: Blood pressure still soft Consider restarting Imdur and Bumex tomorrow No evidence of fluid overload on exam No edema Continue to monitor on telemetry (6) Dementia: Niece present at time of exam and son was on telephone Judicious use of analgesia Patient appears to be at baseline per family Continue him memantine Donepezil held for anemia and question of GI bleed Continue to monitor clinically (7) 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 Inman's addendum for further recommendations Supervising Physician Co-Signing Physician Notes I agree with above note. Subjective Attending: Dr. Inman This is an 83-year-old female that presented with abdominal pain and found to have acute cholecystitis. She is status post cholecystectomy POD #2. Pain is generally well controlled. She has a MARC drain which is draining serosanguineous fluid.Patient is currently tolerating a full diet in small amounts.She denies any fever, chills, sweats, rigors.The patient has no chest pain or tightness. She has no shortness of breath. She denies any cough.She has no acute complaints at this time. Review of Systems Review of Systems: All systems reviewed & are unremarkable except as noted in HPI & below Constitutional: no fever, no chills and no sweats Cardiovascular: no chest pain and no palpitations Gastrointestinal: no abdominal pain, no belching, no nausea, no vomiting and no diarrhea/loose stools Physical Exam Physical Exam: GENERAL : No acute distress. Pleasant. Patient's niece is present at the time of my examination and interview. Son Ruddy is also on the phone. EYES: No icterus, gaze conjugate NOSE: No evidence of epistaxis MOUTH: No lesions or candidiasis NECK: Supple LUNGS: CTA B/L, no wheezes, rales or rhonchi HEART: Regular, rate controlled ABDOMEN: Soft, NT, ND, BS Present. MARC drain is in place.Draining serosanguineous fluid. EXTREMITIES: No LE edema, pedal pulses intact NEURO: A&OX3 Results & Data Vital Signs (Past 12 Hours) Vital Signs Temp Pulse Pulse Resp BP Pulse Ox 03/31/19 16:06 70 03/31/19 15:14 37.0 C 68 16 120/70 97 03/31/19 10:50 36.7 C 58 L 18 112/65 96 03/31/19 08:08 36.8 C 64 19 145/70 H 97 03/31/19 08:00 62 Laboratory Results 03/31/19 14:22 03/31/19 06:20 Abnormal lab results 03/30/19 03/31/19 03/31/19 Range/Units 20:52 06:20 06:20 RBC 2.15 L (4.2-5.4) M/uL Hgb 6.9 L* (12.0-16.0) g/dL Hct 20.2 L* (37-47) % RDW Std Deviation 49.9 H (36.4-46.3) fL Immature Gran # (Auto) 0.03 H (0.00-0.02) K/uL Lymph # (Auto) 0.82 L (1.2-3.4) K/uL [place] # (Auto) 0.78 H (0.11-0.59) K/uL Chloride 118 H (98-107) mmol/L Carbon Dioxide 19 L (21-32) mmol/L Creatinine 0.58 L (0.6-1.2) mg/dl BUN/Creatinine Ratio 29.5 H (10-20) POC Glucose 113 H (70-99) Calcium 8.0 L (8.5-10.1) mg/dl Magnesium (1.8-2.4) mg/dl AST 41 H (15-37) U/L Total Protein 5.4 L (6.4-8.2) gm/dl Albumin 1.9 L (3.4-5.0) gm/dl Albumin/Globulin Ratio 0.5 L (0.9-2) 03/31/19 03/31/19 03/31/19 Range/Units 11:25 14:22 14:22 RBC (4.2-5.4) M/uL Hgb 7.6 L (12.0-16.0) g/dL Hct 22.2 L (37-47) % RDW Std Deviation (36.4-46.3) fL Immature Gran # (Auto) (0.00-0.02) K/uL Lymph # (Auto) (1.2-3.4) K/uL [place] # (Auto) (0.11-0.59) K/uL Chloride (98-107) mmol/L Carbon Dioxide (21-32) mmol/L Creatinine (0.6-1.2) mg/dl BUN/Creatinine Ratio (10-20) POC Glucose 112 H (70-99) Calcium (8.5-10.1) mg/dl Magnesium 1.7 L (1.8-2.4) mg/dl AST (15-37) U/L Total Protein (6.4-8.2) gm/dl Albumin (3.4-5.0) gm/dl Albumin/Globulin Ratio (0.9-2) 03/31/19 Range/Units 16:46 RBC (4.2-5.4) M/uL Hgb (12.0-16.0) g/dL Hct (37-47) % RDW Std Deviation (36.4-46.3) fL Immature Gran # (Auto) (0.00-0.02) K/uL Lymph # (Auto) (1.2-3.4) K/uL [place] # (Auto) (0.11-0.59) K/uL Chloride (98-107) mmol/L Carbon Dioxide (21-32) mmol/L Creatinine (0.6-1.2) mg/dl BUN/Creatinine Ratio (10-20) POC Glucose 116 H (70-99) Calcium (8.5-10.1) mg/dl Magnesium (1.8-2.4) mg/dl AST (15-37) U/L Total Protein (6.4-8.2) gm/dl Albumin (3.4-5.0) gm/dl Albumin/Globulin Ratio (0.9-2) Diagnostic Findings No new diagnostic studies PG Care Time/CCT Total # of Minutes Spent Total Time Spent with Patient: Total time spent is greater than 50% in coordination of care (as documented) at patient's floor/unit and/or counseling patient:30
[2019-03-31] MEDS: MAGNESIUM SULFATE / D5W 1 GM/100 ML BAG IV SCH ×2 (17:33→18:39)
[2019-03-31] MEDS: DONEPEZIL HCL 10 MG TAB PO SCH (17:57)
[2019-03-31] MEDS: DOXYCYCLINE HYCLATE 100 MG CAP PO SCH (21:33)
[2019-03-31] MEDS: ATORVASTATIN 40 MG TAB PO SCH (21:34)
[2019-03-31] MEDS: MONTELUKAST SODIUM 10 MG TABLET PO SCH (21:34)
[2019-04-01 06:54] LABS: Basophils # (auto) 0.01 K/uL (0-0.2); Basophils % (auto) 0.2 %; Eosinophils # (auto) 0.09 K/uL (0-0.5); Eosinophils % (auto) 1.5 %; Hematocrit (blood only) 22.3 % (37-47); Hemoglobin 7.5 g/dL (12.0-16.0); Immature Granulocytes # (auto) 0.08 K/uL (0.00-0.02); Immature Granulocytes % (auto) 1.3 %; Lymphocytes % (auto) 13.1 %; Mean Corpuscular Hgb Conc 33.6 g/dL (32-36); Mean Corpuscular Volume 94.1 fL (80-100); Mean Platelet Volume 8.5 fL (7.4-10.4); Monocytes # (auto) 0.67 K/uL (0.11-0.59); Monocytes % (auto) 10.9 %; Neutrophils # (auto) 4.47 K/uL (1.4-6.5); Platelet Count 243 K/uL (130-400); RDW Coefficient of Variation 14.7 % (11.5-14.5); RDW Standard Deviation 50.2 fL (36.4-46.3); Red Blood Count 2.37 M/uL (4.2-5.4); White Blood Count 6.12 K/uL (4.8-10.8)
[2019-04-01 07:18] LABS: Echinocytes 1+
[2019-04-01 07:35] LABS: BUN Creatinine Ratio 25.8 (10-20); Creatinine Clr Calc Pharmacy 56.7 ml/min; Est GFR (African American) 96.3; Est GFR (Non-African American) 83.1; Potassium 3.3 mmol/L (3.5-5.1)
[2019-04-01] MEDS: CALCIUM POLYCARBOPHIL 625MG TAB PO SCH ×2 (07:57→20:22)
[2019-04-01] MEDS: MIRABEGRON ER 25 MG TAB PO SCH (07:57)
[2019-04-01] MEDS: PANTOprazole 40 MG TAB PO SCH ×2 (07:58→20:24)
[2019-04-01] MEDS: BUMETANIDE 1 MG TAB PO SCH (07:58)
[2019-04-01] MEDS: ISOSORBIDE MONO EXTENDED REL 30 MG TABCR PO SCH (07:58)
[2019-04-01] MEDS: SUCRALFATE 1 GM TAB PO SCH ×4 (07:58→20:22)
[2019-04-01] MEDS: DOXYCYCLINE HYCLATE 100 MG CAP PO SCH ×2 (07:58→20:23)
[2019-04-01] MEDS: RANOLAZINE 500 MG ER TAB PO SCH ×2 (07:58→20:23)
[2019-04-01] MEDS: LACTOBACILLUS ACIDOPHILUS (FLORANEX) TAB PO SCH ×3 (07:59→20:24)
[2019-04-01] MEDS: COLLAGENASE OINT 30 GM TUBE EXT SCH (07:59)
[2019-04-01] MEDS: MEMANTINE HCL 5 MG TAB PO SCH ×2 (07:59→20:23)
[2019-04-01] MEDS: POLYETHYLENE (MIRALAX) 17 GM PACK PO SCH (07:59)
[2019-04-01] MEDS: INSULIN ASPART 100 UNITS/ML 3 ML PEN SC SCH ×4 (08:00→20:57)
[2019-04-01] MEDS: ACETAMINOPHEN 325 MG TAB PO SCH ×2 (08:04→20:34)
--- NOTE | 2019-04-01 10:54 | Infectious Disease Progress Nt ---
Date of Service April 01, 2019 Assessment & Plan (1) Acute cholecystitis: (2) Sepsis: will continue Ertapenem, this will treat wound infection as well as provide emperic abx for biliary sepsis, blood cultures remain negative. Upone d/c would suggest Doxy and cipro x 21 days total to treat for buttock wound. will plan to follow in wound center post d/c from hospital and will further adjust abx based on wound healing. ok for d/c from ID standpoint when otherwise stable. (3) Buttock wound: [facility]ive [facility], doing well. no pain, no f/c tolerating abx. blood cultures remain negative. no abd pain, no n/v/d. no cp, sob, cough, gong. wbc 6.1, creato 0.6 Review of Systems Review of Systems: All systems reviewed & are unremarkable except as noted in HPI & below Physical Exam Constitutional: WD/WN, vitals as above Eyes: PERRL, conjunctivae normal, anicteric sclerae ENMT: external ear and nose normal, oropharynx normal Neck: normal visual inspection Respiratory: normal respiratory effort, lungs clear to auscultation Auscultation: + diminished lung sounds Cardiovascular: RRR, no murmur, no edema Gastrointestinal (Abdomen): Inspection/Auscultation: + abdomen distended, + abdominal surgical incision and + abdominal surgical drain present Percussion/Palpation: + abdomen tender and abdomen soft; no guarding and abdomen not rigid Musculoskeletal: Head/Neck/Chest: + head abnormal to inspection, normocephalic and head atraumatic Skin: no rashes, warm and dry Psychiatric: A+Ox3, euthymic affect Results & Data Vital Signs (Past 12 Hours) Vital Signs Temp Pulse Resp BP Pulse Ox 04/01/19 07:39 36.8 C 62 20 141/63 H 96 04/01/19 02:32 36.6 C 60 16 139/72 97 03/31/19 23:15 36.8 C 66 16 142/73 H 97 Laboratory Results Microbiology 03/28/19 15:50 Buttock Gram Stain - Final 03/28/19 15:50 Buttock Deep Wound Culture - Preliminary Morganella morganii Staph aureus MRSA 03/28/19 15:00 Blood Aerobic Blood Culture - Preliminary No growth in Aerobic bottle after 48 hours. 03/28/19 15:00 Blood Anaerobic Blood Culture - Preliminary No growth in Anaerobic bottle after 48 hours. 03/28/19 15:00 Blood Aerobic Blood Culture - Preliminary No growth in Aerobic bottle after 48 hours. 03/28/19 15:00 Blood Anaerobic Blood Culture - Preliminary No growth in Anaerobic bottle after 48 hours. PG Care Time/CCT Total # of Minutes Spent Total Time Spent with Patient: Total time spent is greater than 50% in coordination of care (as documented) at patient's floor/unit and/or counseling patient: (1) Buttock wound Encounter type: initial encounter Laterality: right Qualified Code(s): S31.819A - Unspecified open wound of right buttock, initial encounter
[2019-04-01] MEDS: ERTAPENEM SODIUM 1,000 MG in SODIUM CHLORIDE 0.9% 50 ML IV SCH (11:38)
--- NOTE | 2019-04-01 11:49 | Surgery Progress Note ---
Date of Service April 01, 2019 Assessment & Plan (1) Acute cholecystitis: POD # 3 s/p laparoscopic cholecystectomy for gangrenous gallbladder - vitals stable, afebrile, no tachycardia or hypotension - H&H7.5/22.3 this morning (6.9/20.2 yesterday) completely asymptomatic, likely dilutional, corona drain with bloody serosanguineous output, no jeffy blood - tolerating diet - leukocytosis resolved Post operative anemia: - baseline hemoglobin on admission 8.2 (in the 11's in August). Today H&H 7.5/22.3 - blood loss at liver bed intraoperatively - 4+ liters of fluid this admission, likely dilutional as patient is completely asymptomatic and vitals stable without any tachycardia or hypotension - CORONA drain with bloody serosanguineous output, no jeffy blood, improved from yesterday Plan: Continue PO Tylenol and Percocet prn pain Continue Abx per infectious disease continue corona drain, will be discharged with drain, follow-up in surgical office early next week for removal diabetic diet Boost BID in between meals given low albumin Okay from surgical standpoint to [place] Jluis SCDS for DVT prophylaxis, avoid chemical prophylaxis given low H&H, hold home baby aspirin Okay from surgical standpoint for discharge once medically stable , signing off, follow-up with Dr. Moore Thursday Dr. Moore has seen and examined pt, agrees with above. Subjective limited given confusion, history of dementia confused today, thinks she is in [facility], per nurse was asking to be taken to [employer] chair and to get her clothes to go home "was walking down hallway and sons were there and I don't know where they are now" no abdominal pain, no chest pain/sob Physical Exam Constitutional: WD/WN, vitals as above not ill appearing Respiratory: no respiratory distress and no labored breathing Gastrointestinal (Abdomen): Inspection/Auscultation: + abdominal surgical drain present (bloody serosanguineous ); abdomen not distended Percussion/Palpation: abdomen soft; abdomen nontender, no guarding and abdomen not rigid Skin: no rashes, warm and dry Psychiatric: Orientation: + not oriented x 3 and + not oriented to place Results & Data Vital Signs (Past 12 Hours) Vital Signs Temp Pulse Resp BP Pulse Ox 04/01/19 11:20 36.9 C 74 18 138/60 99 04/01/19 07:39 36.8 C 62 20 141/63 H 96 04/01/19 02:32 36.6 C 60 16 139/72 97 Laboratory Results 04/01/19 04/01/19 04/01/19 Range/Units 11:36 07:51 06:39 WBC (4.8-10.8) K/uL RBC (4.2-5.4) M/uL Hgb (12.0-16.0) g/dL Hct (37-47) % MCV (80-100) fL MCH (25-34) pg MCHC (32-36) g/dL RDW Std Deviation (36.4-46.3) fL RDW Coeff of Claudine (11.5-14.5) % Plt Count (130-400) K/uL MPV (7.4-10.4) fL Immature Gran % (Auto) % Neut % (Auto) % Lymph % (Auto) % [place] % (Auto) % Eos % (Auto) % Baso % (Auto) % Immature Gran # (Auto) (0.00-0.02) K/uL Neut # (Auto) (1.4-6.5) K/uL Lymph # (Auto) (1.2-3.4) K/uL [place]ima # (Auto) (0.11-0.59) K/uL Eos # (Auto) (0-0.5) K/uL Baso # (Auto) (0-0.2) K/uL Echinocytes Sodium 140 (136-145) mmol/L Potassium 3.3 L (3.5-5.1) mmol/L Chloride 113 H (98-107) mmol/L Carbon Dioxide 20 L (21-32) mmol/L Anion Gap 7.0 (3-11) BUN 16 (7-18) mg/dl Creatinine 0.60 (0.6-1.2) mg/dl Est Cr Clr Drug Dosing 56.7 ml/min Est GFR ( Amer) 96.3 Est GFR (Non-Af Amer) 83.1 BUN/Creatinine Ratio 25.8 H (10-20) Glucose 93 (70-99) mg/dl POC Glucose 124 H 103 H (70-99) Calcium 8.0 L (8.5-10.1) mg/dl Magnesium 2.0 (1.8-2.4) mg/dl 04/01/19 03/31/19 03/31/19 Range/Units 06:39 20:43 16:46 WBC 6.12 (4.8-10.8) K/uL RBC 2.37 L (4.2-5.4) M/uL Hgb 7.5 L (12.0-16.0) g/dL Hct 22.3 L (37-47) % MCV 94.1 (80-100) fL MCH 31.6 (25-34) pg MCHC 33.6 (32-36) g/dL RDW Std Deviation 50.2 H (36.4-46.3) fL RDW Coeff of Claudine 14.7 H (11.5-14.5) % Plt Count 243 (130-400) K/uL MPV 8.5 (7.4-10.4) fL Immature Gran % (Auto) 1.3 % Neut % (Auto) 73.0 % Lymph % (Auto) 13.1 % [place]ima % (Auto) 10.9 % Eos % (Auto) 1.5 % Baso % (Auto) 0.2 % Immature Gran # (Auto) 0.08 H (0.00-0.02) K/uL Neut # (Auto) 4.47 (1.4-6.5) K/uL Lymph # (Auto) 0.80 L (1.2-3.4) K/uL Pima # (Auto) 0.67 H (0.11-0.59) K/uL Eos # (Auto) 0.09 (0-0.5) K/uL Baso # (Auto) 0.01 (0-0.2) K/uL Echinocytes 1+ Sodium (136-145) mmol/L Potassium (3.5-5.1) mmol/L Chloride (98-107) mmol/L Carbon Dioxide (21-32) mmol/L Anion Gap (3-11) BUN (7-18) mg/dl Creatinine (0.6-1.2) mg/dl Est Cr Clr Drug Dosing ml/min Est GFR ( Amer) Est GFR (Non-Af Amer) BUN/Creatinine Ratio (10-20) Glucose (70-99) mg/dl POC Glucose 106 H 116 H (70-99) Calcium (8.5-10.1) mg/dl Magnesium (1.8-2.4) mg/dl 03/31/19 03/31/19 Range/Units 14:22 14:22 WBC (4.8-10.8) K/uL RBC (4.2-5.4) M/uL Hgb 7.6 L (12.0-16.0) g/dL Hct 22.2 L (37-47) % MCV (80-100) fL MCH (25-34) pg MCHC (32-36) g/dL RDW Std Deviation (36.4-46.3) fL RDW Coeff of Claudine (11.5-14.5) % Plt Count (130-400) K/uL MPV (7.4-10.4) fL Immature Gran % (Auto) % Neut % (Auto) % Lymph % (Auto) % [place] % (Auto) % Eos % (Auto) % Baso % (Auto) % Immature Gran # (Auto) (0.00-0.02) K/uL Neut # (Auto) (1.4-6.5) K/uL Lymph # (Auto) (1.2-3.4) K/uL [place] # (Auto) (0.11-0.59) K/uL Eos # (Auto) (0-0.5) K/uL Baso # (Auto) (0-0.2) K/uL Echinocytes Sodium (136-145) mmol/L Potassium (3.5-5.1) mmol/L Chloride (98-107) mmol/L Carbon Dioxide (21-32) mmol/L Anion Gap (3-11) BUN (7-18) mg/dl Creatinine (0.6-1.2) mg/dl Est Cr Clr Drug Dosing ml/min Est GFR ( Amer) Est GFR (Non-Af Amer) BUN/Creatinine Ratio (10-20) Glucose (70-99) mg/dl POC Glucose (70-99) Calcium (8.5-10.1) mg/dl Magnesium 1.7 L (1.8-2.4) mg/dl
[2019-04-01] MEDS ORDERED: SODIUM CHLORIDE 0.9% 250 ML IV PRN (12:07)
--- NOTE | 2019-04-01 12:19 | Hospitalist Progress Note ---
Date of Service April 01, 2019 Assessment & Plan (1) Severe anemia: H/H slightly improved since yesterday. 6.9-->7.5 . Plan to transfused 1PRBC for severe anemia. Pt agrees with transfusion as well pt son MORIAH. (2) Acute cholecystitis: (3) Sepsis: Likely secondary to gangrenous gallbladder and stage 4 wounds. S/P cholecystectomy Patient started on imipenem. Continue broad spectrum antibiotics: to cover intrabdominal infections for left hip infection and sepsis Consulted wound care Consulted ID Consulted orthopedics: no surgery recommended for the fracture. SCDs Full code (4) Pressure ulcer of right buttock, stage 4: (5) Paroxysmal atrial fibrillation: Resumed aspirin. (6) Chronic diastolic congestive heart failure: Since patient was hypotensive in the ER hold isosorbide mononitrate bumetanide and restart them when patient's blood pressure is improved. will monitor. Cardiology following.. (7) Dementia: Continue home medicine with memantine held donepezil for possible GI bleed. (8) S/P hip replacement: (9) DVT prophylaxis: Subjective Pt seen and examined at the bedside.Pt is slowly improving. Reports no pain. Blood cultures remain negative.Hemodynamically reports no pain abdominal wound clean dry and intact.MARC drain is still present and draining approximately 30 cc of serosanguineous fluid. Patient denies fever chills chest pain shortness of breath abdominal pain frequency urgency hemoptysis hematemesis hematuria dysuria nausea or vomiting. Patient reports that she is better at rest but sometimes to get short of breath. Patient accepted to have transfusion of one 1 unit of blood for severe anemia. Review of Systems Review of Systems: All systems reviewed & are unremarkable except as noted in HPI & below Physical Exam Constitutional: WD/WN, vitals as above + ill appearing and + frail appearing Eyes: PERRL, conjunctivae normal, anicteric sclerae ENMT: external ear and nose normal, oropharynx normal Neck: trachea midline, no thyromegaly Respiratory: normal respiratory effort, lungs clear to auscultation Cardiovascular: RRR, no murmur, no edema Heart Sounds: normal S1, normal S2 and + murmur Palpation: + palpable S3 Chest (Breasts): normal inspection/palpation of breasts Gastrointestinal (Abdomen): normal bowel sounds, soft, nontender, no hepatosplenomegaly Musculoskeletal: no cyanosis or clubbing, extremities motor strength 5/5 Skin: no rashes, warm and dry Neurologic: patellar DTR's 2+ bilat, sensation intact Psychiatric: A+Ox3, euthymic affect Genitourinary: no vaginal lesions, no adnexal mass Lymphatic: no cervical or axillary lymphadenopathy Results & Data Vital Signs (Past 12 Hours) Vital Signs Temp Pulse Resp BP Pulse Ox 04/01/19 11:20 36.9 C 74 18 138/60 99 04/01/19 07:39 36.8 C 62 20 141/63 H 96 04/01/19 02:32 36.6 C 60 16 139/72 97 PG Care Time/CCT Total # of Minutes Spent Total Time Spent with Patient: Total time spent is greater than 50% in coordination of care (as documented) at patient's floor/unit and/or counseling patient:
[2019-04-01] MEDS: DONEPEZIL HCL 10 MG TAB PO SCH (16:57)
[2019-04-01] MEDS: MONTELUKAST SODIUM 10 MG TABLET PO SCH (20:23)
[2019-04-01] MEDS: ATORVASTATIN 40 MG TAB PO SCH (20:36)
[2019-04-01 21:49] LABS: Hematocrit (blood only) 25.4 % (37-47); Hemoglobin 8.9 g/dL (12.0-16.0); Mean Corpuscular Volume 91.4 fL (80-100); Mean Platelet Volume 8.4 fL (7.4-10.4); Nucleated RBC # (auto) 0.05 K/uL (0-0); Nucleated RBC % (auto) 0.7 %; Platelet Count 238 K/uL (130-400); RDW Coefficient of Variation 14.5 % (11.5-14.5); Red Blood Count 2.78 M/uL (4.2-5.4); White Blood Count 7.47 K/uL (4.8-10.8)
[2019-04-02 06:39] LABS: Basophils # (auto) 0.01 K/uL (0-0.2); Basophils % (auto) 0.1 %; Eosinophils # (auto) 0.16 K/uL (0-0.5); Eosinophils % (auto) 2.1 %; Hematocrit (blood only) 25.7 % (37-47); Hemoglobin 8.9 g/dL (12.0-16.0); Immature Granulocytes # (auto) 0.15 K/uL (0.00-0.02); Lymphocytes # (auto) 0.91 K/uL (1.2-3.4); Lymphocytes % (auto) 11.8 %; Mean Corpuscular Hgb Conc 34.6 g/dL (32-36); Mean Corpuscular Volume 91.1 fL (80-100); Mean Platelet Volume 8.6 fL (7.4-10.4); Monocytes # (auto) 1.13 K/uL (0.11-0.59); Monocytes % (auto) 14.7 %; Neutrophils # (auto) 5.32 K/uL (1.4-6.5); Neutrophils % (auto) 69.3 %; Platelet Count 264 K/uL (130-400); RDW Coefficient of Variation 14.6 % (11.5-14.5); RDW Standard Deviation 49.1 fL (36.4-46.3); Red Blood Count 2.82 M/uL (4.2-5.4); White Blood Count 7.68 K/uL (4.8-10.8)
[2019-04-02 07:11] LABS: BUN Creatinine Ratio 24.2 (10-20); Calcium 8.3 mg/dl (8.5-10.1); Creatinine Clr Calc Pharmacy 60.6 ml/min; Est GFR (African American) 98.5
[2019-04-02] MEDS: INSULIN ASPART 100 UNITS/ML 3 ML PEN SC SCH ×4 (07:36→21:42)
[2019-04-02] MEDS: DOXYCYCLINE HYCLATE 100 MG CAP PO SCH ×2 (08:17→21:48)
[2019-04-02] MEDS: MEMANTINE HCL 5 MG TAB PO SCH ×2 (08:18→21:46)
[2019-04-02] MEDS: RANOLAZINE 500 MG ER TAB PO SCH ×2 (08:18→21:45)
[2019-04-02] MEDS: MIRABEGRON ER 25 MG TAB PO SCH (08:19)
[2019-04-02] MEDS: POLYETHYLENE (MIRALAX) 17 GM PACK PO SCH (08:20)
[2019-04-02] MEDS: PANTOprazole 40 MG TAB PO SCH ×2 (08:20→21:44)
[2019-04-02] MEDS: LACTOBACILLUS ACIDOPHILUS (FLORANEX) TAB PO SCH ×3 (08:20→21:44)
[2019-04-02] MEDS: ISOSORBIDE MONO EXTENDED REL 30 MG TABCR PO SCH (08:20)
[2019-04-02] MEDS: CALCIUM POLYCARBOPHIL 625MG TAB PO SCH ×2 (08:21→22:12)
[2019-04-02] MEDS: SUCRALFATE 1 GM TAB PO SCH ×4 (08:21→21:41)
[2019-04-02] MEDS: ACETAMINOPHEN 325 MG TAB PO SCH ×2 (08:30→22:12)
[2019-04-02] MEDS: POTASSIUM CHLORIDE 20 MEQ TABCR PO SCH ×2 (09:13→21:45)
[2019-04-02] MEDS: ERTAPENEM SODIUM 1,000 MG in SODIUM CHLORIDE 0.9% 50 ML IV SCH (10:03)
--- NOTE | 2019-04-02 10:58 | Hospitalist Progress Note ---
Date of Service April 02, 2019 Assessment & Plan (1) Severe anemia: H/H slightly improved since yesterday. 6.9-->8.9 .doing much better today. Reports no SOB. (2) Acute cholecystitis: (3) Sepsis: Likely secondary to gangrenous gallbladder and stage 4 wounds. S/P cholecystectomy Patient started on imipenem. Continue broad spectrum antibiotics: to cover intrabdominal infections for left hip infection and sepsis Consulted wound care Consulted ID Consulted orthopedics: no surgery recommended for the fracture. DVT PPX heparin 5000 units Q12 SCDs Full code (4) Pressure ulcer of right buttock, stage 4: (5) Paroxysmal atrial fibrillation: Resumed aspirin. (6) Chronic diastolic congestive heart failure: Since patient was hypotensive in the ER hold isosorbide mononitrate bumetanide and restart them when patient's blood pressure is improved. will monitor. Cardiology following. (7) Dementia: Continue home medicine with memantine held donepezil for possible GI bleed. (8) S/P hip replacement: (9) DVT prophylaxis: Subjective Pt seen and examined at the bedside.More coherent today,and answers to questions appropriately. Received one PRBC last night.Reports no pain. Blood cultures remain negative.Hemodynamically reports no pain abdominal wound clean dry and in tact.MARC drain is still present and draining approximately 40 cc of serosanguineous fluid. Patient denies fever chills chest pain shortness of breath abdominal pain frequency urgency hemoptysis hematemesis hematuria dysuria nausea or vomiting. Review of Systems Review of Systems: All systems reviewed & are unremarkable except as noted in HPI & below Physical Exam Constitutional: WD/WN, vitals as above + frail appearing Eyes: PERRL, conjunctivae normal, anicteric sclerae ENMT: external ear and nose normal, oropharynx normal Neck: trachea midline, no thyromegaly Respiratory: normal respiratory effort, lungs clear to auscultation Cardiovascular: RRR, no murmur, no edema Heart Sounds: normal S1, normal S2 and + murmur Palpation: + palpable S3 Chest (Breasts): normal inspection/palpation of breasts Gastrointestinal (Abdomen): normal bowel sounds, soft, nontender, no hepatosplenomegaly MARC drain 40 cc serosanguineous fluid Musculoskeletal: no cyanosis or clubbing, extremities motor strength 5/5 Skin: no rashes, warm and dry Neurologic: patellar DTR's 2+ bilat, sensation intact Psychiatric: A+Ox3, euthymic affect Genitourinary: no vaginal lesions, no adnexal mass Lymphatic: no cervical or axillary lymphadenopathy Results & Data Vital Signs (Past 12 Hours) Vital Signs Temp Pulse Pulse Resp BP BP Pulse Ox 04/02/19 07:26 36.5 C 53 L 16 157/71 H 97 04/02/19 03:35 36.4 C L 54 L 16 154/69 H 98 04/02/19 00:50 58 L 04/01/19 23:35 36.7 C 55 L 16 147/77 H 95 PG Care Time/CCT Total # of Minutes Spent Total Time Spent with Patient: Total time spent is greater than 50% in coordination of care (as documented) at patient's floor/unit and/or counseling patient:
[2019-04-02] MEDS: DONEPEZIL HCL 10 MG TAB PO SCH (16:16)
[2019-04-02] MEDS: HEPARIN SOD 5,000 UNIT/0.5 ML VIAL SQ SCH (21:42)
[2019-04-02] MEDS: MONTELUKAST SODIUM 10 MG TABLET PO SCH (21:44)
[2019-04-02] MEDS: ATORVASTATIN 40 MG TAB PO SCH (21:48)
[2019-04-03 06:03] LABS: Basophils # (auto) 0.01 K/uL (0-0.2); Basophils % (auto) 0.1 %; Eosinophils # (auto) 0.13 K/uL (0-0.5); Eosinophils % (auto) 1.7 %; Hematocrit (blood only) 27.2 % (37-47); Hemoglobin 9.3 g/dL (12.0-16.0); Immature Granulocytes % (auto) 2.6 %; Lymphocytes % (auto) 15.6 %; Mean Corpuscular Hgb Conc 34.2 g/dL (32-36); Mean Corpuscular Volume 92.5 fL (80-100); Mean Platelet Volume 8.5 fL (7.4-10.4); Monocytes # (auto) 0.96 K/uL (0.11-0.59); Monocytes % (auto) 12.5 %; Neutrophils # (auto) 5.18 K/uL (1.4-6.5); Neutrophils % (auto) 67.5 %; Platelet Count 301 K/uL (130-400); RDW Coefficient of Variation 15.1 % (11.5-14.5); RDW Standard Deviation 50.6 fL (36.4-46.3); Red Blood Count 2.94 M/uL (4.2-5.4); White Blood Count 7.68 K/uL (4.8-10.8)
[2019-04-03 06:33] LABS: Albumin Level 2.1 gm/dl (3.4-5.0); BUN Creatinine Ratio 27.2 (10-20); Calcium 8.3 mg/dl (8.5-10.1); Creatinine Clr Calc Pharmacy 70.9 ml/min; Est GFR (African American) 103.7; Est GFR (Non-African American) 89.4; Potassium 4.9 mmol/L (3.5-5.1)
[2019-04-03 06:36] LABS: Albumin Globulin Ratio 0.6 (0.9-2); Bilirubin,Total 0.7 mg/dl (0.2-1); Globulin 3.5 gm/dl (2.5-4.0); Total Protein 5.6 gm/dl (6.4-8.2)
[2019-04-03] MEDS: INSULIN ASPART 100 UNITS/ML 3 ML PEN SC SCH ×4 (08:16→21:46)
[2019-04-03] MEDS: LACTOBACILLUS ACIDOPHILUS (FLORANEX) TAB PO SCH ×3 (08:19→20:21)
[2019-04-03] MEDS: MIRABEGRON ER 25 MG TAB PO SCH (08:19)
[2019-04-03] MEDS: CALCIUM POLYCARBOPHIL 625MG TAB PO SCH ×2 (08:19→20:22)
[2019-04-03] MEDS: MEMANTINE HCL 5 MG TAB PO SCH ×2 (08:20→20:22)
[2019-04-03] MEDS: SUCRALFATE 1 GM TAB PO SCH ×4 (08:20→20:25)
[2019-04-03] MEDS: ISOSORBIDE MONO EXTENDED REL 30 MG TABCR PO SCH (08:20)
[2019-04-03] MEDS: ASPIRIN 81 MG ECTAB PO SCH (08:20)
[2019-04-03] MEDS: RANOLAZINE 500 MG ER TAB PO SCH ×2 (08:20→20:24)
[2019-04-03] MEDS: HEPARIN SOD 5,000 UNIT/0.5 ML VIAL SQ SCH ×2 (08:20→20:23)
[2019-04-03] MEDS: ACETAMINOPHEN 325 MG TAB PO SCH ×2 (08:28→20:29)
[2019-04-03] MEDS: DOXYCYCLINE HYCLATE 100 MG CAP PO SCH ×2 (08:29→20:23)
[2019-04-03] MEDS: PANTOprazole 40 MG TAB PO SCH ×2 (08:30→20:22)
[2019-04-03] MEDS: POLYETHYLENE (MIRALAX) 17 GM PACK PO SCH (08:30)
[2019-04-03] MEDS: POTASSIUM CHLORIDE 20 MEQ TABCR PO SCH ×2 (08:30→20:23)
[2019-04-03] MEDS: ERTAPENEM SODIUM 1,000 MG in SODIUM CHLORIDE 0.9% 50 ML IV SCH (12:15)
--- NOTE | 2019-04-03 13:48 | Hospitalist Progress Note ---
Date of Service April 03, 2019 Assessment & Plan (1) Severe anemia: H/H slightly improved since yesterday. 6.9-->8.9-->9.3 .doing much better today. Reports no SOB. (2) Acute cholecystitis: (3) Sepsis: Likely secondary to gangrenous gallbladder and stage 4 wounds. S/P cholecystectomy Patient started on imipenem. Continue broad spectrum antibiotics: to cover intrabdominal infections for left hip infection and sepsis Consulted wound care Consulted ID Consulted orthopedics: no surgery recommended for the fracture. DVT PPX heparin 5000 units Q12 SCDs Full code (4) Pressure ulcer of right buttock, stage 4: (5) Paroxysmal atrial fibrillation: Resumed aspirin. (6) Chronic diastolic congestive heart failure: Since patient was hypotensive in the ER hold isosorbide mononitrate bumetanide and restart them when patient's blood pressure is improved. will monitor. Cardiology following. (7) Dementia: Continue home medicine with memantine held donepezil for possible GI bleed. (8) S/P hip replacement: (9) DVT prophylaxis: Subjective Pt seen and examined at the bedside.Continues to be coherent ,and answers to questions appropriately. H&H stable 9.3/27.2. Reports no pain. Blood cultures remain negative.Hemodynamically reports no pain abdominal wound clean dry and intact.MARC drain is still present and draining approximately 15 cc of serosanguineous fluid. Patient denies fever chills chest pain shortness of breath abdominal pain frequency urgency hemoptysis hematemesis hematuria dysuria nausea or vomiting. Review of Systems Review of Systems: All systems reviewed & are unremarkable except as noted in HPI & below Physical Exam Constitutional: WD/WN, vitals as above + frail appearing Eyes: PERRL, conjunctivae normal, anicteric sclerae ENMT: external ear and nose normal, oropharynx normal Neck: trachea midline, no thyromegaly Respiratory: normal respiratory effort, lungs clear to auscultation Cardiovascular: RRR, no murmur, no edema Heart Sounds: normal S1, normal S2 and + murmur Palpation: + palpable S3 Chest (Breasts): normal inspection/palpation of breasts Gastrointestinal (Abdomen): normal bowel sounds, soft, nontender, no hepatosplenomegaly Musculoskeletal: no cyanosis or clubbing, extremities motor strength 5/5 Skin: no rashes, warm and dry Neurologic: patellar DTR's 2+ bilat, sensation intact Psychiatric: A+Ox3, euthymic affect Genitourinary: no vaginal lesions, no adnexal mass Lymphatic: no cervical or axillary lymphadenopathy Results & Data Vital Signs (Past 12 Hours) Vital Signs Temp Pulse Pulse Pulse Resp BP Pulse Ox 04/03/19 11:58 36.5 C 54 L 18 126/66 98 04/03/19 09:59 52 L 04/03/19 06:59 36.6 C 58 L 18 139/56 L 98 04/03/19 03:57 36.6 C 62 18 113/73 97 PG Care Time/CCT Total # of Minutes Spent Total Time Spent with Patient: Total time spent is greater than 50% in coordination of care (as documented) at patient's floor/unit and/or counseling patient:
[2019-04-03] MEDS: DONEPEZIL HCL 10 MG TAB PO SCH (16:17)
[2019-04-03] MEDS: ATORVASTATIN 40 MG TAB PO SCH (20:22)
[2019-04-03] MEDS: MONTELUKAST SODIUM 10 MG TABLET PO SCH (20:24)
[2019-04-04 06:05] LABS: Basophils # (auto) 0.02 K/uL (0-0.2); Basophils % (auto) 0.3 %; Eosinophils # (auto) 0.11 K/uL (0-0.5); Eosinophils % (auto) 1.6 %; Hematocrit (blood only) 28.2 % (37-47); Hemoglobin 9.5 g/dL (12.0-16.0); Immature Granulocytes # (auto) 0.22 K/uL (0.00-0.02); Immature Granulocytes % (auto) 3.3 %; Lymphocytes # (auto) 1.32 K/uL (1.2-3.4); Lymphocytes % (auto) 19.6 %; Mean Corpuscular Hgb Conc 33.7 g/dL (32-36); Mean Corpuscular Volume 93.7 fL (80-100); Mean Platelet Volume 8.7 fL (7.4-10.4); Monocytes # (auto) 0.76 K/uL (0.11-0.59); Monocytes % (auto) 11.3 %; Neutrophils # (auto) 4.31 K/uL (1.4-6.5); Neutrophils % (auto) 63.9 %; Platelet Count 339 K/uL (130-400); RDW Coefficient of Variation 15.3 % (11.5-14.5); RDW Standard Deviation 51.2 fL (36.4-46.3); Red Blood Count 3.01 M/uL (4.2-5.4); White Blood Count 6.74 K/uL (4.8-10.8)
[2019-04-04 06:31] LABS: Albumin Level 2.2 gm/dl (3.4-5.0); BUN Creatinine Ratio 26.3 (10-20); Calcium 8.5 mg/dl (8.5-10.1); Creatinine Clr Calc Pharmacy 65.6 ml/min; Est GFR (African American) 101.6; Est GFR (Non-African American) 87.7; Potassium 4.7 mmol/L (3.5-5.1)
[2019-04-04 06:34] LABS: Albumin Globulin Ratio 0.6 (0.9-2); Bilirubin,Total 0.6 mg/dl (0.2-1); Globulin 3.6 gm/dl (2.5-4.0); Total Protein 5.8 gm/dl (6.4-8.2)
[2019-04-04] MEDS: ASPIRIN 81 MG ECTAB PO SCH (08:31)
[2019-04-04] MEDS: ISOSORBIDE MONO EXTENDED REL 30 MG TABCR PO SCH (08:32)
[2019-04-04] MEDS: MIRABEGRON ER 25 MG TAB PO SCH (08:32)
[2019-04-04] MEDS: LACTOBACILLUS ACIDOPHILUS (FLORANEX) TAB PO SCH ×3 (08:32→20:30)
[2019-04-04] MEDS: DOXYCYCLINE HYCLATE 100 MG CAP PO SCH ×2 (08:32→20:34)
[2019-04-04] MEDS: SUCRALFATE 1 GM TAB PO SCH ×4 (08:32→20:30)
[2019-04-04] MEDS: RANOLAZINE 500 MG ER TAB PO SCH ×2 (08:33→20:32)
[2019-04-04] MEDS: BUMETANIDE 1 MG TAB PO SCH (08:34)
[2019-04-04] MEDS: INSULIN ASPART 100 UNITS/ML 3 ML PEN SC SCH ×4 (08:34→20:33)
[2019-04-04] MEDS: MEMANTINE HCL 5 MG TAB PO SCH ×2 (08:34→20:33)
[2019-04-04] MEDS: HEPARIN SOD 5,000 UNIT/0.5 ML VIAL SQ SCH ×2 (08:35→20:32)
[2019-04-04] MEDS: PANTOprazole 40 MG TAB PO SCH ×2 (08:35→20:31)
[2019-04-04] MEDS: ACETAMINOPHEN 325 MG TAB PO SCH ×2 (08:43→20:39)
[2019-04-04] MEDS: POLYETHYLENE (MIRALAX) 17 GM PACK PO SCH (08:43)
[2019-04-04] MEDS ORDERED: CALCIUM POLYCARBOPHIL 625MG TAB PO SCH (09:00)
[2019-04-04] MEDS: ERTAPENEM SODIUM 1,000 MG in SODIUM CHLORIDE 0.9% 50 ML IV SCH (11:23)
--- NOTE | 2019-04-04 17:11 | Hospitalist Progress Note ---
Date of Service April 04, 2019 Assessment & Plan (1) Severe anemia: H/H slightly improved since yesterday. 6.9-->8.9-->9.3-->9.5 .doing much better today. Reports no SOB. (2) Acute cholecystitis: (3) Sepsis: Likely secondary to gangrenous gallbladder and stage 4 wounds. S/P cholecystectomy Patient started on imipenem. Continue broad spectrum antibiotics: to cover intrabdominal infections for left hip infection and sepsis Consulted wound care Consulted ID Consulted orthopedics: no surgery recommended for the fracture. DVT PPX heparin 5000 units Q12 SCDs Full code (4) Pressure ulcer of right buttock, stage 4: (5) Paroxysmal atrial fibrillation: Resumed aspirin. (6) Chronic diastolic congestive heart failure: Since patient was hypotensive in the ER hold isosorbide mononitrate bumetanide and restart them when patient's blood pressure is improved. will monitor. Cardiology following. (7) Dementia: Continue home medicine with memantine held donepezil for possible GI bleed. (8) S/P hip replacement: (9) DVT prophylaxis: Subjective Pt seen and examined at the bedside.Continues to be coherent ,and answers to questions appropriately. H&H stable 9.3/27.2. Reports no pain. Blood cultures remain negative.Hemodynamically reports no pain abdominal wound clean dry and intact.MARC drain is still present and draining approximately 15 cc of serosanguineous fluid. Patient denies fever chills chest pain shortness of breath abdominal pain frequency urgency hemoptysis hematemesis hematuria dysuria nausea or vomiting. Physical Exam Constitutional: WD/WN, vitals as above + frail appearing Eyes: PERRL, conjunctivae normal, anicteric sclerae ENMT: external ear and nose normal, oropharynx normal Neck: trachea midline, no thyromegaly Respiratory: normal respiratory effort, lungs clear to auscultation Cardiovascular: RRR, no murmur, no edema Heart Sounds: normal S1, normal S2 and + murmur Palpation: + palpable S3 Chest (Breasts): normal inspection/palpation of breasts Gastrointestinal (Abdomen): normal bowel sounds, soft, nontender, no hepatosplenomegaly Musculoskeletal: no cyanosis or clubbing, extremities motor strength 5/5 Skin: no rashes, warm and dry Neurologic: patellar DTR's 2+ bilat, sensation intact Psychiatric: A+Ox3, euthymic affect Genitourinary: no vaginal lesions, no adnexal mass Lymphatic: no cervical or axillary lymphadenopathy Results & Data Vital Signs (Past 12 Hours) Vital Signs Temp Pulse Pulse Pulse Resp BP BP 04/04/19 16:00 36.4 C L 70 20 120/74 04/04/19 12:00 36.5 C 64 18 115/67 04/04/19 09:57 57 L 04/04/19 08:00 36.7 C 64 18 135/76 Pulse Ox 04/04/19 16:00 97 04/04/19 12:00 98 04/04/19 09:57 04/04/19 08:00 96 PG Care Time/CCT Total # of Minutes Spent Total Time Spent with Patient: Total time spent is greater than 50% in coordination of care (as documented) at patient's floor/unit and/or counseling patient:
[2019-04-04] MEDS: DONEPEZIL HCL 10 MG TAB PO SCH (17:38)
[2019-04-04] MEDS: ATORVASTATIN 40 MG TAB PO SCH (20:30)
[2019-04-04] MEDS: MONTELUKAST SODIUM 10 MG TABLET PO SCH (20:34)
[2019-04-04] MEDS: CALCIUM POLYCARBOPHIL 625MG TAB PO SCH (20:35)
[2019-04-05 06:06] LABS: Basophils # (auto) 0.02 K/uL (0-0.2); Basophils % (auto) 0.3 %; Eosinophils # (auto) 0.12 K/uL (0-0.5); Hematocrit (blood only) 28.1 % (37-47); Hemoglobin 9.6 g/dL (12.0-16.0); Immature Granulocytes # (auto) 0.19 K/uL (0.00-0.02); Immature Granulocytes % (auto) 3.1 %; Lymphocytes # (auto) 1.34 K/uL (1.2-3.4); Lymphocytes % (auto) 22.1 %; Mean Corpuscular Hgb Conc 34.2 g/dL (32-36); Mean Platelet Volume 8.6 fL (7.4-10.4); Monocytes % (auto) 13.2 %; Neutrophils % (auto) 59.3 %; Platelet Count 364 K/uL (130-400); RDW Coefficient of Variation 15.6 % (11.5-14.5); RDW Standard Deviation 52.2 fL (36.4-46.3); Red Blood Count 3.02 M/uL (4.2-5.4); White Blood Count 6.07 K/uL (4.8-10.8)
[2019-04-05 06:46] LABS: Albumin Globulin Ratio 0.7 (0.9-2); Albumin Level 2.3 gm/dl (3.4-5.0); BUN Creatinine Ratio 26.5 (10-20); Bilirubin,Total 0.7 mg/dl (0.2-1); Calcium 8.5 mg/dl (8.5-10.1); Creatinine Clr Calc Pharmacy 58.6 ml/min; Est GFR (African American) 97.9; Est GFR (Non-African American) 84.4; Globulin 3.5 gm/dl (2.5-4.0); Potassium 4.2 mmol/L (3.5-5.1); Total Protein 5.8 gm/dl (6.4-8.2)
[2019-04-05] MEDS: DOXYCYCLINE HYCLATE 100 MG CAP PO SCH ×2 (08:15→20:44)
[2019-04-05] MEDS: SUCRALFATE 1 GM TAB PO SCH ×4 (08:15→20:45)
[2019-04-05] MEDS: LACTOBACILLUS ACIDOPHILUS (FLORANEX) TAB PO SCH ×3 (08:15→20:44)
[2019-04-05] MEDS: MEMANTINE HCL 5 MG TAB PO SCH ×2 (08:16→20:45)
[2019-04-05] MEDS: RANOLAZINE 500 MG ER TAB PO SCH ×2 (08:16→20:45)
[2019-04-05] MEDS: ASPIRIN 81 MG ECTAB PO SCH (08:16)
[2019-04-05] MEDS: MIRABEGRON ER 25 MG TAB PO SCH (08:17)
[2019-04-05] MEDS: ISOSORBIDE MONO EXTENDED REL 30 MG TABCR PO SCH (08:17)
[2019-04-05] MEDS: CALCIUM POLYCARBOPHIL 625MG TAB PO SCH ×2 (08:18→20:45)
[2019-04-05] MEDS: HEPARIN SOD 5,000 UNIT/0.5 ML VIAL SQ SCH ×2 (08:18→20:45)
[2019-04-05] MEDS: PANTOprazole 40 MG TAB PO SCH ×2 (08:19→20:45)
[2019-04-05] MEDS: INSULIN ASPART 100 UNITS/ML 3 ML PEN SC SCH ×4 (08:21→20:47)
[2019-04-05] MEDS: POLYETHYLENE (MIRALAX) 17 GM PACK PO SCH (08:27)
[2019-04-05] MEDS: ACETAMINOPHEN 325 MG TAB PO SCH ×2 (08:27→21:30)
[2019-04-05] MEDS: ERTAPENEM SODIUM 1,000 MG in SODIUM CHLORIDE 0.9% 50 ML IV SCH (10:09)
--- NOTE | 2019-04-05 15:01 | Hospitalist Progress Note ---
Date of Service April 05, 2019 Assessment & Plan (1) Severe anemia: H/H stable, Reports no SOB. (2) Acute cholecystitis: (3) Sepsis: Likely secondary to gangrenous gallbladder and stage 4 wounds. S/P cholecystectomy Patient started on imipenem. Continue broad spectrum antibiotics: to cover intrabdominal infections for left hip infection and sepsis Consulted wound care Consulted ID Consulted orthopedics: no surgery recommended for the fracture. DVT PPX heparin 5000 units Q12 SCDs Full code (4) Pressure ulcer of right buttock, stage 4: (5) Paroxysmal atrial fibrillation: Resumed aspirin. (6) Chronic diastolic congestive heart failure: Since patient was hypotensive in the ER hold isosorbide mononitrate bumetanide and restart them when patient's blood pressure is improved. will monitor. Cardiology following. (7) Dementia: Continue home medicine with memantine held donepezil for possible GI bleed. (8) S/P hip replacement: (9) DVT prophylaxis: Subjective Pt seen and examined at the bedside.Continues to be coherent ,and answers to questions appropriately. H&H stable. Reports no pain. Blood cultures remain negative.Hemodynamically reports no pain abdominal wound clean dry and intact.MARC drain is still present and draining approximately 10 cc of serosanguineous fluid. Patient denies fever chills chest pain shortness of breath abdominal pain frequency urgency hemoptysis hematemesis hematuria dysuria nausea or vomiting. Review of Systems Review of Systems: All systems reviewed & are unremarkable except as noted in HPI & below Physical Exam Constitutional: WD/WN, vitals as above + frail appearing Eyes: PERRL, conjunctivae normal, anicteric sclerae ENMT: external ear and nose normal, oropharynx normal Neck: trachea midline, no thyromegaly Respiratory: normal respiratory effort, lungs clear to auscultation Cardiovascular: RRR, no murmur, no edema Heart Sounds: normal S1, normal S2 and + murmur Palpation: + palpable S3 Chest (Breasts): normal inspection/palpation of breasts Gastrointestinal (Abdomen): In the right intact incisions. MARC drain approximately 10 cc of serosanguineous fluid. Abdomen is soft nontender nondistended no rebound and no guarding. Musculoskeletal: no cyanosis or clubbing, extremities motor strength 5/5 Skin: no rashes, warm and dry Neurologic: patellar DTR's 2+ bilat, sensation intact Psychiatric: A+Ox3, euthymic affect Genitourinary: no vaginal lesions, no adnexal mass Lymphatic: no cervical or axillary lymphadenopathy Results & Data Vital Signs (Past 12 Hours) Vital Signs Temp Pulse Resp BP Pulse Ox 04/05/19 12:00 36.4 C L 67 18 132/84 99 04/05/19 04:00 36.2 C L 61 21 126/63 94 PG Care Time/CCT Total # of Minutes Spent Total Time Spent with Patient: Total time spent is greater than 50% in coordination of care (as documented) at patient's floor/unit and/or counseling patient:
[2019-04-05] MEDS: DONEPEZIL HCL 10 MG TAB PO SCH (17:32)
[2019-04-05] MEDS: TRAMADOL HCL 50 MG TABLET PO PRN (17:58)
[2019-04-05] MEDS: ATORVASTATIN 40 MG TAB PO SCH (20:43)
[2019-04-05] MEDS: MONTELUKAST SODIUM 10 MG TABLET PO SCH (20:44)
[2019-04-06 06:57] LABS: Basophils # (auto) 0.01 K/uL (0-0.2); Basophils % (auto) 0.2 %; Eosinophils % (auto) 1.5 %; Hematocrit (blood only) 28.3 % (37-47); Hemoglobin 9.4 g/dL (12.0-16.0); Immature Granulocytes # (auto) 0.12 K/uL (0.00-0.02); Immature Granulocytes % (auto) 1.8 %; Lymphocytes % (auto) 19.7 %; Mean Corpuscular Hgb Conc 33.2 g/dL (32-36); Mean Corpuscular Volume 94.3 fL (80-100); Mean Platelet Volume 8.8 fL (7.4-10.4); Monocytes # (auto) 0.81 K/uL (0.11-0.59); Monocytes % (auto) 12.3 %; Neutrophils # (auto) 4.25 K/uL (1.4-6.5); Neutrophils % (auto) 64.5 %; Platelet Count 378 K/uL (130-400); RDW Coefficient of Variation 15.8 % (11.5-14.5); White Blood Count 6.59 K/uL (4.8-10.8)
[2019-04-06 07:43] LABS: Albumin Level 2.4 gm/dl (3.4-5.0); BUN Creatinine Ratio 24.1 (10-20); Calcium 8.6 mg/dl (8.5-10.1); Creatinine Clr Calc Pharmacy 48.8 ml/min; Est GFR (African American) 94.1; Est GFR (Non-African American) 81.2; Potassium 4.2 mmol/L (3.5-5.1)
[2019-04-06 07:46] LABS: Albumin Globulin Ratio 0.6 (0.9-2); Bilirubin,Total 0.6 mg/dl (0.2-1); Globulin 3.7 gm/dl (2.5-4.0); Total Protein 6.1 gm/dl (6.4-8.2)
[2019-04-06] MEDS: LACTOBACILLUS ACIDOPHILUS (FLORANEX) TAB PO SCH ×3 (08:32→20:10)
[2019-04-06] MEDS: MEMANTINE HCL 5 MG TAB PO SCH ×2 (08:32→20:09)
[2019-04-06] MEDS: DOXYCYCLINE HYCLATE 100 MG CAP PO SCH ×2 (08:32→20:09)
[2019-04-06] MEDS: MIRABEGRON ER 25 MG TAB PO SCH (08:33)
[2019-04-06] MEDS: ASPIRIN 81 MG ECTAB PO SCH (08:33)
[2019-04-06] MEDS: RANOLAZINE 500 MG ER TAB PO SCH ×2 (08:34→20:09)
[2019-04-06] MEDS: BUMETANIDE 1 MG TAB PO SCH (08:34)
[2019-04-06] MEDS: SUCRALFATE 1 GM TAB PO SCH ×4 (08:34→20:11)
[2019-04-06] MEDS: HEPARIN SOD 5,000 UNIT/0.5 ML VIAL SQ SCH ×2 (08:35→20:13)
[2019-04-06] MEDS: INSULIN ASPART 100 UNITS/ML 3 ML PEN SC SCH ×4 (08:36→20:12)
[2019-04-06] MEDS: ISOSORBIDE MONO EXTENDED REL 30 MG TABCR PO SCH (08:36)
[2019-04-06] MEDS: CALCIUM POLYCARBOPHIL 625MG TAB PO SCH ×2 (08:36→20:10)
[2019-04-06] MEDS: PANTOprazole 40 MG TAB PO SCH ×2 (08:37→20:11)
[2019-04-06] MEDS: POLYETHYLENE (MIRALAX) 17 GM PACK PO SCH (08:38)
[2019-04-06] MEDS: ACETAMINOPHEN 325 MG TAB PO SCH ×2 (08:50→20:11)
[2019-04-06] MEDS: ERTAPENEM SODIUM 1,000 MG in SODIUM CHLORIDE 0.9% 50 ML IV SCH (12:03)
--- NOTE | 2019-04-06 17:41 | Hospitalist Progress Note ---
Date of Service April 06, 2019 Assessment & Plan (1) Severe anemia: H/H stable, Reports no SOB. (2) Acute cholecystitis: (3) Sepsis: Likely secondary to gangrenous gallbladder and stage 4 wounds. S/P cholecystectomy Patient started on imipenem. Continue broad spectrum antibiotics: to cover intrabdominal infections for left hip infection and sepsis Consulted wound care Consulted ID Consulted orthopedics: no surgery recommended for the fracture. DVT PPX heparin 5000 units Q12 SCDs Full code (4) Pressure ulcer of right buttock, stage 4: (5) Paroxysmal atrial fibrillation: Resumed aspirin. (6) Chronic diastolic congestive heart failure: Since patient was hypotensive in the ER hold isosorbide mononitrate bumetanide and restart them when patient's blood pressure is improved. will monitor. Cardiology following. (7) Dementia: Continue home medicine with memantine held donepezil for possible GI bleed. (8) S/P hip replacement: (9) DVT prophylaxis: Subjective Pt seen and examined at the bedside.Continues to be coherent ,and answers to questions appropriately. H&H stable. Reports no pain. Blood cultures remain negative.Hemodynamically reports no pain abdominal wound clean dry and intact.MARC drain is still present and draining approximately 10 cc of serosanguineous fluid. Patient denies fever chills chest pain shortness of breath abdominal pain frequency urgency hemoptysis hematemesis hematuria dysuria nausea or vomiting. Plan to discharge to her rehab tomorrow. Review of Systems Review of Systems: All systems reviewed & are unremarkable except as noted in HPI & below Physical Exam Constitutional: WD/WN, vitals as above + frail appearing Eyes: PERRL, conjunctivae normal, anicteric sclerae ENMT: external ear and nose normal, oropharynx normal Neck: trachea midline, no thyromegaly Respiratory: normal respiratory effort, lungs clear to auscultation Cardiovascular: RRR, no murmur, no edema Heart Sounds: normal S1, normal S2 and + murmur Palpation: + palpable S3 Chest (Breasts): normal inspection/palpation of breasts Gastrointestinal (Abdomen): normal bowel sounds, soft, nontender, no hepatosplenomegaly Musculoskeletal: no cyanosis or clubbing, extremities motor strength 5/5 Skin: no rashes, warm and dry Neurologic: patellar DTR's 2+ bilat, sensation intact Psychiatric: A+Ox3, euthymic affect Genitourinary: no vaginal lesions, no adnexal mass Lymphatic: no cervical or axillary lymphadenopathy Results & Data Vital Signs (Past 12 Hours) Vital Signs Temp Pulse Pulse Resp BP BP Pulse Ox 04/06/19 16:09 62 04/06/19 15:19 36.7 C 73 18 114/67 98 04/06/19 11:23 36.6 C 70 18 111/50 L 98 04/06/19 07:32 71 04/06/19 07:27 36.6 C 69 18 123/75 97 PG Care Time/CCT Total # of Minutes Spent Total Time Spent with Patient: Total time spent is greater than 50% in coordination of care (as documented) at patient's floor/unit and/or counseling patient:
[2019-04-06] MEDS: DONEPEZIL HCL 10 MG TAB PO SCH (17:49)
[2019-04-06] MEDS: MONTELUKAST SODIUM 10 MG TABLET PO SCH (20:11)
[2019-04-06] MEDS: ATORVASTATIN 40 MG TAB PO SCH (20:13)
[2019-04-07 06:45] LABS: Basophils # (auto) 0.01 K/uL (0-0.2); Basophils % (auto) 0.2 %; Eosinophils % (auto) 1.5 %; Hematocrit (blood only) 29.1 % (37-47); Hemoglobin 9.7 g/dL (12.0-16.0); Immature Granulocytes # (auto) 0.08 K/uL (0.00-0.02); Immature Granulocytes % (auto) 1.2 %; Lymphocytes # (auto) 1.32 K/uL (1.2-3.4); Lymphocytes % (auto) 19.9 %; Mean Corpuscular Hgb Conc 33.3 g/dL (32-36); Mean Corpuscular Volume 94.8 fL (80-100); Mean Platelet Volume 8.9 fL (7.4-10.4); Monocytes # (auto) 0.77 K/uL (0.11-0.59); Monocytes % (auto) 11.6 %; Neutrophils # (auto) 4.35 K/uL (1.4-6.5); Neutrophils % (auto) 65.6 %; Platelet Count 373 K/uL (130-400); RDW Coefficient of Variation 15.6 % (11.5-14.5); Red Blood Count 3.07 M/uL (4.2-5.4); White Blood Count 6.63 K/uL (4.8-10.8)
[2019-04-07 07:18] LABS: Albumin Level 2.5 gm/dl (3.4-5.0); BUN Creatinine Ratio 21.2 (10-20); Calcium 8.8 mg/dl (8.5-10.1); Creatinine Clr Calc Pharmacy 48.8 ml/min; Est GFR (African American) 93.2; Est GFR (Non-African American) 80.4
[2019-04-07 07:21] LABS: Albumin Globulin Ratio 0.7 (0.9-2); Bilirubin,Total 0.6 mg/dl (0.2-1); Globulin 3.7 gm/dl (2.5-4.0); Total Protein 6.2 gm/dl (6.4-8.2)
[2019-04-07] MEDS: ASPIRIN 81 MG ECTAB PO SCH (09:27)
[2019-04-07] MEDS: SUCRALFATE 1 GM TAB PO SCH ×4 (09:27→20:50)
[2019-04-07] MEDS: LACTOBACILLUS ACIDOPHILUS (FLORANEX) TAB PO SCH ×3 (09:28→20:51)
[2019-04-07] MEDS: CALCIUM POLYCARBOPHIL 625MG TAB PO SCH ×2 (09:28→20:51)
[2019-04-07] MEDS: ISOSORBIDE MONO EXTENDED REL 30 MG TABCR PO SCH (09:29)
[2019-04-07] MEDS: HEPARIN SOD 5,000 UNIT/0.5 ML VIAL SQ SCH ×2 (09:29→21:00)
[2019-04-07] MEDS: MIRABEGRON ER 25 MG TAB PO SCH (09:30)
[2019-04-07] MEDS: PANTOprazole 40 MG TAB PO SCH ×2 (09:31→20:53)
[2019-04-07] MEDS: MEMANTINE HCL 5 MG TAB PO SCH ×2 (09:31→20:52)
[2019-04-07] MEDS: RANOLAZINE 500 MG ER TAB PO SCH ×2 (09:32→20:53)
[2019-04-07] MEDS: DOXYCYCLINE HYCLATE 100 MG CAP PO SCH ×2 (09:32→20:56)
[2019-04-07] MEDS: INSULIN ASPART 100 UNITS/ML 3 ML PEN SC SCH ×4 (09:34→20:59)
[2019-04-07] MEDS: POLYETHYLENE (MIRALAX) 17 GM PACK PO SCH (09:47)
[2019-04-07] MEDS: ACETAMINOPHEN 325 MG TAB PO SCH ×2 (09:47→20:57)
[2019-04-07] MEDS: ERTAPENEM SODIUM 1,000 MG in SODIUM CHLORIDE 0.9% 50 ML IV SCH (12:19)
[2019-04-07] MEDS: COLLAGENASE OINT 30 GM TUBE EXT SCH (14:19)
--- NOTE | 2019-04-07 15:12 | Wound Progress Note ---
Date of Service April 07, 2019 Assessment & Plan (1) Pressure ulcer of right buttock, stage 4: There is significant improvement in the wound. There remains some slough. Will stop irrigating wound VAC for discharge as patient is improving clinically. Wound will be dressed with Iodosorb and change daily. Once wound bed is conduit cleaner from sl[facility] could consider standard wound VAC therapy. Patient is planning on follow-up with [place] wound clinic upon discharge. [facility]. you for allowing me to participate in the care of this patient. Please not hesitate to call with any questions. Subjective Patient seen laying in bed. She is doing well. She is tolerating antibiotics. She denies any new complaints. Review of Systems Review of Systems: All systems reviewed & are unremarkable except as noted in HPI & below Physical Exam Skin: Wound measuring is recorded in nursing documentation. The wound is improving. There is no longer black eschar. There remains some fibrous slough. Periwound is intact without inflammation. Neurologic: awake; not confused Psychiatric: A+Ox3, euthymic affect Results & Data Vital Signs (Past 12 Hours) Vital Signs Temp Pulse Pulse Resp BP Pulse Ox 04/07/19 11:27 36.6 C 58 L 18 90/51 L 95 04/07/19 09:49 64 04/07/19 07:27 36.6 C 55 L 18 118/53 L 98 04/07/19 03:51 36.6 C 61 18 104/41 L 98 PG Care Time/CCT Total # of Minutes Spent Total Time Spent with Patient: Total time spent is greater than 50% in coordination of care (as documented) at patient's floor/unit and/or counseling patient:
[2019-04-07] MEDS: DONEPEZIL HCL 10 MG TAB PO SCH (16:12)
--- NOTE | 2019-04-07 17:23 | Hospitalist Progress Note ---
Date of Service April 07, 2019 Assessment & Plan (1) Pressure ulcer of right buttock, stage 4: There is significant improvement in the wound. There remains some slough. Will stop irrigating wound VAC for discharge as patient is improving clinically. Wound will be dressed with Iodosorb and change daily. Once wound bed is home restoration service cleaner from [place] could consider standard wound VAC therapy. Patient is planning on follow-up with [place] wound clinic upon discharge. [facility]. you for allowing me to participate in the care of this patient. Please not hesitate to call with any questions. Subjective Patient seen laying in bed. She is doing well. She is tolerating antibiotics. She denies any new complaints. Review of Systems Review of Systems: All systems reviewed & are unremarkable except as noted in HPI & below Physical Exam Constitutional: WD/WN, vitals as above + frail appearing Eyes: PERRL, conjunctivae normal, anicteric sclerae ENMT: external ear and nose normal, oropharynx normal Neck: trachea midline, no thyromegaly Respiratory: normal respiratory effort, lungs clear to auscultation Cardiovascular: RRR, no murmur, no edema Heart Sounds: normal S1, normal S2 and + murmur Chest (Breasts): normal inspection/palpation of breasts Gastrointestinal (Abdomen): normal bowel sounds, soft, nontender, no hepatosplenomegaly Musculoskeletal: no cyanosis or clubbing, extremities motor strength 5/5 Skin: no rashes, warm and dry Neurologic: patellar DTR's 2+ bilat, sensation intact Psychiatric: A+Ox3, euthymic affect Genitourinary: no vaginal lesions, no adnexal mass Lymphatic: no cervical or axillary lymphadenopathy Results & Data Vital Signs (Past 12 Hours) Vital Signs Temp Pulse Pulse Resp BP BP Pulse Ox 04/07/19 15:51 36.8 C 65 17 120/68 96 04/07/19 11:27 36.6 C 58 L 18 90/51 L 95 04/07/19 09:49 64 04/07/19 07:27 36.6 C 55 L 18 118/53 L 98 PG Care Time/CCT Total # of Minutes Spent Total Time Spent with Patient: Total time spent is greater than 50% in coordination of care (as documented) at patient's floor/unit and/or counseling patient:
[2019-04-07] MEDS: ATORVASTATIN 40 MG TAB PO SCH (20:52)
[2019-04-07] MEDS: MONTELUKAST SODIUM 10 MG TABLET PO SCH (20:54)
[2019-04-08] MEDS: SUCRALFATE 1 GM TAB PO SCH ×4 (09:06→20:24)
[2019-04-08] MEDS: BUMETANIDE 1 MG TAB PO SCH (09:06)
[2019-04-08] MEDS: INSULIN ASPART 100 UNITS/ML 3 ML PEN SC SCH ×4 (09:06→20:23)
[2019-04-08] MEDS: ASPIRIN 81 MG ECTAB PO SCH (09:07)
[2019-04-08] MEDS: CALCIUM POLYCARBOPHIL 625MG TAB PO SCH ×2 (09:08→20:24)
[2019-04-08] MEDS: LACTOBACILLUS ACIDOPHILUS (FLORANEX) TAB PO SCH ×3 (09:08→20:24)
[2019-04-08] MEDS: HEPARIN SOD 5,000 UNIT/0.5 ML VIAL SQ SCH ×2 (09:08→20:24)
[2019-04-08] MEDS: ISOSORBIDE MONO EXTENDED REL 30 MG TABCR PO SCH (09:09)
[2019-04-08] MEDS: MIRABEGRON ER 25 MG TAB PO SCH (09:09)
[2019-04-08] MEDS: MEMANTINE HCL 5 MG TAB PO SCH ×2 (09:10→20:25)
[2019-04-08] MEDS: PANTOprazole 40 MG TAB PO SCH ×2 (09:10→20:25)
[2019-04-08] MEDS: COLLAGENASE OINT 30 GM TUBE EXT SCH (09:11)
[2019-04-08] MEDS: RANOLAZINE 500 MG ER TAB PO SCH ×2 (09:11→20:25)
[2019-04-08] MEDS: DOXYCYCLINE HYCLATE 100 MG CAP PO SCH ×2 (09:12→20:25)
[2019-04-08] MEDS: ACETAMINOPHEN 325 MG TAB PO SCH ×2 (09:29→20:25)
[2019-04-08] MEDS: POLYETHYLENE (MIRALAX) 17 GM PACK PO SCH (09:29)
[2019-04-08] MEDS: ERTAPENEM SODIUM 1,000 MG in SODIUM CHLORIDE 0.9% 50 ML IV SCH (12:43)
--- NOTE | 2019-04-08 16:30 | Hospitalist Progress Note ---
Date of Service April 08, 2019 Assessment & Plan (1) Pressure ulcer of right buttock, stage 4: There is significant improvement in the wound. There remains some slough. Will stop irrigating wound VAC for discharge as patient is improving clinically. Wound will be dressed with Iodosorb and change daily. Once wound bed is bell cleaner from [place] could consider standard wound VAC therapy. Patient is planning on follow-up with [place] wound clinic upon discharge. [facility]. you for allowing me to participate in the care of this patient. Please not hesitate to call with any questions. (2) Severe anemia: Patient received 1 unit of blood and her H&H is stable. Continue monitoring. Anemia of chronic disease. Present on Admission?: Yes (3) Moderate protein-calorie malnutrition: RD is following patient appreciate their recommendations Present on Admission?: Yes (4) Hypercholesteremia: Stable, continue atorvastatin 40 mg p.o. every afternoon. Present on Admission?: Yes (5) Hypertension: Continue isosorbide mononitrate 30 mg p.o. daily, aspirin 81 mg p.o. daily. (6) Diabetes: Stable, Accu-Cheks AC and at bedtime, glycemic control per pharmacy consul t Present on Admission?: Yes (7) Chronic diastolic congestive heart failure: As the above Present on Admission?: Yes (8) History of cholecystectomy: POD # 10 s/p laparoscopic cholecystectomy for gangrenous gallbladder It was a course of sepsis. Appreciate ID recommendation Dr. Sofia: "Sepsis: will continue Ertapenem, this will treat wound infection as well as provide empiric abx for biliary sepsis, blood cultures remain negative. Upone d/c would suggest Doxy and cipro x 21 days total to treat for buttock wound. Will plan to follow in wound center post d/c from hospital and will further adjust abx based on wound healing. Surgery :continue corona drain, will be discharged with drain, follow-up in surgical office early next week for removal. Present on Admission?: Yes Subjective Pt seen and examined at the bedside.Continues to be coherent ,and answers to questions appropriately. H&H stable. Reports no pain. Blood cultures remain negative.Hemodynamically reports no pain abdominal wound clean dry and intact.CORONA drain is still present and draining approximately 10 cc of serosanguineous fluid. Patient denies fever chills chest pain shortness of breath abdominal pain frequency urgency hemoptysis hematemesis hematuria dysuria nausea or vomiting. Waiting on placement to SNF. Review of Systems Review of Systems: All systems reviewed & are unremarkable except as noted in HPI & below Physical Exam Constitutional: WD/WN, vitals as above + frail appearing Eyes: PERRL, conjunctivae normal, anicteric sclerae ENMT: external ear and nose normal, oropharynx normal Neck: trachea midline, no thyromegaly Respiratory: normal respiratory effort, lungs clear to auscultation Cardiovascular: RRR, no murmur, no edema Heart Sounds: normal S1, normal S2 and + murmur Palpation: + palpable S3 Chest (Breasts): normal inspection/palpation of breasts Gastrointestinal (Abdomen): normal bowel sounds, soft, nontender, no hepatosplenomegaly Musculoskeletal: no cyanosis or clubbing, extremities motor strength 5/5 Skin: no rashes, warm and dry Neurologic: patellar DTR's 2+ bilat, sensation intact Psychiatric: A+Ox3, euthymic affect Genitourinary: no vaginal lesions, no adnexal mass Lymphatic: no cervical or axillary lymphadenopathy Results & Data Vital Signs (Past 12 Hours) Vital Signs Temp Pulse Resp BP Pulse Ox 04/08/19 15:40 36.5 C 75 17 123/72 99 04/08/19 11:26 36.7 C 78 17 96/58 L 100 04/08/19 07:25 36.6 C 64 17 119/75 93 PG Care Time/CCT Total # of Minutes Spent Total Time Spent with Patient: Total time spent is greater than 50% in coordination of care (as documented) at patient's floor/unit and/or counseling patient:
[2019-04-08] MEDS: DONEPEZIL HCL 10 MG TAB PO SCH (16:51)
[2019-04-08] MEDS: ATORVASTATIN 40 MG TAB PO SCH (20:24)
[2019-04-08] MEDS: MONTELUKAST SODIUM 10 MG TABLET PO SCH (20:25)
[2019-04-09] MEDS: LACTOBACILLUS ACIDOPHILUS (FLORANEX) TAB PO SCH ×3 (08:33→19:45)
[2019-04-09] MEDS: MEMANTINE HCL 5 MG TAB PO SCH ×2 (08:34→19:47)
[2019-04-09] MEDS: CALCIUM POLYCARBOPHIL 625MG TAB PO SCH ×2 (08:34→19:48)
[2019-04-09] MEDS: DOXYCYCLINE HYCLATE 100 MG CAP PO SCH ×2 (08:34→19:47)
[2019-04-09] MEDS: MIRABEGRON ER 25 MG TAB PO SCH (08:34)
[2019-04-09] MEDS: PANTOprazole 40 MG TAB PO SCH ×2 (08:34→19:45)
[2019-04-09] MEDS: ASPIRIN 81 MG ECTAB PO SCH (08:35)
[2019-04-09] MEDS: HEPARIN SOD 5,000 UNIT/0.5 ML VIAL SQ SCH ×2 (08:35→19:47)
[2019-04-09] MEDS: POLYETHYLENE (MIRALAX) 17 GM PACK PO SCH (08:35)
[2019-04-09] MEDS: ISOSORBIDE MONO EXTENDED REL 30 MG TABCR PO SCH (08:35)
[2019-04-09] MEDS: SUCRALFATE 1 GM TAB PO SCH ×4 (08:35→19:46)
[2019-04-09] MEDS: RANOLAZINE 500 MG ER TAB PO SCH ×2 (08:36→19:48)
[2019-04-09] MEDS: ACETAMINOPHEN 325 MG TAB PO SCH ×2 (08:40→19:57)
[2019-04-09] MEDS: INSULIN ASPART 100 UNITS/ML 3 ML PEN SC SCH ×4 (08:40→20:54)
[2019-04-09] MEDS: COLLAGENASE OINT 30 GM TUBE EXT SCH (09:52)
[2019-04-09] MEDS ORDERED: MICONAZOLE NITRATE POWDER 43 GM EXT PRN (10:07)
--- NOTE | 2019-04-09 13:45 | Hospitalist Progress Note ---
Date of Service April 09, 2019 Assessment & Plan (1) Pressure ulcer of right buttock, stage 4: There is significant improvement in the wound. There remains some slough. Will stop irrigating wound VAC for discharge as patient is improving clinically. Wound will be dressed with Iodosorb and change daily. Once wound bed is light cleaner from [place] could consider standard wound VAC therapy. Patient is planning on follow-up with [place] wound clinic upon discharge. [facility]. you for allowing me to participate in the care of this patient. Please not hesitate to call with any questions. (2) Severe anemia: Patient received 1 unit of blood and her H&H is stable. Continue monitoring. Anemia of chronic disease. (3) Moderate protein-calorie malnutrition: RD is following patient appreciate their recommendations (4) Hypercholesteremia: Stable, continue atorvastatin 40 mg p.o. every afternoon. (5) Hypertension: Continue isosorbide mononitrate 30 mg p.o. daily, aspirin 81 mg p.o. daily. (6) Diabetes: Stable, Accu-Cheks AC and at bedtime, glycemic control per pharmacy consult (7) Chronic diastolic congestive heart failure: As the above (8) History of cholecystectomy: POD # 11 s/p laparoscopic cholecystectomy for gangrenous gallbladder It was a course of sepsis. Appreciate ID recommendation Dr. Sofia: "Sepsis: will continue Ertapenem, this will treat wound infection as well as provide empiric abx for biliary sepsis, blood cultures remain negative. Upone d/c would suggest Doxy and cipro x 21 days total to treat for buttock wound. Will plan to follow in wound center post d/c from hospital and will further adjust abx based on wound healing. Surgery :continue corona drain, will be discharged with drain, follow-up in surgical office early next week for removal(04/01). Patient Dr. Dye and he said he is going to evaluate patient to remove the drain possibly today. Subjective Pt seen and examined at the bedside.Continues to be coherent ,and answers to questions appropriately. H&H stable. Reports no pain. Blood cultures remain negative.Hemodynamically reports no pain abdominal wound clean dry and intact.CORONA drain is still present and draining approximately 10 cc of serosanguineous fluid, discussed with Dr. Dye to evaluate patient remove the drain. Patient denies fever chills chest pain shortness of breath abdominal pain frequency urgency hemoptysis hematemesis hematuria dysuria nausea or vomiting. Waiting on placement to SNF. Review of Systems Review of Systems: All systems reviewed & are unremarkable except as noted in HPI & below Physical Exam Constitutional: WD/WN, vitals as above + frail appearing Eyes: PERRL, conjunctivae normal, anicteric sclerae ENMT: external ear and nose normal, oropharynx normal Neck: trachea midline, no thyromegaly Respiratory: normal respiratory effort, lungs clear to auscultation Cardiovascular: RRR, no murmur, no edema Heart Sounds: normal S1, normal S2 and + murmur Palpation: + palpable S3 Chest (Breasts): normal inspection/palpation of breasts Gastrointestinal (Abdomen): normal bowel sounds, soft, nontender, no hepatosplenomegaly Musculoskeletal: no cyanosis or clubbing, extremities motor strength 5/5 Skin: no rashes, warm and dry Neurologic: patellar DTR's 2+ bilat, sensation intact Psychiatric: A+Ox3, euthymic affect Genitourinary: no vaginal lesions, no adnexal mass Lymphatic: no cervical or axillary lymphadenopathy Results & Data Vital Signs (Past 12 Hours) Vital Signs Temp Pulse Pulse Resp BP Pulse Ox 04/09/19 11:44 36.4 C L 70 18 117/68 98 04/09/19 07:00 36.3 C L 62 19 125/77 96 04/09/19 03:29 36.4 C L 59 L 19 128/80 99 PG Care Time/CCT Total # of Minutes Spent Total Time Spent with Patient: Total time spent is greater than 50% in c oordination of care (as documented) at patient's floor/unit and/or counseling patient:
[2019-04-09] MEDS: DONEPEZIL HCL 10 MG TAB PO SCH (17:18)
[2019-04-09] MEDS: ATORVASTATIN 40 MG TAB PO SCH (19:46)
[2019-04-09] MEDS: MONTELUKAST SODIUM 10 MG TABLET PO SCH (19:47)
[2019-04-10] MEDS: DOXYCYCLINE HYCLATE 100 MG CAP PO SCH (07:50)
[2019-04-10] MEDS: LACTOBACILLUS ACIDOPHILUS (FLORANEX) TAB PO SCH ×3 (07:51→20:13)
[2019-04-10] MEDS: SUCRALFATE 1 GM TAB PO SCH ×4 (07:51→20:13)
[2019-04-10] MEDS: RANOLAZINE 500 MG ER TAB PO SCH ×2 (07:51→20:15)
[2019-04-10] MEDS: MIRABEGRON ER 25 MG TAB PO SCH (07:51)
[2019-04-10] MEDS: CALCIUM POLYCARBOPHIL 625MG TAB PO SCH ×2 (07:51→20:15)
[2019-04-10] MEDS: HEPARIN SOD 5,000 UNIT/0.5 ML VIAL SQ SCH ×2 (07:52→20:15)
[2019-04-10] MEDS: ISOSORBIDE MONO EXTENDED REL 30 MG TABCR PO SCH (07:52)
[2019-04-10] MEDS: PANTOprazole 40 MG TAB PO SCH ×2 (07:52→20:13)
[2019-04-10] MEDS: MEMANTINE HCL 5 MG TAB PO SCH ×2 (07:52→20:14)
[2019-04-10] MEDS: ASPIRIN 81 MG ECTAB PO SCH (07:52)
[2019-04-10] MEDS: COLLAGENASE OINT 30 GM TUBE EXT SCH (07:53)
[2019-04-10] MEDS: POLYETHYLENE (MIRALAX) 17 GM PACK PO SCH (07:53)
[2019-04-10] MEDS: INSULIN ASPART 100 UNITS/ML 3 ML PEN SC SCH ×4 (07:56→20:38)
[2019-04-10] MEDS: ACETAMINOPHEN 325 MG TAB PO SCH ×2 (07:57→20:13)
--- NOTE | 2019-04-10 14:45 | Hospitalist Progress Note ---
Date of Service April 10, 2019 Assessment & Plan (1) Pressure ulcer of right buttock, stage 4: There is significant improvement in the wound. There remains some slough. Will stop irrigating wound VAC for discharge as patient is improving clinically. Wound will be dressed with Iodosorb and change daily. Once wound bed is cone cleaner from [place] could consider standard wound VAC therapy. Patient is planning on follow-up with [place] wound clinic upon discharge. Continue ertapenem for wound infection and biliary sepsis blood cultures remain negative. Upon discharge ID recommended doxycycline and Cipro for 21 days total treat for buttock wound. Infectious diseases will continue following patient in the wound center post DC from the hospital and they will adjust antibiotics based on wound healing. DVT prophylaxis SCD-s and heparin 5000 every 12 hours Full code (2) Severe anemia: Patient received 1 unit of blood and her H&H is stable. Continue monitoring. Anemia of chronic disease. (3) Moderate protein-calorie malnutrition: RD is following patient appreciate their recommendations (4) Hypercholesteremia: Stable, continue atorvastatin 40 mg p.o. every afternoon. (5) Hypertension: Continue isosorbide mononitrate 30 mg p.o. daily, aspirin 81 mg p.o. daily. (6) Diabetes: Stable, Accu-Cheks AC and at bedtime, glycemic control per pharmacy consult (7) Chronic diastolic congestive heart failure: As the above (8) History of cholecystectomy: POD # 12 s/p laparoscopic cholecystectomy for gangrenous gallbladder It was a course of sepsis. Appreciate ID recommendation Dr. Sofia: "Sepsis: will continue Ertapenem, this will treat wound infection as well as provide empiric abx for biliary sepsis, blood cultures remain negative. Upone d/c would suggest Doxy and cipro x 21 days total to treat for buttock wound. Will plan to follow in wound center post d/c from hospital and will further adjust abx based on wound healing. Surgery : Remove MARC drain last night by Dr. Dye Subjective Pt seen and examined at the bedside.Continues to be coherent ,and answers to questions appropriately. H&H stable. Reports no pain.Hemodynamically reports no pain abdominal wound clean dry and intact.MARC drain removed by Dr. Dye last night. Continue IV antibiotics as per infectious diseases consult. Patient denies fever chills chest pain shortness of breath abdominal pain frequency urgency hemoptysis hematemesis hematuria dysuria nausea or vomiting. Waiting on placement to SNF. Review of Systems Review of Systems: All systems reviewed & are unremarkable except as noted in HPI & below Physical Exam Constitutional: WD/WN, vitals as above + frail appearing Eyes: PERRL, conjunctivae normal, anicteric sclerae ENMT: external ear and nose normal, oropharynx normal Neck: trachea midline, no thyromegaly Respiratory: normal respiratory effort, lungs clear to auscultation Cardiovascular: RRR, no murmur, no edema Heart Sounds: normal S1, normal S2 and + murmur Palpation: + palpable S3 Chest (Breasts): normal inspection/palpation of breasts Gastrointestinal (Abdomen): normal bowel sounds, soft, nontender, no hepatosplenomegaly Musculoskeletal: no cyanosis or clubbing, extremities motor strength 5/5 Skin: no rashes, warm and dry Neurologic: patellar DTR's 2+ bilat, sensation intact Psychiatric: A+Ox3, euthymic affect Genitourinary: no vaginal lesions, no adnexal mass Lymphatic: no cervical or axillary lymphadenopathy Results & Data Vital Signs (Past 12 Hours) Vital Signs Temp Pulse Pulse Pulse Resp BP BP 04/10/19 12:13 36.7 C 75 18 108/62 04/10/19 08:00 36.3 C L 74 18 133/77 04/10/19 05:53 82 04/10/19 04:00 36.5 C 69 18 119/66 Pulse Ox 04/10/19 12:13 97 04/10/19 08:00 97 04/10/19 05:53 04/10/19 04:00 96 PG Care Time/CCT Total # of Minutes Spent Total Time Spent with Patient: Total time spent is greater than 50% in coordination of care (as documented) at patient's floor/unit and/or counseling patient:
--- NOTE | 2019-04-10 14:49 | Hospitalist Progress Note ---
Date of Service April 10, 2019 Results & Data Vital Signs (Past 12 Hours) Vital Signs Temp Pulse Pulse Pulse Resp BP BP 04/10/19 12:13 36.7 C 75 18 108/62 04/10/19 08:00 36.3 C L 74 18 133/77 04/10/19 05:53 82 04/10/19 04:00 36.5 C 69 18 119/66 Pulse Ox 04/10/19 12:13 97 04/10/19 08:00 97 04/10/19 05:53 04/10/19 04:00 96 PG Care Time/CCT Total # of Minutes Spent Total Time Spent with Patient: Total time spent is greater than 50% in coordination of care (as documented) at patient's floor/unit and/or counseling patient:
[2019-04-10] MEDS: DONEPEZIL HCL 10 MG TAB PO SCH (17:37)
[2019-04-10] MEDS: MONTELUKAST SODIUM 10 MG TABLET PO SCH (20:14)
[2019-04-10] MEDS: ATORVASTATIN 40 MG TAB PO SCH (20:16)
[2019-04-11 05:51] LABS: Basophils # (auto) 0.02 K/uL (0-0.2); Basophils % (auto) 0.3 %; Eosinophils % (auto) 1.4 %; Hematocrit (blood only) 31.1 % (37-47); Hemoglobin 10.3 g/dL (12.0-16.0); Immature Granulocytes # (auto) 0.06 K/uL (0.00-0.02); Immature Granulocytes % (auto) 0.9 %; Lymphocytes # (auto) 1.48 K/uL (1.2-3.4); Lymphocytes % (auto) 21.4 %; Mean Corpuscular Hgb Conc 33.1 g/dL (32-36); Mean Corpuscular Volume 95.7 fL (80-100); Mean Platelet Volume 8.5 fL (7.4-10.4); Monocytes # (auto) 0.76 K/uL (0.11-0.59); Neutrophils # (auto) 4.51 K/uL (1.4-6.5); Platelet Count 374 K/uL (130-400); RDW Coefficient of Variation 15.8 % (11.5-14.5); RDW Standard Deviation 54.7 fL (36.4-46.3); Red Blood Count 3.25 M/uL (4.2-5.4); White Blood Count 6.93 K/uL (4.8-10.8)
[2019-04-11 06:23] LABS: Albumin Level 2.7 gm/dl (3.4-5.0); BUN Creatinine Ratio 25.2 (10-20); Calcium 8.9 mg/dl (8.5-10.1); Creatinine Clr Calc Pharmacy 44.5 ml/min; Est GFR (African American) 83.7; Est GFR (Non-African American) 72.2
[2019-04-11 06:26] LABS: Albumin Globulin Ratio 0.7 (0.9-2); Bilirubin,Total 0.7 mg/dl (0.2-1); Globulin 3.8 gm/dl (2.5-4.0); Total Protein 6.5 gm/dl (6.4-8.2)
[2019-04-11] MEDS: LACTOBACILLUS ACIDOPHILUS (FLORANEX) TAB PO SCH ×3 (09:13→20:22)
[2019-04-11] MEDS: PANTOprazole 40 MG TAB PO SCH ×2 (09:13→20:23)
[2019-04-11] MEDS: SUCRALFATE 1 GM TAB PO SCH ×4 (09:13→20:22)
[2019-04-11] MEDS: CALCIUM POLYCARBOPHIL 625MG TAB PO SCH ×2 (09:14→20:24)
[2019-04-11] MEDS: BUMETANIDE 1 MG TAB PO SCH (09:14)
[2019-04-11] MEDS: MIRABEGRON ER 25 MG TAB PO SCH (09:14)
[2019-04-11] MEDS: MEMANTINE HCL 5 MG TAB PO SCH ×2 (09:14→20:25)
[2019-04-11] MEDS: RANOLAZINE 500 MG ER TAB PO SCH ×2 (09:14→20:25)
[2019-04-11] MEDS: ASPIRIN 81 MG ECTAB PO SCH (09:14)
[2019-04-11] MEDS: ISOSORBIDE MONO EXTENDED REL 30 MG TABCR PO SCH (09:14)
[2019-04-11] MEDS: HEPARIN SOD 5,000 UNIT/0.5 ML VIAL SQ SCH ×2 (09:15→20:23)
[2019-04-11] MEDS: COLLAGENASE OINT 30 GM TUBE EXT SCH (09:16)
[2019-04-11] MEDS: INSULIN ASPART 100 UNITS/ML 3 ML PEN SC SCH ×4 (09:16→20:21)
[2019-04-11] MEDS: POLYETHYLENE (MIRALAX) 17 GM PACK PO SCH (09:29)
[2019-04-11] MEDS: ACETAMINOPHEN 325 MG TAB PO SCH ×2 (09:30→20:29)
[2019-04-11] MEDS ORDERED: SODIUM CHLORIDE 0.9% 500 ML IV SCH (11:40)
[2019-04-11 12:01] LABS: Appearance Urine Clear (Clear); Bacteria Urine Automated Negative (Negative); Bilirubin Urine Negative (Negative); Blood Urine Trace (Negative); Color Urine Yellow; Glucose Urine UA Negative (Negative); Ketones Urine Negative (Negative); Leukocyte Esterase Urine 1+ (Negative); Nitrite Urine Negative (Negative); Protein Urine Negative (Negative); Specific Gravity Urine 1.013 (1.000-1.030); Urobilinogen Urine Negative (Negative)
--- NOTE | 2019-04-11 12:02 | Hospitalist Progress Note ---
Date of Service April 11, 2019 Assessment & Plan (1) Pressure ulcer of right buttock, stage 4: Patient now has urinary tract infection. Continue current antibiotics for wound culture. Will start antibiotics per sensitivity for urinary tract infection. Patient appears mildly dehydrated because she did not drink lots of fluids and given small bolus of 250 cc of normal saline There is significant improvement in the wound. There remains some slough. Wound will be dressed with Iodosorb and change daily. Once wound bed is vacuum cleaner repair person from [place] could consider standard wound VAC therapy. Patient is planning on follow-up with [place] wound clinic upon discharge. Continue ertapenem for wound infection and biliary sepsis blood cultures remain negative. Upon discharge ID recommended doxycycline and Cipro for 21 days total treat for buttock wound. Infectious diseases will continue following patient in the wound center post DC from the hospital and they will adjust antibiotics based on wound healing. DVT prophylaxis SCD-s and heparin 5000 every 12 hours Full code (2) Severe anemia: Patient received 1 unit of blood and her H&H is stable. Continue monitoring. Anemia of chronic disease. (3) Moderate protein-calorie malnutrition: RD is following patient appreciate their recommendations (4) Hypercholesteremia: Stable, continue atorvastatin 40 mg p.o. every afternoon. (5) Hypertension: Continue isosorbide mononitrate 30 mg p.o. daily, aspirin 81 mg p.o. daily. (6) Diabetes: Stable, Accu-Cheks AC and at bedtime, glycemic control per pharmacy consult (7) Chronic diastolic congestive heart failure: As the above (8) History of cholecystectomy: POD # 12 s/p laparoscopic cholecystectomy for gangrenous gallbladder It was a course of sepsis. Appreciate ID recommendation Dr. Sofia: "Sepsis: will continue Ertapenem, this will treat wound infection as well as provide empiric abx for biliary sepsis, blood cultures remain negative. Upone d/c would suggest Doxy and cipro x 21 days total to treat for buttock wound. Will plan to follow in wound center post d/c from hospital and will further adjust abx based on wound healing. Surgery : Remove MARC drain last night by Dr. Dye Subjective Pt seen and examined at the bedside.Continues to be coherent ,and answers to questions appropriately. H&H stable. Reports no pain.noted dark urine sent for urine analysis and shows urinary tract infection. Sensitivity pending given 250 bolus of normal saline. Will wait for urine cultures result. Patient denies fever chills chest pain shortness of breath abdominal pain frequency urgency hemoptysis hematemesis hematuria dysuria nausea or vomiting. Review of Systems Review of Systems: All systems reviewed & are unremarkable except as noted in HPI & below Physical Exam Constitutional: WD/WN, vitals as above + frail appearing Eyes: PERRL, conjunctivae normal, anicteric sclerae ENMT: external ear and nose normal, oropharynx normal Neck: trachea midline, no thyromegaly Respiratory: normal respiratory effort, lungs clear to auscultation Cardiovascular: RRR, no murmur, no edema Heart Sounds: normal S1, normal S2 and + murmur Palpation: + palpable S3 Chest (Breasts): normal inspection/palpation of breasts Gastrointestinal (Abdomen): normal bowel sounds, soft, nontender, no hepatosplenomegaly Musculoskeletal: no cyanosis or clubbing, extremities motor strength 5/5 Skin: no rashes, warm and dry Neurologic: patellar DTR's 2+ bilat, sensation intact Psychiatric: A+Ox3, euthymic affect Genitourinary: no vaginal lesions, no adnexal mass Lymphatic: no cervical or axillary lymphadenopathy Results & Data Vital Signs (Past 12 Hours) Vital Signs Temp Pulse Resp BP BP Pulse Ox 04/11/19 07:00 36.6 C 69 18 134/69 98 04/11/19 03:47 36.3 C L 69 19 127/65 97 PG Care Time/CCT Total # of Minutes Spent Total Time Spent with Patient: Total time spent is greater than 50% in coordination of care (as documented) at patient's floor/unit and/or counseling patient:
[2019-04-11] MEDS: DONEPEZIL HCL 10 MG TAB PO SCH (16:59)
[2019-04-11] MEDS: ATORVASTATIN 40 MG TAB PO SCH (20:24)
[2019-04-11] MEDS: MONTELUKAST SODIUM 10 MG TABLET PO SCH (20:26)
[2019-04-12] MEDS: RANOLAZINE 500 MG ER TAB PO SCH ×2 (08:25→20:41)
[2019-04-12] MEDS: ISOSORBIDE MONO EXTENDED REL 30 MG TABCR PO SCH (08:25)
[2019-04-12] MEDS: LACTOBACILLUS ACIDOPHILUS (FLORANEX) TAB PO SCH ×3 (08:26→20:38)
[2019-04-12] MEDS: PANTOprazole 40 MG TAB PO SCH ×2 (08:26→20:42)
[2019-04-12] MEDS: MIRABEGRON ER 25 MG TAB PO SCH (08:27)
[2019-04-12] MEDS: SUCRALFATE 1 GM TAB PO SCH ×4 (08:27→20:38)
[2019-04-12] MEDS: ASPIRIN 81 MG ECTAB PO SCH (08:28)
[2019-04-12] MEDS: CALCIUM POLYCARBOPHIL 625MG TAB PO SCH ×2 (08:28→20:40)
[2019-04-12] MEDS: MEMANTINE HCL 5 MG TAB PO SCH ×2 (08:29→20:40)
[2019-04-12] MEDS: POLYETHYLENE (MIRALAX) 17 GM PACK PO SCH (08:30)
[2019-04-12] MEDS: INSULIN ASPART 100 UNITS/ML 3 ML PEN SC SCH ×4 (08:30→21:17)
[2019-04-12] MEDS: HEPARIN SOD 5,000 UNIT/0.5 ML VIAL SQ SCH ×2 (08:30→20:40)
[2019-04-12] MEDS: COLLAGENASE OINT 30 GM TUBE EXT SCH (08:31)
[2019-04-12] MEDS: ACETAMINOPHEN 325 MG TAB PO SCH ×2 (08:36→20:45)
[2019-04-12 08:57] LABS: Basophils # (auto) 0.02 K/uL (0-0.2); Basophils % (auto) 0.3 %; Eosinophils # (auto) 0.06 K/uL (0-0.5); Hematocrit (blood only) 30.4 % (37-47); Hemoglobin 10.2 g/dL (12.0-16.0); Immature Granulocytes # (auto) 0.01 K/uL (0.00-0.02); Immature Granulocytes % (auto) 0.2 %; Lymphocytes # (auto) 1.03 K/uL (1.2-3.4); Lymphocytes % (auto) 17.1 %; Mean Corpuscular Hgb Conc 33.6 g/dL (32-36); Mean Corpuscular Volume 96.2 fL (80-100); Mean Platelet Volume 8.5 fL (7.4-10.4); Neutrophils # (auto) 4.29 K/uL (1.4-6.5); Neutrophils % (auto) 71.4 %; Platelet Count 359 K/uL (130-400); RDW Coefficient of Variation 15.8 % (11.5-14.5); RDW Standard Deviation 54.9 fL (36.4-46.3); Red Blood Count 3.16 M/uL (4.2-5.4); White Blood Count 6.01 K/uL (4.8-10.8)
[2019-04-12 09:33] LABS: Albumin Level 2.7 gm/dl (3.4-5.0); BUN Creatinine Ratio 21.2 (10-20); Calcium 9.2 mg/dl (8.5-10.1); Creatinine Clr Calc Pharmacy 39.4 ml/min; Est GFR (Non-African American) 73.4
[2019-04-12 09:36] LABS: Albumin Globulin Ratio 0.7 (0.9-2); Bilirubin,Total 0.7 mg/dl (0.2-1); Globulin 3.9 gm/dl (2.5-4.0); Total Protein 6.6 gm/dl (6.4-8.2)
[2019-04-12] MEDS: DONEPEZIL HCL 10 MG TAB PO SCH (15:59)
--- NOTE | 2019-04-12 19:49 | Hospitalist Progress Note ---
Date of Service April 12, 2019 Assessment & Plan (1) Pressure ulcer of right buttock, stage 4: Patient now has urinary tract infection cultures are still preliminary and grew yeast. Continue current antibiotics for wound culture. Continue with Ertapenam IV and reassess EKG. patient has prolonged QT interval and if continues to be prolonged fluconazole would not be the best option for yeast infection in urine. There is significant improvement in the wound. There remains some slough. Wound will be dressed with Iodosorb and change daily. Once wound bed is ware cleaner from slough could consider standard wound VAC therapy. Patient is planning on follow-up with [place] [facility] upon discharge. Continue ertapenem for wound infection and biliary sepsis blood cultures remain negative. Upon discharge ID recommended doxycycline and Cipro for 21 days total treat for buttock wound.(Pending EKG for prolonged QT interval) infectious diseases will continue following patient in the wound center post DC from the hospital and they will adjust antibiotics based on wound healing. DVT prophylaxis SCD-s and heparin 5000 every 12 hours Full code (2) Severe anemia: Patient received 1 unit of blood and her H&H is stable. Continue monitoring. Anemia of chronic disease. (3) Moderate protein-calorie malnutrition: RD is following patient appreciate their recommendations (4) Hypercholesteremia: Stable, continue atorvastatin 40 mg p.o. every afternoon. (5) Hypertension: Continue isosorbide mononitrate 30 mg p.o. daily, aspirin 81 mg p.o. daily. (6) Diabetes: Stable, Accu-Cheks AC and at bedtime, glycemic control per pharmacy consult (7) Chronic diastolic congestive heart failure: As the above (8) History of cholecystectomy: POD # 12 s/p laparoscopic cholecystectomy for gangrenous gallbladder It was a course of sepsis. Appreciate ID recommendation Dr. Sofia: "Sepsis: will continue Ertapenem, this will treat wound infection as well as provide empiric abx for biliary sepsis, blood cultures remain negative. Upone d/c would suggest Doxy and cipro x 21 days total to treat for buttock wound. Will plan to follow in wound center post d/c from hospital and will further adjust abx based on wound healing. Surgery : Remove MARC drain last night by Dr. Dye Subjective Pt seen and examined at the bedside.Continues to be coherent ,and answers to questions appropriately. H&H stable. Reports no pain.Urine cultures so far negative except for yeast. Bazzi catheter removed. Patient denies fever chills chest pain shortness of breath abdominal pain frequency urgency hemoptysis hematemesis hematuria dysuria nausea or vomiting. Review of Systems Review of Systems: All systems reviewed & are unremarkable except as noted in HPI & below Physical Exam Constitutional: WD/WN, vitals as above + frail appearing Eyes: PERRL, conjunctivae normal, anicteric sclerae ENMT: external ear and nose normal, oropharynx normal Neck: trachea midline, no thyromegaly Respiratory: normal respiratory effort, lungs clear to auscultation Cardiovascular: RRR, no murmur, no edema Heart Sounds: normal S1, normal S2 and + murmur Palpation: + palpable S3 Chest (Breasts): normal inspection/palpation of breasts Gastrointestinal (Abdomen): normal bowel sounds, soft, nontender, no hepatosplenomegaly Musculoskeletal: no cyanosis or clubbing, extremities motor strength 5/5 Skin: no rashes, warm and dry Neurologic: patellar DTR's 2+ bilat, sensation intact Psychiatric: A+Ox3, euthymic affect Genitourinary: no vaginal lesions, no adnexal mass Lymphatic: no cervical or axillary lymphadenopathy Results & Data Vital Signs (Past 12 Hours) Vital Signs Temp Pulse Pulse Pulse Resp BP BP 04/12/19 19:00 36.7 C 76 18 118/74 04/12/19 15:42 36.5 C 64 20 128/71 04/12/19 15:21 58 L 04/12/19 11:36 36.7 C 64 16 123/74 04/12/19 08:30 51 L Pulse Ox 04/12/19 19:00 95 04/12/19 15:42 96 04/12/19 15:21 04/12/19 11:36 96 04/12/19 08:30 PG Care Time/CCT Total # of Minutes Spent Total Time Spent with Patient: Total time spent is greater than 50% in coordination of care (as documented) at patient's floor/unit and/or counseling patient:
[2019-04-12] MEDS ORDERED: ERTAPENEM SODIUM 1,000 MG in SODIUM CHLORIDE 0.9% 50 ML IV SCH (20:00)
[2019-04-12] MEDS: MONTELUKAST SODIUM 10 MG TABLET PO SCH (20:39)
[2019-04-12] MEDS: ATORVASTATIN 40 MG TAB PO SCH (20:41)
[2019-04-13 06:57] LABS: Basophils # (auto) 0.01 K/uL (0-0.2); Basophils % (auto) 0.2 %; Eosinophils # (auto) 0.09 K/uL (0-0.5); Eosinophils % (auto) 1.9 %; Hematocrit (blood only) 30.9 % (37-47); Hemoglobin 10.2 g/dL (12.0-16.0); Immature Granulocytes # (auto) 0.01 K/uL (0.00-0.02); Immature Granulocytes % (auto) 0.2 %; Lymphocytes # (auto) 1.21 K/uL (1.2-3.4); Lymphocytes % (auto) 25.1 %; Monocytes # (auto) 0.53 K/uL (0.11-0.59); Neutrophils # (auto) 2.98 K/uL (1.4-6.5); Neutrophils % (auto) 61.6 %; Platelet Count 351 K/uL (130-400); RDW Coefficient of Variation 15.8 % (11.5-14.5); RDW Standard Deviation 55.4 fL (36.4-46.3); Red Blood Count 3.22 M/uL (4.2-5.4); White Blood Count 4.83 K/uL (4.8-10.8)
[2019-04-13 07:29] LABS: Albumin Level 2.7 gm/dl (3.4-5.0); BUN Creatinine Ratio 21.2 (10-20); Creatinine Clr Calc Pharmacy 41.6 ml/min; Est GFR (African American) 90.9; Est GFR (Non-African American) 78.5; Potassium 3.8 mmol/L (3.5-5.1)
[2019-04-13 07:32] LABS: Albumin Globulin Ratio 0.7 (0.9-2); Bilirubin,Total 0.7 mg/dl (0.2-1); Globulin 3.9 gm/dl (2.5-4.0); Total Protein 6.6 gm/dl (6.4-8.2)
[2019-04-13] MEDS: LACTOBACILLUS ACIDOPHILUS (FLORANEX) TAB PO SCH ×2 (09:03→14:44)
[2019-04-13] MEDS: PANTOprazole 40 MG TAB PO SCH (09:03)
[2019-04-13] MEDS: SUCRALFATE 1 GM TAB PO SCH ×3 (09:03→16:13)
[2019-04-13] MEDS: ISOSORBIDE MONO EXTENDED REL 30 MG TABCR PO SCH (09:03)
[2019-04-13] MEDS: ASPIRIN 81 MG ECTAB PO SCH (09:04)
[2019-04-13] MEDS: RANOLAZINE 500 MG ER TAB PO SCH (09:04)
[2019-04-13] MEDS: MIRABEGRON ER 25 MG TAB PO SCH (09:04)
[2019-04-13] MEDS: MEMANTINE HCL 5 MG TAB PO SCH (09:05)
[2019-04-13] MEDS: CALCIUM POLYCARBOPHIL 625MG TAB PO SCH (09:05)
[2019-04-13] MEDS: HEPARIN SOD 5,000 UNIT/0.5 ML VIAL SQ SCH (09:05)
[2019-04-13] MEDS: BUMETANIDE 1 MG TAB PO SCH (09:06)
[2019-04-13] MEDS: COLLAGENASE OINT 30 GM TUBE EXT SCH (09:07)
[2019-04-13] MEDS: POLYETHYLENE (MIRALAX) 17 GM PACK PO SCH (09:08)
[2019-04-13] MEDS: INSULIN ASPART 100 UNITS/ML 3 ML PEN SC SCH ×3 (09:08→17:43)
[2019-04-13] MEDS: ACETAMINOPHEN 325 MG TAB PO SCH (09:12)
[2019-04-13] MEDS: DONEPEZIL HCL 10 MG TAB PO SCH (16:13)
--- NOTE | 2019-04-14 09:07 | Discharge Summary ---
Date of Service April 14, 2019 Admission HPI Per Admitting Provider Patient is a 83 years old female with past medical history of congestive heart failure, CKD stage III hypertension, history of stent placement. Back surgery. Diabetes mellitus type 2 who presents to emergency room with complaint of persistent body weakness. Patient in the past had bilateral hip replacement . Patient's left hardware had to be removed due to infection and it is in the process of healing before the hardware is placed back per report of patient's son. This was done approximately 2 months ago. Patient also complains of nausea and vomiting patient has 2 wounds at the right buttock. Patient was followed in the wound clinic which were taking care of the left hip wound status post wound debridement. Patient was on Keflex and at that treatment did not resulted in healing of the wound. The drainage continued to be purulent and green-colored, foul-smelling and wound with the tissue was tender and itchy. Wound cultures were obtained at that time and the left hip the Gram stain and wound culture showed no growth she was seen by PCP today and her blood pressure was 60/40. She was she received total 3 L of 1 of fluid in the emergency room and her blood pressure improved to 137/78. Patient was started on cefepime, Flagyl and vancomycin. And received the first dose labs were reviewed which shows the following: White blood cell count of 24.01, hemoglobin 8.4 hematocrit 25.2 platelets 245, PT 12.6 INR 1.2, sodium 144 potassium 3.3, chloride 115 BUN 45 creatinine 0.99 GFR of 34.4 calcium 8.4 magnesium 1.8, AST 11 ALT 10 alkaline phosphatase 68 troponin 0 0.55., TSH 1.29, lactic acid 1.9. Patient's H&H dropped from 11.0/32.3 in August to 8.4/25.2. It is not clear over reach. Of time H&H dropped and could be recently. It it would be also rate related to the chronic GI bleed. CT scan abdomen pelvis is pending. Discharge Data Allergies Allergy/AdvReac Type Severity Reaction Status Date / Time ampicillin Allergy Intermediate RASH, HIVES Verified 03/29/19 10:11 furosemide Allergy Intermediate SHORTNESS Verified 03/28/19 16:06 OF BREATH,throat itching apixaban Allergy Unknown UNKNOWN Unverified 03/28/19 16:06 cyclobenzaprine Allergy Unknown Unknown rxn Verified 03/28/19 16:06 ibuprofen Allergy Unknown UNKNOWN Verified 03/28/19 16:06 lisinopril Allergy Unknown UNKNOWN Verified 03/28/19 16:06 methylprednisolone Allergy Unknown UNKNOWN Verified 03/28/19 16:06 propoxyphene Allergy Unknown UNKNOWN Verified 03/28/19 16:06 tramadol Allergy Unknown UNKNOWN Verified 03/28/19 16:06 EPIDURAL STEROID INJECTIONS Allergy Unknown . Uncoded 03/28/19 16:06 SOAPCLEAN AdvReac Mild Changing Uncoded 11/08/18 13:03 wipe - itchy rash Consultations 03/28/19 17:29 ED Decision to Admit Stat 03/28/19 22:26 Consult Wound Care Provider Routine 03/28/19 22:32 Consult Orthopedic Surgery Routine 03/28/19 22:33 Consult Infectious Diseases Routine 03/29/19 06:02 Consult General Surgery Routine 03/29/19 07:24 Consult Cardiology Stat Procedures Performed Operation Date: 03/29/19 09:00 Actual Procedures p Laparoscopic Cholecystectomy(Not Applicable) - Huang Moore MD Ordered Studies 03/28/19 17:56 CT abd pelvis oral and IV con Stat Hospital Course (1) Pressure ulcer of right buttock, stage 4: Patient now has urinary tract infection cultures are still preliminary and grew yeast. Continue current antibiotics for wound culture. Continue with Ertapenam IV and reassess EKG. patient has prolonged QT interval and if continues to be prolonged fluconazole would not be the best option for yeast infection in urine. There is significant improvement in the wound. There remains some slough. Wound will be dressed with Iodosorb and change daily. Once wound bed is screen cleaner from slough could consider standard wound VAC therapy. Patient is planning on follow-up with [place] [facility] upon discharge. Continue ertapenem for wound infection and biliary sepsis blood cultures remain negative. Upon discharge ID recommended doxycycline and Cipro for 21 days total treat for buttock wound.(Pending EKG for prolonged QT interval) infectious diseases will continue following patient in the wound center post DC from the hospital and they will adjust antibiotics based on wound healing. DVT prophylaxis SCD-s and heparin 5000 every 12 hours Full code (2) Severe anemia: Patient received 1 unit of blood and her H&H is stable. Continue monitoring. Anemia of chronic disease. (3) Moderate protein-calorie malnutrition: RD is following patient appreciate their recommendations (4) Hypercholesteremia: Stable, continue atorvastatin 40 mg p.o. every afternoon. (5) Hypertension: Continue isosorbide mononitrate 30 mg p.o. daily, aspirin 81 mg p.o. daily. (6) Diabetes: Stable, Accu-Cheks AC and at bedtime, glycemic control per pharmacy co nsult (7) Chronic diastolic congestive heart failure: As the above (8) History of cholecystectomy: POD # 12 s/p laparoscopic cholecystectomy for gangrenous gallbladder It was a course of sepsis. Appreciate ID recommendation Dr. Sofia: "Sepsis: will continue Ertapenem, this will treat wound infection as well as provide empiric abx for biliary sepsis, blood cultures remain negative. Upone d/c would suggest Doxy and cipro x 21 days total to treat for buttock wound. Will plan to follow in wound center post d/c from hospital and will further adjust abx based on wound healing. Surgery : Remove MARC drain last night by Dr. Dye Discharge Plan Discharge Items [facility] Disposition[facility] Reason For Visit: CELLULITIS,NONHEALING WOUND Discharge Diagnosis: Gangrenous cholecystitis (inflammation of gallbladder) Discharge Goals: Decrease discomfort Activity: As commented below Activity Comment: gradually increase activiy as recommended by Rehab Non-emergency contact: Primary Care Provider Call non-emergency contact if: you have any medication questions Follow-up/Referrals: Melva Kamara DO [Primary Care Provider] - Diet: Carb Consistent or DM2 and Low Sodium (2gm) Addtl Provider Instructions: Surgical discharge instructions: - no heavy lifting over 10 pounds for 3-4 weeks - no submerging incisions underwater for 2 weeks - May shower once drain removed. Sponge bath and wash hair in meantime. - Leave steri strips on incisions for 7 days and then remove - Extra strength Tylenol as needed for pain. - Monitor drain output and color and record. Bring to office with you. - Follow-up in surgical office on Thursday04/05/19 for drain removal and follow-up . please call office at [phone] to make an appointment. Followup with wound care: Wound will be dressed with Iodosorb and change daily. Patient is planning on follow-up with [facility] [facility] upon discharge within 1 week. Will continue on antibiotics for an additional 11 days to complete 21 days of treatment. Will defer to wound care clinic if patient needs additional antibiotics. Followup with PCP in 1-2 weeks. Prescriptions: New ciprofloxacin HCl [Cipro] 500 mg tablet 500 mg PO BID Qty: 22 RF: 0 Continued omega-3 fatty acids See Patient Comments PO DAILY RF: 0 docusate sodium 100 mg capsule 100 mg PO BID Qty: 60 RF: 0 calcium carbonate-vit D3-min 600 mg calcium- 400 unit tablet 1 tab PO DAILY RF: 0 atorvastatin [Lipitor] 40 mg tablet 40 mg PO QPM RF: 0 acetaminophen [Tylenol] 325 mg Tablet 650 mg PO Q4 PRN (Reason: MILD PAIN 1-4/FEVER>100) RF: 0 polyethylene glycol 3350 [Miralax] 17 gram Powder In Packet 17 g PO DAILY RF: 0 promethazine [Phenergan] 25 mg Suppository 25 mg OR Q6H PRN (Reason: Nausea) RF: 0 donepezil [Aricept] 10 mg tablet 10 mg PO DAILY RF: 0 sucralfate [Carafate] 1 gram tablet 1 g PO QID RF: 0 ondansetron HCl 4 mg Tablet 4 mg PO Q6 PRN (Reason: NAUSEA/VOMITING) RF: 0 isosorbide mononitrate 30 mg tablet extended release 24 hr 30 mg PO DAILY RF: 0 aspirin [Aspir-Low] 81 mg Tablet,Delayed Release (Dr/Ec) 81 mg PO DAILY RF: 0 tramadol 50 mg Tablet 50 mg PO Q6H PRN (Reason: pain 4-10) RF: 0 magnesium hydroxide [Milk of Magnesia] 400 mg/5 mL Suspension 30 ml PO UD PRN (Reason: NO BM 3 DAYS) RF: 0 ranitidine HCl [Zantac] 150 mg tablet 150 mg PO BID RF: 0 calcium polycarbophil [FiberCon] 625 mg Tablet 650 mg PO BID RF: 0 nitroglycerin [Nitrostat] 0.4 mg Tablet, Sublingual 0.4 mg sublingual UD PRN (Reason: Chest Pain) RF: 0 omeprazole 20 mg capsule,delayed release(DR/EC) 20 mg PO BID RF: 0 bumetanide 1 mg tablet 1 mg PO 3XWK RF: 0 montelukast [Singulair] 10 mg Tablet 10 mg PO PM RF: 0 Santyl 250 unit/gram ointment 1 applic topical .DAILY & PRN RF: 0 memantine [Namenda] 5 mg tablet 5 mg PO BID RF: 0 ranolazine [Ranexa] 1,000 mg tablet extended release 12 hr 1,000 mg PO AMHS RF: 0 Myrbetriq 50 mg tablet extended release 24 hr 50 mg PO DAILY RF: 0 ArgiMent AT 10 gram-7 gram/42.75 gram Powder In Packet PO BID RF: 0 doxycycline hyclate 100 mg tablet 100 mg PO AMHS Qty: 22 RF: 0 Discontinued losartan 25 mg tablet 25 mg PO DAILY RF: 0 bumetanide 2 mg tablet 2 mg PO DAILY PRNQty: 30 RF: 0 acetaminophen [Tylenol] 325 mg Tablet 650 mg PO BID RF: 0 Stand-Alone Forms: [facility] Discharge Orders: Discharge Order (Routine); Ordered 04/13/19 Ordered By: Gerry Inman Skilled Items Patient informed of condition?: Yes DNR: No Discharge Level of Care: Skilled Communicable Disease: No Discharge Prognosis: Improving Admission Data Admit Date/Time: 03/28/19 20:34 Attending Provider: Gerry Inman Admit Provider: Hailey Becerril Primary Care Provider: Melva Kamara Other Providers: Hailey Becerril ; Magaly Riggs ; Mark Harris ; Georgie Sofia ; Huang Moore ; Vimal Knox ; Musa Nieves ; Drew Springer ; Shai Ambrocio ; SantiOlvin jose ; Cristobal Araujo ; Lien Bowen ; Nishi Solis Service: Telemetry Medical Other Interventions: Discharge Summary Assessment (RN) Last Done: 04/13/19 17:28 DC Date/Time DO NOT enter until pt leaves facility: 04/13/19 18:00
== END 2019-04-13 18:00 | DRG 853 ==
LOC: ED 14:24 → SUATTDRO 20:34 → 2S 20:34 → 2N 04-02 13:44
DX: I50.32 Chronic diastolic (congestive) heart failure; M81.0 Age-related osteoporosis without current pathological fracture; L03.317 Cellulitis of buttock; E44.0 Moderate protein-calorie malnutrition; A41.9 Sepsis, unspecified organism; F03.90 Unspecified dementia, unspecified severity, without behavioral disturbance, psychotic disturbance, mood disturbance, and anxiety; E11.22 Type 2 diabetes mellitus with diabetic chronic kidney disease; Z88.1 Allergy status to other antibiotic agents; N39.41 Urge incontinence; K80.00 Calculus of gallbladder with acute cholecystitis without obstruction; Z95.5 Presence of coronary angioplasty implant and graft; Z96.641 Presence of right artificial hip joint; K65.1 Peritoneal abscess; N18.3 Chronic kidney disease, stage 3 (moderate); L89.314 Pressure ulcer of right buttock, stage 4; I25.10 Atherosclerotic heart disease of native coronary artery without angina pectoris; D64.9 Anemia, unspecified; I13.0 Hypertensive heart and chronic kidney disease with heart failure and stage 1 through stage 4 chronic kidney disease, or unspecified chronic kidney disease; I48.0 Paroxysmal atrial fibrillation; Z96.642 Presence of left artificial hip joint; E78.00 Pure hypercholesterolemia, unspecified; E86.0 Dehydration

== ENCOUNTER 2022-01-06 15:24 | Inpatient (IN) ==
[2022-01-06 16:17] LABS: Basophils # (auto) 0.02 K/uL (0-0.2); Basophils % (auto) 0.2 %; Eosinophils # (auto) 0.12 K/uL (0-0.5); Eosinophils % (auto) 1.4 %; Hematocrit (blood only) 35.4 % (37-47); Immature Granulocytes # (auto) 0.09 K/uL (0.00-0.02); Immature Granulocytes % (auto) 1.1 %; Lymphocytes # (auto) 1.44 K/uL (1.2-3.4); Lymphocytes % (auto) 17.1 %; Mean Corpuscular Hemoglobin 32.4 pg (25-34); Mean Corpuscular Hgb Conc 33.9 g/dL (32-36); Mean Corpuscular Volume 95.7 fL (80-100); Mean Platelet Volume 9.4 fL (7.4-10.4); Monocytes # (auto) 0.67 K/uL (0.11-0.59); Neutrophils # (auto) 6.06 K/uL (1.4-6.5); Neutrophils % (auto) 72.2 %; Platelet Count 243 K/uL (130-400); RDW Coefficient of Variation 16.4 % (11.5-14.5); RDW Standard Deviation 56.8 fL (36.4-46.3)
[2022-01-06] MEDS ORDERED: cefTRIAXone SODIUM 2,000 MG/70 ML BAG IV STA (17:43)
[2022-01-06] MEDS ORDERED: SODIUM CHLORIDE 0.9% 1000ML 1,000 ML IV ONE (17:44)
--- NOTE | 2022-01-06 17:56 | Emergency Department Note ---
Impression & Plan Acute confusion, Weakness, Sacral ulcer, Failure of outpatient treatment ED Provider Note NAME: RAGHU KOTHARI AGE: 86 SEX: F : 1935 ARRIVES VIA: Walk-In INFORMANT: [Patient][son] ED PROVIDER(S): [Bronson Pettit MD] CHIEF COMPLAINT: Wound HISTORY OF PRESENT ILLNESS: The patient is an 86-year-old female presents to the ER with a wound on her left sacral region. This has been present for 3 weeks and keeps getting larger. She was referred here today as care at home is not working. She has some home health coming into the house. The patient is currently on Bactrim for the wound. She started this on the , a week ago. The patient lives with her son. The son states that he has noticed some confusion for about a week and no appetite for about 4 days. He is concerned for dehydration. The patient does not ambulate. She has not been able to walk for a few years. They did attempt to reduce the pressure on the left buttock but now, she is developing some skin breakdown on the right side as well. The patient denies any shortness of breath or fever. She has not had diarrhea or urinary complaints. No abdominal pain. REVIEW OF SYSTEMS: See HPI for pertinent positives and negatives. A total of ten systems were re viewed and were otherwise negative. PMHx/PSHx: See Below SOCIAL HISTORY: See Below. PHYSICAL EXAM: GENERAL: Patient is in no acute distress. HEENT: No acute trauma, normocephalic atraumatic, mucous membranes moist, no nasal congestion, no scleral icterus. NECK: No stridor, no adenopathy, no meningismus, trachea is midline. LUNGS: Clear to auscultation bilaterally, no wheeze, no rhonchi, breath sounds equal. HEART: 2/6 systolic murmur, slightly irregular rhythm, normal rate. ABDOMEN: Soft, nontender, bowel sounds positive, no hernias, no peritonitis. EXTREMITIES: No cyanosis or edema, full range of motion of all the joints without pain or difficulty, no signs for acute trauma. NEUROLOGIC: Oriented x 3, no speech slur. SKIN: No rash, no jaundice, no diaphoresis. Buttock: There is a 6 to 8 cm several millimeter deep ulcer to the left buttock/sacral area. There is some surrounding erythema. There is some drainage on the dressing. DIFFERENTIAL DIAGNOSIS: Osteomyelitis, ulcer, cellulitis, failed outpatient treatment, abscess, dehydration, electrolyte imbalance, anemia, UTI, among others. EMERGENCY DEPARTMENT COURSE/PROCEDURES: MEDICAL DECISION MAKING: There is no leukocytosis or concerning anemia. There is a normal platelet count. Sodium was slightly low but not in need of emergent correction. No renal failure. No lactic acid elevation making severe sepsis less likely. No worrisome liver enzyme elevation. The patient appeared to be in a euthyroid state. Urinalysis did not show infection. COVID test returned negative. Abdominal and pelvis CT shows a very deep sacral ulcer. The ulcer extends to the bone but there was no osteomyelitis or abscess. On exam, the patient was resting, she appeared weak but was not toxic. Patient received IV saline for hydration. She received IV ceftriaxone as antibiotic coverage. I think the patient deserves a hospital stay. She is confused and weak and has no appetite. Her ulcer has enlarged to the point where it is now up against the bone. She has failed outpatient therapy. She is being seen by home health and is on Bactrim. I did speak with the patient and case management. The on-call hospitalist has been consulted. Past Med/Surg History Medical History Acute cholecystitis Acute kidney injury Anemia Arteriosclerosis of coronary artery Arthritis Carotid artery disease Carotid artery occlusion CHF (congestive heart failure) Chronic diastolic congestive heart failure Chronic kidney disease Chronic kidney disease (CKD), stage III (moderate) Coronary artery disease Dementia Diabetes DVT (deep venous thrombosis) Gastrointestinal hemorrhage H/O: GI bleed Hypercholesteremia Hypertension Osteoporosis PAD (peripheral artery disease) Paroxysmal atrial fibrillation Shingles Urge incontinence of urine Vitamin D deficiency Surgical History H/O heart artery stent History of cholecystectomy Previous back surgery S/P hip replacement S/P hip replacement S/P lumbar spinal fusion Family History Sister Colorectal cancer Denies family history of Ovarian cancer Prostate cancer Myocardial infarction Breast cancer Social History Smoking Status: Never smoker Second Hand Exposure: No; Hx Alcohol Use: No Hx Substance Use: No Preferred Language: [place] Communication Ability: dementia Visual Impairment: No Limitations Hearing Ability: Hard of Hearing Psych Sales Specialist Required: No Beliefs That Will Affect Care: None marital status: Current Living Situation: Family and Retirement Current Living Situation Comment: son current occupational status: retired Feels Safe at Home: Yes Childhood Exposure to Second-Hand Smoke: No caffeine: Yes during the past year weight has: remained stable Dental Care, Regularly: No Physical Activity Frequency: Other Seatbelt Use: always Sunscreen Use: No Assistive Devices: Glasses Allergies Allergies Allergy/AdvReac Type Severity Reaction Status Date / Time ampicillin Allergy Intermediate RASH, HIVES Verified 01/06/22 18:22 furosemide Allergy Intermediate SHORTNESS Verified 01/06/22 18:22 OF BREATH,throat itching apixaban Allergy Unknown UNKNOWN Verified 01/06/22 18:22 cyclobenzaprine Allergy Unknown Unknown rxn Verified 01/06/22 18:22 ibuprofen Allergy Unknown UNKNOWN Verified 01/06/22 18:22 lisinopril Allergy Unknown UNKNOWN Verified 01/06/22 18:22 methylprednisolone Allergy Unknown UNKNOWN Verified 01/06/22 18:22 propoxyphene Allergy Unknown UNKNOWN Verified 01/06/22 18:22 tramadol Allergy Unknown UNKNOWN Verified 01/06/22 18:22 EPIDURAL STEROID INJECTIONS Allergy Unknown Unknown Uncoded 01/06/22 18:22 SOAPCLEAN AdvReac Mild Changing Uncoded 01/06/22 18:22 wipe - itchy rash Home Meds Home Medications Medication Instructions Recorded Confirmed acetaminophen 325 mg tablet 650 mg PO Q4 PRN 03/28/19 01/06/22 (Tylenol) calcium carb-vit D3-minerals 600 1 tab PO DAILY 04/11/19 01/06/22 mg calcium-400 unit tablet multivitamin (Daily Multi-Vitamin) 1 tab PO DAILY 12/20/20 01/06/22 omega-3 fatty acids-fish oil 360 1 cap PO DAILY 06/24/21 01/06/22 mg-1,200 mg capsule (Fish Oil) polyethylene glycol 3350 17 17 g PO DAILY 06/24/21 01/06/22 gram/dose oral powder (Miralax) docusate sodium 100 mg capsule 100 mg PO BID 01/06/22 01/06/22 (Colace) donepezil 10 mg tablet (Aricept) 10 mg PO QDD 01/06/22 01/06/22 esomeprazole magnesium 40 mg 40 mg PO DAILY 01/06/22 01/06/22 capsule,delayed release (Nexium) hydralazine 50 mg tablet 50 mg PO BID 01/06/22 01/06/22 losartan 100 mg tablet 100 mg PO DAILY 01/06/22 01/06/22 menthol 0.44 %-zinc oxide 20.6 % 1 applic TOPICAL BID PRN 01/06/22 01/06/22 topical ointment (Calmoseptine) nitroglycerin 0.4 mg sublingual 0.4 mg SUBLINGUAL DIRECTED PRN 01/06/22 01/06/22 tablet (Nitrostat) Previous Rx's Medication Instructions Recorded aspirin 81 mg tablet,delayed 81 mg PO DAILY #90 tab 05/23/20 release bumetanide 0.5 mg tablet 0.5 mg PO .COMPLEX #36 tab 06/24/21 atorvastatin 40 mg tablet (Lipitor) 40 mg PO QPM #90 tab 11/22/21 isosorbide mononitrate 30 mg 30 mg PO DAILY #90 tab 11/22/21 tablet,extended release 24 hr memantine 5 mg tablet (Namenda) 5 mg PO BID #180 tab 11/22/21 mirabegron 50 mg tablet,extended 50 mg PO DAILY #90 tab 11/22/21 release 24 hr (Myrbetriq) montelukast 10 mg tablet 10 mg PO PM #90 tab 11/22/21 (Singulair) ranolazine 1,000 mg 1,000 mg PO BID #180 tab 11/22/21 tablet,extended release,12 hr (Ranexa) albuterol sulfate 90 mcg/actuation See Rx Instructions INHALATION 12/30/21 aerosol inhaler (Ventolin HFA) .COMPLEX PRN #18 g sulfamethoxazole 800 1 tab PO BID 10 Days #20 tab 12/30/21 mg-trimethoprim 160 mg tablet (Bactrim DS) Results & Data (ED) Vital Signs Vital Signs - 24 hr 01/06/22 15:29 01/06/22 17:24 01/06/22 19:45 Temperature 36.7 C Temperature Source Temporal Artery Scan Pulse Rate 86 62 Pulse Rate [Apical] 58 L Pulse Rhythm Regular Pulse Strength Normal Respiratory Rate 20 18 14 Respiratory Effort / Characteristics Non-Labored Spontaneous Respiratory Depth Normal Respiratory Pattern Regular Blood Pressure 145/62 H 144/79 H Blood Pressure [Left Arm] 104/59 L Blood Pressure Mean 89 100 Blood Pressure Mean [Left Arm] 74 Blood Pressure Position Sitting Pulse Oximetry 98 98 97 Oxygen Delivery Method Room Air Room Air Room Air Sepsis Recent Fever Within 48 Hours No Sepsis New/Unexplained Change in Mental Status N/A Sepsis Action Taken by Nursing No Action Required 01/06/22 19:50 01/06/22 20:00 01/06/22 21:10 Temperature Temperature Source Pulse Rate 62 65 60 Pulse Rate [Apical] Pulse Rhythm Regular Pulse Strength Respiratory Rate 15 19 21 Respiratory Effort / Characteristics Respiratory Depth Respiratory Pattern Blood Pressure Blood Pressure [Left Arm] Blood Pressure Mean Blood Pressure Mean [Left Arm] Blood Pressure Position Pulse Oximetry 98 96 Oxygen Delivery Method Room Air Room Air Sepsis Recent Fever Within 48 Hours Sepsis New/Unexplained Change in Mental Status Sepsis Action Taken by Retirement Medications Current Medication List: was personally reviewed by me Laboratory Data Attestation: I reviewed the patient's lab results. Result diagrams: 01/06/22 15:55 01/06/22 18:36 Lab Results 01/06/22 01/06/22 01/06/22 Range/Units 15:55 15:55 18:00 WBC 8.40 (4.8-10.8) K/uL RBC 3.70 L (4.2-5.4) M/uL Hgb 12.0 (12.0-16.0) g/dL Hct 35.4 L (37-47) % MCV 95.7 (80-100) fL MCH 32.4 (25-34) pg MCHC 33.9 (32-36) g/dL RDW Std Deviation 56.8 H (36.4-46.3) fL RDW Coeff of Claudine 16.4 H (11.5-14.5) % Plt Count 243 (130-400) K/uL MPV 9.4 (7.4-10.4) fL Immature Gran % (Auto) 1.1 % Neut % (Auto) 72.2 % Lymph % (Auto) 17.1 % Fisher % (Auto) 8.0 % Eos % (Auto) 1.4 % Baso % (Auto) 0.2 % Neut # (Auto) 6.06 (1.4-6.5) K/uL Lymph # (Auto) 1.44 (1.2-3.4) K/uL Fisher # (Auto) 0.67 H (0.11-0.59) K/uL Eos # (Auto) 0.12 (0-0.5) K/uL Baso # (Auto) 0.02 (0-0.2) K/uL Immature Gran # (Auto) 0.09 H (0.00-0.02) K/uL Sodium 133 L (136-145) mmol/L Potassium TNP Chloride 102 (98-107) mmol/L Carbon Dioxide 21 (21-32) mmol/L Anion Gap 10 (3-11) BUN 18 (6-23) mg/dl Creatinine 1.13 (0.6-1.2) mg/dl Est Cr Clr Drug Dosing Not Reportable Est GFR ( Amer) 50.3 ml/min Est GFR (Non-Af Amer) 43.4 ml/min BUN/Creatinine Ratio 15.9 (10-20) Glucose 104 H (70-99(Fasting)) mg/dl Lactate (0.4-2.0) mmol/L Calcium 9.4 (8.5-10.1) mg/dl Magnesium (1.7-2.4) mg/dl Total Bilirubin 0.9 (0.2-1.0) mg/dl AST TNP ALT 25 (7-52) U/L Alkaline Phosphatase 69 (34-104) U/L Total Protein 8.0 (6.0-8.3) gm/dl Albumin 3.6 (3.4-5.0) gm/dl Globulin 4.4 H (2.5-4.0) gm/dl Albumin/Globulin Ratio 0.8 L (0.9-2) TSH (0.300-4.500) uIu/ml Urine Color Urine Appearance (Clear) Urine pH (4.5-7.5) Ur Specific [place] (1.000-1.030) Urine Protein (Negative) Urine Glucose (UA) (Negative) Urine Ketones (Negative) Urine Blood (Negative) Urine Nitrite (Negative) Urine Bilirubin (Negative) Urine Urobilinogen (Negative) Ur Leukocyte Esterase (Negative) Urine WBC (Auto) (0-5) /hpf Urine RBC (Auto) (0-4) /hpf U Hyaline Cast (Auto) (0-5) /lpf U Epithel Cells (Auto) (0-5) /lpf Urine Bacteria (Auto) (Negative) SARS-CoV-2, RNA, NAAT Cancelled 01/06/22 01/06/22 01/06/22 Range/Units 18:00 18:36 18:36 WBC (4.8-10.8) K/uL RBC (4.2-5.4) M/uL Hgb (12.0-16.0) g/dL Hct (37-47) % MCV (80-100) fL MCH (25-34) pg MCHC (32-36) g/dL RDW Std Deviation (36.4-46.3) fL RDW Coeff of Claudine (11.5-14.5) % Plt Count (130-400) K/uL MPV (7.4-10.4) fL Immature Gran % (Auto) % Neut % (Auto) % Lymph % (Auto) % Fisher % (Auto) % Eos % (Auto) % Baso % (Auto) % Neut # (Auto) (1.4-6.5) K/uL Lymph # (Auto) (1.2-3.4) K/uL Fisher # (Auto) (0.11-0.59) K/uL Eos # (Auto) (0-0.5) K/uL Baso # (Auto) (0-0.2) K/uL Immature Gran # (Auto) (0.00-0.02) K/uL Sodium (136-145) mmol/L Potassium 3.9 Chloride (98-107) mmol/L Carbon Dioxide (21-32) mmol/L Anion Gap (3-11) BUN (6-23) mg/dl Creatinine (0.6-1.2) mg/dl Est Cr Clr Drug Dosing Est GFR ( Amer) ml/min Est GFR (Non-Af Amer) ml/min BUN/Creatinine Ratio (10-20) Glucose (70-99(Fasting)) mg/dl Lactate (0.4-2.0) mmol/L Calcium (8.5-10.1) mg/dl Magnesium 1.7 (1.7-2.4) mg/dl Total Bilirubin (0.2-1.0) mg/dl AST 41 H ALT (7-52) U/L Alkaline Phosphatase (34-104) U/L Total Protein (6.0-8.3) gm/dl Albumin (3.4-5.0) gm/dl Globulin (2.5-4.0) gm/dl Albumin/Globulin Ratio (0.9-2) TSH (0.300-4.500) uIu/ml Urine Color Dark Yellow Urine Appearance Clear (Clear) Urine pH 5.5 (4.5-7.5) Ur Specific [place] 1.015 (1.000-1.030) Urine Protein Trace H (Negative) Urine Glucose (UA) Negative (Negative) Urine Ketones Trace H (Negative) Urine Blood Negative (Negative) Urine Nitrite Negative (Negative) Urine Bilirubin Negative (Negative) Urine Urobilinogen Negative (Negative) Ur Leukocyte Esterase Trace H (Negative) Urine WBC (Auto) 1-5 (0-5) /hpf Urine RBC (Auto) 0-4 (0-4) /hpf U Hyaline Cast (Auto) 1-5 (0-5) /lpf U Epithel Cells (Auto) 0-5 (0-5) /lpf Urine Bacteria (Auto) Negative (Negative) SARS-CoV-2, RNA, NAAT 01/06/22 01/06/22 01/06/22 Range/Units 18:36 18:36 Unknown WBC (4.8-10.8) K/uL RBC (4.2-5.4) M/uL Hgb (12.0-16.0) g/dL Hct (37-47) % MCV (80-100) fL MCH (25-34) pg MCHC (32-36) g/dL RDW Std Deviation (36.4-46.3) fL RDW Coeff of Claudine (11.5-14.5) % Plt Count (130-400) K/uL MPV (7.4-10.4) fL Immature Gran % (Auto) % Neut % (Auto) % Lymph % (Auto) % Fisher % (Auto) % Eos % (Auto) % Baso % (Auto) % Neut # (Auto) (1.4-6.5) K/uL Lymph # (Auto) (1.2-3.4) K/uL Fisher # (Auto) (0.11-0.59) K/uL Eos # (Auto) (0-0.5) K/uL Baso # (Auto) (0-0.2) K/uL Immature Gran # (Auto) (0.00-0.02) K/uL Sodium (136-145) mmol/L Potassium Chloride (98-107) mmol/L Carbon Dioxide (21-32) mmol/L Anion Gap (3-11) BUN (6-23) mg/dl Creatinine (0.6-1.2) mg/dl Est Cr Clr Drug Dosing Est GFR ( Amer) ml/min Est GFR (Non-Af Amer) ml/min BUN/Creatinine Ratio (10-20) Glucose (70-99(Fasting)) mg/dl Lactate 1.0 (0.4-2.0) mmol/L Calcium (8.5-10.1) mg/dl Magnesium (1.7-2.4) mg/dl Total Bilirubin (0.2-1.0) mg/dl AST ALT (7-52) U/L Alkaline Phosphatase (34-104) U/L Total Protein (6.0-8.3) gm/dl Albumin (3.4-5.0) gm/dl Globulin (2.5-4.0) gm/dl Albumin/Globulin Ratio (0.9-2) TSH 1.583 (0.300-4.500) uIu/ml Urine Color Urine Appearance (Clear) Urine pH (4.5-7.5) Ur Specific [place] (1.000-1.030) Urine Protein (Negative) Urine Glucose (UA) (Negative) Urine Ketones (Negative) Urine Blood (Negative) Urine Nitrite (Negative) Urine Bilirubin (Negative) Urine Urobilinogen (Negative) Ur Leukocyte Esterase (Negative) Urine WBC (Auto) (0-5) /hpf Urine RBC (Auto) (0-4) /hpf U Hyaline Cast (Auto) (0-5) /lpf U Epithel Cells (Auto) (0-5) /lpf Urine Bacteria (Auto) (Negative) SARS-CoV-2, RNA, NAAT NEGATIVE Administered Medications Discontinued Medications Ceftriaxone Sodium (Rocephin) 2,000 mg in 70 mls @ 140 mls/hr IV NOW STA Stop: 05/23/22 18:12 Last Infusion: 01/06/22 20:18 Dose: 0 mls/hr Documented by: [id number] Admin: 01/06/22 19:43 Dose: 140 mls/hr Documented by: [id number] Sodium Chloride (Nss 1000ml) 1,000 mls @ 999 mls/hr IV .Q1H1M ONE Stop: 01/06/22 18:44 Last Infusion: 01/06/22 19:07 Dose: 0 mls/hr Documented by: [id number] Admin: 01/06/22 18:04 Dose: 999 mls/hr Documented by: [id number] Ioversol (Optiray 320 100ml) 94 ml IV ONCE ONE Stop: 01/06/22 19:05 Last Admin: 01/06/22 19:04 Dose: 94 ml Documented by: [id number] Imaging Data Radiologist's Impression: Abdomen/Pelvis CT 01/06/22 17:42 CT OF THE ABDOMEN AND PELVIS WITH CONTRAST CLINICAL HISTORY: Large sacral wound. COMPARISON STUDY: CT of the abdomen and pelvis March 28, 2019. TECHNIQUE: Following IV administration of 94 mL of Optiray, axial images of the abdomen and pelvis were obtained from the lung bases to the proximal femurs. Images were reviewed in the axial, sagittal, and coronal planes. IV contrast was administered without complication. Automated exposure control was utilized for the study. A dose lowering technique was utilized adhering to the principles of ALARA. CT DOSE: 479.32 mGy.cm FINDINGS: A small left pleural effusion is noted within visualized portions of the chest. There is a trace right pleural effusion. Cardiomegaly is noted. No pneumatosis, free air or portal venous gas is present. There is no biliary ductal dilatation status post cholecystectomy. No hepatic lesions are present. Mild nodularity of both adrenal glands is unchanged since CT of March 28, 2019. Spleen and pancreas are unremarkable. There is no peripancreatic infiltration. There is moderate bilateral renal cortical thinning. A few subcentimeter renal lesions are too small to characterize but favor cysts. There is no evidence for a bowel obstruction. Large amount stool within the rectum is present. Colonic diverticulosis is noted without evidence for acute diverticulitis. Postoperative findings within the lumbar spine are present, suboptimally assessed by CT. Left hip arthroplasty has been removed since CT of March 28, 2019. There is chronic deformity of the left hip with loss of the femoral head. Right hip osteoarthritis is noted. Note is made of a deep ulcer of the upper left buttock. Gas/packing material within the wound is noted. The ulcer measures 4.2 x 3.1 cm and extends to the underlying medial left iliac bone. No bony destruction is identified. No drainable fluid collection is present. There is an ulcer, likely old, of the upper right thigh. There is also a probable ulcer of the inferior left buttock which may be chronic. This extends to the underlying ischial tubero sity. No clear bony destruction is present. Soft tissue thickening overlying the sacrum is noted. No bony destruction of the sacrum is identified. There is no evidence for acute osteomyelitis within the pelvis. No drainable fluid collection is present. IMPRESSION: 1. Deep ulcer of the upper left buttock. This extends to the underlying medial left iliac bone. No CT evidence for acute osteomyelitis. No drainable fluid collection. Additional sacral/bilateral decubitus ulcers, as described above. No evidence for acute osteomyelitis. No drainable fluid collections. 2. Large amount of stool within the rectum. No evidence for a bowel obstruction. Colonic diverticulosis without evidence for acute diverticulitis. 3. Small left and trace right pleural effusions. 4. Chronic deformity of the left hip with removal of the left hip arthroplasty since prior CT. ACT 112: Negative or not required by law. Electronically signed by: Terell Burk M.D. 01/06/2022 7:26 PM Discharge Plan Visit Data Chief Complaint: Wound Stated Complaint: PRESSURE WOUND ON LEFT, NAUSEA, DIZZINESS Discharge Problem: Acute confusion, Weakness, Sacral ulcer, Failure of outpatient treatment Patient Disposition: Admitted As Inpatient Condition: Fair Forms Stand Alone Forms: My [facility] Prescriptions Prescriptions: No Action calcium carbonate-vit D3-min 600 mg calcium- 400 unit tablet 1 tab PO DAILY RF: 0 aspirin 81 mg tablet,delayed release (DR/EC) 81 mg PO DAILY Qty: 90 RF: 1 Myrbetriq 50 mg tablet extended release 24 hr 50 mg PO DAILY Qty: 90 RF: 1 isosorbide mononitrate 30 mg tablet extended release 24 hr 30 mg PO DAILY Qty: 90 RF: 1 memantine [Namenda] 5 mg tablet 5 mg PO BID Qty: 180 RF: 1 ranolazine [Ranexa] 1,000 mg tablet extended release 12 hr 1,000 mg PO BID Qty: 180 RF: 1 montelukast [Singulair] 10 mg tablet 10 mg PO PM Qty: 90 RF: 1 atorvastatin [Lipitor] 40 mg tablet 40 mg PO QPM Qty: 90 RF: 1 albuterol sulfate [Ventolin HFA] 90 mcg/actuation HFA aerosol inhaler See Rx Instructions inhalation .COMPLEX PRN (Reason: shortness of breath or wheezing) Qty: 18 RF: 0 sulfamethoxazole-trimethoprim [Bactrim DS] 800-160 mg tablet 1 tab PO BID 10 Days Qty: 20 RF: 0 omega-3 fatty acids-fish oil [Fish Oil] 360-1,200 mg capsule 1 cap PO DAILY RF: 0 polyethylene glycol 3350 [Miralax] 17 gram/dose powder 17 g PO DAILY RF: 0 bumetanide 0.5 mg tablet 0.5 mg PO .COMPLEX Qty: 36 RF: 3 multivitamin [Daily Multi-Vitamin] Tablet 1 tab PO DAILY RF: 0 acetaminophen [Tylenol] 325 mg Tablet 650 mg PO Q4 PRN (Reason: MILD PAIN 1-4/FEVER>100) RF: 0 esomeprazole magnesium [Nexium] 40 mg Capsule,Delayed Release(Dr/Ec) 40 mg PO DAILY RF: 0 nitroglycerin [Nitrostat] 0.4 mg Tablet, Sublingual 0.4 mg sublingual DIRECTED PRN (Reason: Chest Pain) RF: 0 docusate sodium [Colace] 100 mg Capsule 100 mg PO BID RF: 0 hydralazine 50 mg Tablet 50 mg PO BID RF: 0 losartan 100 mg Tablet 100 mg PO DAILY RF: 0 menthol-zinc oxide [Calmoseptine] 0.44-20.6 % ointment 1 applic TOPICAL BID PRN (Reason: Skin Irritation) RF: 0 donepezil [Aricept] 10 mg tablet 10 mg PO QDD RF: 0 Referrals Referrals: Melva Kamara DO [Primary Care Provider] -
[2022-01-06 18:18] LABS: Alanine Aminotransferase 25 U/L (7-52); Albumin Globulin Ratio 0.8 (0.9-2); Albumin Level 3.6 gm/dl (3.4-5.0); Alkaline Phosphatase 69 U/L (34-104); Anion Gap 10 (3-11); BUN Creatinine Ratio 15.9 (10-20); Bilirubin,Total 0.9 mg/dl (0.2-1.0); Blood Urea Nitrogen 18 mg/dl (6-23); Calcium 9.4 mg/dl (8.5-10.1); Carbon Dioxide 21 mmol/L (21-32); Chloride 102 mmol/L (98-107); Est GFR (African American) 50.3 ml/min; Est GFR (Non-African American) 43.4 ml/min; Globulin 4.4 gm/dl (2.5-4.0); Glucose 104 mg/dl (70-99(Fasting)); Sodium 133 mmol/L (136-145)
[2022-01-06] MEDS ORDERED: OPTIRAY 320 100ml IV ONE (19:04)
[2022-01-06 19:27] LABS: Potassium 3.9 mmol/L (3.5-5.1)
--- NOTE | 2022-01-06 19:29 | CT Scan Report ---
CT OF THE ABDOMEN AND PELVIS WITH CONTRAST CLINICAL HISTORY: Large sacral wound. COMPARISON STUDY: CT of the abdomen and pelvis March 28, 2019. TECHNIQUE: Following IV administration of 94 mL of Optiray, axial images of the abdomen and pelvis we re obtained from the lung bases to the proximal femurs. Images were reviewed in the axial, sagittal, and coronal planes. IV contrast was administered without complication. Automated exposure control wa s utilized for the study. A dose lowering technique was utilized adhering to the principles of ALARA . CT DOSE: 479.32 mGy.cm FINDINGS: A small left pleural effusion is noted within visualized portions of the chest. There is a trace right pleural effusion. Cardiomegaly is noted. No pneumatosis, free air or portal venous gas is present. There is no biliary ductal dilatation status post cholecystectomy. No hepatic lesions are p resent. Mild nodularity of both adrenal glands is unchanged since CT of March 28, 2019. Spleen and p ancreas are unremarkable. There is no peripancreatic infiltration. There is moderate bilateral renal cortical thinning. A few subcentimeter renal lesions are too small to characterize but favor cysts. T here is no evidence for a bowel obstruction. Large amount stool within the rectum is present. Colonic diverticulosis is noted without evidence for acute diverticulitis. Postoperative findings within the lumbar spine are present, suboptimally assessed by CT. Left hip arthroplasty has been removed since CT of March 28, 2019. There is chronic deformity of the left hip with loss of the femoral head. Righ t hip osteoarthritis is noted. Note is made of a deep ulcer of the upper left buttock. Gas/packing ma terial within the wound is noted. The ulcer measures 4.2 x 3.1 cm and extends to the underlying media l left iliac bone. No bony destruction is identified. No drainable fluid collection is present. There is an ulcer, likely old, of the upper right thigh. There is also a probable ulcer of the inferior le ft buttock which may be chronic. This extends to the underlying ischial tuberosity. No clear bony yandy truction is present. Soft tissue thickening overlying the sacrum is noted. No bony destruction of the sacrum is identified. There is no evidence for acute osteomyelitis within the pelvis. No drainable f luid collection is present. IMPRESSION: 1. Deep ulcer of the upper left buttock. This extends to the underlying medial left iliac bone. No CT evidence for acute osteomyelitis. No drainable fluid collection. Additional sacral/bilateral decubit us ulcers, as described above. No evidence for acute osteomyelitis. No drainable fluid collections. 2. Large amount of stool within the rectum. No evidence for a bowel obstruction. Colonic diverticulos is without evidence for acute diverticulitis. 3. Small left and trace right pleural effusions. 4. Chronic deformity of the left hip with removal of the left hip arthroplasty since prior CT. ACT 112: Negative or not required by law. Electronically signed by: Terell Burk M.D. 01/06/2022 7:26 PM
[2022-01-06 19:51] LABS: Appearance Urine Clear (Clear); Bacteria Urine Automated Negative (Negative); Bilirubin Urine Negative (Negative); Blood Urine Negative (Negative); Color Urine Dark Yellow; Epithelial Cell Urine Auto 0-5 /lpf (0-5); Glucose Urine UA Negative (Negative); Ketones Urine Trace (Negative); Leukocyte Esterase Urine Trace (Negative); Nitrite Urine Negative (Negative); Protein Urine Trace (Negative); RBC Urine Automated 0-4 /hpf (0-4); Specific Gravity Urine 1.015 (1.000-1.030); Urobilinogen Urine Negative (Negative); pH Urine 5.5 (4.5-7.5)
--- NOTE | 2022-01-06 20:24 | History & Physical Report ---
Date of Service January 06, 2022 Assessment & Plan (1) Sacral wound: (2) Soft tissue infection: (3) Vitamin D deficiency: (4) Osteoporosis: (5) Urge incontinence of urine: (6) PAD (peripheral artery disease): (7) Dementia: (8) Chronic diastolic congestive heart failure: (9) Carotid artery occlusion: (10) DVT (deep venous thrombosis): (11) Diabetes: (12) Hypercholesteremia: (13) Hypertension: Plan: Nubia is an 86 year old female w/ PmHx of dementia, DM, HFpEF w/ EF 60-65% 03/2019, CAD, PAD, DVT, HTN, paroxysmal atrial fibrillation admitted for worsening L sacral wound and dehydration w/ increased confusion. Sacral Wound/Soft Tissue Infection: -CT Abd/Pelv: Deep ulcer of upper left buttock. Extends to underlying medial left iliac bone. No CT evidence of acute osteomyelitis. No drainable fluid collection. Additional sacral/ b/l decubitus ulcers. -WBC 8.40 -Received one dose of Ceftriaxone. -Past history of Pseudomonas and MRSA infections. -Changed antibiotic coverage to Vancomycin, Cefepime IV, Flagyl PO. -Wound care consulted, frequent turning. -Can consider MRI or wound probe for possible osteomyelitis -Consider surgical consult if wound vac anticipated. Dehydration: -Patient with poor PO intake recently. -Rehydrated with 1L NSS in ED. -Continue NSS at 60ml/hr. Dysphagia: -Trouble with regurgitation over past year. -Can consider speech consult for dysphagia. -NPO w/ sips and chips w/ medicine for now. Dementia: -Continue Aricept and memantine. Chronic diastolic CHF: -Hold home Bumex unless develops fluid overload picture. -Monitor I&O's. Hypercholesterolemia/PAD/CAD: -Continue home statin. HTN: -Continue home losartan, isosorbide mononitrate, hydralazine. DM: -Glucose 104 on entry, last A1c from June 21.6 -Continue to monitor glucose. Osteoporosis/Vit-D deficiency: -Continue home calcium and vitamin D. Paroxysmal Atrial Fibrillation: -Has been in NSR from last outpatient visit. -Has been off metoprolol due to bradycardia and off anticoagulation due to GI bleed. DVT Prophylaxis: SCD's, past history of GI bleed F/E/N/GI: NPO Code status: Full code. Dispo: Med/Surg History of Present Illness Primary Care Provider: Melva Kamara DO Nubia is an 86 y/o female w/ PmHx of dementia, DM, HFpEF w/ EF 60-65% 03/2019, CAD, PAD, DVT, HTN, paroxysmal atrial fibrillation who presented to the ED w/ a three-week history of left sacral ulcer and a one-week history of confusion and poor appetite. Son and contract attorney at home, Ruddy, at the bedside and provides most of the history for the patient. Nubia has developed a left sacral ulcer according to the son that's been there 3-4 weeks and gotten bigger throughout. They went to her PCP office for the ulcer and were given a referral to wound care clinic for follow up. They were never able to hear anything from wound care clinic and when the home nurse visited and took a look at the wound she called the patient's PCP to let her know of the progress and was recommended to come to the ED. Son said he usually changes the dressing ontop of the wound everyday and uses santyl as well. She has not been having any pain at rest at the sacral wound site except with direct pressure or movement. Son endorses some foul smelling odor from the wound. He endorses his mother also having some confusion over the past week. She usually asks simple questions such as "what is that" or "is that a tree" but has had unusual questions not like her usual self in the past week. He also notes she has had poor PO intake and appetite, only drinking about 4oz of water throughout the entire weekend. He voiced some concern for possible regurgitation after drinking or eating over the past year. She drinks soda for example, and then will regurgitate a sandwich she just ate. Denies any fevers, chills, nausea, vomiting, diarrhea, headaches, changes in vision or hearing, weakness, numbness tingling, shortness of breath (although some shortness of breath noted by son at 12/24 PCP appointment and given inhaler with resolution). Allergies Allergy/AdvReac Type Severity Reaction Status Date / Time ampicillin Allergy Intermediate RASH, HIVES Verified 01/06/22 18:22 furosemide Allergy Intermediate SHORTNESS Verified 01/06/22 18:22 OF BREATH,throat itching apixaban Allergy Unknown UNKNOWN Verified 01/06/22 18:22 cyclobenzaprine Allergy Unknown Unknown rxn Verified 01/06/22 18:22 ibuprofen Allergy Unknown UNKNOWN Verified 01/06/22 18:22 lisinopril Allergy Unknown UNKNOWN Verified 01/06/22 18:22 methylprednisolone Allergy Unknown UNKNOWN Verified 01/06/22 18:22 propoxyphene Allergy Unknown UNKNOWN Verified 01/06/22 18:22 tramadol Allergy Unknown UNKNOWN Verified 01/06/22 18:22 EPIDURAL STEROID INJECTIONS Allergy Unknown Unknown Uncoded 01/06/22 18:22 SOAPCLEAN AdvReac Mild Changing Uncoded 01/06/22 18:22 wipe - itchy rash Home Medications Medication Instructions Recorded Confirmed Type acetaminophen 325 mg tablet 650 mg PO Q4 PRN 03/28/19 01/06/22 History (Tylenol) calcium carb-vit D3-minerals 600 1 tab PO DAILY 04/11/19 01/06/22 History mg calcium-400 unit tablet aspirin 81 mg tablet,delayed 81 mg PO DAILY #90 tab 05/23/20 01/06/22 Rx release multivitamin (Daily Multi-Vitamin) 1 tab PO DAILY 12/20/20 01/06/22 History bumetanide 0.5 mg tablet 0.5 mg PO .COMPLEX #36 tab 06/24/21 01/06/22 Rx omega-3 fatty acids-fish oil 360 1 cap PO DAILY 06/24/21 01/06/22 History mg-1,200 mg capsule (Fish Oil) polyethylene glycol 3350 17 17 g PO DAILY 06/24/21 01/06/22 History gram/dose oral powder (Miralax) atorvastatin 40 mg tablet (Lipitor) 40 mg PO QPM #90 tab 11/22/21 01/06/22 Rx isosorbide mononitrate 30 mg 30 mg PO DAILY #90 tab 11/22/21 01/06/22 Rx tablet,extended release 24 hr memantine 5 mg tablet (Namenda) 5 mg PO BID #180 tab 11/22/21 01/06/22 Rx mirabegron 50 mg tablet,extended 50 mg PO DAILY #90 tab 11/22/21 01/06/22 Rx release 24 hr (Myrbetriq) montelukast 10 mg tablet 10 mg PO PM #90 tab 11/22/21 01/06/22 Rx (Singulair) ranolazine 1,000 mg 1,000 mg PO BID #180 tab 11/22/21 01/06/22 Rx tablet,extended release,12 hr (Ranexa) albuterol sulfate 90 mcg/actuation See Rx Instructions INHALATION 12/30/21 01/06/22 Rx aerosol inhaler (Ventolin HFA) .COMPLEX PRN #18 g sulfamethoxazole 800 1 tab PO BID 10 Days #20 tab 12/30/21 01/06/22 Rx mg-trimethoprim 160 mg tablet (Bactrim DS) docusate sodium 100 mg capsule 100 mg PO BID 01/06/22 01/06/22 History (Colace) donepezil 10 mg tablet (Aricept) 10 mg PO QDD 01/06/22 01/06/22 History esomeprazole magnesium 40 mg 40 mg PO DAILY 01/06/22 01/06/22 History capsule,delayed release (Nexium) hydralazine 50 mg tablet 50 mg PO BID 01/06/22 01/06/22 History losartan 100 mg tablet 100 mg PO DAILY 01/06/22 01/06/22 History menthol 0.44 %-zinc oxide 20.6 % 1 applic TOPICAL BID PRN 01/06/22 01/06/22 History topical ointment (Calmoseptine) nitroglycerin 0.4 mg sublingual 0.4 mg SUBLINGUAL DIRECTED PRN 01/06/22 01/06/22 History tablet (Nitrostat) Past Med/Surg History Medical History Acute cholecystitis Acute kidney injury Anemia Arteriosclerosis of coronary artery Arthritis Carotid artery disease Carotid artery occlusion CHF (congestive heart failure) Chronic diastolic congestive heart failure Chronic kidney disease Chronic kidney disease (CKD), stage III (moderate) Coronary artery disease Dementia Diabetes DVT (deep venous thrombosis) Gastrointestinal hemorrhage H/O: GI bleed Hypercholesteremia Hypertension Osteoporosis PAD (peripheral artery disease) Paroxysmal atrial fibrillation Shingles Urge incontinence of urine Vitamin D deficiency Surgical History H/O heart artery stent History of cholecystectomy Previous back surgery S/P hip replacement S/P hip replacement S/P lumbar spinal fusion Family History Sister Colorectal cancer Denies family history of Ovarian cancer Prostate cancer Myocardial infarction Breast cancer Social History Smoking Status: Never smoker Second Hand Exposure: No; Hx Alcohol Use: No Hx Substance Use: No Preferred Language: Greek Communication Ability: Impaired Visual Impairment: No Limitations Hearing Ability: Hard of Hearing Photographer'S Assistant Required: No Beliefs That Will Affect Care: None marital status: Current Living Situation: Family Current Living Situation Comment: lives in 2 story home with son current occupational status: retired Other Information That Helps Us Care for You: No Feels Safe at Home: Yes Safety Concerns: Feels Safe At This Time Childhood Exposure to Second-Hand Smoke: No caffeine: Yes during the past year weight has: remained stable Dental Care, Regularly: No Physical Activity Frequency: Other Seatbelt Use: always Sunscreen Use: No Assistive Devices: Walker and Wheelchair Review of Systems Constitutional: as per Subjective / HPI Physical Exam Constitutional: WD/WN, vitals as above Neck: trachea midline, no thyromegaly Respiratory: normal respiratory effort, lungs clear to auscultation Cardiovascular: RRR, no murmur, no edema Peripheral pulses 2+, capillary refill time 2-3 seconds. Gastrointestinal (Abdomen): normal bowel sounds, soft, nontender, no hepatosp lenomegaly Skin: Lower extremities with chronic venous stasis changes bilaterally. Dressing over left sacral wound w/ small area of discharge but no leakage of fluid, most of dressing dry. Psychiatric: Orientation: alert, oriented to person and oriented to place Not oriented to time. Lymphatic: No cervical lymphadenopathy. Results & Data Results & Data ([facility]) Vital Signs (Past 12 Hours) Vital Signs Temp Pulse Pulse Resp BP BP Pulse Ox 01/06/22 20:00 65 19 98 01/06/22 19:50 62 15 01/06/22 19:45 62 14 144/79 H 97 01/06/22 17:24 58 L 18 104/59 L 98 01/06/22 15:29 36.7 C 86 20 145/62 H 98 Supervising Physician Co-Signing Physician Notes Attending addendum: I have physically seen this patient, have supervised the medical residents activities, and agree with the H&P unless as otherwise noted. Assessment and Plan: Sacral decubitus/multiple smaller decubiti- Vancomycin IV, cefepime IV and Flagyl p.o. as noted History of pseudomonas and MRSA infections Consult wound care Consider MRI versus bone scan to assess for possible osteomyelitis Expect patient to probably need wound VAC Dehydration- Received 1liter NSS Continue NSS at 60ml/hr Serial BMP/Mg Remaining orders and notations as noted Resident Activity Tracking Resident Involvement: Resident Care Provided Care Provided: Adult Hospital Medicine
[2022-01-06] MEDS ORDERED: VANCOMYCIN CONSULT ACTIVE PRN (21:04)
[2022-01-06] MEDS ORDERED: VANCOMYCIN HCL 1,000 MG in SODIUM CHLORIDE 0.9% 500 ML IV SCH (21:15)
[2022-01-06] MEDS ORDERED: VANCOMYCIN HCL 1,500 MG in SODIUM CHLORIDE 0.9% 500 ML IV ONE (22:30)
[2022-01-06] MEDS ORDERED: SODIUM CHLORIDE 0.9% 1000ML 1,000 ML IV SCH (22:45)
[2022-01-06] MEDS ORDERED: metroNIDAZOLE 500 MG TAB PO ONE (23:00)
[2022-01-07] MEDS ORDERED: ALBUTEROL HFA 8 GM INHALER INH PRN (00:23)
[2022-01-07] MEDS: ATORVASTATIN 40 MG TAB PO SCH ×2 (02:03→21:54)
[2022-01-07] MEDS: hydrALAZINE TAB 50 MG TAB PO SCH ×3 (02:04→21:54)
[2022-01-07] MEDS: MEMANTINE HCL 5 MG TAB PO SCH ×3 (02:05→21:55)
[2022-01-07] MEDS: MONTELUKAST SODIUM 10 MG TABLET PO SCH ×2 (02:06→21:55)
[2022-01-07] MEDS: RANOLAZINE 500 MG ER TAB PO SCH ×3 (02:07→21:54)
[2022-01-07] MEDS: DOCUSATE SODIUM 100 MG CAP PO SCH ×3 (02:07→21:55)
[2022-01-07] MEDS: CEFEPIME 2,000 MG in SYRINGE 0 ML IV SCH ×2 (02:08→13:50)
--- NOTE | 2022-01-07 03:39 | Pharmacy Report ---
Pharmacy Abx/Gly Intl Consult - Date of Service January 07, 2022 - [facility] Pharmacy has been consulted by Dr. Goddard to manage Vancomycin for this patient as per the Pharmacy & Therapeutics Committee approved dosing protocols. - Subjective The patient is a 86 year old F admitted on 01/06/22 22:10. - Objective Vital Signs (Past 12hrs): Vital Signs Temp Pulse Pulse Resp BP BP Pulse Ox 01/07/22 00:31 36.4 C L 62 18 165/77 H 93 01/06/22 23:20 68 12 01/06/22 23:10 61 20 98 01/06/22 23:00 64 15 98 01/06/22 22:52 67 17 150/61 H 97 01/06/22 22:50 67 15 96 01/06/22 22:40 61 15 01/06/22 22:30 52 L 15 96 01/06/22 22:20 59 L 17 95 01/06/22 22:10 57 L 14 01/06/22 22:00 61 21 01/06/22 21:50 56 L 22 01/06/22 21:40 57 L 18 01/06/22 21:30 70 21 01/06/22 21:20 62 18 01/06/22 21:10 63 17 96 01/06/22 21:00 57 L 19 01/06/22 20:50 61 22 01/06/22 20:40 76 21 01/06/22 20:30 62 21 01/06/22 20:20 71 15 01/06/22 20:10 17 01/06/22 20:00 65 19 98 01/06/22 19:50 62 15 01/06/22 19:45 62 14 144/79 H 97 01/06/22 17:24 58 L 18 104/59 L 98 Accuchecks BSG (last 24hrs): 01/06/22 15:55 Glucose 104 H Lab Results (24hrs): Laboratory Results - last 24 hr 01/06/22 01/06/22 01/06/22 15:55 15:55 18:00 WBC 8.40 RBC 3.70 L Hgb 12.0 Hct 35.4 L MCV 95.7 MCH 32.4 MCHC 33.9 RDW Std Deviation 56.8 H RDW Coeff of Claudine 16.4 H Plt Count 243 MPV 9.4 Immature Gran % (Auto) 1.1 Neut % (Auto) 72.2 Lymph % (Auto) 17.1 [place] % (Auto) 8.0 Eos % (Auto) 1.4 Baso % (Auto) 0.2 Neut # (Auto) 6.06 Lymph # (Auto) 1.44 [place] # (Auto) 0.67 H Eos # (Auto) 0.12 Baso # (Auto) 0.02 Immature Gran # (Auto) 0.09 H Sodium 133 L Potassium TNP Chloride 102 Carbon Dioxide 21 Anion Gap 10 BUN 18 Creatinine 1.13 Est Cr Clr Drug Dosing Not Reportable Est GFR ( Amer) 50.3 Est GFR (Non-Af Amer) 43.4 BUN/Creatinine Ratio 15.9 Glucose 104 H Lactate Calcium 9.4 Magnesium Total Bilirubin 0.9 AST TNP ALT 25 Alkaline Phosphatase 69 Total Protein 8.0 Albumin 3.6 Globulin 4.4 H Albumin/Globulin Ratio 0.8 L TSH Urine Color Urine Appearance Urine pH Ur Specific Notus Urine Protein Urine Glucose (UA) Urine Ketones Urine Blood Urine Nitrite Urine Bilirubin Urine Urobilinogen Ur Leukocyte Esterase Urine WBC (Auto) Urine RBC (Auto) U Hyaline Cast (Auto) U Epithel Cells (Auto) Urine Bacteria (Auto) SARS-CoV-2, RNA, NAAT Cancelled 01/06/22 01/06/22 01/06/22 18:00 18:36 18:36 WBC RBC Hgb Hct MCV MCH MCHC RDW Std Deviation RDW Coeff of Claudine Plt Count MPV Immature Gran % (Auto) Neut % (Auto) Lymph % (Auto) Prairie % (Auto) Eos % (Auto) Baso % (Auto) Neut # (Auto) Lymph # (Auto) [place] # (Auto) Eos # (Auto) Baso # (Auto) Immature Gran # (Auto) Sodium Potassium 3.9 Chloride Carbon Dioxide Anion Gap BUN Creatinine Est Cr Clr Drug Dosing Est GFR ( Amer) Est GFR (Non-Af Amer) BUN/Creatinine Ratio Glucose Lactate Calcium Magnesium 1.7 Total Bilirubin AST 41 H ALT Alkaline Phosphatase Total Protein Albumin Globulin Albumin/Globulin Ratio TSH Urine Color Dark Yellow Urine Appearance Clear Urine pH 5.5 Ur Specific Notus 1.015 Urine Protein Trace H Urine Glucose (UA) Negative Urine Ketones Trace H Urine Blood Negative Urine Nitrite Negative Urine Bilirubin Negative Urine Urobilinogen Negative Ur Leukocyte Esterase Trace H Urine WBC (Auto) 1-5 Urine RBC (Auto) 0-4 U Hyaline Cast (Auto) 1-5 U Epithel Cells (Auto) 0-5 Urine Bacteria (Auto) Negative SARS-CoV-2, RNA, NAAT 01/06/22 01/06/22 01/06/22 18:36 18:36 Unknown WBC RBC Hgb Hct MCV MCH MCHC RDW Std Deviation RDW Coeff of Claudine Plt Count MPV Immature Gran % (Auto) Neut % (Auto) Lymph % (Auto) Prairie % (Auto) Eos % (Auto) Baso % (Auto) Neut # (Auto) Lymph # (Auto) [place] # (Auto) Eos # (Auto) Baso # (Auto) Immature Gran # (Auto) Sodium Potassium Chloride Carbon Dioxide Anion Gap BUN Creatinine Est Cr Clr Drug Dosing Est GFR ( Amer) Est GFR (Non-Af Amer) BUN/Creatinine Ratio Glucose Lactate 1.0 Calcium Magnesium Total Bilirubin AST ALT Alkaline Phosphatase Total Protein Albumin Globulin Albumin/Globulin Ratio TSH 1.583 Urine Color Urine Appearance Urine pH Ur Specific Notus Urine Protein Urine Glucose (UA) Urine Ketones Urine Blood Urine Nitrite Urine Bilirubin Urine Urobilinogen Ur Leukocyte Esterase Urine WBC (Auto) Urine RBC (Auto) U Hyaline Cast (Auto) U Epithel Cells (Auto) Urine Bacteria (Auto) SARS-CoV-2, RNA, NAAT NEGATIVE Micro Results: 01/06/22 18:40 Aerobic Blood Culture - Pending Blood Anaerobic Blood Culture - Pending 01/06/22 18:36 Aerobic Blood Culture - Pending Blood Anaerobic Blood Culture - Pending - Risk Factors for Resistance Risk Factors for Antimicrobial Resistance: * History of infection with a multidrug-resistant organism: Pseudomonas, MRSA * Antimicrobial use within the last 90 days: Bactrim DS - Plan ANTIMICROBIAL THERAPY Vancomycin IV * Loading dose: 1500mg (~23 mg/kg) * Maintenance dose: 1000 mg IV (~15 mg/kg) every 24 hours * AUC/SUSAN is the preferred PK/PD target for vancomycin * AUC guided dosing is effective and associated with decreased risk of nephrotoxicity compared to traditional trough targets * The above dose is predicted to achieve target AUC/SUSAN of 400-600 mg/L.hr and may be associated with a 15 % risk of nephrotoxicity Pharmacy will follow patient and adjust orders on a daily basis. Thank you for allowing us to participate in this patients care.
[2022-01-07] MEDS: metroNIDAZOLE 500 MG TAB PO SCH ×3 (06:21→21:56)
--- NOTE | 2022-01-07 07:09 | XRay Report ---
XR chest 1V portable CLINICAL HISTORY: sepsis, ?aspiration TECHNIQUE: Single frontal radiograph of the chest was obtained. Comparison: Comparison is made to chest one view 03/28/2019 FINDINGS: Median sternotomy wires are unchanged. Cardiomegaly is noted. The lungs are clear. Blunting of the le ft costophrenic angle may reflect scarring or small pleural effusions. Degenerative changes are seen in the bilateral shoulder joints. IMPRESSION: Blunting of the left costophrenic angle may represent small pleural effusion. No airspace opacities t o suggest pneumonia. ACT 112: Negative or not required by law. Electronically signed by: Antonio Steven M.D. 01/07/2022 7:07 AM
[2022-01-07 08:13] LABS: Basophils # (auto) 0.02 K/uL (0-0.2); Basophils % (auto) 0.3 %; Eosinophils # (auto) 0.12 K/uL (0-0.5); Eosinophils % (auto) 1.6 %; Hematocrit (blood only) 32.7 % (37-47); Hemoglobin 10.8 g/dL (12.0-16.0); Immature Granulocytes # (auto) 0.06 K/uL (0.00-0.02); Immature Granulocytes % (auto) 0.8 %; Lymphocytes # (auto) 0.83 K/uL (1.2-3.4); Lymphocytes % (auto) 10.7 %; Mean Corpuscular Hemoglobin 31.5 pg (25-34); Mean Corpuscular Volume 95.3 fL (80-100); Mean Platelet Volume 9.1 fL (7.4-10.4); Monocytes # (auto) 0.53 K/uL (0.11-0.59); Monocytes % (auto) 6.9 %; Neutrophils # (auto) 6.17 K/uL (1.4-6.5); Neutrophils % (auto) 79.7 %; Platelet Count 234 K/uL (130-400); RDW Coefficient of Variation 16.6 % (11.5-14.5); RDW Standard Deviation 57.1 fL (36.4-46.3); Red Blood Count 3.43 M/uL (4.2-5.4); White Blood Count 7.73 K/uL (4.8-10.8)
[2022-01-07 08:27] LABS: Albumin Level 3.2 gm/dl (3.4-5.0); BUN Creatinine Ratio 14.6 (10-20); C Reactive Protein 3.65 mg/dl (0-0.5); Calcium 8.7 mg/dl (8.5-10.1); Creatinine Clr Calc Pharmacy 36.4 ml/min; Est GFR (African American) 61.2 ml/min; Est GFR (Non-African American) 52.8 ml/min; Potassium 4.2 mmol/L (3.5-5.1); Prealbumin 10.4 mg/dl (20-40)
[2022-01-07] MEDS: MIRABEGRON ER 25 MG TAB PO SCH (08:27)
[2022-01-07] MEDS: LOSARTAN POTASSIUM 50 MG TAB PO SCH (08:27)
[2022-01-07] MEDS: ISOSORBIDE MONO EXTENDED REL 30 MG TABCR PO SCH (08:27)
[2022-01-07] MEDS: PANTOprazole 40 MG TAB PO SCH (08:29)
[2022-01-07] MEDS: ASPIRIN 81 MG ECTAB PO SCH (08:30)
[2022-01-07] MEDS: OMEGA-3 (PURIFIED FISH OIL) 1 GM CAP PO SCH (08:31)
[2022-01-07] MEDS: POLYETHYLENE (MIRALAX) 17 GM PACK PO SCH (08:31)
[2022-01-07 09:00] LABS: Estimated Average Glucose 108 mg/dl; Hemoglobin A1C 5.4 % (4.5-5.6)
[2022-01-07] MEDS ORDERED: SOD PHOSPHATE/SOD BIPHOSPHATE ENEMA 132 ML BTL PR STA (11:07)
--- NOTE | 2022-01-07 12:05 | Hospitalist Progress Note ---
Date of Service January 07, 2022 Assessment & Plan (1) Sacral ulcer: Plan: Stage IV, present on admission. Appreciate wound care nurse assessment. General surgery evaluation pending for consideration for debridement. Continue intravenous vancomycin and cefepime and oral Flagyl (2) Acute confusion: Plan: Metabolic encephalopathy present on admission. Now resolved (3) Paroxysmal atrial fibrillation: Plan: Rate controlled with med management. No systemic anticoagulation due to history of GI bleeding (4) Dementia: Plan: Supportive care. Continue current medical management (5) Chronic kidney disease (CKD), stage III (moderate): Plan: Monitor intake and output. Serial lab studies (6) Chronic diastolic congestive heart failure: Plan: Currently stable. Monitor intake and output. Continue current medical management Plan: DVT prophylaxis: Heparin or Lovenox subcu Disposition: To be determined Admission and Anticipated Discharge Date Admission Date: January 06, 2022 Subjective Alert and oriented. No distress. Case discussed with the wound care nurse who believes she would benefit from debridement of the stage IV sacral ulcer. General surgery consultation requested. She remains on intravenous vancomycin and cefepime and oral Flagyl. Speech evaluation requested for her dysphagia. Review of Systems Review of Systems: Constitutional-no fever or chills ENT-no blurred vision, no double vision, no epistaxis, no sore throat Respiratory-no cough, no wheezing, no shortness of breath Cardiac-no palpitations, no chest pain, no syncope GI-no nausea, vomiting, diarrhea, melena, hematochezia. Dysphagia at times -no urinary retention, no urinary incontinence, no dysuria, no hematuria Musculoskeletal-no joint pain, no muscle tenderness Skin-no bruising, no rashes, no pruritus. Stage IV sacral decubitus Neuro-no isolated weakness, no paresthesia, no weakness Psych-no depression, no anxiety Physical Exam Physical Exam: General-alert and oriented x3, no fevers, no chills HEENT-head atraumatic and normocephalic, TMs intact bilaterally, pupils equal and reactive to light, extraocular muscles intact Neck-no lymphadenopathy or thyromegaly, trachea midline Chest-clear to auscultation percussion. No rales wheezing or rhonchi Cardiac-regular rate and rhythm, normal S1 and S2, no murmurs Abdomen-normal bowel sounds, nontender, no hepatosplenomegaly Extremities-no cyanosis, clubbing, or edema Neuro-cranial nerves II through XII intact, motor and sensory function within normal limits, strength symmetrical , no focal deficits Psych-normal affect, normal mood Results & Data Results & Data ([facility]) Vital Signs (Past 12 Hours) Vital Signs Temp Pulse Resp BP BP Pulse Ox 01/07/22 07:33 36.6 C 58 L 16 164/76 H 96 01/07/22 00:31 36.4 C L 62 18 165/77 H 93 Laboratory Results 01/07/22 07:35 01/07/22 07:35 PG Care Time/CCT Total # of Minutes Spent Total Time Spent with Patient: Total time spent is greater than 50% in coordination of care (as documented) at patient's floor/unit and/or counseling patient: Coding Level of Care Code 16421 Subseq Hosp Care Lvl 3 Diagnoses Sacral ulcer L98.429 Acute confusion R41.0 Paroxysmal atrial fibrillation I48.0 Dementia F03.90 Chronic kidney disease (CKD), stage III (moderate) N18.3 Chronic diastolic congestive heart failure I50.32
--- NOTE | 2022-01-07 12:26 | Surgery Consultation ---
Date of Consultation January 07, 2022 Assessment & Plan (1) Sacral ulcer: This is an 86yo F with a PMH of afib, HTN, DM, dementia, CKD, PAD, coronary disease, HLD, who presents to the [facility] ED on 01/06/22 with complaints of an enlarging sacral ulcer. Majority of history obtained by telephone interview with her son Hebert and chart review due to patient's history of dementia. Wound has been present and deteriorating over the last 3 weeks. In the ER a CT a/p performed reveals a deep ulcer of the upper left buttock, that extends to the underlying medial left iliac bone without evidence of osteomyelitis or drainable fluid collection. WBC 7.7. She is on IV cefepime, vanco, and po flagyl. Wound is located in the upper L buttock/lower back, ~6cm in size with some drainage noted on dressing. She will likely benefit from some surgical debridement and then be considered a candidate for possible wound vac. She is not on any blood thinners other than a baby asa. Will place NPO at midnight for surgical debridement in the OR tomorrow. Supervising Physician Co-Signing Physician Notes Patient seen and examined, labs and imaging reviewed, agree with above. 86-year-old female admitted for pressure ulcer. This is been worsening over the past several weeks. On exam she is afebrile with stable vitals. The wound was not examined, but the pictures were reviewed. CT scan was personally reviewed and interpreted by myself, agree with the assessment of the wound goes down to the iliac bone. We will plan for debridement of her sacral wound in the operating room tomorrow. She will be n.p.o. after midnight. The risks were discussed with the patient and her son over the phone to include but not limited to bleeding, infection, prolonged wound healing, damage surrounding structures, need for future more extensive surgery, and the risk of anesthesia. The patient signed the consent form herself and was able to repeat back the procedure to me as well as risks and benefits. History of Present Illness Attending Physician: Hebert Scott MD History of Present Illness This is an 86yo F with a PMH of afib, HTN, DM, dementia, CKD, PAD, coronary disease, HLD, who presents to the [facility] ED on 01/06/22 with complaints of an enlarging sacral ulcer. Majority of history obtained by telephone interview with her son Hebert and chart review due to patient's history of dementia. She tells me she fell in the wintertime and wound developed at that time, however her son Hebert (whom she lives with) reports the wound was present at the beginning of December and there is no history of a fall. It started out as a bruise and has progressed. She has home health come to their home as well and after a visit with her PCP the wound has been dressed daily and santyl used. She was started on Bactrim on 12/30 and was suppose to have follow up in the wound care center, but this was not yet initiated. Home health nurses noticed the wound was deteriorating and PCP informed and she was recommended to come into the ER for evaluation. In the ER a CT a/p performed reveals a deep ulcer of the upper left buttock, that extends to the underlying medial left iliac bone without evidence of osteomyelitis or drainable fluid collection. It also reads other sacral/bilateral decubitus ulcers as being present. She was admitted under the hospitalists service and started on abx. Wound care evaluated the wound today and thought she would benefit from surgical debridement and surgery was consulted. Patient and son deny any fevers/chills. She has had a low appetite and confusion over the last week. She apparently does not ambulate at home and he helps her with standing and pivoting. Allergies Allergy/AdvReac Type Severity Reaction Status Date / Time ampicillin Allergy Intermediate RASH, HIVES Verified 01/06/22 18:22 furosemide Allergy Intermediate SHORTNESS Verified 01/06/22 18:22 OF BREATH,throat itching apixaban Allergy Unknown UNKNOWN Verified 01/06/22 18:22 cyclobenzaprine Allergy Unknown Unknown rxn Verified 01/06/22 18:22 ibuprofen Allergy Unknown UNKNOWN Verified 01/06/22 18:22 lisinopril Allergy Unknown UNKNOWN Verified 01/06/22 18:22 methylprednisolone Allergy Unknown UNKNOWN Verified 01/06/22 18:22 propoxyphene Allergy Unknown UNKNOWN Verified 01/06/22 18:22 tramadol Allergy Unknown UNKNOWN Verified 01/06/22 18:22 EPIDURAL STEROID INJECTIONS Allergy Unknown Unknown Uncoded 01/06/22 18:22 SOAPCLEAN AdvReac Mild Changing Uncoded 01/06/22 18:22 wipe - itchy rash Home Medications Medication Instructions Recorded Confirmed Type acetaminophen 325 mg tablet 650 mg PO Q4 PRN 03/28/19 01/06/22 History (Tylenol) calcium carb-vit D3-minerals 600 1 tab PO DAILY 04/11/19 01/06/22 History mg calcium-400 unit tablet aspirin 81 mg tablet,delayed 81 mg PO DAILY #90 tab 05/23/20 01/06/22 Rx release multivitamin (Daily Multi-Vitamin) 1 tab PO DAILY 12/20/20 01/06/22 History bumetanide 0.5 mg tablet 0.5 mg PO .COMPLEX #36 tab 06/24/21 01/06/22 Rx omega-3 fatty acids-fish oil 360 1 cap PO DAILY 06/24/21 01/06/22 History mg-1,200 mg capsule (Fish Oil) polyethylene glycol 3350 17 17 g PO DAILY 06/24/21 01/06/22 History gram/dose oral powder (Miralax) atorvastatin 40 mg tablet (Lipitor) 40 mg PO QPM #90 tab 11/22/21 01/06/22 Rx isosorbide mononitrate 30 mg 30 mg PO DAILY #90 tab 11/22/21 01/06/22 Rx tablet,extended release 24 hr memantine 5 mg tablet (Namenda) 5 mg PO BID #180 tab 11/22/21 01/06/22 Rx mirabegron 50 mg tablet,extended 50 mg PO DAILY #90 tab 11/22/21 01/06/22 Rx release 24 hr (Myrbetriq) montelukast 10 mg tablet 10 mg PO PM #90 tab 11/22/21 01/06/22 Rx (Singulair) ranolazine 1,000 mg 1,000 mg PO BID #180 tab 11/22/21 01/06/22 Rx tablet,extended release,12 hr (Ranexa) albuterol sulfate 90 mcg/actuation See Rx Instructions INHALATION 12/30/21 01/06/22 Rx aerosol inhaler (Ventolin HFA) .COMPLEX PRN #18 g sulfamethoxazole 800 1 tab PO BID 10 Days #20 tab 12/30/21 01/06/22 Rx mg-trimethoprim 160 mg tablet (Bactrim DS) docusate sodium 100 mg capsule 100 mg PO BID 01/06/22 01/06/22 History (Colace) donepezil 10 mg tablet (Aricept) 10 mg PO QDD 01/06/22 01/06/22 History esomeprazole magnesium 40 mg 40 mg PO DAILY 01/06/22 01/06/22 History capsule,delayed release (Nexium) hydralazine 50 mg tablet 50 mg PO BID 01/06/22 01/06/22 History losartan 100 mg tablet 100 mg PO DAILY 01/06/22 01/06/22 History menthol 0.44 %-zinc oxide 20.6 % 1 applic TOPICAL BID PRN 01/06/22 01/06/22 History topical ointment (Calmoseptine) nitroglycerin 0.4 mg sublingual 0.4 mg SUBLINGUAL DIRECTED PRN 01/06/22 01/06/22 History tablet (Nitrostat) Patient History Medical History Acute cholecystitis Acute kidney injury Anemia Arteriosclerosis of coronary artery Arthritis Carotid artery disease Carotid artery occlusion CHF (congestive heart failure) Chronic diastolic congestive heart failure Chronic kidney disease Chronic kidney disease (CKD), stage III (moderate) Coronary artery disease Dementia Diabetes DVT (deep venous thrombosis) Gastrointestinal hemorrhage H/O: GI bleed Hypercholesteremia Hypertension Osteoporosis PAD (peripheral artery disease) Paroxysmal atrial fibrillation Shingles Urge incontinence of urine Vitamin D deficiency Surgical History H/O heart artery stent History of cholecystectomy Previous back surgery S/P hip replacement S/P hip replacement S/P lumbar spinal fusion Family History Sister Colorectal cancer Denies family history of Ovarian cancer Prostate cancer Myocardial infarction Breast cancer Social History Smoking Status: Never smoker Second Hand Exposure: No; Hx Alcohol Use: No Hx Substance Use: No Preferred Language: Mauritian Communication Ability: Effective Visual Impairment: No Limitations Hearing Ability: Hard of Hearing 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 Beliefs That Will Affect Care: None marital status: Current Living Situation: Family Current Living Situation Comment: lives in 2 story home with son current occupational status: retired Other Information That Helps Us Care for You: No Feels Safe at Home: Yes Safety Concerns: Feels Safe At This Time Childhood Exposure to Second-Hand Smoke: No caffeine: Yes during the past year weight has: remained stable Dental Care, Regularly: No Physical Activity Frequency: Other Seatbelt Use: always Sunscreen Use: No Assistive Devices: Denture - Upper and Walker Review of Systems Constitutional: + anorexia; no fever and no chills Respiratory: no dyspnea Integumentary: enlarging wound over L buttock/lower back, drainage and foul smelling pain Psychiatric: confusion Physical Exam Physical Exam: awake Respiratory: normal respiratory effort Skin: + ulcer ~6cm on L upper buttocks/lower back, serosang/purulent drainage noted on dressing, tender to palpation Results & Data ([facility]) Vital Signs (Past 12 Hours) Vital Signs Temp Pulse Resp BP BP Pulse Ox 01/07/22 07:33 36.6 C 58 L 16 164/76 H 96 01/07/22 00:31 36.4 C L 62 18 165/[address] OF THE ABDOMEN AND PELVIS WITH CONTRAST CLINICAL HISTORY: Large sacral wound. COMPARISON STUDY: CT of the abdomen and pelvis March 28, 2019. TECHNIQUE: Following IV administration of 94 mL of Optiray, axial images of the abdomen and pelvis were obtained from the lung bases to the proximal femurs. Images were reviewed in the axial, sagittal, and coronal planes. IV contrast was administered without complication. Automated exposure control was utilized for the study. A dose lowering technique was utilized adhering to the principles of ALARA. CT DOSE: 479.32 mGy.cm FINDINGS: A small left pleural effusion is noted within visualized portions of the chest. There is a trace right pleural effusion. Cardiomegaly is noted. No pneumatosis, free air or portal venous gas is present. There is no biliary ductal dilatation status post cholecystectomy. No hepatic lesions are present. Mild nodularity of both adrenal glands is unchanged since CT of March 28, 2019. Spleen and pancreas are unremarkable. There is no peripancreatic infiltration. There is moderate bilateral renal cortical thinning. A few subcentimeter renal lesions are too small to characterize but favor cysts. There is no evidence for a bowel obstruction. Large amount stool within the rectum is present. Colonic diverticulosis is noted without evidence for acute diverticulitis. Postoperative findings within the lumbar spine are present, suboptimally assessed by CT. Left hip arthroplasty has been removed since CT of March 28, 2019. There is chronic deformity of the left hip with loss of the femoral head. Right hip osteoarthritis is noted. Note is made of a deep ulcer of the upper left buttock. Gas/packing material within the wound is noted. The ulcer measures 4.2 x 3.1 cm and extends to the underlying medial left iliac bone. No bony destruction is identified. No drainable fluid collection is present. There is an ulcer, likely old, of the upper right thigh. There is also a probable ulcer of the inferior left buttock which may be chronic. This extends to the underlying ischial tuberosity. No clear bony destruction is present. Soft tissue thickening overlying the sacrum is noted. No bony destruction of the sacrum is identified. There is no evidence for acute osteomyelitis within the pelvis. No drainable fluid collection is present. IMPRESSION: 1. Deep ulcer of the upper left buttock. This extends to the underlying medial left iliac bone. No CT evidence for acute osteomyelitis. No drainable fluid collection. Additional sacral/bilateral decubitus ulcers, as described above. No evidence for acute osteomyelitis. No drainable fluid collections. 2. Large amount of stool within the rectum. No evidence for a bowel obstruction. Colonic diverticulosis without evidence for acute diverticulitis. 3. Small left and trace right pleural effusions. 4. Chronic deformity of the left hip with removal of the left hip arthroplasty since prior CT. ACT 112: Negative or not required by law. Electronically signed by: Terell Burk M.D. 01/06/2022 7:26 PM PG Care Time/CCT Total # of Minutes Spent Total Time Spent with Patient: Total time spent is greater than 50% in coordination of care (as documented) at patient's floor/unit and/or counseling patient: Coding Level of Care Code 46890 Initial Inpt Care Lvl 1 Diagnoses Sacral ulcer L98.429
[2022-01-07] MEDS ORDERED: SOD PHOSPHATE/SOD BIPHOSPHATE ENEMA 132 ML BTL PR ONE (13:47)
[2022-01-07] MEDS: VANCOMYCIN HCL 1,000 MG in SODIUM CHLORIDE 0.9% 250 ML IV SCH (13:50)
[2022-01-07] MEDS: DONEPEZIL HCL 10 MG TAB PO SCH (16:16)
[2022-01-08] MEDS: CEFEPIME 2,000 MG in SYRINGE 0 ML IV SCH ×2 (02:16→14:27)
[2022-01-08 06:20] LABS: Basophils # (auto) 0.02 K/uL (0-0.2); Basophils % (auto) 0.2 %; Eosinophils # (auto) 0.13 K/uL (0-0.5); Eosinophils % (auto) 1.4 %; Hematocrit (blood only) 31.7 % (37-47); Hemoglobin 10.7 g/dL (12.0-16.0); Immature Granulocytes # (auto) 0.07 K/uL (0.00-0.02); Immature Granulocytes % (auto) 0.7 %; Lymphocytes # (auto) 0.79 K/uL (1.2-3.4); Lymphocytes % (auto) 8.4 %; Mean Corpuscular Hemoglobin 31.9 pg (25-34); Mean Corpuscular Hgb Conc 33.8 g/dL (32-36); Mean Corpuscular Volume 94.6 fL (80-100); Mean Platelet Volume 9.4 fL (7.4-10.4); Monocytes # (auto) 0.63 K/uL (0.11-0.59); Monocytes % (auto) 6.7 %; Neutrophils # (auto) 7.72 K/uL (1.4-6.5); Neutrophils % (auto) 82.6 %; Platelet Count 241 K/uL (130-400); RDW Coefficient of Variation 16.7 % (11.5-14.5); RDW Standard Deviation 56.9 fL (36.4-46.3); Red Blood Count 3.35 M/uL (4.2-5.4); White Blood Count 9.36 K/uL (4.8-10.8)
[2022-01-08] MEDS ORDERED: fentaNYL citrate 100 MCG/2 ML VIAL ONE (06:28)
[2022-01-08 06:31] LABS: BUN Creatinine Ratio 16.1 (10-20); Calcium 8.5 mg/dl (8.5-10.1); Creatinine Clr Calc Pharmacy 31.2 ml/min; Est GFR (African American) 50.8 ml/min; Est GFR (Non-African American) 43.8 ml/min; Potassium 3.9 mmol/L (3.5-5.1)
--- NOTE | 2022-01-08 06:57 | Anesthesiology Consultation ---
Date of Service January 08, 2022 Assessment & Plan ASA ASA3 Proposed Anesthesia Anesthesia Type: General Risk / Benefits Reviewed With: PT / POA / Parent / Guardian, Accepts Plan and Informed Consent Obtained Additional Comments: son called History Surgery Operation Date: 01/08/22 07:15 Proposed Procedures p Debridement of Sacral Wound - Vimal Moon DO, FACS Height/Weight Height: 5 ft 5 in Weight: 66.7 kg Allergies Allergy/AdvReac Type Severity Reaction Status Date / Time ampicillin Allergy Intermediate RASH, HIVES Verified 01/06/22 18:22 furosemide Allergy Intermediate SHORTNESS Verified 01/06/22 18:22 OF BREATH,throat itching apixaban Allergy Unknown UNKNOWN Verified 01/06/22 18:22 cyclobenzaprine Allergy Unknown Unknown rxn Verified 01/06/22 18:22 ibuprofen Allergy Unknown UNKNOWN Verified 01/06/22 18:22 lisinopril Allergy Unknown UNKNOWN Verified 01/06/22 18:22 methylprednisolone Allergy Unknown UNKNOWN Verified 01/06/22 18:22 propoxyphene Allergy Unknown UNKNOWN Verified 01/06/22 18:22 tramadol Allergy Unknown UNKNOWN Verified 01/06/22 18:22 EPIDURAL STEROID INJECTIONS Allergy Unknown Unknown Uncoded 01/06/22 18:22 SOAPCLEAN AdvReac Mild Changing Uncoded 01/06/22 18:22 wipe - itchy rash Medications Home Medications Medication Instructions Recorded Confirmed Last Taken acetaminophen 325 mg tablet 650 mg PO Q4 PRN 03/28/19 01/06/22 Unknown (Tylenol) calcium carb-vit D3-minerals 600 1 tab PO DAILY 04/11/19 01/06/22 01/06/22 mg calcium-400 unit tablet aspirin 81 mg tablet,delayed 81 mg PO DAILY #90 tab 05/23/20 01/06/22 01/06/22 release multivitamin (Daily Multi-Vitamin) 1 tab PO DAILY 12/20/20 01/06/22 01/06/22 bumetanide 0.5 mg tablet 0.5 mg PO .COMPLEX #36 tab 06/24/21 01/06/22 01/06/22 omega-3 fatty acids-fish oil 360 1 cap PO DAILY 06/24/21 01/06/22 01/06/22 mg-1,200 mg capsule (Fish Oil) polyethylene glycol 3350 17 17 g PO DAILY 06/24/21 01/06/22 01/06/22 gram/dose oral powder (Miralax) atorvastatin 40 mg tablet (Lipitor) 40 mg PO QPM #90 tab 11/22/21 01/06/22 01/05/22 isosorbide mononitrate 30 mg 30 mg PO DAILY #90 tab 11/22/21 01/06/22 01/06/22 tablet,extended release 24 hr memantine 5 mg tablet (Namenda) 5 mg PO BID #180 tab 11/22/21 01/06/22 01/06/22 08:00 mirabegron 50 mg tablet,extended 50 mg PO DAILY #90 tab 11/22/21 01/06/22 01/06/22 release 24 hr (Myrbetriq) montelukast 10 mg tablet 10 mg PO PM #90 tab 11/22/21 01/06/22 01/05/22 (Singulair) ranolazine 1,000 mg 1,000 mg PO BID #180 tab 11/22/21 01/06/22 01/06/22 08:00 tablet,extended release,12 hr (Ranexa) albuterol sulfate 90 mcg/actuation See Rx Instructions INHALATION 12/30/21 01/06/22 Unknown aerosol inhaler (Ventolin HFA) .COMPLEX PRN #18 g sulfamethoxazole 800 1 tab PO BID 10 Days #20 tab 12/30/21 01/06/22 01/06/22 08:00 mg-trimethoprim 160 mg tablet (Bactrim DS) docusate sodium 100 mg capsule 100 mg PO BID 01/06/22 01/06/22 01/06/22 08:00 (Colace) donepezil 10 mg tablet (Aricept) 10 mg PO QDD 01/06/22 01/06/22 01/05/22 esomeprazole magnesium 40 mg 40 mg PO DAILY 01/06/22 01/06/22 01/06/22 capsule,delayed release (Nexium) hydralazine 50 mg tablet 50 mg PO BID 01/06/22 01/06/22 01/06/22 08:00 losartan 100 mg tablet 100 mg PO DAILY 01/06/22 01/06/22 01/06/22 menthol 0.44 %-zinc oxide 20.6 % 1 applic TOPICAL BID PRN 01/06/22 01/06/22 Unknown topical ointment (Calmoseptine) nitroglycerin 0.4 mg sublingual 0.4 mg SUBLINGUAL DIRECTED PRN 01/06/22 01/06/22 Unknown tablet (Nitrostat) Active Medications Generic Name Dose Route Start Last Admin Trade Name Jude PRN Reason Stop Dose Admin Aspirin 81 mg 01/07/22 09:00 01/07/22 08:30 Aspirin 81 Mg Ectab PO 02/06/22 08:59 81 mg DAILY INDY Administration Atorvastatin Calcium 40 mg 01/07/22 00:23 01/07/22 21:54 Atorvastatin 40 Mg Tab PO 02/06/22 00:22 40 mg QPM INDY Administration Docusate Sodium 100 mg 01/07/22 00:23 01/07/22 21:55 Docusate Sodium 100 Mg Cap PO 02/06/22 00:22 Not Given BID INDY Donepezil HCl 10 mg 01/07/22 16:30 01/07/22 16:16 Donepezil Hcl 10 Mg Tab PO 02/06/22 16:29 10 mg QDD INDY Administration Fish Oil 1 gm 01/07/22 09:00 01/07/22 08:31 [place]-3 (Purified Fish Oil) 1 Gm Cap PO 02/06/22 08:59 1 gm DAILY INDY Administration Hydralazine HCl 50 mg 01/07/22 00:23 01/07/22 21:54 Hydralazine Tab 50 Mg Tab PO 02/06/22 00:22 50 mg BID INDY Administration Cefepime HCl 2,000 mg/ Syringe 20 mls @ 5 mls/min 01/07/22 02:00 01/08/22 02:16 IV 01/14/22 01:59 5 mls/min Q12H INDY Administration Protocol Vancomycin HCl 1,000 mg/ 270 mls @ 200 mls/hr 01/07/22 12:00 01/07/22 15:11 Sodium Chloride IV 01/14/22 11:59 Infused Q24H INDY Infusion Isosorbide Mononitrate 30 mg 01/07/22 09:00 01/07/22 08:27 Isosorbide [place] Extended Rel 30 Mg Tabcr PO 02/06/22 08:59 30 mg DAILY INDY Administration Losartan Potassium 100 mg 01/07/22 09:00 01/07/22 08:27 Losartan Potassium 50 Mg Tab PO 02/06/22 08:59 100 mg DAILY INDY Administration Memantine 5 mg 01/07/22 00:23 01/07/22 21:55 Memantine Hcl 5 Mg Tab PO 02/06/22 00:22 5 mg BID INDY Administration Metronidazole 500 mg 01/07/22 07:00 01/07/22 21:56 Metronidazole 500 Mg Tab PO 01/14/22 06:59 500 mg Q8H INDY Administration Mirabegron 50 mg 01/07/22 09:00 01/07/22 08:27 Mirabegron Er 25 Mg Tab PO 02/06/22 08:59 50 mg DAILY INDY Administration Montelukast Sodium 10 mg 01/07/22 00:23 01/07/22 21:55 Montelukast Sodium 10 Mg Tablet PO 02/06/22 00:22 10 mg PM INDY Administration Pantoprazole Sodium 40 mg 01/07/22 09:00 01/07/22 08:29 Pantoprazole 40 Mg Tab PO 02/06/22 08:59 40 mg DAILY INDY Administration Polyethylene Glycol 17 gm 01/07/22 09:00 01/07/22 08:31 Polyethylene (Miralax) 17 Gm Pack PO 02/06/22 08:59 17 gm DAILY INDY Administration Ranolazine 1,000 mg 01/07/22 00:23 01/07/22 21:54 Ranolazine 500 Mg Er Tab PO 02/06/22 00:22 1,000 mg BID INDY Administration NPO Date Last Intake of Fluids: 01/07/22 Time Last Intake of Fluids: 18:00 Last Intake of Fluids Comment: per report and patient Date Last Intake of Solids: 01/07/22 Time Last Intake of Solids: 18:00 Past Medical History Medical History Acute cholecystitis Acute kidney injury Anemia Arteriosclerosis of coronary artery Arthritis Carotid artery disease Carotid artery occlusion CHF (congestive heart failure) Chronic diastolic congestive heart failure Chronic kidney disease Chronic kidney disease (CKD), stage III (moderate) Coronary artery disease Dementia Diabetes DVT (deep venous thrombosis) Gastrointestinal hemorrhage H/O: GI bleed Hypercholesteremia Hypertension Osteoporosis PAD (peripheral artery disease) Paroxysmal atrial fibrillation Shingles Urge incontinence of urine Vitamin D deficiency Exercise / Class Metabolic Activity II 4-5 Yardwork/Stairs/Walk up hill Past Family History Family History Sister Colorectal cancer Denies family history of Ovarian cancer Prostate cancer Myocardial infarction Breast cancer Past Surgical History Surgical History H/O heart artery stent History of cholecystectomy Previous back surgery S/P hip replacement S/P hip replacement S/P lumbar spinal fusion Past Anesthesia History No Hx of Anesthesia Complications and No Family Hx of Anesthesia Complications History of PONV No Hx of PONV and No Hx of Motion Sickness Social History Smoking Status: Never smoker Hx Alcohol Use: No Hx Substance Use: No Review of Systems denies fever/cough/ colds/ chest pain/ SOB/ NATI denies NATI Physical Exam Vital Signs Last Vital Signs Temp 36.7 C 01/08/22 06:36 Pulse 62 01/08/22 06:36 Resp 20 01/08/22 06:36 BP 124/60 01/08/22 06:36 Pulse Ox 97 01/08/22 06:36 ENMT Mouth: no TMJ abnormality and no dentition abnormality Thyromental Distance: > or= 3.5 Finger Breadths Mallampati Class: II Neck neck extension not limited Respiratory normal respiratory effort; no respiratory distress Auscultation: lungs clear to auscultation bilaterally Cardiovascular Rate/Rhythm: regular rate and regular rhythm Neurologic moves all extremities Psychiatric Orientation: alert and oriented x 3 Testing Laboratory Results 01/08/22 05:50 01/08/22 05:50 Hemoglobin A1c 5.4 % (4.5-5.6) 01/07/22 07:35 Urine Color Dark Yellow 01/06/22 18:00 Urine Appearance Clear (Clear) 01/06/22 18:00 Urine pH 5.5 (4.5-7.5) 01/06/22 18:00 Ur Specific [place] 1.015 (1.000-1.030) 01/06/22 18:00 Urine Protein Trace (Negative) H 01/06/22 18:00 Urine Glucose (UA) Negative (Negative) 01/06/22 18:00 Urine Ketones Trace (Negative) H 01/06/22 18:00 Urine Nitrite Negative (Negative) 01/06/22 18:00 Ur Leukocyte Esterase Trace (Negative) H 01/06/22 18:00 Urine WBC (Auto) 1-5 /hpf (0-5) 01/06/22 18:00 Urine RBC (Auto) 0-4 /hpf (0-4) 01/06/22 18:00 U Hyaline Cast (Auto) 1-5 /lpf (0-5) 01/06/22 18:00 U Epithel Cells (Auto) 0-5 /lpf (0-5) 01/06/22 18:00 Urine Bacteria (Auto) Negative (Negative) 01/06/22 18:00 01/06/22 18:40 Aerobic Blood Culture - Preliminary Blood No growth in Aerobic bottle after 24 hours. Anaerobic Blood Culture - Final 01/06/22 18:36 Aerobic Blood Culture - Preliminary Blood No growth in Aerobic bottle after 24 hours. Anaerobic Blood Culture - Preliminary No growth in Anaerobic bottle after 24 hours. 01/08/22 06:33 POC Glucose 81
[2022-01-08] MEDS ORDERED: ATROPINE SULFATE 0.1 MG/ML 10ML SYR IV PRN (06:58)
[2022-01-08] MEDS ORDERED: ONDANSETRON INJ 2 MG/ML 2 ML VIAL IV PRN (06:58)
[2022-01-08] MEDS ORDERED: fentaNYL citrate 100 MCG/2 ML VIAL IV PRN (06:58)
[2022-01-08] MEDS ORDERED: ePHEDrine sulfate 50 MG/ML AMP IV PRN (06:58)
[2022-01-08] MEDS ORDERED: BUPIVACAINE 0.5 % 5 MG/1 ML MPF 30ML VIAL ONE (07:08)
[2022-01-08] MEDS ORDERED: LACTATED RINGER'S 1,000 ML IV SCH (07:15)
--- NOTE | 2022-01-08 07:29 | Surgery Progress Note ---
Date of Service January 08, 2022 Assessment & Plan (1) Sacral ulcer: Plan: 86-year-old female sacral pressure ulcer, plan for debridement today Plan for debridement sacral wound Risks of the procedure were discussed with the son over the phone to include but not limited to bleeding, infection, prolonged wound healing, need for future more extensive surgery, damage surrounding structures, and the risk of anesthesia Verbal consent was obtained and patient's son confirmed by the nurse Wound care nurse to follow after surgery, likely wound VAC Admission and Anticipated Discharge Date Admission Date: January 06, 2022 Subjective 86-year-old female with sacral decubitus ulcer. Slightly more confused this morning which sounds like it occurs on a regular basis. Spoke with the son. No other changes. Physical Exam Constitutional: WD/WN, vitals as above Skin: no rashes, warm and dry + wound (6 cm sacral pressure ulcer) Results & Data ([facility]) Vital Signs (Past 12 Hours) Vital Signs Temp Pulse Pulse Resp BP BP Pulse Ox 01/08/22 06:36 36.7 C 62 20 124/60 97 01/08/22 05:46 36.8 C 88 18 124/62 95 01/07/22 21:55 36.5 C 65 20 145/63 H 96 PG Care Time/CCT Total # of Minutes Spent Total Time Spent with Patient: Total time spent is greater than 50% in coordination of care (as documented) at patient's floor/unit and/or counseling patient: Coding Level of Care Code 46369 Inpt Consult Level 2 Diagnoses Sacral ulcer L98.429
[2022-01-08] MEDS ORDERED: LIDOCAINE 1%/EPINEPHRINE 1:100,000 50 ML VIAL ONE (07:57)
[2022-01-08] MEDS ORDERED: LIDOCAINE 2% 2 ML VIAL/AMP(20MG/ML) INFIL ONE (07:58)
[2022-01-08] MEDS ORDERED: ONDANSETRON INJ 2 MG/ML 2 ML VIAL ONE (07:58)
[2022-01-08] MEDS ORDERED: PROPOFOL IV EMULSION 10 MG/ML 20 ML VIAL IV ONE (07:58)
[2022-01-08] MEDS ORDERED: DEXAMETHASONE SOD INJ 4 MG/ML VIAL ONE (07:58)
[2022-01-08] MEDS ORDERED: ePHEDrine sulfate 50 MG/ML AMP ONE (08:02)
--- NOTE | 2022-01-08 08:38 | Operative Report ---
PG Post Operative Report Pre & Post Diagnosis Operation Date: 01/08/22 07:15 Pre-Op Diagnosis: Sacral Ulcer Post-Op Diagnosis: Sacral Ulcer, stage IV I identified the patient and participated in the time-out.: Yes Procedure Operation Date: 01/08/22 07:15 Actual Procedures p Debridement of Sacral Wound, 6 x 8 x 2.5 cm down to bone. - Vimal Moon DO, FACS Surgeon Vimal Moon DO, DMITRI Clinical Laboratory Technician Juan Carlos Laurent Estimated Blood Loss 10 Findings Consistent with Post-Op Diagnosis Pressure ulcer debrided to healthy bleeding tissue. Extended down to bone. No evidence of osteomyelitis, no bone biopsy or debridement performed. Wound measured 6 x 8 cm, 2.5 cm deep. 2.5 cm of tunneling in the inferior aspect. Wound packed with gauze and sterile dressing applied. Specimens Sacral wound Anesthesia Type General Complications none Disposition Accompanied Patient To Recovery: No Disposition: Recovery Room Indications 86-year-old female with unstageable large sacral wound, plan for sacral wound debridement. The risks of the procedure were discussed, all questions were answered, and the patient's son agreed to proceed with surgery as planned. Description of Procedure The patient was properly identified, consented, and taken to the operating room where she was placed in the supine position. General endotracheal anesthesia was induced. Patient was then rolled into the prone position. SCDs and a safety belt were placed. Preoperative antibiotics were administered. The patient's lower back and buttocks was prepped and draped in the standard sterile fashion. Surgical timeout was performed and all parties were in agreement that this was the correct patient and procedure to be performed and we continued as planned. Local anesthetic was injected along the wound. A elliptical incision was made around the necrotic and inflamed tissue. This was deepened down through the subcutaneous tissue and fat. All necrotic tissue was excised. Portions of the gluteus muscle that were nonviable were debrided. This was taken down to the lateral border of the sacrum. There was no evidence of osteomyelitis so no debridement or biopsy of the bone was performed. The wound was irrigated and hemostasis was confirmed. The final dimensions of the wound measured 6 cm x 8 cm. It was 2.5 cm deep. It had 2.5 cm of tunneling inferiorly. This represented a stage IV ulcer as it went down to the bone. Hemostasis appeared excellent. The wound was packed with saline soaked gauze. A sterile dressing was applied. The patient was rolled into the supine position and extubated in the operating room and taken to the PACU where she recovered without apparent incident. All sponge, instrument and needle counts were correct at the conclusion of the procedure. The patient tolerated the procedure well. The physician's vector control assistant was present and scrubbed for the entire the case. He was critical in positioning the patient, prepping and draping, retraction and exposure, debridement of the tissue, placement of dressing. I attest to the content of the Intraoperative Record and any orders documented therein. Any exceptions are noted below.
--- NOTE | 2022-01-08 09:59 | Anesthesiology Progress Note ---
Date of Service January 08, 2022 Anesthesia Post Procedure Vital Signs Vital Signs: Temp Pulse Pulse Resp BP BP Pulse Ox 01/08/22 09:30 36.5 C 74 16 118/60 97 01/08/22 09:20 72 17 102/56 L 95 01/08/22 09:10 36.1 C L 77 18 112/59 L 94 01/08/22 09:00 80 23 103/65 95 01/08/22 08:50 78 18 119/55 L 100 01/08/22 08:40 36.2 C L 77 16 118/62 98 01/08/22 06:36 36.7 C 62 20 124/60 97 01/08/22 05:46 36.8 C 88 18 124/62 95 01/07/22 21:55 36.5 C 65 20 145/63 H 96 01/07/22 14:58 36.4 C L 61 20 104/61 98 Pain Intensity Left Hip: Pain Intensity: 5 Transfer of Care Handoff Completed per policy Notes Mental Status: alert / awake / arousable and participated in evaluation Patient Amnestic to Procedure: Yes Nausea / Vomiting: adequately controlled Pain: adequately controlled Airway Patency, RR, SpO2: stable & adequate BP & HR: stable & adequate Hydration State: stable & adequate Anesthetic Complications: no major complications apparent and Pt Satisfied with anesthetic care
[2022-01-08] MEDS: metroNIDAZOLE 500 MG TAB PO SCH ×3 (11:42→22:34)
[2022-01-08] MEDS: ASPIRIN 81 MG ECTAB PO SCH (11:42)
[2022-01-08] MEDS: OMEGA-3 (PURIFIED FISH OIL) 1 GM CAP PO SCH (11:43)
[2022-01-08] MEDS: DOCUSATE SODIUM 100 MG CAP PO SCH ×2 (11:43→20:30)
[2022-01-08] MEDS: ISOSORBIDE MONO EXTENDED REL 30 MG TABCR PO SCH (11:44)
[2022-01-08] MEDS: hydrALAZINE TAB 50 MG TAB PO SCH ×2 (11:44→20:29)
[2022-01-08] MEDS: LOSARTAN POTASSIUM 50 MG TAB PO SCH (11:45)
[2022-01-08] MEDS: MEMANTINE HCL 5 MG TAB PO SCH ×2 (11:45→20:29)
[2022-01-08] MEDS: MIRABEGRON ER 25 MG TAB PO SCH (11:46)
[2022-01-08] MEDS: PANTOprazole 40 MG TAB PO SCH (11:46)
[2022-01-08] MEDS: RANOLAZINE 500 MG ER TAB PO SCH ×2 (11:46→20:30)
[2022-01-08] MEDS: POLYETHYLENE (MIRALAX) 17 GM PACK PO SCH (11:47)
[2022-01-08] MEDS: VANCOMYCIN HCL 1,000 MG in SODIUM CHLORIDE 0.9% 250 ML IV SCH (12:55)
--- NOTE | 2022-01-08 14:34 | Hospitalist Progress Note ---
Date of Service January 08, 2022 Assessment & Plan (1) Sacral wound: Plan: Stage IV. Debrided today, January 08. She remains on intravenous vancomycin and cefepime and oral Flagyl. Appreciate wound care nurse assistance. (2) Soft tissue infection: Plan: Currently on intravenous vancomycin and cefepime and oral Flagyl (3) Vitamin D deficiency: Plan: Supplementation ordered (4) Osteoporosis: Plan: Stable. Medication management (5) Urge incontinence of urine: Plan: Supportive care. Medication management (6) PAD (peripheral artery disease): Plan: Maintain satisfactory cholesterol levels. No smoking. Diabetic control (7) Dementia: Plan: Supportive care. Medication management (8) Chronic diastolic congestive heart failure: Plan: Currently stable. Monitor intake and output. Medication management (9) Carotid artery occlusion: Plan: Stable. Cholesterol controlled. No smoking (10) DVT (deep venous thrombosis): Plan: Prophylaxis ordered (11) Diabetes: Plan: ADA diet. Sliding scale coverage. Medication management (12) Hypercholesteremia: Plan: Statin therapy (13) Hypertension: Plan: Stable. Medication management Plan: Code status: Full code. Dispo: To be determined Admission and Anticipated Discharge Date Admission Date: January 06, 2022 Subjective The patient was seen after sacral decubitus wound debridement earlier today, January 08. She was alert and oriented in no acute distress. Review of Systems Review of Systems: Constitutional-no fever or chills ENT-no blurred vision, no double vision, no epistaxis, no sore throat Respiratory-no cough, no wheezing, no shortness of breath Cardiac-no palpitations, no chest pain, no syncope GI-no nausea, vomiting, diarrhea, melena, hematochezia -no urinary retention, no urinary incontinence, no dysuria, no hematuria Musculoskeletal-no joint pain, no muscle tenderness Skin-no bruising, no rashes, no pruritus Neuro-no isolated weakness, no paresthesia, no weakness Psych-no depression, no anxiety Physical Exam Physical Exam: General-alert and oriented x3, no fevers, no chills HEENT-head atraumatic and normocephalic, TMs intact bilaterally, pupils equal and reactive to light, extraocular muscles intact Neck-no lymphadenopathy or thyromegaly, trachea midline Chest-clear to auscultation percussion. No rales wheezing or rhonchi Cardiac-regular rate and rhythm, normal S1 and S2, no murmurs Abdomen-normal bowel sounds, nontender, no hepatosplenomegaly Extremities-no cyanosis, clubbing, or edema Neuro-cranial nerves II through XII intact, motor and sensory function within normal limits, strength symmetrical , no focal deficits Psych-normal affect, normal mood Results & Data Results & Data ([facility]) Vital Signs (Past 12 Hours) Vital Signs Temp Pulse Pulse Resp BP BP Pulse Ox 01/08/22 11:58 36.6 C 66 18 129/73 95 01/08/22 10:29 36.0 C L 72 18 138/81 98 01/08/22 10:03 36 C L 75 18 139/70 97 01/08/22 09:30 36.5 C 74 16 118/60 97 01/08/22 09:20 72 17 102/56 L 95 01/08/22 09:10 36.1 C L 77 18 112/59 L 94 01/08/22 09:00 80 23 103/65 95 01/08/22 08:50 78 18 119/55 L 100 01/08/22 08:40 36.2 C L 77 16 118/62 98 01/08/22 06:36 36.7 C 62 20 124/60 97 01/08/22 05:46 36.8 C 88 18 124/62 95 Laboratory Results 01/08/22 05:50 01/08/22 05:50 PG Care Time/CCT Total # of Minutes Spent Total Time Spent with Patient: Total time spent is greater than 50% in coordination of care (as documented) at patient's floor/unit and/or counseling patient: Coding Level of Care Code 59225 Subseq Hosp Care Lvl 3 Diagnoses Sacral wound S31.000A Soft tissue infection L08.9 Vitamin D deficiency E55.9 Osteoporosis M81.0 Urge incontinence of urine N39.41 PAD (peripheral artery disease) I73.9 Dementia F03.90 Chronic diastolic congestive heart failure I50.32 Carotid artery occlusion I65.29 DVT (deep venous thrombosis) I82.409 Diabetes E11.9 Hypercholesteremia E78.00 Hypertension I10
[2022-01-08] MEDS: DONEPEZIL HCL 10 MG TAB PO SCH (18:24)
[2022-01-08] MEDS: MONTELUKAST SODIUM 10 MG TABLET PO SCH (20:29)
[2022-01-08] MEDS: ATORVASTATIN 40 MG TAB PO SCH (20:29)
[2022-01-09] MEDS: CEFEPIME 2,000 MG in SYRINGE 0 ML IV SCH ×2 (01:29→23:57)
[2022-01-09] MEDS: metroNIDAZOLE 500 MG TAB PO SCH ×3 (05:45→21:12)
[2022-01-09 06:54] LABS: Basophils # (auto) 0.01 K/uL (0-0.2); Basophils % (auto) 0.1 %; Eosinophils # (auto) 0.05 K/uL (0-0.5); Eosinophils % (auto) 0.4 %; Hemoglobin 9.7 g/dL (12.0-16.0); Immature Granulocytes # (auto) 0.09 K/uL (0.00-0.02); Immature Granulocytes % (auto) 0.7 %; Lymphocytes # (auto) 1.11 K/uL (1.2-3.4); Mean Corpuscular Hgb Conc 33.4 g/dL (32-36); Mean Corpuscular Volume 95.7 fL (80-100); Mean Platelet Volume 9.1 fL (7.4-10.4); Monocytes # (auto) 0.97 K/uL (0.11-0.59); Neutrophils # (auto) 11.61 K/uL (1.4-6.5); Neutrophils % (auto) 83.8 %; Platelet Count 259 K/uL (130-400); RDW Coefficient of Variation 16.6 % (11.5-14.5); RDW Standard Deviation 57.3 fL (36.4-46.3); Red Blood Count 3.03 M/uL (4.2-5.4); White Blood Count 13.84 K/uL (4.8-10.8)
[2022-01-09 07:12] LABS: BUN Creatinine Ratio 17.9 (10-20); Calcium 8.5 mg/dl (8.5-10.1); Est GFR (African American) 38.8 ml/min; Est GFR (Non-African American) 33.5 ml/min; Potassium 4.2 mmol/L (3.5-5.1)
[2022-01-09] MEDS: DOCUSATE SODIUM 100 MG CAP PO SCH ×2 (09:39→21:12)
[2022-01-09] MEDS: ASPIRIN 81 MG ECTAB PO SCH (09:39)
[2022-01-09] MEDS: hydrALAZINE TAB 50 MG TAB PO SCH ×2 (09:40→21:11)
[2022-01-09] MEDS: OMEGA-3 (PURIFIED FISH OIL) 1 GM CAP PO SCH (09:40)
[2022-01-09] MEDS: ISOSORBIDE MONO EXTENDED REL 30 MG TABCR PO SCH (09:40)
[2022-01-09] MEDS: MIRABEGRON ER 25 MG TAB PO SCH (09:41)
[2022-01-09] MEDS: LOSARTAN POTASSIUM 50 MG TAB PO SCH (09:41)
[2022-01-09] MEDS: MEMANTINE HCL 5 MG TAB PO SCH ×2 (09:41→21:12)
[2022-01-09] MEDS: PANTOprazole 40 MG TAB PO SCH (09:42)
[2022-01-09] MEDS: RANOLAZINE 500 MG ER TAB PO SCH ×2 (09:42→21:11)
--- NOTE | 2022-01-09 09:42 | Pharmacy Report ---
Pharmacy PK ABX Note - Date of Service January 09, 2022 - Assessment and Plan Assessment 86 year old F receiving vancomycin, cefepime, and metronidazole for treatment of sacral wound s/p debridement on 01/08/22. h/o Pseudomonas aeruginosa and MRSA Plan Vancomycin * Current regimen: 1000 mg IV every 24 hours * Random level obtained 01/09/22 resulted as 14.4 mcg/mL. This is predicted to achieve target AUC/SUSAN of 400-600 mg/L.hr * Scr on the rise (0.96 -> 1.12 -> 1.4 mg/dL). Will empirically decrease dose to avoid toxicity. * Change to 750 mg IV every 24 hours * Predicted AUC at steady state: 457 mg/L.hr * Predicted trough at steady state: 15.2 mcg/mL * Will repeat level in the next 48-72 hours if therapy is continued and/or change in patient clinical status Pharmacy will continue to follow and will adjust dose/frequency as necessary. Thank you. Pharmacy has transitioned to AUC monitoring for vancomycin. AUC/SUSAN is the preferred PK/PD target and is associated with decreased risk of nephrotoxicity compared to traditional trough targets.
[2022-01-09] MEDS: POLYETHYLENE (MIRALAX) 17 GM PACK PO SCH (09:48)
[2022-01-09] MEDS: ACETAMINOPHEN 325 MG TAB PO PRN (10:30)
--- NOTE | 2022-01-09 11:10 | Pharmacy Report ---
Pharmacy PK ABX Note - Date of Service January 09, 2022 - Assessment and Plan Assessment 86 year old F receiving vancomycin, cefepime, and metronidazole for treatment of sacral wound s/p debridement on 01/08/22. h/o Pseudomonas aeruginosa and MRSA Plan Vancomycin * Current regimen: 1000 mg IV every 24 hours * Random level obtained 01/09/22 resulted as 14.4 mcg/mL. This is predicted to achieve target AUC/SUSAN of 400-600 mg/L.hr * Scr on the rise (0.96 -> 1.12 -> 1.4 mg/dL). Will empirically decrease dose to avoid toxicity. * Change to 750 mg IV every 24 hours * Predicted AUC at steady state: 457 mg/L.hr * Predicted trough at steady state: 15.2 mcg/mL * Will repeat level in the next 48-72 hours if therapy is continued and/or change in patient clinical status Pharmacy will continue to follow and will adjust dose/frequency as necessary. Thank you. Pharmacy has transitioned to AUC monitoring for vancomycin. AUC/SSUAN is the preferred PK/PD target and is associated with decreased risk of nephrotoxicity compared to traditional trough targets.
[2022-01-09] MEDS: SODIUM CHLORIDE 0.9% 1000ML 1,000 ML IV SCH ×2 (11:22→23:59)
--- NOTE | 2022-01-09 11:43 | Surgery Progress Note ---
Date of Service January 09, 2022 Assessment & Plan (1) Sacral ulcer: Plan: POD#1 debridement of sacral ulcer wound care evaluated today, had some ooziness in wound bed. they are considering placing an irrigating wound vac zeenat OR cultures pending, currently on cefepime/vanco/and po flagyl on air fluidized bed and is currently offloading site will need f/u in the wound care center upon dispo Admission and Anticipated Discharge Date Admission Date: January 06, 2022 Supervising Physician Co-Signing Physician Notes Pnt d/w Nell Campa, wound care pictures and notes reviewed, agree with above. POD#1 debridement sacral pressure ulcer. Wound with healthy base, no significant bleeding. Wound care may apply wound vac as indicated. Surgery will follow peripherally Subjective Patient reports some pain at surgical site. Is trying to call son on hospital phone. Otherwise states no issues. Physical Exam Physical Exam: awake, lying in bed Gastrointestinal (Abdomen): wound dressing intact Results & Data ([facility]) Vital Signs (Past 12 Hours) Vital Signs Temp Pulse Resp BP Pulse Ox 01/09/22 07:31 36.6 C 67 16 112/63 99 PG Care Time/CCT Total # of Minutes Spent Total Time Spent with Patient: Total time spent is greater than 50% in coordination of care (as documented) at patient's floor/unit and/or counseling patient: Coding Level of Care Code None Diagnoses Sacral ulcer L98.429
[2022-01-09] MEDS ORDERED: VANCOMYCIN HCL 750 MG in SODIUM CHLORIDE 0.9% 250 ML IV SCH (12:00)
--- NOTE | 2022-01-09 14:13 | Hospitalist Progress Note ---
Date of Service January 09, 2022 Assessment & Plan (1) Sacral wound: Plan: Stage IV. Debrided on January 08. POD #1. She remains on intravenous vancomycin/ cefepime and oral Flagyl. Appreciate wound care nurse assistance. (2) Soft tissue infection: Plan: Currently on intravenous vancomycin/ cefepime and oral Flagyl (3) Vitamin D deficiency: Plan: Supplementation ordered (4) Osteoporosis: Plan: Stable. Medication management (5) Urge incontinence of urine: Plan: Supportive care. Medication management (6) PAD (peripheral artery disease): Plan: Maintain satisfactory cholesterol levels. No smoking. Diabetic control (7) Dementia: Plan: Supportive care. Medication management (8) Chronic diastolic congestive heart failure: Plan: Currently stable. Monitor intake and output. Medication management (9) Carotid artery occlusion: Plan: Stable. Cholesterol controlled. No smoking (10) DVT (deep venous thrombosis): Plan: Prophylaxis ordered (11) Diabetes: Plan: ADA diet. Sliding scale coverage. Medication management (12) Hypercholesteremia: Plan: Statin therapy (13) Hypertension: Plan: Stable. Medication management (14) Acute kidney injury: Plan: Judicious intravenous fluids. Monitor intake and output. Serial lab studies Plan: Code status: Full code. Dispo: To be determined . OT and PT assessments requested Admission and Anticipated Discharge Date Admission Date: January 06, 2022 Subjective Alert and oriented. Creatinine has trended upward to 1.4 consistent with acute kidney injury. We will start judicious IV fluids and monitor urine output with serial labs. Video swallow today Review of Systems Review of Systems: Constitutional-no fever or chills ENT-no blurred vision, no double vision, no epistaxis, no sore throat Respiratory-no cough, no wheezing, no shortness of breath Cardiac-no palpitations, no chest pain, no syncope GI-no nausea, vomiting, diarrhea, melena, hematochezia -no urinary retention, no urinary incontinence, no dysuria, no hematuria Musculoskeletal-no joint pain, no muscle tenderness Skin-no bruising, no rashes, no pruritus Neuro-no isolated weakness, no paresthesia, no weakness Psych-no depression, no anxiety Physical Exam Physical Exam: General-alert and oriented x3, no fevers, no chills HEENT-head atraumatic and normocephalic, TMs intact bilaterally, pupils equal and reactive to light, extraocular muscles intact Neck-no lymphadenopathy or thyromegaly, trachea midline Chest-clear to auscultation percussion. No rales wheezing or rhonchi Cardiac-regular rate and rhythm, normal S1 and S2, no murmurs Abdomen-normal bowel sounds, nontender, no hepatosplenomegaly Extremities-no cyanosis, clubbing, or edema Neuro-cranial nerves II through XII intact, motor and sensory function within normal limits, strength symmetrical , no focal deficits Psych-normal affect, normal mood Skinbandaged stage IV decubitus ulcer Results & Data Results & Data ([facility]) Vital Signs (Past 12 Hours) Vital Signs Temp Pulse Resp BP Pulse Ox 01/09/22 07:31 36.6 C 67 16 112/63 99 Laboratory Results 01/09/22 06:27 01/09/22 06:27 PG Care Time/CCT Total # of Minutes Spent Total Time Spent with Patient: Total time spent is greater than 50% in coordination of care (as documented) at patient's floor/unit and/or counseling patient: Coding Level of Care Code 31476 Subseq Hosp Care Lvl 3 Diagnoses Sacral wound S31.000A Soft tissue infection L08.9 Vitamin D deficiency E55.9 Osteoporosis M81.0 Urge incontinence of urine N39.41 PAD (peripheral artery disease) I73.9 Dementia F03.90 Chronic diastolic congestive heart failure I50.32 Carotid artery occlusion I65.29 DVT (deep venous thrombosis) I82.409 Diabetes E11.9 Hypercholesteremia E78.00 Hypertension I10 Acute kidney injury N17.9
--- NOTE | 2022-01-09 14:21 | Fluoroscopy Report ---
MODIFIED BARIUM SWALLOW CLINICAL HISTORY: assess for aspiration COMPARISON STUDY: None FLUOROSCOPY TIME: 2.2 minutes. TECHNIQUE: A modified barium swallow was performed in conjunction with Speech Pathology. The patient ingested varying consistencies of barium containing material. Video fluoroscopy was performed. FINDINGS: No aspiration was identified with thin liquids, mildly thick liquids, pudding or crackers w ith paste. Penetration was noted with serial swallows of thin liquids. Epiglottic inversion was fernando l. Laryngeal elevation was normal. Note was made of esophageal dysmotility, at least moderate in degr ee, suboptimally assessed on this exam. IMPRESSION: 1. No tracheal aspiration identified. Intact swallowing mechanism. 2. Esophageal dysmotility, at least moderate in degree. 3. Full recommendations by speech pathology to follow. ACT 112: Negative or not required by law. Electronically signed by: Terell Burk M.D. 01/09/2022 2:20 PM
[2022-01-09] MEDS: DONEPEZIL HCL 10 MG TAB PO SCH (17:28)
[2022-01-09] MEDS: ATORVASTATIN 40 MG TAB PO SCH (21:11)
[2022-01-09] MEDS: MONTELUKAST SODIUM 10 MG TABLET PO SCH (21:12)
[2022-01-10 06:52] LABS: Basophils # (auto) 0.01 K/uL (0-0.2); Basophils % (auto) 0.1 %; Eosinophils # (auto) 0.13 K/uL (0-0.5); Eosinophils % (auto) 1.1 %; Hematocrit (blood only) 26.9 % (37-47); Hemoglobin 9.1 g/dL (12.0-16.0); Immature Granulocytes # (auto) 0.09 K/uL (0.00-0.02); Immature Granulocytes % (auto) 0.8 %; Lymphocytes # (auto) 0.62 K/uL (1.2-3.4); Lymphocytes % (auto) 5.2 %; Mean Corpuscular Hemoglobin 32.4 pg (25-34); Mean Corpuscular Hgb Conc 33.8 g/dL (32-36); Mean Corpuscular Volume 95.7 fL (80-100); Mean Platelet Volume 9.2 fL (7.4-10.4); Monocytes # (auto) 0.64 K/uL (0.11-0.59); Monocytes % (auto) 5.4 %; Neutrophils % (auto) 87.4 %; Platelet Count 229 K/uL (130-400); RDW Coefficient of Variation 17.1 % (11.5-14.5); RDW Standard Deviation 59.8 fL (36.4-46.3); Red Blood Count 2.81 M/uL (4.2-5.4); White Blood Count 11.89 K/uL (4.8-10.8)
[2022-01-10 07:26] LABS: BUN Creatinine Ratio 21.9 (10-20); Calcium 8.1 mg/dl (8.5-10.1); Creatinine Clr Calc Pharmacy 21.9 ml/min; Est GFR (Non-African American) 28.5 ml/min; Potassium 4.5 mmol/L (3.5-5.1)
[2022-01-10] MEDS: metroNIDAZOLE 500 MG TAB PO SCH ×3 (09:31→22:27)
[2022-01-10] MEDS: DOCUSATE SODIUM 100 MG CAP PO SCH ×2 (09:33→21:35)
[2022-01-10] MEDS: ASPIRIN 81 MG ECTAB PO SCH (09:34)
[2022-01-10] MEDS: OMEGA-3 (PURIFIED FISH OIL) 1 GM CAP PO SCH (09:34)
[2022-01-10] MEDS: hydrALAZINE TAB 50 MG TAB PO SCH ×2 (09:35→21:36)
[2022-01-10] MEDS: ISOSORBIDE MONO EXTENDED REL 30 MG TABCR PO SCH (09:36)
[2022-01-10] MEDS: MEMANTINE HCL 5 MG TAB PO SCH ×2 (09:36→21:36)
[2022-01-10] MEDS: LOSARTAN POTASSIUM 50 MG TAB PO SCH (09:36)
[2022-01-10] MEDS: PANTOprazole 40 MG TAB PO SCH (09:37)
[2022-01-10] MEDS: RANOLAZINE 500 MG ER TAB PO SCH ×2 (09:37→21:37)
[2022-01-10] MEDS: MIRABEGRON ER 25 MG TAB PO SCH (09:37)
[2022-01-10] MEDS: POLYETHYLENE (MIRALAX) 17 GM PACK PO SCH (09:39)
--- NOTE | 2022-01-10 12:11 | Hospitalist Progress Note ---
Date of Service January 10, 2022 Assessment & Plan (1) Sacral wound: Plan: Stage IV. Debrided on January 08. POD #2. She is now on intravenous linezolid / cefepime and oral Flagyl. Appreciate wound care nurse assistance. Wound VAC being applied today, January 10 (2) Soft tissue infection: Plan: Currently on intravenous linezolid / cefepime and oral Flagyl (3) Vitamin D deficiency: Plan: Supplementation ordered (4) Osteoporosis: Plan: Stable. Medication management (5) Urge incontinence of urine: Plan: Supportive care. Medication management (6) PAD (peripheral artery disease): Plan: Maintain satisfactory cholesterol levels. No smoking. Diabetic control (7) Dementia: Plan: Supportive care. Medication management (8) Chronic diastolic congestive heart failure: Plan: Currently stable. Monitor intake and output. Medication management (9) Carotid artery occlusion: Plan: Stable. Cholesterol controlled. No smoking (10) DVT (deep venous thrombosis): Plan: Prophylaxis ordered (11) Diabetes: Plan: ADA diet. Sliding scale coverage. Medication management (12) Hypercholesteremia: Plan: Statin therapy (13) Hypertension: Plan: Stable. Medication management (14) Acute kidney injury: Plan: Creatinine has trended upward again to 1.6 today, January 09. Linezolid replaces vancomycin to avoid nephrotoxicity. Continue to monitor intake and output. Serial lab studies. Plan: Code status: Full code. Dispo: To be determined . OT and PT assessments requested Admission and Anticipated Discharge Date Admission Date: January 06, 2022 Subjective Alert and oriented. No complaints. Wound VAC has been ordered by the surgical team for the sacral decubitus. Creatinine has trended upward slightly. Linezolid replaces vancomycin. Continue IV fluids. Review of Systems Review of Systems: Constitutional-no fever or chills ENT-no blurred vision, no double vision, no epistaxis, no sore throat Respiratory-no cough, no wheezing, no shortness of breath Cardiac-no palpitations, no chest pain, no syncope GI-no nausea, vomiting, diarrhea, melena, hematochezia -no urinary retention, no urinary incontinence, no dysuria, no hematuria Musculoskeletal-no joint pain, no muscle tenderness Skin-no bruising, no rashes, no pruritus Neuro-no isolated weakness, no paresthesia, no weakness Psych-no depression, no anxiety Physical Exam Physical Exam: General-alert. Needs reoriented frequently. No fevers, no chills HEENT-head atraumatic and normocephalic, TMs intact bilaterally, pupils equal and reactive to light, extraocular muscles intact Neck-no lymphadenopathy or thyromegaly, trachea midline Chest-clear to auscultation percussion. No rales wheezing or rhonchi Cardiac-regular rate and rhythm, normal S1 and S2, no murmurs Abdomen-normal bowel sounds, nontender, no hepatosplenomegaly Extremities-no cyanosis, clubbing, or edema Neuro-cranial nerves II through XII intact, motor and sensory function within no rmal limits, strength symmetrical , no focal deficits Psych-normal affect, normal mood Results & Data Results & Data ([facility]) Vital Signs (Past 12 Hours) Vital Signs Temp Pulse Resp BP Pulse Ox 01/10/22 11:05 36.6 C 64 17 120/60 96 01/10/22 08:01 37.5 C 69 16 130/70 95 01/10/22 06:06 36.6 C 65 16 105/60 95 Laboratory Results 01/10/22 06:23 01/10/22 06:23 PG Care Time/CCT Total # of Minutes Spent Total Time Spent with Patient: Total time spent is greater than 50% in coordination of care (as documented) at patient's floor/unit and/or counseling patient: Coding Level of Care Code 33110 Subseq Hosp Care Lvl 3 Diagnoses Sacral wound S31.000A Soft tissue infection L08.9 Vitamin D deficiency E55.9 Osteoporosis M81.0 Urge incontinence of urine N39.41 PAD (peripheral artery disease) I73.9 Dementia F03.90 Chronic diastolic congestive heart failure I50.32 Carotid artery occlusion I65.29 DVT (deep venous thrombosis) I82.409 Diabetes E11.9 Hypercholesteremia E78.00 Hypertension I10 Acute kidney injury N17.9
[2022-01-10] MEDS: LINEZOLID 600 MG/300 ML BAG IV SCH (13:19)
[2022-01-10] MEDS: SODIUM CHLORIDE 0.9% 1000ML 1,000 ML IV SCH (14:50)
[2022-01-10] MEDS: DONEPEZIL HCL 10 MG TAB PO SCH (17:15)
[2022-01-10] MEDS: ATORVASTATIN 40 MG TAB PO SCH (21:35)
[2022-01-10] MEDS: MONTELUKAST SODIUM 10 MG TABLET PO SCH (21:37)
[2022-01-10] MEDS: ACETAMINOPHEN 325 MG TAB PO PRN (21:44)
[2022-01-11] MEDS: CEFEPIME 2,000 MG in SYRINGE 0 ML IV SCH ×2 (00:53→23:49)
[2022-01-11] MEDS: LINEZOLID 600 MG/300 ML BAG IV SCH ×3 (00:53→23:49)
[2022-01-11] MEDS: metroNIDAZOLE 500 MG TAB PO SCH ×3 (06:25→23:49)
[2022-01-11 06:26] LABS: Hematocrit (blood only) 27.4 % (37-47); Hemoglobin 9.1 g/dL (12.0-16.0); Mean Corpuscular Hemoglobin 31.7 pg (25-34); Mean Corpuscular Hgb Conc 33.2 g/dL (32-36); Mean Corpuscular Volume 95.5 fL (80-100); Mean Platelet Volume 9.3 fL (7.4-10.4); Nucleated RBC % (auto) 0.8 %; Platelet Count 246 K/uL (130-400); RDW Coefficient of Variation 17.3 % (11.5-14.5); RDW Standard Deviation 59.7 fL (36.4-46.3); Red Blood Count 2.87 M/uL (4.2-5.4); White Blood Count 11.91 K/uL (4.8-10.8)
[2022-01-11 06:51] LABS: ALC (manual) 1.14 K/uL (1.2-3.4); ANC (manual) 10.04 K/uL (1.4-6.5); BUN Creatinine Ratio 26.5 (10-20); Calcium 8.2 mg/dl (8.5-10.1); Creatinine Clr Calc Pharmacy 29.9 ml/min; Echinocytes 1+; Eosinophils # (manual) 0.31 K/uL (0-0.5); Eosinophils % (manual) 2.6 %; Est GFR (African American) 48.2 ml/min; Est GFR (Non-African American) 41.6 ml/min; Lymphocytes # (manual) 1.14 K/uL (1.2-3.4); Lymphocytes % (manual) 9.6 %; Monocytes # (manual) 0.42 K/uL (0.11-0.59); Monocytes % (manual) 3.5 %; Neutrophils # (manual) 10.04 K/uL (1.4-6.5); Neutrophils % (manual) 84.3 %
[2022-01-11] MEDS: POLYETHYLENE (MIRALAX) 17 GM PACK PO SCH (07:55)
[2022-01-11] MEDS: MEMANTINE HCL 5 MG TAB PO SCH ×2 (07:55→21:02)
[2022-01-11] MEDS: ISOSORBIDE MONO EXTENDED REL 30 MG TABCR PO SCH (07:55)
[2022-01-11] MEDS: PANTOprazole 40 MG TAB PO SCH (07:55)
[2022-01-11] MEDS: RANOLAZINE 500 MG ER TAB PO SCH ×2 (07:55→21:02)
[2022-01-11] MEDS: OMEGA-3 (PURIFIED FISH OIL) 1 GM CAP PO SCH (07:56)
[2022-01-11] MEDS: MIRABEGRON ER 25 MG TAB PO SCH (07:56)
[2022-01-11] MEDS: ASPIRIN 81 MG ECTAB PO SCH (07:56)
[2022-01-11] MEDS: hydrALAZINE TAB 50 MG TAB PO SCH ×2 (07:56→21:05)
[2022-01-11] MEDS: DOCUSATE SODIUM 100 MG CAP PO SCH ×2 (07:56→21:02)
[2022-01-11] MEDS: LOSARTAN POTASSIUM 50 MG TAB PO SCH (07:56)
[2022-01-11] MEDS: SODIUM CHLORIDE 0.9% 1000ML 1,000 ML IV SCH (09:30)
--- NOTE | 2022-01-11 11:52 | Hospitalist Progress Note ---
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 Moon (POD#3) On current abx regimen of: IV linezolid (d/t uptrending creatinine as she was previously on Vancomycin), cefepime and oral Flagyl Unfortunately no culture data collected to guide treatment Blood cultures drawn, NGTD Appreciate wound care nurse assistance. Wound VAC applied January 10. Offload pressure, specialty mattress Today diaz day #6 of abx therapy, would think 10 days would suffice Given lack of culture data, patient would benefit from ID consult to guide choice and duration of antibiotics * Could be transitioned to oral course as there is no evidence of osteo (2) Urinary retention: Plan: Required straight cath 3 times overnight Residual 418 mL reported by nursing this morning Bazzi placed and patient has been started on Flomax (3) Acute kidney injury: Plan: Creatinine has trended upward again to 1.6 on January 09. Linezolid replaces vancomycin to avoid nephrotoxicity IV fluids ordered and labs repeated Creatinine has normalized today, will cap fluids (4) Diabetes: Plan: Maintain carb consistent diet Last ha1c was 5.4% on 01/07 Takes no diabetic medications, appears diet controlled (5) Dementia: Plan: Continue Aricept and Namenda No delirium (6) Chronic diastolic congestive heart failure: Plan: Currently compensated Typically takes Bumex 0.5 mg on MWF which is currently on hold (7) Hypertension: Plan: Blood pressure with good control Continue losartan and hydralazine (8) DVT (deep venous thrombosis): Plan: Prophylaxis ordered with Lovenox Plan: PT/OT have assessed patient and are recommending rehab upon discharge prior to returning home. Patient does live at home with her son. Referrals have been sent according to last case management note. Although she is medically stable for d/c, she will remain in house over the weekend due to the holiday and can likely go to rehab on Thursday pending bed availability +/- insurance authorization. Will d/w attending. Admission and Anticipated Discharge Date Admission Date: January 06, 2022 Supervising Physician Co-Signing Physician Notes reviewed and agree winter Montoya PAC Subjective Patient seen on daily rounds this morning, verbalizes no complaints or concerns. Wound VAC in place. Denies pain, chest pain, shortness of breath, nausea or vomiting. Per nursing, required straight cath x3 overnight and was just bladder scanned for 418 ml this morning. Review of Systems Review of Systems: All systems reviewed and are unremarkable except as noted in HPI and below. Denies fever, chills, fatigue, headache, nasal congestion, sore throat, cough, chest pain, shortness of breath, palpitations, orthopnea, PND, abdominal pain, n/v/d, constipation, dysuria, hematuria, frequency, back pain, joint pain or swelling, easy bruising or bleeding, skin lesions or rashes. Physical Exam Physical Exam: GENERAL: 86 yo WD/WN elderly WF. NAD. LUNGS: Clear to auscultation bilaterally. No W/R/R. CARDIOVASCULAR: Regular rate and rhythm. ABDOMEN: Soft, non-tender and non-distended. BS normoactive x 4 quad. EXTREMITIES: No edema. Non-tender. Peripheral pulses +2/4. NEUROLOGIC: A&O x3. PSYCHIATRIC: Cooperative. Appropriate mood and affect. SKIN: Warm, dry, intact. No rashes or lesions. Sacral wound with wound vac in place. Not examined today. Results & Data Results & Data ([facility]) Vital Signs (Past 12 Hours) Vital Signs Temp Pulse Resp BP Pulse Ox 01/11/22 07:41 36.4 C L 60 18 120/62 96 Laboratory Results 01/11/22 05:26 01/11/22 05:26 PG Care Time/CCT Total # of Minutes Spent Total Time Spent with Patient: Total time spent is greater than 50% in coordination of care (as documented) at patient's floor/unit and/or counseling patient: Coding Level of Care Code 29253 Subseq Hosp Care Lvl 2 Diagnoses Sacral wound S31.000A Dementia F03.90 Chronic diastolic congestive heart failure I50.32 DVT (deep venous thrombosis) I82.409 Diabetes E11.9 Hypertension I10 Acute kidney injury N17.9 Urinary retention R33.9
[2022-01-11] MEDS: ENOXAPARIN INJ 30 MG/0.3 ML SYR SQ SCH (13:48)
[2022-01-11] MEDS: DONEPEZIL HCL 10 MG TAB PO SCH (17:47)
[2022-01-11] MEDS: TAMSULOSIN HCL 0.4 MG CAP PO SCH (21:02)
[2022-01-11] MEDS: ATORVASTATIN 40 MG TAB PO SCH (21:02)
[2022-01-11] MEDS: MONTELUKAST SODIUM 10 MG TABLET PO SCH (21:02)
[2022-01-11] MEDS ORDERED: MICONAZOLE NITRATE POWDER 43 GM EXT PRN (21:47)
[2022-01-12] MEDS: metroNIDAZOLE 500 MG TAB PO SCH ×3 (06:03→22:52)
[2022-01-12] MEDS: ACETAMINOPHEN 325 MG TAB PO PRN (06:19)
[2022-01-12 09:06] LABS: Basophils # (auto) 0.02 K/uL (0-0.2); Basophils % (auto) 0.2 %; Eosinophils # (auto) 0.14 K/uL (0-0.5); Eosinophils % (auto) 1.3 %; Hematocrit (blood only) 28.1 % (37-47); Hemoglobin 9.6 g/dL (12.0-16.0); Immature Granulocytes # (auto) 0.12 K/uL (0.00-0.02); Immature Granulocytes % (auto) 1.1 %; Lymphocytes # (auto) 1.28 K/uL (1.2-3.4); Lymphocytes % (auto) 11.4 %; Mean Corpuscular Hemoglobin 33.2 pg (25-34); Mean Corpuscular Hgb Conc 34.2 g/dL (32-36); Mean Corpuscular Volume 97.2 fL (80-100); Mean Platelet Volume 8.7 fL (7.4-10.4); Monocytes % (auto) 8.9 %; Neutrophils # (auto) 8.64 K/uL (1.4-6.5); Neutrophils % (auto) 77.1 %; Nucleated RBC # (auto) 0.07 K/uL (0-0); Nucleated RBC % (auto) 0.6 %; Platelet Count 281 K/uL (130-400); RDW Coefficient of Variation 17.5 % (11.5-14.5); RDW Standard Deviation 60.4 fL (36.4-46.3); Red Blood Count 2.89 M/uL (4.2-5.4)
[2022-01-12 09:26] LABS: BUN Creatinine Ratio 27.5 (10-20); Calcium 8.4 mg/dl (8.5-10.1); Creatinine Clr Calc Pharmacy 32.1 ml/min; Est GFR (African American) 52.5 ml/min; Est GFR (Non-African American) 45.3 ml/min; Potassium 4.3 mmol/L (3.5-5.1)
[2022-01-12] MEDS: DOCUSATE SODIUM 100 MG CAP PO SCH ×2 (11:08→20:37)
[2022-01-12] MEDS: LOSARTAN POTASSIUM 50 MG TAB PO SCH (11:08)
[2022-01-12] MEDS: MEMANTINE HCL 5 MG TAB PO SCH ×2 (11:08→20:36)
[2022-01-12] MEDS: PANTOprazole 40 MG TAB PO SCH (11:08)
[2022-01-12] MEDS: OMEGA-3 (PURIFIED FISH OIL) 1 GM CAP PO SCH (11:08)
[2022-01-12] MEDS: POLYETHYLENE (MIRALAX) 17 GM PACK PO SCH (11:09)
[2022-01-12] MEDS: ISOSORBIDE MONO EXTENDED REL 30 MG TABCR PO SCH (11:09)
[2022-01-12] MEDS: ENOXAPARIN INJ 30 MG/0.3 ML SYR SQ SCH (11:09)
[2022-01-12] MEDS: RANOLAZINE 500 MG ER TAB PO SCH ×2 (11:09→20:37)
[2022-01-12] MEDS: ASPIRIN 81 MG ECTAB PO SCH (11:09)
[2022-01-12] MEDS: hydrALAZINE TAB 50 MG TAB PO SCH ×2 (11:09→21:00)
[2022-01-12] MEDS: LINEZOLID 600 MG/300 ML BAG IV SCH (13:14)
--- NOTE | 2022-01-12 13:45 | Hospitalist Progress Note ---
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 Moon (POD#4) On current abx regimen of: IV linezolid (d/t uptrending creatinine as she was previously on Vancomycin), cefepime and oral Flagyl Unfortunately no culture data collected to guide treatment Blood cultures drawn, NGTD Appreciate wound care nurse assistance. Wound VAC applied January 10. Offload pressure, specialty mattress Today diaz day #7 of abx therapy, would think 10 days total would suffice based on appearance of wound and surrounding tissue Could be transitioned to oral course as there is no evidence of osteo (2) Urinary retention: Plan: Required straight cath 3 times overnight Residual 418 mL reported by nursing this morning Bazzi placed and patient has been started on Flomax Myrbetriq stopped as this could be contributing to her retention Documented that patient follows with [facility] [place] urology, however I see no notes in the chart from them * May require urology follow-up upon discharge (3) Acute kidney injury: Plan: Creatinine has trended upward again to 1.6 on January 09. Linezolid replaces vancomycin to avoid nephrotoxicity IV fluids ordered and labs repeated Creatinine has normalized and IV fluids were stopped (4) Diabetes: Plan: Maintain carb consistent diet Last ha1c was 5.4% on 01/07 Takes no diabetic medications, appears diet controlled (5) Dementia: Plan: Continue Aricept and Namenda No delirium (6) Chronic diastolic congestive heart failure: Plan: Typically takes Bumex 0.5 mg on MWF which is currently on hold May have an acute on chronic component of CHF, positive fluid balance, Bumex on hold, recent IV fluids and has wheezing on exam Obtain chest x-ray, resume Bumex, add scheduled duonebs 4 times daily (7) Hypertension: Plan: Blood pressure with good control Continue losartan and hydralazine (8) DVT (deep venous thrombosis): Plan: Prophylaxis ordered with Lovenox Plan: PT/OT have assessed patient and are recommending rehab upon discharge prior to returning home. Patient does live at home with her son. Referrals have been sent according to last case management note. Although she is medically stable for d/c, she will remain in house over the weekend due to the holiday and can likely go to rehab on Thursday pending bed availability +/- insurance authorization. Will d/w attending. Admission and Anticipated Discharge Date Admission Date: January 06, 2022 Supervising Physician Co-Signing Physician Notes reviewed and agree winter Montoya PAC Subjective Patient seen on daily rounds this morning, verbalizes no complaints or concerns. Wound VAC in place. Denies pain, chest pain, shortness of breath, nausea or vomiting. Bazzi placed yesterday due to urinary retention. Review of Systems Review of Systems: All systems reviewed and are unremarkable except as noted in HPI and below. Denies fever, chills, fatigue, headache, nasal congestion, sore throat, cough, chest pain, shortness of breath, palpitations, orthopnea, PND, abdominal pain, n/v/d, constipation, dysuria, hematuria, frequency, back pain, joint pain or swelling, easy bruising or bleeding, skin lesions or rashes. Physical Exam Physical Exam: GENERAL: 86 yo WD/WN elderly WF. NAD. LUNGS: Scattered expiratory wheezes noted on exam today. No rhonchi or rales. CARDIOVASCULAR: Regular rate and rhythm. ABDOMEN: Soft, non-tender and non-distended. BS normoactive x 4 quad. EXTREMITIES: No edema. Non-tender. Peripheral pulses +2/4. NEUROLOGIC: A&O x3. PSYCHIATRIC: Cooperative. Appropriate mood and affect. SKIN: Warm, dry, intact. No rashes or lesions. Sacral wound with wound vac in place. Not examined today. Results & Data Results & Data ([facility]) Vital Signs (Past 12 Hours) Vital Signs Temp Pulse Resp BP Pulse Ox 01/12/22 07:35 36.4 C L 80 16 105/60 98 Laboratory Results 01/12/22 08:52 01/12/22 08:52 PG Care Time/CCT Total # of Minutes Spent Total Time Spent with Patient: Total time spent is greater than 50% in coordination of care (as documented) at patient's floor/unit and/or counseling patient: Coding Level of Care Code 46433 Subseq Hosp Care Lvl 2 Diagnoses Sacral wound S31.000A Urinary retention R33.9 Acute kidney injury N17.9 Diabetes E11.9 Dementia F03.90 Chronic diastolic congestive heart failure I50.32 Hypertension I10 DVT (deep venous thrombosis) I82.409
[2022-01-12] MEDS: ONDANSETRON INJ 2 MG/ML 2 ML VIAL IV PRN (15:00)
--- NOTE | 2022-01-12 15:48 | XRay Report ---
SINGLE VIEW CHEST CLINICAL HISTORY: Wheezing. Nausea. FINDINGS: An AP, portable, upright chest radiograph is compared to study dated 01/06/2022. The examina tion is degraded by portable technique and patient rotation. The patient is status post midline cohen otomy. The heart is enlarged noting atherosclerotic calcification of the thoracic aorta. There is pul monary vessel congestion. There is a left pleural effusion with left basilar consolidation. Trace ple ural effusion is also suspected on the right. No pneumothorax is seen. The skeletal structures are os teopenic. The bony thorax is grossly intact. Degenerative change and scoliosis are noted in the thora cic spine. IMPRESSION: 1. Cardiomegaly with pulmonary vascular congestion. 2. Left pleural effusion with left basilar consolidation. This is similar to previous. 3. There is also likely a trace right pleural effusion. ACT 112: Negative or not required by law. Electronically signed by: Bronson Gusman M.D. 01/12/2022 3:47 PM
[2022-01-12] MEDS: CEFEPIME 2,000 MG in SYRINGE 0 ML IV SCH (15:56)
[2022-01-12] MEDS ORDERED: ALBUT/IPRATROP 3MG/0.5MG NEB 3 ML VIAL NEB PRN (15:56)
[2022-01-12] MEDS: DONEPEZIL HCL 10 MG TAB PO SCH (18:01)
[2022-01-12] MEDS: ALBUT/IPRATROP 3MG/0.5MG NEB 3 ML VIAL NEB SCH (19:11)
[2022-01-12] MEDS: ATORVASTATIN 40 MG TAB PO SCH (20:37)
[2022-01-12] MEDS: TAMSULOSIN HCL 0.4 MG CAP PO SCH (20:37)
[2022-01-12] MEDS: MONTELUKAST SODIUM 10 MG TABLET PO SCH (20:37)
[2022-01-13] MEDS: LINEZOLID 600 MG/300 ML BAG IV SCH ×2 (00:02→13:58)
[2022-01-13] MEDS: CEFEPIME 2,000 MG in SYRINGE 0 ML IV SCH ×2 (03:12→16:13)
[2022-01-13 07:02] LABS: Basophils # (auto) 0.02 K/uL (0-0.2); Basophils % (auto) 0.2 %; Eosinophils # (auto) 0.13 K/uL (0-0.5); Eosinophils % (auto) 1.1 %; Hemoglobin 9.2 g/dL (12.0-16.0); Immature Granulocytes # (auto) 0.06 K/uL (0.00-0.02); Immature Granulocytes % (auto) 0.5 %; Lymphocytes # (auto) 1.11 K/uL (1.2-3.4); Lymphocytes % (auto) 9.6 %; Mean Corpuscular Hemoglobin 32.2 pg (25-34); Mean Corpuscular Hgb Conc 32.9 g/dL (32-36); Mean Corpuscular Volume 97.9 fL (80-100); Mean Platelet Volume 8.6 fL (7.4-10.4); Monocytes # (auto) 1.08 K/uL (0.11-0.59); Monocytes % (auto) 9.4 %; Neutrophils # (auto) 9.14 K/uL (1.4-6.5); Neutrophils % (auto) 79.2 %; Nucleated RBC # (auto) 0.07 K/uL (0-0); Nucleated RBC % (auto) 0.6 %; Platelet Count 300 K/uL (130-400); RDW Coefficient of Variation 17.8 % (11.5-14.5); RDW Standard Deviation 62.9 fL (36.4-46.3); Red Blood Count 2.86 M/uL (4.2-5.4); White Blood Count 11.54 K/uL (4.8-10.8)
[2022-01-13 07:27] LABS: BUN Creatinine Ratio 27.7 (10-20); Calcium 8.5 mg/dl (8.5-10.1); Creatinine Clr Calc Pharmacy 31.2 ml/min; Est GFR (African American) 50.8 ml/min; Est GFR (Non-African American) 43.8 ml/min; Magnesium 1.5 mg/dl (1.7-2.4)
[2022-01-13] MEDS: ALBUT/IPRATROP 3MG/0.5MG NEB 3 ML VIAL NEB SCH ×4 (07:46→19:06)
[2022-01-13] MEDS: metroNIDAZOLE 500 MG TAB PO SCH ×3 (08:27→22:36)
[2022-01-13] MEDS: MEMANTINE HCL 5 MG TAB PO SCH ×2 (08:28→20:12)
[2022-01-13] MEDS: DOCUSATE SODIUM 100 MG CAP PO SCH ×2 (08:28→20:12)
[2022-01-13] MEDS: ASPIRIN 81 MG ECTAB PO SCH (08:28)
[2022-01-13] MEDS: OMEGA-3 (PURIFIED FISH OIL) 1 GM CAP PO SCH (08:28)
[2022-01-13] MEDS: RANOLAZINE 500 MG ER TAB PO SCH ×2 (08:28→20:12)
[2022-01-13] MEDS: hydrALAZINE TAB 50 MG TAB PO SCH (08:28)
[2022-01-13] MEDS: LOSARTAN POTASSIUM 50 MG TAB PO SCH (08:28)
[2022-01-13] MEDS: POLYETHYLENE (MIRALAX) 17 GM PACK PO SCH (08:29)
[2022-01-13] MEDS: ISOSORBIDE MONO EXTENDED REL 30 MG TABCR PO SCH (08:29)
[2022-01-13] MEDS: ENOXAPARIN INJ 30 MG/0.3 ML SYR SQ SCH (08:29)
[2022-01-13] MEDS: PANTOprazole 40 MG TAB PO SCH (08:29)
[2022-01-13] MEDS ORDERED: BUMETANIDE 1 MG in SYRINGE 0 ML IV ONE (08:30)
[2022-01-13] MEDS: MAGNESIUM SULFATE / D5W 1 GM/100 ML BAG IV SCH ×2 (08:50→11:09)
[2022-01-13] MEDS ORDERED: BUMETANIDE 1 MG TAB PO SCH (09:00)
--- NOTE | 2022-01-13 10:35 | Hospitalist Progress Note ---
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 Moon (POD#5) On current abx regimen of: IV linezolid (d/t uptrending creatinine as she was previously on Vancomycin), cefepime and oral Flagyl Unfortunately no culture data collected to guide treatment Blood cultures drawn, NGTD Appreciate wound care nurse assistance. Wound VAC applied January 10. Offload pressure, specialty mattress Today diaz day #8 of abx therapy, would think 10 days total would suffice based on appearance of wound and surrounding tissue Could be transitioned to oral course upon dc as there is no evidence of osteo Will examine with gatekeeper when vac changed (anticipate it will be changed on 01/14) (2) Urinary retention: Plan: Required straight cath 3 times overnight Residual 418 mL reported by nursing Bazzi placed and patient has been started on Flomax Myrbetriq stopped as this could be contributing to her retention Documented that patient follows with [facility] [place] urology, however I see no notes in the chart from them * May require urology follow-up upon discharge Collect a UA with reflex culture (3) Acute kidney injury: Plan: Creatinine has trended upward again to 1.6 on January 09. Linezolid replaces vancomycin to avoid nephrotoxicity IV fluids ordered and labs repeated Creatinine has normalized and IV fluids were stopped (4) Diabetes: Plan: Maintain carb consistent diet Last ha1c was 5.4% on 01/07 Takes no diabetic medications, appears diet controlled (5) Dementia: Plan: Continue Aricept and Namenda No delirium (6) Chronic diastolic congestive heart failure: Plan: Typically takes Bumex 0.5 mg on MWF which is currently on hold May have an acute on chronic component of CHF, positive fluid balance, Bumex on hold, recent IV fluids and has wheezing on exam CXR demonstrated PVC, dose of IV Bumex 1mg given for a/c biventricular chf, monitor output Change Duonebs to q4h prn dyspnea/wheezing (7) Hypertension: Plan: Blood pressure has been running low-normal (100s systolic) Continue losartan and hydralazine Adjust Hydralazine to 25mg BID and monitor BP with that change (8) DVT (deep venous thrombosis): Plan: Prophylaxis ordered with Lovenox Plan: PT/OT have assessed patient and are recommending rehab upon discharge prior to returning home. Patient does live at home with her son. Referrals have been sent according to last case management note. Although she is medically stable for d/c, she will remain in house over the weekend due to the holiday and can likely go to rehab on Thursday pending bed availability +/- insurance authorization. Will d/w attending. Admission and Anticipated Discharge Date Admission Date: January 06, 2022 Subjective Patient seen on daily rounds this morning, verbalizes no complaints or concerns. Wound VAC in place. Denies fever, chills, pain, chest pain, shortness of breath, nausea or vomiting. Bazzi in place due to urinary retention. Review of Systems Review of Systems: All systems reviewed and are unremarkable except as noted in HPI and below. Denies fever, chills, fatigue, headache, nasal congestion, sore throat, cough, chest pain, shortness of breath, palpitations, orthopnea, PND, abdominal pain, n/v/d, constipation, dysuria, hematuria, frequency, back pain, joint pain or swelling, easy bruising or bleeding, skin lesions or rashes. Physical Exam Physical Exam: GENERAL: 86 yo WD/WN elderly WF. NAD. LUNGS: Crackles LLL, no wheezes or rhonchi CARDIOVASCULAR: Regular rate and rhythm. 2/6 DALI. ABDOMEN: Soft, non-tender and non-distended. BS normoactive x 4 quad. EXTREMITIES: No edema. Non-tender. Peripheral pulses +2/4. NEUROLOGIC: A&O x3. PSYCHIATRIC: Cooperative. Appropriate mood and affect. SKIN: Warm, dry, intact. No rashes or lesions. Sacral wound with wound vac in place. Not examined today. Results & Data Results & Data ([facility]) Vital Signs (Past 12 Hours) Vital Signs Temp Pulse Resp BP Pulse Ox 01/13/22 10:21 63 20 97 01/13/22 08:23 36.8 C 69 14 112/64 98 01/13/22 07:46 65 18 89 L 01/12/22 23:23 37.1 C 72 20 116/69 95 Laboratory Results 01/13/22 06:51 01/13/22 06:51 Diagnostic Findings Chest X-Ray 01/12/22 14:43 SINGLE VIEW CHEST CLINICAL HISTORY: Wheezing. Nausea. FINDINGS: An AP, portable, upright chest radiograph is compared to study dated 01/06/2022. The examination is degraded by portable technique and patient rotation. The patient is status post midline sternotomy. The heart is enlarged n oting atherosclerotic calcification of the thoracic aorta. There is pulmonary vessel congestion. There is a left pleural effusion with left basilar consolidation. Trace pleural effusion is also suspected on the right. No pneumothorax is seen. The skeletal structures are osteopenic. The bony thorax is grossly intact. Degenerative change and scoliosis are noted in the thoracic spine. IMPRESSION: 1. Cardiomegaly with pulmonary vascular congestion. 2. Left pleural effusion with left basilar consolidation. This is similar to previous. 3. There is also likely a trace right pleural effusion. ACT 112: Negative or not required by law. Electronically signed by: Bronson Gusman M.D. 01/12/2022 3:47 PM PG Care Time/CCT Total # of Minutes Spent Total Time Spent with Patient: Total time spent is greater than 50% in coordination of care (as documented) at patient's floor/unit and/or counseling patient: Coding Level of Care Code 62179 Subseq Hosp Care Lvl 2 Diagnoses Sacral wound S31.000A Urinary retention R33.9 Acute kidney injury N17.9 Diabetes E11.9 Dementia F03.90 Chronic diastolic congestive heart failure I50.32 Hypertension I10 DVT (deep venous thrombosis) I82.409
[2022-01-13 15:39] LABS: Appearance Urine Turbid (Clear); Bacteria Urine Automated Negative (Negative); Bilirubin Urine Negative (Negative); Blood Urine Negative (Negative); Color Urine Dark Yellow; Epithelial Cell Urine Auto >30 /lpf (0-5); Glucose Urine UA Negative (Negative); Ketones Urine Trace (Negative); Leukocyte Esterase Urine 3+ (Negative); Nitrite Urine Positive (Negative); Protein Urine 1+ (Negative); Specific Gravity Urine 1.018 (1.000-1.030); Urobilinogen Urine Negative (Negative); WBC Urine Automated >30 /hpf (0-5)
[2022-01-13 15:58] LABS: RBC Urine Automated 0-4 /hpf (0-4)
[2022-01-13] MEDS: DONEPEZIL HCL 10 MG TAB PO SCH (16:14)
[2022-01-13] MEDS: ATORVASTATIN 40 MG TAB PO SCH (20:11)
[2022-01-13] MEDS: TAMSULOSIN HCL 0.4 MG CAP PO SCH (20:11)
[2022-01-13] MEDS: hydrALAZINE HCL 25 MG TAB PO SCH (20:12)
[2022-01-13] MEDS: MONTELUKAST SODIUM 10 MG TABLET PO SCH (20:12)
[2022-01-14] MEDS: LINEZOLID 600 MG/300 ML BAG IV SCH (00:05)
[2022-01-14] MEDS: ALBUT/IPRATROP 3MG/0.5MG NEB 3 ML VIAL NEB SCH ×4 (07:15→20:59)
[2022-01-14 07:18] LABS: Basophils # (auto) 0.01 K/uL (0-0.2); Basophils % (auto) 0.1 %; Eosinophils # (auto) 0.14 K/uL (0-0.5); Eosinophils % (auto) 1.4 %; Hematocrit (blood only) 26.1 % (37-47); Hemoglobin 9.2 g/dL (12.0-16.0); Immature Granulocytes # (auto) 0.03 K/uL (0.00-0.02); Immature Granulocytes % (auto) 0.3 %; Lymphocytes # (auto) 1.02 K/uL (1.2-3.4); Lymphocytes % (auto) 10.2 %; Mean Corpuscular Hemoglobin 34.3 pg (25-34); Mean Corpuscular Hgb Conc 35.2 g/dL (32-36); Mean Corpuscular Volume 97.4 fL (80-100); Mean Platelet Volume 8.9 fL (7.4-10.4); Monocytes # (auto) 1.08 K/uL (0.11-0.59); Monocytes % (auto) 10.8 %; Neutrophils # (auto) 7.73 K/uL (1.4-6.5); Neutrophils % (auto) 77.2 %; Nucleated RBC # (auto) 0.06 K/uL (0-0); Nucleated RBC % (auto) 0.6 %; Platelet Count 318 K/uL (130-400); RDW Coefficient of Variation 18.1 % (11.5-14.5); RDW Standard Deviation 60.9 fL (36.4-46.3); Red Blood Count 2.68 M/uL (4.2-5.4); White Blood Count 10.01 K/uL (4.8-10.8)
[2022-01-14 07:49] LABS: BUN Creatinine Ratio 26.4 (10-20); Calcium 8.5 mg/dl (8.5-10.1); Creatinine Clr Calc Pharmacy 27.1 ml/min; Est GFR (African American) 42.8 ml/min; Est GFR (Non-African American) 36.9 ml/min
[2022-01-14] MEDS: MEMANTINE HCL 5 MG TAB PO SCH ×2 (08:44→22:19)
[2022-01-14] MEDS: LOSARTAN POTASSIUM 50 MG TAB PO SCH (08:44)
[2022-01-14] MEDS: RANOLAZINE 500 MG ER TAB PO SCH ×2 (08:44→22:19)
[2022-01-14] MEDS: DOCUSATE SODIUM 100 MG CAP PO SCH ×2 (08:44→22:19)
[2022-01-14] MEDS: ASPIRIN 81 MG ECTAB PO SCH (08:44)
[2022-01-14] MEDS: PANTOprazole 40 MG TAB PO SCH (08:45)
[2022-01-14] MEDS: ENOXAPARIN INJ 30 MG/0.3 ML SYR SQ SCH (08:45)
[2022-01-14] MEDS: OMEGA-3 (PURIFIED FISH OIL) 1 GM CAP PO SCH (08:45)
[2022-01-14] MEDS: hydrALAZINE HCL 25 MG TAB PO SCH (08:46)
[2022-01-14] MEDS: POLYETHYLENE (MIRALAX) 17 GM PACK PO SCH (08:46)
[2022-01-14] MEDS: ISOSORBIDE MONO EXTENDED REL 30 MG TABCR PO SCH (08:46)
--- NOTE | 2022-01-14 13:00 | Hospitalist Progress Note ---
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 Moon (POD#6) On current abx regimen of: IV linezolid (d/t uptrending creatinine as she was previously on Vancomycin), cefepime and oral Flagyl Unfortunately no culture data collected to guide treatment Blood cultures drawn, NGTD Appreciate wound care nurse assistance. Wound VAC applied January 10. Offload pressure, specialty mattress Today diaz day #9 of abx therapy, would think 10 days total would suffice based on appearance of wound and surrounding tissue Could be transitioned to oral course upon dc as there is no evidence of osteo Dressing changed by wound care team on 01/14, maintain irrigating wound vac and plan to change to regular vac when bed available at SNF (2) Urinary retention: Plan: Required straight cath 3 times overnight Residual 418 mL reported by nursing Bazzi placed and patient has been started on Flomax Myrbetriq stopped as this could be contributing to her retention Documented that patient follows with [facility] [place] urology, however I see no notes in the chart from them * May require urology follow-up upon discharge Collected a UA which appears infected with positive nitrite and 3+ leukocyte esterase Culture pending, already on abx therapy for sacral wound (Cefepime, Zyvox, Flagyl) (3) Acute kidney injury: Plan: Creatinine trended upward to 1.6 on January 09. Linezolid replaces vancomycin to avoid nephrotoxicity IV fluids ordered and labs repeated Creatinine normalized and IV fluids were stopped (4) Diabetes: Plan: Maintain carb consistent diet Last ha1c was 5.4% on 01/07 Takes no diabetic medications, appears diet controlled (5) Dementia: Plan: Continue Aricept and Namenda No delirium (6) Chronic diastolic congestive heart failure: Plan: Typically takes Bumex 0.5 mg on MWF which is currently on hold May have an acute on chronic component of CHF, positive fluid balance, Bumex on hold, recent IV fluids and has wheezing on exam CXR demonstrated PVC, dose of IV Bumex 1mg given for a/c biventricular chf, monitor output Continue Duonebs q6h scheduled d/t diffuse wheezing (7) Hypertension: Plan: Blood pressure has been running low-normal (100s systolic) Continued on losartan 100mg daily and hydralazine (dose recently adjusted to 25mg BID)--bp still running low with that Stop Hydralazine (8) DVT (deep venous thrombosis): Plan: Prophylaxis ordered with Lovenox Plan: PT/OT have assessed patient and are recommending rehab upon discharge prior to returning home. Patient does live at home with her son. Referrals have been sent according to last case management note. Although she is medically stable for d/c, she continues to remain in the hospital waiting for an available rehab bed. Son updated via phone. Plan d/w attending. Admission and Anticipated Discharge Date Admission Date: January 06, 2022 Subjective Patient seen on daily rounds this morning, verbalizes no complaints or concerns. Irrigating wound VAC in place, dressing changed today by financial systems administrator. Asking when she can go home. Mild cough noted. Review of Systems Review of Systems: All systems reviewed and are unremarkable except as noted in HPI and below. Reliability uncertain given her underlying dementia. Denies fever, chills, fatigue, headache, nasal congestion, sore throat, chest pain, shortness of breath, palpitations, orthopnea, PND, abdominal pain, n/v/d, constipation, hematuria, back pain, joint pain or swelling, easy bruising or bleeding. Physical Exam Physical Exam: GENERAL: 86 yo WD/WN elderly WF. NAD. LUNGS: Scattered mild expiratory wheezes with fine bibasilar crackles. CARDIOVASCULAR: Regular rate and rhythm. 2/6 DALI. ABDOMEN: Soft, non-tender and non-distended. BS normoactive x 4 quad. EXTREMITIES: No edema. Non-tender. Peripheral pulses +2/4. NEUROLOGIC: A&O x3. PSYCHIATRIC: Cooperative. Appropriate mood and affect. SKIN: Warm, dry, intact. No rashes or lesions. Large wound noted to left upper buttocks region, bone easily palpated. moderate slough present, surrounding edges of wound with pink granular tissue observed. Results & Data Results & Data ([facility]) Vital Signs (Past 12 Hours) Vital Signs Temp Pulse Resp BP Pulse Ox 01/14/22 10:36 68 16 97 01/14/22 07:16 36.5 C 69 16 104/57 L 97 01/14/22 07:15 69 17 97 Laboratory Results 01/14/22 06:38 01/14/22 06:38 PG Care Time/CCT Total # of Minutes Spent Total Time Spent with Patient: Total time spent is greater than 50% in coordination of care (as documented) at patient's floor/unit and/or counseling patient: Coding Level of Care Code 86313 Subseq Hosp Care Lvl 2 Diagnoses Sacral wound S31.000A Urinary retention R33.9 Acute kidney injury N17.9 Diabetes E11.9 Dementia F03.90 Chronic diastolic congestive heart failure I50.32 Hypertension I10 DVT (deep venous thrombosis) I82.409
[2022-01-14] MEDS ORDERED: LINEZOLID CONSULT ACTIVE PRN (13:09)
[2022-01-14] MEDS: LINEZOLID 600 MG TAB PO SCH (15:06)
[2022-01-14] MEDS: metroNIDAZOLE 500 MG TAB PO SCH ×2 (15:06→22:20)
[2022-01-14] MEDS: CEFEPIME 2,000 MG in SYRINGE 0 ML IV SCH (15:06)
[2022-01-14 16:13] LABS: Urine Potassium 18.9 mmol/L
[2022-01-14] MEDS: DONEPEZIL HCL 10 MG TAB PO SCH (18:41)
[2022-01-14] MEDS: ATORVASTATIN 40 MG TAB PO SCH (22:19)
[2022-01-14] MEDS: TAMSULOSIN HCL 0.4 MG CAP PO SCH (22:19)
[2022-01-14] MEDS: MONTELUKAST SODIUM 10 MG TABLET PO SCH (22:19)
[2022-01-15] MEDS: LINEZOLID 600 MG TAB PO SCH ×2 (06:09→16:49)
[2022-01-15] MEDS: ONDANSETRON INJ 2 MG/ML 2 ML VIAL IV PRN (06:21)
[2022-01-15 06:43] LABS: Creatinine Clr Calc Pharmacy 29.2 ml/min; Est GFR (African American) 46.7 ml/min; Est GFR (Non-African American) 40.3 ml/min
[2022-01-15] MEDS: ALBUT/IPRATROP 3MG/0.5MG NEB 3 ML VIAL NEB SCH ×4 (07:25→20:23)
[2022-01-15] MEDS: POLYETHYLENE (MIRALAX) 17 GM PACK PO SCH (08:12)
[2022-01-15] MEDS: ENOXAPARIN INJ 30 MG/0.3 ML SYR SQ SCH (08:12)
[2022-01-15] MEDS: DOCUSATE SODIUM 100 MG CAP PO SCH ×2 (08:12→21:45)
[2022-01-15] MEDS: RANOLAZINE 500 MG ER TAB PO SCH ×2 (08:12→21:45)
[2022-01-15] MEDS: ISOSORBIDE MONO EXTENDED REL 30 MG TABCR PO SCH (08:13)
[2022-01-15] MEDS: PANTOprazole 40 MG TAB PO SCH (08:13)
[2022-01-15] MEDS: MEMANTINE HCL 5 MG TAB PO SCH ×2 (08:13→21:45)
[2022-01-15] MEDS: OMEGA-3 (PURIFIED FISH OIL) 1 GM CAP PO SCH (08:13)
[2022-01-15] MEDS: metroNIDAZOLE 500 MG TAB PO SCH ×3 (08:13→21:45)
[2022-01-15] MEDS: ASPIRIN 81 MG ECTAB PO SCH (08:13)
[2022-01-15] MEDS: LOSARTAN POTASSIUM 50 MG TAB PO SCH (08:13)
[2022-01-15 09:27] LABS: BUN Creatinine Ratio 27.3 (10-20); Calcium 8.6 mg/dl (8.5-10.1); Creatinine Clr Calc Pharmacy 28.9 ml/min; Est GFR (African American) 46.3 ml/min; Est GFR (Non-African American) 39.9 ml/min; Potassium 4.2 mmol/L (3.5-5.1)
[2022-01-15] MEDS: CEFEPIME 2,000 MG in SYRINGE 0 ML IV SCH (13:31)
--- NOTE | 2022-01-15 14:08 | Hospitalist Progress Note ---
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 Moon (POD#[id number]) On current abx regimen of: IV linezolid (d/t uptrending creatinine as she was previously on Vancomycin), cefepime and oral Flagyl Unfortunately no culture data collected to guide treatment Blood cultures drawn, NGTD Appreciate wound care nurse assistance. Wound VAC applied January 10. Offload pressure, specialty mattress Today diaz day #10 of abx therapy. 10 day course would suffice based on appearance of wound and surrounding tissue Dressing changed by wound care team on 01/14, maintain irrigating wound vac and plan to change to regular vac when bed available at [facility] on 01/17 (2) Urinary retention: Plan: Required straight cath multiple times overnight 01/10 to 01/11 Residual 418 mL reported by nursing on 01/11 Hardwick placed and patient started on Flomax Myrbetriq stopped as this could be contributing to her retention Documented that patient follows with [facility] urology, however I see no notes in the chart from them * May require urology follow-up upon discharge Collected a UA which appears infected with positive nitrite and 3+ leukocyte esterase Culture growing 2 different kinds of yeast, which is somewhat anticipate in someone who has been on antibiotics, but will treat with a 7 day course of Diflucan Can refer back to urology for follow up as outpatient and voiding trial (3) Acute kidney injury: Plan: Creatinine trended upward to 1.6 on January 09. Linezolid replaces vancomycin to avoid nephrotoxicity IV fluids ordered and labs repeated Creatinine normalized and IV fluids were stopped (4) Diabetes: Plan: Maintain carb consistent diet Last ha1c was 5.4% on 01/07 Takes no diabetic medications, appears diet controlled (5) Dementia: Plan: Continue Aricept and Namenda No delirium (6) Chronic diastolic congestive heart failure: Plan: Typically takes Bumex 0.5 mg on MWF which is currently on hold May have an acute on chronic component of CHF, positive fluid balance, Bumex on hold, recent IV fluids and has wheezing on exam CXR demonstrated PVC, dose of IV Bumex 1mg given for a/c biventricular chf, monitor output Continue Duonebs q6h scheduled d/t diffuse wheezing Resume Bumex 0.5mg on MWF as rx'd at home (7) Hypertension: Plan: Blood pressure has been running low-normal (100s systolic) Continued on losartan 100mg daily and hydralazine (dose recently adjusted to 25mg BID)--bp still running low with that Stopped Hydralazine on 01/14 (8) DVT (deep venous thrombosis): Plan: Prophylaxis ordered with Lovenox Plan: PT/OT have assessed patient and are recommending rehab upon discharge prior to returning home. Patient does live at home with her son. Referrals have been sent according to last case management note. Although she is medically stable for d/c, she continues to remain in the hospital waiting for an available rehab bed. Son updated via phone. Plan d/w Dr. Amado. Admission and Anticipated Discharge Date Admission Date: January 06, 2022 Subjective Patient seen on daily rounds this morning, verbalizes no complaints or concerns. Irrigating wound VAC in place, dressing changed 01/14 by service planner. Review of Systems Review of Systems: All systems reviewed and are unremarkable except as noted in HPI and below. Reliability uncertain given her underlying dementia. Denies fever, chills, fatigue, headache, nasal congestion, sore throat, chest pain, shortness of breath, palpitations, orthopnea, PND, abdominal pain, n/v/d, constipation, hematuria, back pain, joint pain or swelling, easy bruising or bleeding. Physical Exam Physical Exam: GENERAL: 86 yo WD/WN elderly WF. NAD. LUNGS: Mostly CTAB, diminished in bases CARDIOVASCULAR: Regular rate and rhythm. 2/6 DALI. ABDOMEN: Soft, non-tender and non-distended. BS normoactive x 4 quad. : hardwick in place EXTREMITIES: No edema. Non-tender. Peripheral pulses +2/4. NEUROLOGIC: A&O x3. PSYCHIATRIC: Cooperative. Appropriate mood and affect. SKIN: Warm, dry, intact. No rashes or lesions. Large wound noted to left upper buttocks region, bone easily palpated. moderate slough present, surrounding edges of wound with pink granular tissue observed. wound last examined with service planner on 01/14 Results & Data Results & Data ([facility]) Vital Signs (Past 12 Hours) Vital Signs Temp Pulse Resp BP Pulse Ox 01/15/22 11:03 75 18 95 06/01/22 07:27 36.5 C 61 16 111/72 97 01/15/22 07:25 73 16 96 Laboratory Results 01/14/22 06:38 01/15/22 05:33 PG Care Time/CCT Total # of Minutes Spent Total Time Spent with Patient: Total time spent is greater than 50% in coordination of care (as documented) at patient's floor/unit and/or counseling patient: Coding Level of Care Code 23659 Subseq Hosp Care Lvl 2 Diagnoses Sacral wound S31.000A Urinary retention R33.9 Acute kidney injury N17.9 Diabetes E11.9 Dementia F03.90 Chronic diastolic congestive heart failure I50.32 Hypertension I10 DVT (deep venous thrombosis) I82.409
[2022-01-15] MEDS ORDERED: FLUCONAZOLE 200 MG/100 ML BAG IV ONE (15:00)
[2022-01-15] MEDS: DONEPEZIL HCL 10 MG TAB PO SCH (16:49)
[2022-01-15] MEDS: TAMSULOSIN HCL 0.4 MG CAP PO SCH (21:45)
[2022-01-15] MEDS: MONTELUKAST SODIUM 10 MG TABLET PO SCH (21:45)
[2022-01-15] MEDS: ATORVASTATIN 40 MG TAB PO SCH (21:45)
[2022-01-16] MEDS: ALBUT/IPRATROP 3MG/0.5MG NEB 3 ML VIAL NEB SCH ×4 (07:56→19:40)
[2022-01-16 09:04] LABS: Basophils # (auto) 0.02 K/uL (0-0.2); Basophils % (auto) 0.3 %; Eosinophils % (auto) 1.3 %; Hematocrit (blood only) 27.7 % (37-47); Hemoglobin 9.4 g/dL (12.0-16.0); Immature Granulocytes # (auto) 0.03 K/uL (0.00-0.02); Immature Granulocytes % (auto) 0.4 %; Lymphocytes # (auto) 0.92 K/uL (1.2-3.4); Lymphocytes % (auto) 12.1 %; Mean Corpuscular Hemoglobin 34.1 pg (25-34); Mean Corpuscular Hgb Conc 33.9 g/dL (32-36); Mean Corpuscular Volume 100.4 fL (80-100); Mean Platelet Volume 8.6 fL (7.4-10.4); Monocytes # (auto) 0.77 K/uL (0.11-0.59); Monocytes % (auto) 10.2 %; Neutrophils # (auto) 5.74 K/uL (1.4-6.5); Neutrophils % (auto) 75.7 %; Nucleated RBC # (auto) 0.05 K/uL (0-0); Nucleated RBC % (auto) 0.7 %; Platelet Count 290 K/uL (130-400); RDW Coefficient of Variation 18.8 % (11.5-14.5); RDW Standard Deviation 65.3 fL (36.4-46.3); Red Blood Count 2.76 M/uL (4.2-5.4); White Blood Count 7.58 K/uL (4.8-10.8)
[2022-01-16 09:11] LABS: BUN Creatinine Ratio 25.4 (10-20); Calcium 8.5 mg/dl (8.5-10.1); Creatinine Clr Calc Pharmacy 30.7 ml/min; Est GFR (African American) 49.7 ml/min; Est GFR (Non-African American) 42.9 ml/min; Magnesium 2.1 mg/dl (1.7-2.4); Potassium 4.4 mmol/L (3.5-5.1)
[2022-01-16] MEDS: ASPIRIN 81 MG ECTAB PO SCH (09:23)
[2022-01-16] MEDS: DOCUSATE SODIUM 100 MG CAP PO SCH ×2 (09:23→21:55)
[2022-01-16] MEDS: ENOXAPARIN INJ 30 MG/0.3 ML SYR SQ SCH (09:23)
[2022-01-16] MEDS: OMEGA-3 (PURIFIED FISH OIL) 1 GM CAP PO SCH (09:24)
[2022-01-16] MEDS: ISOSORBIDE MONO EXTENDED REL 30 MG TABCR PO SCH (09:24)
[2022-01-16] MEDS: LOSARTAN POTASSIUM 50 MG TAB PO SCH (09:25)
[2022-01-16] MEDS: PANTOprazole 40 MG TAB PO SCH (09:25)
[2022-01-16] MEDS: MEMANTINE HCL 5 MG TAB PO SCH ×2 (09:25→21:52)
[2022-01-16] MEDS: RANOLAZINE 500 MG ER TAB PO SCH ×2 (09:26→21:52)
[2022-01-16] MEDS: POLYETHYLENE (MIRALAX) 17 GM PACK PO SCH (09:27)
[2022-01-16] MEDS: FLUCONAZOLE 100 MG TAB PO SCH (12:29)
--- NOTE | 2022-01-16 12:51 | Hospitalist Progress Note ---
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 Moon Empiric antibiotics: IV linezolid (d/t uptrending creatinine as she was previously on Vancomycin), cefepime and oral Flagyl Unfortunately no culture data collected to guide treatment (history of Morganella, MRSA, Bacteroides in buttock wound in the past) Blood cultures drawn, NGTD Appreciate wound care nurse assistance. Wound VAC applied January 10. Offload pressure, specialty mattress Completed full course of antibiotics on 01/15 Dressing changed by wound care team on 01/14, maintain irrigating wound vac and plan to change to regular vac when bed available at SNF (2) Urinary retention: Plan: Required straight cath multiple times overnight 01/10 to 01/11 Residual 418 mL reported by nursing on 01/11 Bazzi placed and patient started on Flomax Myrbetriq stopped as this could be contributing to her retention Documented that patient follows with [facility] urology, however I see no notes in the chart from them * May require urology follow-up upon discharge Collected a UA which appears infected with positive nitrite and 3+ leukocyte esterase Culture growing growing yeast not Anel albicans but also second organism of Anel albicans. Now on Diflucan X 7 days. Micro called to run final speciation and sensitivities Can refer back to urology for follow up as outpatient and voiding trial (3) Acute kidney injury: Plan: Creatinine trended upward to 1.6 on January 09. Linezolid replaces vancomycin to avoid nephrotoxicity Creatinine normalized to 1.14 with discontinuation of vancomycin and temporary IV fluids (4) Diabetes: Plan: Maintain carb consistent diet Last ha1c was 5.4% on 01/07 Takes no diabetic medications, appears diet controlled (5) Dementia: Plan: Continue Aricept and Namenda No delirium (6) Chronic diastolic congestive heart failure: Plan: Typically takes Bumex 0.5 mg on MWF-- held upfront Had mild uncompensated CHF with the IV fluids given and with holding of Bumex CXR demonstrated PVC, dose of IV Bumex 1mg given for a/c biventricular chf, monitor output Continue Duonebs q6h scheduled d/t diffuse wheezing Resumed Bumex 0.5mg on MWF as rx'd at home Seen on daily rounds 6/2 and CHF seems to be clinically compensated at this time (7) Hypertension: Plan: Blood pressure has been running low-normal (100s systolic) Continued on losartan 100mg daily and hydralazine (dose recently adjusted to 25mg BID)--bp still running low with that Stopped Hydralazine on 01/14 (8) DVT (deep venous thrombosis): Plan: Prophylaxis ordered with Lovenox Plan: PT/OT have assessed patient and are recommending rehab upon discharge prior to returning home. Patient does live at home with her son. Patient going to [facility]. They will have a bed available for her on Thursday. Maintain hospitalization until then. Plan to be d/w Dr. Amado. Admission and Anticipated Discharge Date Admission Date: January 06, 2022 Subjective Patient seen on daily rounds today. S/p I&D of sacral wound. Completed full course of antibiotics. [facility]waiting detention facility. Denies fevers, chills, chest pain, shortness of breath, abdominal pain, nausea or vomiting. Nursing voices no complaints or concerns. Review of Systems Review of Systems: All systems reviewed and are unremarkable except as noted in HPI and below Denies fevers, chills, headache, nasal congestion, sore throat, cough, chest pain, shortness of breath, palpitations, orthopnea, PND, abdominal pain, nausea, vomiting, diarrhea, constipation, dysuria, hematuria, frequency, back pain, joint pain or swelling, easy bruising or bleeding, skin lesions or rashes. Physical Exam Physical Exam: General: Resting comfortably in her hospital bed. NAD. HEENT: Head is AT/NC. Buccal mucosa is moist and pink Neck: No JVD. Negative hepatojugular reflex Cardiac: Irregular rhythm with controlled ventricular rate Lungs: CTA without W/R/R Abdomen: Normoactive X4. Soft and nontender in all quadrants. Extremities: No peripheral clubbing cyanosis or edema Neuro: A&O X4. Cranial nerves II through XII are grossly intact. No focal neuro deficits Skin: Sacral wound not assessed today. Wound nurse following Psych: Appropriate affect. Pleasant and cooperative Results & Data Results & Data ([facility]) Vital Signs (Past 12 Hours) Vital Signs Temp Pulse Resp BP Pulse Ox 01/16/22 11:06 71 16 95 01/16/22 09:21 66 108/70 01/16/22 08:09 37.2 C 58 L 16 119/71 95 01/16/22 07:56 68 18 95 Laboratory Results No lab data today PG Care Time/CCT Total # of Minutes Spent Total Time Spent with Patient: Total time spent is greater than 50% in coordination of care (as documented) at patient's floor/unit and/or counseling patient: Coding Level of Care Code 86093 Subseq Hosp Care Lvl 1 Diagnoses Sacral wound S31.000A Urinary retention R33.9 Acute kidney injury N17.9 Diabetes E11.9 Dementia F03.90 Chronic diastolic congestive heart failure I50.32 Hypertension I10 DVT (deep venous thrombosis) I82.409
--- NOTE | 2022-01-16 14:32 | Electrocardiogram Report ---
Test Reason : Blood Pressure : / mmHG Vent. 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
[2022-01-16] MEDS: DONEPEZIL HCL 10 MG TAB PO SCH (16:56)
[2022-01-16] MEDS: MONTELUKAST SODIUM 10 MG TABLET PO SCH (21:52)
[2022-01-16] MEDS: TAMSULOSIN HCL 0.4 MG CAP PO SCH (21:52)
[2022-01-16] MEDS: ATORVASTATIN 40 MG TAB PO SCH (21:52)
[2022-01-17] MEDS: ALBUT/IPRATROP 3MG/0.5MG NEB 3 ML VIAL NEB SCH ×4 (07:59→19:32)
[2022-01-17] MEDS ORDERED: BUMETANIDE 1 MG TAB PO SCH (09:00)
[2022-01-17] MEDS: FLUCONAZOLE 100 MG TAB PO SCH (09:51)
[2022-01-17] MEDS: ASPIRIN 81 MG ECTAB PO SCH (09:51)
[2022-01-17] MEDS: ISOSORBIDE MONO EXTENDED REL 30 MG TABCR PO SCH (09:51)
[2022-01-17] MEDS: LOSARTAN POTASSIUM 50 MG TAB PO SCH (09:52)
[2022-01-17] MEDS: OMEGA-3 (PURIFIED FISH OIL) 1 GM CAP PO SCH (09:52)
[2022-01-17] MEDS: DOCUSATE SODIUM 100 MG CAP PO SCH ×2 (09:52→20:21)
[2022-01-17] MEDS: PANTOprazole 40 MG TAB PO SCH (09:52)
[2022-01-17] MEDS: MEMANTINE HCL 5 MG TAB PO SCH ×2 (09:52→20:21)
[2022-01-17] MEDS: RANOLAZINE 500 MG ER TAB PO SCH ×2 (09:52→20:20)
[2022-01-17] MEDS: ENOXAPARIN INJ 30 MG/0.3 ML SYR SQ SCH (09:52)
[2022-01-17] MEDS: POLYETHYLENE (MIRALAX) 17 GM PACK PO SCH (10:27)
--- NOTE | 2022-01-17 16:48 | Hospitalist Progress Note ---
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 Moon Empiric antibiotics: IV linezolid (d/t uptrending creatinine as she was previously on Vancomycin), cefepime and oral Flagyl Unfortunately no culture data collected to guide treatment (history of Morganella, MRSA, Bacteroides in buttock wound in the past) Blood cultures drawn, NGTD Appreciate wound care nurse assistance. Wound VAC changed 01/10 Offload pressure, specialty mattress Completed full course of antibiotics on 01/15 Dressing changed by wound care team on 01/17--changed from irrigating wound VAC to regular wound VAC as plan [facility] (2) Urinary retention: Plan: Required straight cath multiple times overnight 01/10 to 01/11 Residual 418 mL reported by nursing on 01/11 Bazzi placed and patient started on Flomax Myrbetriq stopped as this could be contributing to her retention Documented that patient follows with [facility] urology, however I see no notes in the chart from them * May require urology follow-up upon discharge Collected a UA which appears infected with positive nitrite and 3+ leukocyte esterase Culture growing growing yeast not Anel albicans but also second organism of Anel albicans. Now on Diflucan X 7 days. Micro called to run final speciation and sensitivities Can refer back to urology for follow up as outpatient and voiding trial Would keep Bazzi catheter in place for now given the large sacral wound (3) Acute kidney injury: Plan: Creatinine trended upward to 1.6 on January 09. Linezolid replaces vancomycin to avoid nephrotoxicity Creatinine normalized to 1.14 with discontinuation of vancomycin and temporary IV fluids (4) Diabetes: Plan: Maintain carb consistent diet Last ha1c was 5.4% on 01/07 Takes no diabetic medications, appears diet controlled (5) Dementia: Plan: Continue Aricept and Namenda No delirium (6) Chronic diastolic congestive heart failure: Plan: Typically takes Bumex 0.5 mg on MWF-- held upfront Had mild uncompensated CHF with the IV fluids given and with holding of Bumex CXR demonstrated PVC, dose of IV Bumex 1mg given for a/c biventricular chf, monitor output Continue Duonebs q6h scheduled d/t diffuse wheezing Resumed Bumex 0.5mg on MWF as rx'd at home Seen on daily rounds 01/16 and CHF seems to be clinically compensated at this time (7) Hypertension: Plan: Blood pressure has been running low-normal (100s systolic) Continued on losartan 100mg daily and hydralazine (dose recently adjusted to 25mg BID)--bp still running low with that Stopped Hydralazine on 01/14 (8) DVT (deep venous thrombosis): Plan: Prophylaxis ordered with Lovenox Plan: PT/OT have assessed patient and are recommending rehab upon discharge prior to returning home. Patient does live at home with her son. Patient going to [facility]. They will have a bed available for her on Thursday. Maintain hospitalization until then. Plan to be d/w Dr. Amado. Admission and Anticipated Discharge Date Admission Date: January 06, 2022 Subjective Patient seen on daily rounds today. Vocalizes no significant complaints or concerns. Denies fevers, chills, chest pain, shortness of breath, abdominal pain, nausea or vomiting. Review of Systems Review of Systems: ? reliability All systems reviewed and are unremarkable except as noted in HPI and below Denies fevers, chills, headache, nasal congestion, sore throat, cough, chest pain, shortness of breath, palpitations, orthopnea, PND, abdominal pain, nausea, vomiting, diarrhea, constipation, dysuria, hematuria, frequency, back pain, joint pain or swelling, easy bruising or bleeding, skin lesions or rashes. Physical Exam Physical Exam: General: Resting comfortably in her hospital bed. NAD. HEENT: Head is AT/NC. Buccal mucosa is moist and pink Neck: No JVD. Negative hepatojugular reflex Cardiac: Irregular rhythm with controlled ventricular rate Lungs: CTA without W/R/R Abdomen: Normoactive X4. Soft and nontender in all quadrants. Extremities: No peripheral clubbing cyanosis or edema Neuro: A&O X4. Cranial nerves II through XII are grossly intact. No focal neuro deficits Skin: Sacral wound assessed. There seems to be a polyp-like lesion at the base of the wound when evaluated with the wound nurse. Otherwise the wound seems stable. No drainage. There does not appear to be significant concern with this polyp-like lesion Psych: Appropriate affect. Pleasant and cooperative Results & Data Results & Data ([facility]) Vital Signs (Past 12 Hours) Vital Signs Temp Pulse Resp BP Pulse Ox 01/17/22 16:25 36.5 C 66 16 115/75 96 01/17/22 15:38 76 16 96 01/17/22 11:29 71 18 96 01/17/22 07:59 55 L 18 96 01/17/22 07:33 36.6 C 65 16 129/74 95 Laboratory Results 01/16/22 08:39 01/16/22 08:39 PG Care Time/CCT Total # of Minutes Spent Total Time Spent with Patient: Total time spent is greater than 50% in coordination of care (as documented) at patient's floor/unit and/or counseling patient: Coding Level of Care Code 04920 Subseq Hosp Care Lvl 1 Diagnoses Sacral wound S31.000A Urinary retention R33.9 Acute kidney injury N17.9 Diabetes E11.9 Dementia F03.90 Chronic diastolic congestive heart failure I50.32 Hypertension I10 DVT (deep venous thrombosis) I82.409
[2022-01-17] MEDS: DONEPEZIL HCL 10 MG TAB PO SCH (18:11)
[2022-01-17] MEDS: TAMSULOSIN HCL 0.4 MG CAP PO SCH (20:21)
[2022-01-17] MEDS: MONTELUKAST SODIUM 10 MG TABLET PO SCH (20:21)
[2022-01-17] MEDS: ATORVASTATIN 40 MG TAB PO SCH (20:21)
[2022-01-18] MEDS: ACETAMINOPHEN 325 MG TAB PO PRN (04:40)
[2022-01-18] MEDS: ALBUT/IPRATROP 3MG/0.5MG NEB 3 ML VIAL NEB SCH (07:53)
[2022-01-18] MEDS: MEMANTINE HCL 5 MG TAB PO SCH (09:24)
[2022-01-18] MEDS: RANOLAZINE 500 MG ER TAB PO SCH (09:24)
[2022-01-18] MEDS: PANTOprazole 40 MG TAB PO SCH (09:25)
[2022-01-18] MEDS: OMEGA-3 (PURIFIED FISH OIL) 1 GM CAP PO SCH (09:25)
[2022-01-18] MEDS: FLUCONAZOLE 100 MG TAB PO SCH (09:25)
[2022-01-18] MEDS: ISOSORBIDE MONO EXTENDED REL 30 MG TABCR PO SCH (09:25)
[2022-01-18] MEDS: DOCUSATE SODIUM 100 MG CAP PO SCH (09:25)
[2022-01-18] MEDS: ENOXAPARIN INJ 30 MG/0.3 ML SYR SQ SCH (09:26)
[2022-01-18] MEDS: LOSARTAN POTASSIUM 50 MG TAB PO SCH (09:26)
[2022-01-18] MEDS: ASPIRIN 81 MG ECTAB PO SCH (09:26)
[2022-01-18] MEDS: POLYETHYLENE (MIRALAX) 17 GM PACK PO SCH (09:27)
[2022-01-18] MEDS: ONDANSETRON INJ 2 MG/ML 2 ML VIAL IV PRN (10:55)
--- NOTE | 2022-01-18 12:02 | Discharge Summary ---
Date of Service January 18, 2022 Admission HPI Per Admitting Provider Nubia is an 86 y/o female w/ PmHx of dementia, DM, HFpEF w/ EF 60-65% 03/2019, CAD, PAD, DVT, HTN, paroxysmal atrial fibrillation who presented to the ED w/ a three-week history of left sacral ulcer and a one-week history of confusion and poor appetite. Son and tunnel kiln repairer at home, Ruddy, at the bedside and provides most of the history for the patient. Nubia has developed a left sacral ulcer according to the son that's been there 3-4 weeks and gotten bigger throughout. They went to her PCP office for the ulcer and were given a referral to wound care clinic for follow up. They were never able to hear anything from wound care clinic and when the home nurse visited and took a look at the wound she called the patient's PCP to let her know of the progress and was recommended to come to the ED. Son said he usually changes the dressing ontop of the wound everyday and uses santyl as well. She has not been having any pain at rest at the sacral wound site except with direct pressure or movement. Son endorses some foul s melling odor from the wound. He endorses his mother also having some confusion over the past week. She usually asks simple questions such as "what is that" or "is that a tree" but has had unusual questions not like her usual self in the past week. He also notes she has had poor PO intake and appetite, only drinking about 4oz of water throughout the entire weekend. He voiced some concern for possible regurgitation after drinking or eating over the past year. She drinks soda for example, and then will regurgitate a sandwich she just ate. Denies any fevers, chills, nausea, vomiting, diarrhea, headaches, changes in vision or hearing, weakness, numbness tingling, shortness of breath (although some shortness of breath noted by son at / PCP appointment and given inhaler with resolution). Principal Diagnosis 1. Sepsis syndromeresolved (secondary to sacral wound) 2. Sacral woundcompleted antibiotics, now need continued wound care 3. Urinary retentioncontinue indwelling Bazzi catheter 4. AKIresolved Discharge Exam General: Resting comfortably in her hospital bed. NAD. HEENT: Head is AT/NC. Buccal mucosa is moist and pink Neck: No JVD. Negative hepatojugular reflex Cardiac: Irregular rhythm with controlled ventricular rate Lungs: CTA without W/R/R Abdomen: Normoactive X4. Soft and nontender in all quadrants. Extremities: No peripheral clubbing cyanosis or edema Neuro: A&O X3. Cranial nerves II through XII are grossly intact. No focal neuro deficits Skin: Sacral wound not assessed today (last assessed on 01/17 with wound nurse) Psych: Appropriate affect. Pleasant and cooperative Discharge Data Allergies Allergy/AdvReac Type Severity Reaction Status Date / Time ampicillin Allergy Intermediate RASH, HIVES Verified 01/06/22 18:22 furosemide Allergy Intermediate SHORTNESS Verified 01/06/22 18:22 OF BREATH,throat itching apixaban Allergy Unknown UNKNOWN Verified 01/06/22 18:22 cyclobenzaprine Allergy Unknown Unknown rxn Verified 01/06/22 18:22 ibuprofen Allergy Unknown UNKNOWN Verified 01/06/22 18:22 lisinopril Allergy Unknown UNKNOWN Verified 01/06/22 18:22 methylprednisolone Allergy Unknown UNKNOWN Verified 01/06/22 18:22 propoxyphene Allergy Unknown UNKNOWN Verified 01/06/22 18:22 tramadol Allergy Unknown UNKNOWN Verified 01/06/22 18:22 EPIDURAL STEROID INJECTIONS Allergy Unknown Unknown Uncoded 01/06/22 18:22 SOAPCLEAN AdvReac Mild Changing Uncoded 01/06/22 18:22 wipe - itchy rash Consultations 01/06/22 19:38 ED Decision to Admit Stat 01/07/22 11:52 Consult General Surgery Routine Procedures Performed Operation Date: 01/08/22 07:15 Actual Procedures p Debridement of Sacral Wound(Not Applicable) - Vimal Moon, , FACS Ordered Studies 01/06/22 17:42 CT abd pelvis IV con only Stat IMPRESSION: 1. Cardiomegaly with pulmonary vascular congestion. 2. Left pleural effusion with left basilar consolidation. This is similar to previous. 3. There is also likely a trace right pleural effusion. 01/09/22 13:30 FL video swallow Routine IMPRESSION: 1. No tracheal aspiration identified. Intact swallowing mechanism. 2. Esophageal dysmotility, at least moderate in degree. 3. Full recommendations by speech pathology to follow. 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 Moon Empiric antibiotics: IV linezolid (d/t uptrending creatinine as she was previously on Vancomycin), cefepime and oral Flagyl Unfortunately no culture data collected to guide treatment (history of Morganella, MRSA, Bacteroides in buttock wound in the past) Blood cultures drawn, NGTD Appreciate wound care nurse assistance. Wound VAC initially applied on 01/10 (irrigating wound vac) Offload pressure, specialty mattress Completed full course of antibiotics on 01/15 Dressing changed by wound care team on 01/17--changed from irrigating wound VAC to regular wound VAC. DC to SNF with continued wound care (see recommendations as outlined in discharge instructions--below) (2) Urinary retention: Required straight cath multiple times overnight 01/10 to 01/11 Residual 418 mL reported by nursing on 01/11 Bazzi placed and patient started on Flomax Myrbetriq stopped as this could be contributing to her retention Documented that patient [place] [facility], however I see no notes in t he chart from them * May require urology follow-up upon discharge Collected a UA which appears infected with positive nitrite and 3+ leukocyte esterase Culture growing growing yeast not Anel albicans but also second organism of Anel albicans. Now on Diflucan X 7 days. Micro called to run final speciation and sensitivities Can refer back to urology for follow up as outpatient and voiding trial Would keep Bazzi catheter in place for now given the large sacral wound Can initiate bladder training and removal of Bazzi catheter at discretion of house physician (3) Acute kidney injury: Creatinine trended upward to 1.6 on January 09. Linezolid replaces vancomycin to avoid nephrotoxicity Creatinine normalized to 1.14 with discontinuation of vancomycin and temporary IV fluids (4) Diabetes: Maintain carb consistent diet Last ha1c was 5.4% on 01/07 Takes no diabetic medications, appears diet controlled (5) Dementia: Continue Aricept and Namenda No delirium (6) Chronic diastolic congestive heart failure: Typically takes Bumex 0.5 mg on MWF-- held upfront Had mild uncompensated CHF with the IV fluids given and with holding of Bumex CXR demonstrated PVC, dose of IV Bumex 1mg given for a/c biventricular chf, monitor output Resumed Bumex 0.5mg on MWF as rx'd at home Seen on daily rounds 01/18 and CHF seems to be clinically compensated at this time (7) Hypertension: Blood pressure has been running low-normal (100s systolic) Continued on losartan 100mg daily and hydralazine (dose recently adjusted to 25mg BID)--bp still running low with that Stopped Hydralazine on 01/14 (8) DVT (deep venous thrombosis): Prophylaxis ordered with Lovenox while in house PT/OT have assessed patient and are recommending rehab upon discharge prior to returning home. Patient does live at home with her son. Patient going to [facility] and can accept her today. she is currently HD and ready for D/C with continued wound care mgmt. Plan d/w and patient seen and agreed upon by Dr. Amado. Total Time Total Time Spent Total Time Spent (In Minutes): 45 min including time spent with patient, discussion with case management, discussion with attending provider, coordination of care, and preparation of documentation Discharge Plan Discharge Items Patient Disposition: Transfer Detention Fac Reason For Visit: SEPSIS, SACRAL ULCER Discharge Diagnosis: 1. Sepsis syndromeresolved (secondary to sacral wound) 2. Sacral woundcompleted antibiotics, now need continued wound care 3. Urinary retentioncontinue indwelling Bazzi catheter 4. AKIresolved Condition on Discharge: Fair Activity: Resume your previous activity Non-emergency contact: Primary Care Provider and Surgeon Call non-emergency contact if: you have any medication questions and you have a fever Follow-up/Referrals: Melva Kamara DO [Primary Care Provider] - Diet: Carb Consistent or DM2 and Other - See Diet Comment Diet Comment: Easy to chew, slippery diet. Thin liquids. Extra sauces/gravy Addtl Attending Provider Instructions: Patient was hospitalized with sepsis related to a sacral wound. She has completed a full course of antibiotics and underwent I&D by Dr. Moon. Wound debrided down to bone. Has had an irrigating wound VAC in place with wound nurse following. Transition to regular wound VAC on 01/17. Wound care recommendations: Right hipcleanse area with saline. Cover with Optifoam. Change every 3 days and as needed Left buttock/sacrumwound VAC to wound. Trained nurse to apply wound VAC. Irrigate wound with saline. Apply Skin-Prep to periphery. Allow to dry. Apply drape to periphery and for bridging trac-pad to lateral hip. Cover bone in the wound base and Adaptic. Fill wound with black foam and bridge trac pad. Seal with drape set VAC to -125 mmHg continuous mode. If VAC fails and is unable to be repaired, remove all pieces of VAC dressing. Irrigate with saline. Lightly fill with Kaltostat, cover with Optifoam, change daily and as needed for drainage. Replace JACKIE. Right elbowOptifoam, change every 3 days and as needed for drainage Need to follow-up with wound nurse if available at your facility or wound clinic Bazzi catheter placed while in house due to urinary retention and to offset incontinence due to sacral wound. Now on Flomax. Can consider bladder training once appropriate (given healing of sacral wound). Can refer to urology as an outpatient if necessary. Also, given urinary retention, urine culture was obtained. No bacteria but 2 different colonies of yeast (1 Anel albicans, 1 not Anel). I have arranged for microbiology to send out final speciation and sensitivities on this but these are pending. This is a send out test and will not be back for ginny roximately 7 days. Patient is empirically on Diflucan. Would keep your eyes peeled for these results and treat accordingly Take medications as outlined. Follow-up with house physician within 24 to 48 hours Return to the ED for any new or worsening symptoms Pending Studies at Discharge: Yes Studies:: urine final (fungal) sensitivities Stand-Alone Forms: My [facility] Skilled Items Patient informed of condition?: Yes DNR: No Discharge Level of Care: Skilled Communicable Disease: No Discharge Prognosis: Stable Lines: None Urinary Catheter: Yes Medications and DC Order Prescriptions: New fluconazole 100 mg Tablet 100 mg PO QAM Qty: 4 RF: 0 tamsulosin 0.4 mg Capsule 0.4 mg PO HS Qty: 30 RF: 0 Continued calcium carbonate-vit D3-min 600 mg calcium- 400 unit tablet 1 tab PO DAILY RF: 0 aspirin 81 mg tablet,delayed release (DR/EC) 81 mg PO DAILY Qty: 90 RF: 1 isosorbide mononitrate 30 mg tablet extended release 24 hr 30 mg PO DAILY Qty: 90 RF: 1 memantine [Namenda] 5 mg tablet 5 mg PO BID Qty: 180 RF: 1 ranolazine [Ranexa] 1,000 mg tablet extended release 12 hr 1,000 mg PO BID Qty: 180 RF: 1 montelukast [Singulair] 10 mg tablet 10 mg PO PM Qty: 90 RF: 1 atorvastatin [Lipitor] 40 mg tablet 40 mg PO QPM Qty: 90 RF: 1 albuterol sulfate [Ventolin HFA] 90 mcg/actuation HFA aerosol inhaler See Rx Instructions inhalation .COMPLEX PRN (Reason: shortness of breath or wheezing) Qty: 18 RF: 0 omega-3 fatty acids-fish oil [Fish Oil] 360-1,200 mg capsule 1 cap PO DAILY RF: 0 polyethylene glycol 3350 [Miralax] 17 gram/dose powder 17 g PO DAILY RF: 0 bumetanide 0.5 mg tablet 0.5 mg PO .COMPLEX Qty: 36 RF: 3 multivitamin [Daily Multi-Vitamin] Tablet 1 tab PO DAILY RF: 0 acetaminophen [Tylenol] 325 mg Tablet 650 mg PO Q4 PRN (Reason: MILD PAIN 1-4/FEVER>100) RF: 0 esomeprazole magnesium [Nexium] 40 mg Capsule,Delayed Release(Dr/Ec) 40 mg PO DAILY RF: 0 nitroglycerin [Nitrostat] 0.4 mg Tablet, Sublingual 0.4 mg sublingual DIRECTED PRN (Reason: Chest Pain) RF: 0 docusate sodium [Colace] 100 mg Capsule 100 mg PO BID RF: 0 hydralazine 50 mg Tablet 50 mg PO BID RF: 0 losartan 100 mg Tablet 100 mg PO DAILY RF: 0 menthol-zinc oxide [Calmoseptine] 0.44-20.6 % ointment 1 applic TOPICAL BID PRN (Reason: Skin Irritation) RF: 0 donepezil [Aricept] 10 mg tablet 10 mg PO QDD RF: 0 Discontinued Myrbetriq 50 mg tablet extended release 24 hr 50 mg PO DAILY Qty: 90 RF: 1 sulfamethoxazole-trimethoprim [Bactrim DS] 800-160 mg tablet 1 tab PO BID 10 Days Qty: 20 RF: 0 Discharge Orders: Discharge Order (Routine); Ordered 01/18/22 Ordered By: Georgie Wilson Admission Data Admit Date/Time: 01/06/22 22:10 Attending Provider: Shai Amado Admit Provider: Cr Goddard Primary Care Provider: Melva Kamara Other Providers: Gustavo Woodard ; Ori Johansen [facility] ; Estevan Talbert ; Hebert Simon ; Salbador Watkins ; Rafa Oviedo ; Juan Carlos Laurent Jr ; Iván Jay ; Vimal Moon ; Nell Campa ; Jone Hernandez ; David Lazaro Other Interventions: Discharge Summary Assessment (RN) Last Done: 01/18/22 11:40 Coding Level of Care Code D/C DAY MANAGEMENT >30 MINS Diagnoses Sacral wound S31.000A Urinary retention R33.9 Acute kidney injury N17.9 Diabetes E11.9 Dementia F03.90 Chronic diastolic congestive heart failure I50.32 Hypertension I10 DVT (deep venous thrombosis) I82.409
== END 2022-01-18 15:01 | DRG 853 ==
LOC: ED 15:24 → 3N 22:10 → SUATTDRO 22:10 → 3N 01-07 01:09